=== PATIENT | male | born 1950 | race Caucasian/White ===

== ENCOUNTER 2019-05-16 10:28 | Emergency (ER) | payer MEDICARE, SELFPAY ==
--- NOTE | ~2019-05-16 | XR_ITS ---
EXAMINATION: XR chest 2V EXAM DATE: 05/16/2019 11:50 INDICATION: Dyspnea, pedal edema. TECHNIQUE: Frontal and lateral projections of the chest obtained and reviewed. Comparison is made to prior examination from 05/13/2018. FINDINGS: There is mild cardiomegaly. Pulmonary vascular congestion. Small pleural effusions. There is indistinct reticulation with a bibasal predominance which may indicate pulmonary edema. Findings a re consistent with mild CHF exacerbation, although with improved appearance compared to prior study. No pneumothorax. There is aortic arterial sclerosis. There are mild bony degenerative changes. IMPRESSION: Findings consistent with mild CHF exacerbation. Reviewed, dictated and finalized at location A. ORT DUTY MANAGER
[2019-05-16 10:39] VITALS: BP 127/73; PULSE 105; RESP 22; TEMP 36.6; O2SAT 85
[2019-05-16 10:49] VITALS: PULSE 90
--- NOTE | 2019-05-16 10:53 | ED.SOB ---
HPI - SOB/Dyspnea General Chief Complaint: Shortness of Breath/Dyspnea Stated Complaint: SOB Time Seen by Provider: 05/16/19 10:48 Source: patient and RN notes reviewed Mode of arrival: ambulatory Limitations: no limitations History of Present Illness HPI Narrative: Pt is a 69 y/o male who presents to the ED with c/o SOB which began prior to arrival to the ED. Pt reports he is currently on home oxygen, which alleviates his symptoms. Pt reports he is normally on 2 liters of oxygen, and with exertion, he requires 3-4 liters of oxygen. Pt states his oxygen saturation goes from the 70's to 95, once he is on his home oxygen. Pt also reports bilateral ankle edema. He reports his pattern drum maker, Dr. Sherman, who advised the pt to come to the ED to be evaluated due to possibility of CHF. MD elicited complaint: shortness of breath Onset (ago): hour(s) (prior to arrival) Context: occurred during exertion (and upon rest) Timing: improved Relieving factors: oxygen (home oxygen alleviates or improves his symptoms) Known history of: COPD Associated symptoms: other (bilateral ankle edema) Related Data Home Medications Medication Instructions Recorded Confirmed Novolog Mix 70-30 U-100 Insuln 30 unit SUBCUT BID 02/20/19 04/13/19 aspirin 81 mg PO DAILY 02/20/19 04/13/19 vitamin B complex [B 1,000 tablet PO DAILY 02/20/19 04/13/19 Complex-Vitamin B12] allopurinol 300 mg tablet 300 mg PO DAILY tablet 02/27/19 04/13/19 amlodipine 10 mg tablet 10 mg PO DAILY tablet 02/27/19 04/13/19 atorvastatin 10 mg tablet 10 mg PO DAILY tablet 02/27/19 04/13/19 digoxin 125 mcg (0.125 mg) tablet 125 mcg PO DAILY tablet 02/27/19 04/13/19 metoprolol tartrate 50 mg tablet 75 mg PO BID tablet 02/27/19 04/13/19 venlafaxine 150 mg 150 mg PO DAILY cap 02/27/19 04/13/19 capsule,extended release 24 hr warfarin 1 mg tablet 1 mg PO DAILY tablet 02/27/19 04/13/19 furosemide 40 mg tablet 60 mg PO BID tablet 03/20/19 04/13/19 Allergies Allergy/AdvReac Type Severity Reaction Status Date / Time No Known Allergies Allergy Verified 04/26/19 08:50 Review of Systems Review of Systems: All systems reviewed & are unremarkable except as noted in HPI and below Cardiovascular: Cardiovascular: Reports pedal edema (bilateral ankle edema) Respiratory: Respiratory: Reports dyspnea PMFSH Past Medical History Medical History (Updated 05/16/19 @ 13:00 by Nubia Nguyen MD) Atrial fibrillation Cholelithiasis Chronic atrial fibrillation Three failed cardioversions. He is on long-term anticoagulation. Chronic respiratory failure with hypoxia 2-3 L nasal cannula with rest, 3-4 L with activity. Dependence on nocturnal oxygen therapy Diabetes Diastolic congestive heart failure Echocardiogram 07/31/2018 showed diastolic dysfunction. Left ventricular size was normal with mild concentric left ventricular hypertrophy and increased left heart filling pressures with an estimated ejection fraction of 55%. Right ventricle was moderately enlarged with mild right ventricular hypokinesis. Dyslipidemia Erectile dysfunction Gout History of pancreatitis July 2016, secondary to passed common bile duct stone. Hyperlipidemia Hypertension Insulin dependent diabetes mellitus Hemoglobin A1c was 11.4 in January 2018. Obstructive sleep apnea Osteoarthritis Severe pulmonary arterial systolic hypertension Noted on echocardiogram 07/31/2018 with an estimated peak RVSP of 68 mmHg. Right ventricle was moderately enlarged with mild right ventricular hypokinesis. Sleep apnea Valvular heart disease Echocardiogram 07/31/2018 with [id number] tricuspid regurgitation and possible bicuspid aortic valve. Surgical History Surgical History Status post cataract extraction Social History Social History Social History: The patient lives in [place] with his . He designate
[2019-05-16 10:54] VITALS: BP 158/108; PULSE 89; RESP 20; O2SAT 100
--- NOTE | 2019-05-16 11:02 | ECG_ITS ---
Measurements Intervals [place] Rate: 105 P: [place]: 0 QRS: 184 QRSD: 90 T: 9 QT: 309 QTc: 410 Interpretive Statements ATRIAL FIBRILLATION WITH RAPID VENTRICULAR RESPONSE LIMB LEAD REVERSAL INCOMPLETE RIGHT BUNDLE BRANCH BLOCK ST-T WAVE ABNORMALITY IN ANTEROLATERAL LEADS- CONSIDER ISCHEMIA BASELINE ARTIFACT- I, II, III, AVR, AVL, AVF, V1 ABNORMAL ECG Electronically Signed On 05-16-2019 15:36:36 MOTOR ASSEMBLER by Da Dickey D.O.
[2019-05-16 11:19] LABS: Basophils Absolute Auto 0.1 K/mm3 (0.0-0.1); Basophils Percent Auto 0.6 % (0.2-1.2); Eosinophils Absolute Auto 0.3 K/mm3 (0-0.3); Eosinophils Percent Auto 3.5 % (0-4.4); Hematocrit 40.7 % (42.0-52.0); Hemoglobin 12.9 g/dL (14.0-18.0); Immature Granulocyte Absolute 0.04 K/mm3 (0.00-0.031); Immature Granulocyte Percent A 0.5 % (0-0.5); Lymphocytes Absolute Auto 1.05 K/mm3 (0.9-3.2); Lymphocytes Percent Auto 12.2 % (18.3-44.2); Mean Corpuscular HGB Conc 31.7 g/dl (32-36); Mean Corpuscular Volume 94.7 fl (80-100); Mean Platelet Volume 10.6 fl (7.4-10.4); Monocytes Absolute Auto 0.6 K/mm3 (0.1-0.6); Monocytes Percent Auto 7.3 % (2.6-8.5); Neutrophils Absolute Auto 6.5 K/mm3 (1.3-6.7); Neutrophils Percent Auto 75.9 % (45.5-73.1); Platelet Count Result 246 k/mm3 (150-375); Red Cell Distribution Width 14.5 % (11.5-14.5); White Blood Count 8.6 K/mm3 (4.5-10.0)
[2019-05-16 11:24] LABS: Alveolar/Arterial O2 Gradient 75.2 mmHg; Base Excess ABG 1.7 mEq/l (+/-2.0); Fractional Inspired Oxygen 28 %; HCO3 ABG 27.4 mEq/l (22.0-26.0); Oxygen Content ABG 17.3 %vol (16.0-22.0); Oxygen Saturation ABG 93.3 % (95.0-100.0); Oxyhemoglobin 91.6 % THb (90.0-100.0); PCO2 ABG 47.2 mmHg (35.0-45.0); PO2 ABG 68.7 mmHg (80.0-100.0); PO2 FiO2 Ratio Arterial Blood 2.45 %; Total Hemoglobin 13.4 g/dL (12.0-18.0); pH ABG 7.381 (7.350-7.450)
[2019-05-16 11:25] LABS: Device NASAL CANNULA; Modified Allen's Test Pass; Site Drawn RIGHT RADIAL
[2019-05-16 11:29] VITALS: O2SAT 97
[2019-05-16 11:30] VITALS: BP 122/76; PULSE 88; RESP 16; O2SAT 97
[2019-05-16 11:30] LABS: INR 3.3; Prothrombin Time 33.1 Seconds (11.1-14.7)
[2019-05-16 11:31] LABS: Partial Thromboplastin Time 51.9 SECONDS (22.3-36.8)
[2019-05-16 11:34] LABS: Alanine Aminotransferase 33 U/L (4-50); Alkaline Phosphatase 154 U/L (38-126); Aspartate Amino Transferase 40 U/L (17-59); Bilirubin,Total 0.9 mg/dL (0.2-1.3); Blood Urea Nitrogen 21 mg/dL (9-20); Carbon Dioxide 30 mmol/L (22-30); Chloride 92 mmol/L (98-107); Estimated CRCL calculation 125 ml/min; Estimated Glomerular Filt Rate > 60; Glucose 292 mg/dL (75-110); Sodium 135 mmol/L (137-145)
[2019-05-16 11:46] LABS: NT Pro B Type Natriuretic Pept 1520 PG/ML (5-100); Troponin I < 0.012 ng/mL (0.000-0.034)
[2019-05-16] MEDS: FUROSEMIDE INJ 40 MG/4 ML VIAL IV PUSH (12:23)
[2019-05-16 12:45] LABS: Digoxin < 0.4 ng/mL (0.8-2.0)
--- NOTE | 2019-05-16 13:05 | PC.NURSE ---
pt walked with 3L . sats dropped to 88% with pt compensating quickly to 94% upon resting. edp notified.
[2019-05-16 13:15] VITALS: BP 133/86; PULSE 103; RESP 16; O2SAT 98
== END 2019-05-16 13:15 | disposition home or self-care (01) ==
PROVIDERS: Emergency Provider Emergency Medicine; PCP Family Medicine
DX: I11.0 Hypertensive heart disease with heart failure (principal); I50.9 Heart failure, unspecified; Z87.891 Personal history of nicotine dependence; I48.91 Unspecified atrial fibrillation; Z79.01 Long term (current) use of anticoagulants; E78.5 Hyperlipidemia, unspecified; E11.9 Type 2 diabetes mellitus without complications; Z79.4 Long term (current) use of insulin; G47.33 Obstructive sleep apnea (adult) (pediatric); M19.90 Unspecified osteoarthritis, unspecified site; I45.10 Unspecified right bundle-branch block; R94.31 Abnormal electrocardiogram [ECG] [EKG]
CPT/HCPCS: 36415; 36600; 71046; 80053; 80162; 82805; 83880; 84484; 85025; 85610; 85730; 87804; 93005; 96374; 99284; J1940

== ENCOUNTER 2019-05-17 10:51 | Outpatient (RCR) | payer MEDICARE, SELFPAY ==
[2019-03-22 08:00] VITALS: BMI 37.6
[2019-05-17 10:57] VITALS: BMI 39.6
[2019-05-17 11:02] VITALS: BMI 39.6
== END 2019-06-20 23:59 | disposition home or self-care (01) ==
LOC: ANHDMC 10:51
PROVIDERS: PCP Family Medicine; Visit Provider Family Medicine
DX: E11.65 Type 2 diabetes mellitus with hyperglycemia (principal); Z71.3 Dietary counseling and surveillance
CPT/HCPCS: 97802; 97803

== ENCOUNTER 2019-06-05 13:57 | Outpatient (RCR) | payer MEDICARE, SELFPAY ==
[2019-03-21 12:51] LABS: INR 1.4; Prothrombin Time 16.8 Seconds (11.1-14.7)
[2019-03-21 12:59] LABS: Blood Urea Nitrogen 17 mg/dL (9-20); Calcium 8.8 mg/dL (8.4-10.2); Carbon Dioxide 29 mmol/L (22-30); Chloride 104 mmol/L (98-107); Estimated Glomerular Filt Rate > 60; Glucose 76 mg/dL (75-110); Potassium 4.2 mmol/L (3.4-5.0); Sodium 142 mmol/L (137-145)
[2019-04-02 08:23] LABS: INR 2.1; Prothrombin Time 22.8 Seconds (11.1-14.7)
[2019-05-02 14:14] LABS: INR 2.2; Prothrombin Time 23.6 Seconds (11.1-14.7)
[2019-06-05 15:07] LABS: INR 2.6; Prothrombin Time 27.2 Seconds (11.1-14.7)
== END 2019-06-19 23:59 | disposition home or self-care (01) ==
LOC: ANHLAB 13:57
PROVIDERS: Referring Provider Hospitalist; Visit Provider Specialist
DX: Z51.81 Encounter for therapeutic drug level monitoring (principal); I48.91 Unspecified atrial fibrillation; Z79.01 Long term (current) use of anticoagulants
CPT/HCPCS: 36415; 80048; 85610

== ENCOUNTER 2019-06-11 12:15 | Inpatient (IN) | payer MEDICARE, SELFPAY ==
[2019-06-11] VITALS (12 sets, daily range): BP systolic 110–144; BP diastolic 60–82; PULSE 74–102; RESP 17–23; TEMP 36.4–36.7; O2SAT 77–97; BMI 40.4
--- NOTE | ~2019-06-11 | US_ITS ---
EXAMINATION:US venous doppler LE BI INDICATION:Leg edema TECHNIQUE: Multiple grayscale, color flow and Doppler images of the lower extremity deep venous syste ms were obtained and reviewed. COMPARISON:12/02/2008 FINDINGS: The common femoral, superficial femoral and popliteal veins demonstrate normal respiratory variation, augmentation and compressibility. Color flow is also seen within the posterior tibial, pe roneal, greater saphenous and profunda veins. There are bilateral Farnsworth's cysts. IMPRESSION: 1: No lower extremity deep venous thrombosis. Reviewed, dictated and finalized at location B. SORSHIP COORDINATOR
--- NOTE | ~2019-06-11 | XR_ITS ---
EXAMINATION: XR chest 1V portable DATE: 06/15/2019 14:36 INDICATION: Pleural effusions. TECHNIQUE: A single frontal view of the chest was obtained. COMPARISON: Chest 2 views 06/11/2019, chest CT 06/13/2019 FINDINGS: There is a diffuse interstitial pattern, consistent with mild pulmonary edema. There is a s mall left pleural effusion. There are airspace opacities at the left lung base. No pneumothorax. Card iomegaly is noted. IMPRESSION: 1. Mild pulmonary edema. 2. Stable small left pleural effusion. 3. Worsened airspace opacities at left lung base, consistent with atelectasis or less likely pneumoni a. 4. Cardiomegaly. Reviewed, dictated and finalized at location A. ARCH SUPPORT SPECIALIST IMPRESSION: 1. Mild pulmonary edema. 2. Stable small left pleural effusion. 3. Worsened airspace opacities at left lung base, consistent with atelectasis o r less likely pneumonia. 4. Cardiomegaly.
--- NOTE | ~2019-06-11 | CT_ITS ---
EXAMINATION: CTA chest PE protocol EXAM DATE: 06/13/2019 23:32 INDICATION: Worsening hypoxemia. TECHNIQUE: Spiral CTA of the chest (pulmonary arteries) was performed with 100 cc Omnipaque 350 intr avenous contrast injection. Images were acquired during the pulmonary arterial phase. Coronal maxi mum intensity projection 3D-reconstructions were created by the technologist on dedicated workstation . Axial, coronal and sagittal reformatted images were reviewed. The dose-length product (DLP) for t his examination was 974.17 mGy-cm. The exposure was tailored according to patient size (auto mA exp osure control), and iterative reconstruction (ASIR) was used as additional dose reduction technique. Comparison is made to prior examination from 07/15/2008. FINDINGS: Pulmonary arteries are well opacified and without intraluminal filling defects. No thora cic aortic dissection. There is cardiomegaly and possible mild pulmonary edema. There is mild to mod erate emphysema. Small to moderate bilateral pleural effusions with adjacent atelectasis. Precarinal lymph node or nodes, conglomerate measuring 3.1 x 2.2 cm (measured 2.3 x 1.9 cm in 2009). Smaller but still pathologically enlarged right hilar lymphadenopathy. Most likely sarcoidosis or granulomatous process given chronicity and another peripherally calcified lymph node in subcarinal location. Trac heobronchial tree is patent. There is no pneumothorax. There is mild coronary arterial calcificat ion, arterial sclerosis. Nodular cirrhotic liver. There is mild thoracic spondylosis without osteob lastic or osteolytic lesions identified. IMPRESSION: 1. Findings suspicious for CHF exacerbation. 2. Mild to moderate emphysema. 3. Chronic mediastinal lymphadenopathy, some increase in size compared to 2009. Most likely sarcoido sis or other granulomatous process. 4. Mild to moderate emphysema. 5. Cirrhosis. Reviewed, dictated and finalized at location A. PTIONIST IMPRESSION: 1. Findings suspicious for CHF exacerbation. 2. Mild to moderate emphysema. 3. Chronic mediastinal lymphadenopathy, some increase in size compared to 2009 . Most likely sarcoidosis or other granulomatous process. 4. Mild to moderate emphysema. 5. Cirrhosis.
--- NOTE | ~2019-06-11 | US_ITS ---
EXAMINATION: US right upper quadrant EXAM DATE: 06/14/2019 16:10 INDICATION: New-onset cirrhosis. TECHNIQUE: Multiple grayscale and Doppler images of the abdomen right upper quadrant were obtained (b y a technologist who performed the scan) and subsequently reviewed. Comparison is made to prior exami nation from 07/23/2016. FINDINGS: The pancreatic head and body are normal in appearance. The pancreatic tail is not visualized. The l iver has normal echogenicity and contour. There are no focal liver lesions identified. There is no evidence of intrahepatic biliary duct dilation. Portal venous flow was seen in the hepatopedal, nor mal direction and has normal Doppler waveform. No right-sided hydronephrosis. Common bile duct measures 5 mm, which is normal. The gallbladder wall is normal in thickness, with ex pected amount of distention. No sonographic evidence of pericholecystic fluid. There is cholelithia sis. Technologist performing exam reports patient did not demonstrate sonographic Ramirez's sign. P hi note that this sign is less reliable in patients who have received pain medication. IMPRESSION: 1. Cholelithiasis. Reviewed, dictated and finalized at location A. MIXER IMPRESSION: 1. Cholelithiasis.
--- NOTE | ~2019-06-11 | XR_ITS ---
EXAMINATION: XR chest 2V DATE: 06/11/2019 12:48 INDICATION: Shortness of breath. TECHNIQUE: Frontal and lateral views of the chest were obtained. COMPARISON: Chest 2 views 05/16/2019, CT abdomen and pelvis 07/23/2016 FINDINGS: There are airspace opacities at left lung base. There are small pleural effusions. No pneum othorax. The heart size is normal. IMPRESSION: 1. Airspace opacities at left lung base, consistent with atelectasis versus pneumonia. 2. Small pleural effusions. Reviewed, dictated and finalized at location A. CAL GENETICIST IMPRESSION: 1. Airspace opacities at left lung base, consistent with atelectasis versus pne umonia. 2. Small pleural effusions.
--- NOTE | 2019-06-11 12:21 | ED.SOB ---
HPI - SOB/Dyspnea General Chief Complaint: Shortness of Breath/Dyspnea Stated Complaint: SOB Time Seen by Provider: 06/11/19 12:19 Source: patient and RN notes reviewed Mode of arrival: ambulatory Limitations: no limitations History of Present Illness HPI Narrative: 3A 69 y/o male presents to the ED with worsening SOB for the past 3 weeks. He states that he was admitted to the hospital roughly 4 weeks for similar symptoms but that he has continued to have worsening SOB since he was d/c home that is aggravating with exertion. He reports that he is typically on 3L NC O2 at home but that he has recently bumped up to 4L NC O2 but denies it allevaiting his SOB. He notes that has been having YOBANY pedal edema and that he saw his manager risk management last week who told him that it was pulmonary HTN. He also notes that he called his Senior Statistical Programmer, Dr. Pantoja, today who told him to come to the ED. He denies any weight changes, CP, fevers, chills, N/V/D, or ABD pain. MD elicited complaint: shortness of breath Pertinent past history: COPD, congestive heart failure and diabetes Onset (ago): week(s) (3) Timing: progressively worsening Exacerbating factors: exertion Relieving factors: nothing Known history of: COPD, congestive heart failure and diabetes Associated symptoms: other (YOBANY pedal edema) Treatment prior to arrival: oxygen (4L NC) Related Data Home oxygen amount: 4 liters (normally 3L but bumped himself up to 4L NC) Home Medications Medication Instructions Recorded Confirmed aspirin 81 mg PO DAILY 02/20/19 04/13/19 insulin asp prt-insulin aspart 30 unit SUBCUT BID 02/20/19 04/13/19 [Novolog Mix 70-30 U-100 Insuln] vitamin B complex [B 1,000 tablet PO DAILY 02/20/19 04/13/19 Complex-Vitamin B12] allopurinol 300 mg tablet 300 mg PO DAILY tablet 02/27/19 04/13/19 amlodipine 10 mg tablet 10 mg PO DAILY tablet 02/27/19 04/13/19 digoxin 125 mcg (0.125 mg) tablet 125 mcg PO DAILY tablet 02/27/19 04/13/19 metoprolol tartrate 50 mg tablet 75 mg PO BID tablet 02/27/19 04/13/19 venlafaxine 150 mg 150 mg PO DAILY cap 02/27/19 04/13/19 capsule,extended release 24 hr warfarin 1 mg tablet 1 mg PO DAILY tablet 02/27/19 04/13/19 furosemide 40 mg tablet 60 mg PO BID tablet 03/20/19 04/13/19 Allergies Allergy/AdvReac Type Severity Reaction Status Date / Time No Known Allergies Allergy Verified 06/11/19 12:28 Review of Systems Review of Systems: All systems reviewed & are unremarkable except as noted in HPI and below Constitutional: Constitutional: Denies chills, Denies fever(s), Denies weight gain and Denies weight loss Cardiovascular: Cardiovascular: Denies chest pain and Reports pedal edema (YOBANY) Respiratory: Respiratory: Reports dyspnea Gastrointestinal: Gastrointestinal: Denies abdominal pain, Denies diarrhea, Denies nausea and Denies vomiting PMF Past Medical History Medical History Atrial fibrillation Cholelithiasis Chronic atrial fibrillation Three failed cardioversions. He is on long-term anticoagulation. Chronic respiratory failure with hypoxia 2-3 L nasal cannula with rest, 3-4 L with activity. Dependence on nocturnal oxygen therapy Diabetes Diastolic congestive heart failure Echocardiogram 07/31/2018 showed diastolic dysfunction. Left ventricular size was normal with mild concentric left ventricular hypertrophy and increased left heart filling pressures with an estimated ejection fraction of 55%. Right ventricle was moderately enlarged with mild right ventricular hypokinesis. Dyslipidemia Erectile dysfunction Gout History of pancreatitis July 2016, secondary to passed common bile duct stone. Hyperlipidemia Hypertension Insulin dependent diabetes mellitus Hemoglobin A1c was 11.4 in January 2018. Obstructive sleep apnea Osteoarthritis Severe pulmonary arterial systolic hypertension Noted on echocardiogram 07/31/2018 with an estimated peak RVSP of 68 mmHg. Right ventricle wa
--- NOTE | 2019-06-11 12:28 | ECG_ITS ---
Measurements Intervals [place] Rate: 75 P: [place]: 0 QRS: 30 QRSD: 110 T: 212 QT: 348 QTc: 389 Interpretive Statements ATRIAL FIBRILLATION INCOMPLETE RIGHT BUNDLE BRANCH BLOCK BORDERLINE ST-T WAVE ABNORMALITY- DIFFUSE LEADS BASELINE ARTIFACT- I, II, AVR, AVL, AVF, V1-V6 ABNORMAL ECG Electronically Signed On 06-11-2019 12:59:03 LOIN TRIMMER by Da Dickey D.O.
--- NOTE | 2019-06-11 12:34 | PC.NURSE ---
This RN asked EDP about need for 02 via mask or bipap to improved O2 saturation, EDP stated as long as the patient felt okay on NC, he was okay with current O2 saturation.
[2019-06-11 12:43] LABS: Basophils Absolute Auto 0.1 K/mm3 (0.0-0.1); Basophils Percent Auto 0.8 % (0.2-1.2); Eosinophils Absolute Auto 0.2 K/mm3 (0-0.3); Hematocrit 40.6 % (42.0-52.0); Hemoglobin 12.3 g/dL (14.0-18.0); Immature Granulocyte Absolute 0.05 K/mm3 (0.00-0.031); Immature Granulocyte Percent A 0.7 % (0-0.5); Lymphocytes Absolute Auto 1.17 K/mm3 (0.9-3.2); Lymphocytes Percent Auto 15.9 % (18.3-44.2); Mean Corpuscular HGB Conc 30.3 g/dl (32-36); Mean Corpuscular Hemoglobin 29.1 pg (26-34); Mean Corpuscular Volume 96.2 fl (80-100); Mean Platelet Volume 10.8 fl (7.4-10.4); Monocytes Absolute Auto 0.7 K/mm3 (0.1-0.6); Monocytes Percent Auto 9.2 % (2.6-8.5); Neutrophils Absolute Auto 5.3 K/mm3 (1.3-6.7); Neutrophils Percent Auto 71.4 % (45.5-73.1); Platelet Count Result 328 k/mm3 (150-375); Red Blood Count 4.22 M/mm3 (4.6-6.20); Red Cell Distribution Width 16.5 % (11.5-14.5); White Blood Count 7.4 K/mm3 (4.5-10.0)
[2019-06-11 12:54] LABS: Blood Urea Nitrogen 27 mg/dL (9-20); Calcium 8.8 mg/dL (8.4-10.2); Carbon Dioxide 32 mmol/L (22-30); Chloride 93 mmol/L (98-107); Estimated Glomerular Filt Rate > 60; Glucose 67 mg/dL (75-110); Potassium 4.7 mmol/L (3.4-5.0); Sodium 139 mmol/L (137-145)
[2019-06-11 12:58] LABS: INR 3.2; Prothrombin Time 32.1 Seconds (11.1-14.7)
[2019-06-11] MEDS: NITROGLYCERIN OINTMENT 1 INCH DOSE 0.5 INCH TRANSDERM (13:01)
[2019-06-11] MEDS: FUROSEMIDE INJ 40 MG/4 ML VIAL IV PUSH ×2 (13:01→21:37)
[2019-06-11 13:06] LABS: NT Pro B Type Natriuretic Pept 1890 PG/ML (5-100); Troponin I < 0.012 ng/mL (0.000-0.034)
[2019-06-11 13:09] LABS: Alveolar/Arterial O2 Gradient 192.5 mmHg; Base Excess ABG 2.8 mEq/l (+/-2.0); Fractional Inspired Oxygen 44 %; HCO3 ABG 28.6 mEq/l (22.0-26.0); Oxygen Saturation ABG 92.6 % (95.0-100.0); Oxyhemoglobin 89.6 % THb (90.0-100.0); PCO2 ABG 48.6 mmHg (35.0-45.0); PO2 ABG 65.8 mmHg (80.0-100.0); Total Hemoglobin 12.7 g/dL (12.0-18.0); pH ABG 7.387 (7.350-7.450)
[2019-06-11 13:12] LABS: Device NASAL CANNULA; Modified Allen's Test Pass; Site Drawn LEFT RADIAL
--- NOTE | 2019-06-11 15:35 | ADMGEN ---
This patient, Rivas Hollingsworth, was admitted to Medical Room 340-01. Patient arrived to unit per wheelchair. Patient/family oriented to hospital policies and general routines including ID bracelet, bed and alarms, visiting hours, pain management, procedures, bathroom and other care routines, personal items, smoking policy, room service/diet, and visiting hours. Valuables list has been completed. Information on how to activate the Rapid Response Team has been discussed. Patient/Family are encouraged to report perceived risks to care and to ask questions if they do not understand what they are told or what they should do.
--- NOTE | 2019-06-11 20:38 | PM.CNPUL ---
Assessment and Plan Assessment and plan (1) Acute on chronic respiratory failure with hypoxia and hypercapnia: Code(s): J96.21 - Acute and chronic respiratory failure with hypoxia; J96.22 - Acute and chronic respiratory failure with hypercapnia Status: Acute Assessment and Plan: he has deteriorated over the last several weeks with increased lower extremity edema, shortness of breath, worsening hypoxemia with increased need for oxygen now at 6 L. chest x-ray shows increased pulmonary edema/ atelectasis/ infiltrate in the bases. His history does not suggest pneumonia. His BNP is 1820, not too high, yet higher than it was during his March admission 1540. (2) COPD (chronic obstructive pulmonary disease): Code(s): J44.9 - Chronic obstructive pulmonary disease, unspecified Status: Acute Assessment and Plan: Had PFTs and 6 min walk 04/23/2019; felt great the day of testing. FEV1 73%, decreased FEV1%, extremely low [id number]% with good response to bronchodilator; normal TLC, low RV, DLCO 48% moderately decreased, supplemental oxygen can decreased DLCO. Mild obstructive ventilatory impairment severe in the small airways with good response to bronchodilator. He was on 4 L oxygen at the time of testing. SIX MINUTE WALK showed he needed 2 L at rest 4 L with exertion, he walked 700 ft. Now he can barely walk 30 ft. He has been on Trelegy - 3 controller meds for 2 weeks which was helped however he has been headed downhill with increased leg swelling for 5 weeks. He is using no rescue medication at home, does not have a nebulizer, and this would be beneficial for him at discharge. (3) Severe pulmonary arterial systolic hypertension: Code(s): I27.21 - Secondary pulmonary arterial hypertension Status: Chronic Assessment and Plan: RVSP on Jun 01 echo = 69 mm Hg. (4) Dependence on supplemental oxygen: Code(s): Z99.81 - Dependence on supplemental oxygen Status: Acute Assessment and Plan: He has required increase in his oxygen requirement. He had a home oxygen study April 13 showing 2 L at rest 4 L with exertion, now is requiring 6 L at rest to maintain a saturation of just 90% since admission. His trilogy machine has not been adequate for him over the last 5-6 weeks for unclear reasons. He has had increased leg swelling for several weeks. (5) Obstructive sleep apnea: Code(s): G47.33 - Obstructive sleep apnea (adult) (pediatric) Status: Chronic Assessment and Plan: diagnosed 30 years ago, was using CPAP up until the March admission when we switched him to a trilogy machine which he says worked well for few weeks and then he failed to respond (6) Chronic atrial fibrillation: Code(s): I48.20 - Chronic atrial fibrillation, unspecified Status: Chronic Assessment and Plan: For years, on chronic anticoagulation; warfarin, with elevated protime 32 seconds, PTT 55 seconds, higher than desired (7) Former smoker: Code(s): Z87.891 - Personal history of nicotine dependence Status: Acute Assessment and Plan: 45 pack years, none x 2002 History of Present Illness History of Present Illness Consult date: 06/11/19 Chief complaint: Acute on chronic respiratory failure with hypoxia Narrative: CONSULT: Rivas Hollingsworth is a 69 yo man with COPD, on Home O2 and Trilogy NPPV started at his last admission for hypercapnic hypoxemic respiratory failure due to COPD March 17
[2019-06-11] MEDS: ALBUTEROL SULFATE NEB 2.5 MG/0.5 ML INH 5 MG INHALATION (21:53)
[2019-06-11] MEDS: IPRATROPIUM BR 0.02% INH SOLN 0.5 MG/2.5 ML VIAL INHALATION (21:53)
[2019-06-11 21:57] LABS: Glucose Point of Care 169 (65-105)
[2019-06-12] VITALS (26 sets, daily range): BP systolic 127–138; BP diastolic 65–74; PULSE 72–113; RESP 16–22; TEMP 36.2–36.7; O2SAT 90–94
--- NOTE | 2019-06-12 00:30 | PM.IMHP ---
H&P: HPI History of Present Illness Chief complaint: Acute on chronic respiratory failure with hypoxia Narrative: Rivas Hollingsworth is a 69 year old male with chronic respiratory failure with hypoxia and chronic oxygen dependent. He is followed by Dr. Pantoja. She his here seeing the patient. The patient stated that he was here on his last admission 03/13/2019. The patient stated that he tried Trelegy while in the hospital work very well for him. The patient stated work very well home for couple weeks but then he started to wake up a morning is saturating approximately 70%. He is oxygen dependent had to increase his oxygen up to 6 L during the day. The patient stated he has been using his trilogy faithfully. He sleeps in a separate bed from his and has to have his head propped up is orthopnea. He also has shortness of breath with exertion. Chest x-ray shows increased pulmonary edema/atelectasis/infiltrate in the bases. Nothing to suggest pneumonia. Patient increased swelling to his lower extremities as well. He is on Coumadin is therapeutic. Please see Dr. Pantoja as notes. Patient had multiple medication changes in the office. On May 13 of this year the patient fell on a stove and daughter broke 3 ribs he has been in extreme pain with more shortness of breath. Patient was given IV Lasix and placed on a nitro patch. Patient is known to have severe pulmonary hypertension with right ventricular systolic pressure estimated at 69 mm record. He has diastolic dysfunction. EF of 70 75%. Date of service is 06/11/2019 Review of Systems Review of Systems: Narrative: Patient denies any fever chills. No cough. His orthopnea and shortness of breath with exertion. Increased edema over the last couple weeks. All systems reviewed & are unremarkable except as noted in HPI and below Constitutional: Constitutional: Reports as per HPI and Reports no additional constitutional complaints Eyes: Eyes: Reports as per HPI and Reports no additional eye complaints ENT: Reports system reviewed and no additional complaints, except as documented and Reports Normal hearing present Cardiovascular: Cardiovascular: Reports no additional cardiovascular complaints Respiratory: Respiratory: Reports no additional respiratory complaints and Reports no additional respiratory complaints Gastrointestinal: Gastrointestinal: Reports as per HPI and Reports no additional gastrointestinal complaints Musculoskeletal: Musculoskeletal: Reports no additional musculoskeletal complaints Integumentary/Breasts: Skin/Breast: Reports system reviewed and no additional complaints, except as docu and Reports as per HPI Neurologic: Reports system reviewed and no additional complaints, except as documented, Reports as per HPI and Reports Normal hearing present Psychiatric: Psychiatric: Reports no additional psychiatric complaints and Reports as per HPI Endocrine: Endocrine: Reports no additional endocrine complaints Hematologic/Lymphatic: Hematologic/Lymphatic: Reports no additional hematologic/lymphatic complaints Allergic/Immunologic: Allergic/Immunologic: Reports no additional allergic/immunologic complaints [facility] Past Medical History Medical History (Updated 06/12/19 @ 00:44 by Soha Snyder NP) Atrial fibrillation Cholelithiasis Chronic atrial fibrillation Three failed cardioversions. He is on long-term anticoagulation. Chronic respiratory failure with hypoxia 2-3 L nasal cannula with rest, 3-4 L with activity. Dependence on nocturnal oxygen therapy Diabetes Diastolic congestive heart failure Echocardiogram 07/31/2018 showed diastolic dysfunction. Left ventricular size was normal with mild concentric left ventricular hypertrophy and increased left heart filling pressures with an estimated ejection fraction of 55%. Right ventricle was moderately enlarged with mild right ventricular hypokinesis. See latest echo on 06/01/2019 with an EF of 70-75% and diastolic dy
[2019-06-12 00:49] LABS: INR 3.2; Prothrombin Time 32.5 Seconds (11.1-14.7)
[2019-06-12] MEDS: IPRATROPIUM BR 0.02% INH SOLN 0.5 MG/2.5 ML VIAL INHALATION ×4 (04:22→20:40)
[2019-06-12] MEDS: ALBUTEROL SULFATE NEB 2.5 MG/0.5 ML INH 5 MG INHALATION ×4 (04:23→20:40)
[2019-06-12 07:43] LABS: Glucose Point of Care 162 (65-105)
[2019-06-12] MEDS: DIGOXIN TAB 125 MCG TABLET PO (08:05)
[2019-06-12] MEDS: ASPIRIN 81 MG CHEWABLE TABLET PO (08:05)
[2019-06-12] MEDS: allopurinoL 300 MG TABLET PO (08:05)
[2019-06-12] MEDS: AMLODIPINE BESYLATE 5 MG TABLET PO (08:06)
[2019-06-12] MEDS: VENLAFAXINE HCL XR 75 MG CAP.ER.24H 150 MG PO (08:06)
[2019-06-12] MEDS: METOPROLOL TARTRATE 25 MG TABLET 75 MG PO ×2 (08:07→21:07)
[2019-06-12] MEDS: FUROSEMIDE INJ 40 MG/4 ML VIAL IV PUSH ×2 (08:07→21:07)
[2019-06-12 11:28] LABS: Glucose Point of Care 294 (65-105)
[2019-06-12] MEDS: INSULIN ASPART (*BKC) 100 UNITS/ML SUB-Q ×2 (11:36→17:04)
--- NOTE | 2019-06-12 16:17 | PM.IMPN ---
Progress Note: A&P Assessment and Plan (1) Acute on chronic respiratory failure with hypoxia and hypercapnia: Code(s): J96.21 - Acute and chronic respiratory failure with hypoxia; J96.22 - Acute and chronic respiratory failure with hypercapnia Status: Acute Assessment and Plan: -----Pt appears fluid overloaded and has been placed on IV lasix 40mg BID. Will continue breathing treatements as well. No s/s of Pna at this time. no abx needed. Fluid restriction added. Will wean down to pts own o2 settings. (2) COPD (chronic obstructive pulmonary disease): Code(s): J44.9 - Chronic obstructive pulmonary disease, unspecified Status: Acute Assessment and Plan: -----continue breathing treatments and trilogy. (3) Acute on chronic diastolic CHF (congestive heart failure): Code(s): I50.33 - Acute on chronic diastolic (congestive) heart failure Status: Acute Assessment and Plan: -----Continue with IV Lasix and metoprolol. Will check urine protein to ensure no signs/symptoms of nephrotic symdrome. Albumin normal. Right sided HF likely as well since he has severe lung disease. (4) Insulin dependent diabetes mellitus: Code(s): E11.9 - Type 2 diabetes mellitus without complications; Z79.4 - [facility] (current) use of insulin Status: Chronic Assessment and Plan: Last glucose 243 but low this AM. Continue Accu-Cheks AC and HS. Last A1c 9.7. (5) Obstructive sleep apnea: Code(s): G47.33 - Obstructive sleep apnea (adult) (pediatric) Status: Chronic Assessment and Plan: ------Continue to use Trelegy (6) Chronic respiratory failure with hypoxia: Code(s): J96.11 - Chronic respiratory failure with hypoxia Status: Chronic Assessment and Plan: -------Chronically uses oxygen at home with a trilogy (7) Hypertension: Qualifiers: Hypertension type: essential hypertension Qualified Code(s): I10 - Essential (primary) hypertension Code(s): I10 - Essential (primary) hypertension Status: Chronic Assessment and Plan: 138/69 last BP. Continue with Norvasc and metoprolol. (8) Chronic atrial fibrillation: Code(s): I48.20 - Chronic atrial fibrillation, unspecified Status: Chronic Assessment and Plan: -----Will continue to hold warfarin at this time. May consider adding a small dose tomorrow. Continue to check INR daily. 2/2 to afib. Time Spent With Patient Time with patient: 25 - 35 minutes Subjective Date/time seen: 06/12/19 16:17 Interval history: Pt is a 69 y/o male here for SOB, PERRY and LE edema. Pt was seen today and states he is still having PERRY. He says he was able to walk a decent amount and didn't have much swelling in his LE a few weeks ago but now he has swelling in his legs and at that time he started having SOB. He feels better after the breathing treatments but hasn't seen a lot of change. he denies nausea, CP, vomiting, fevers or chills. Review of Systems Review of Systems: All systems reviewed & are unremarkable except as noted in HPI and below Exam Narrative: Exam Narrative: General: Well developed well nourished patient resting in bed in NAD HEENT: normocephalic Neck: supple Neuro: Alert and oriented x4 CV:irregularly irregular. tele reviewed and had sinus tachycardia up to 120 early 06/11. Afib noted Resp:decreased breath sounds. no crackles Abd: Soft, non distended. No pain to palpation. Positive bowel sounds Extremities:2+ pitting edema up to the knees. no pain to palpation. Objective Data Vital Signs Vital Signs: Vital Signs - 24 hr 06/11/19 16:28 06/11/19 21:55 06/11/19 22:00 Temperature 97.6 F 97.7 F Pulse Rate 74 79 83 Respiratory Rate 18 18 18 Blood Pressure 142/82 H 127/77 Pulse Oximetry 97 90 06/11/19 22:05 06/11/19 23:25 06/12/19 00:00 Temperature Pulse Rate 82 101 H Respiratory Rate 18 Blood Pre
[2019-06-12 16:52] LABS: Glucose Point of Care 243 (65-105)
[2019-06-12] MEDS: VITAMIN B COMPLEX CAPSULE 1 CAP PO (17:03)
[2019-06-13] VITALS (21 sets, daily range): BP systolic 121–157; BP diastolic 65–81; PULSE 73–110; RESP 16–18; TEMP 36.1–36.6; O2SAT 90–93
[2019-06-13] MEDS: IPRATROPIUM BR 0.02% INH SOLN 0.5 MG/2.5 ML VIAL INHALATION ×4 (01:55→21:54)
[2019-06-13] MEDS: ALBUTEROL SULFATE NEB 2.5 MG/0.5 ML INH 5 MG INHALATION ×4 (01:55→21:52)
[2019-06-13 06:12] LABS: Hematocrit 37.3 % (42.0-52.0); Hemoglobin 11.4 g/dL (14.0-18.0); INR 2.1; Mean Corpuscular HGB Conc 30.6 g/dl (32-36); Mean Corpuscular Hemoglobin 29.3 pg (26-34); Mean Corpuscular Volume 95.9 fl (80-100); Mean Platelet Volume 10.8 fl (7.4-10.4); Platelet Count Result 303 k/mm3 (150-375); Prothrombin Time 22.9 Seconds (11.1-14.7); Red Blood Count 3.89 M/mm3 (4.6-6.20); Red Cell Distribution Width 16.4 % (11.5-14.5); White Blood Count 6.6 K/mm3 (4.5-10.0)
[2019-06-13 06:27] LABS: Alanine Aminotransferase 21 U/L (4-50); Albumin Level 4.1 g/dL (3.5-5.1); Alkaline Phosphatase 106 U/L (38-126); Aspartate Amino Transferase 31 U/L (17-59); Bilirubin,Total 1.8 mg/dL (0.2-1.3); Blood Urea Nitrogen 25 mg/dL (9-20); Calcium 8.8 mg/dL (8.4-10.2); Carbon Dioxide 36 mmol/L (22-30); Chloride 94 mmol/L (98-107); Estimated CRCL calculation 99 ml/min; Estimated Glomerular Filt Rate > 60; Glucose 260 mg/dL (75-110); Magnesium 2.1 mg/dL (1.6-2.3); Potassium 4.4 mmol/L (3.4-5.0); Sodium 137 mmol/L (137-145)
[2019-06-13 06:42] LABS: Creatinine Urine 51.7 mg/dL; Total Protein Urine Random 45 mg/dL
[2019-06-13] MEDS: INSULIN ASPART (*BKC) 100 UNITS/ML SUB-Q ×4 (07:28→23:48)
[2019-06-13 08:42] LABS: Glucose Point of Care 237 (65-105)
[2019-06-13] MEDS: allopurinoL 300 MG TABLET PO (08:49)
[2019-06-13] MEDS: ASPIRIN 81 MG CHEWABLE TABLET PO (08:49)
[2019-06-13] MEDS: AMLODIPINE BESYLATE 5 MG TABLET PO (08:49)
[2019-06-13] MEDS: VENLAFAXINE HCL XR 75 MG CAP.ER.24H 150 MG PO (08:49)
[2019-06-13] MEDS: FUROSEMIDE INJ 40 MG/4 ML VIAL IV PUSH ×2 (08:50→21:01)
[2019-06-13] MEDS: DIGOXIN TAB 125 MCG TABLET PO (08:52)
[2019-06-13] MEDS: METOPROLOL TARTRATE 25 MG TABLET 75 MG PO ×2 (08:52→21:00)
[2019-06-13] MEDS: SALINE 0.65% NAS SOLN 44 ML BTL 1 SPRAY NASAL (08:58)
[2019-06-13 11:27] LABS: Glucose Point of Care 318 (65-105)
--- NOTE | 2019-06-13 14:00 | PM.IMPN ---
Progress Note: A&P Assessment and Plan (1) Acute on chronic respiratory failure with hypoxia and hypercapnia: Code(s): J96.21 - Acute and chronic respiratory failure with hypoxia; J96.22 - Acute and chronic respiratory failure with hypercapnia Status: Acute Assessment and Plan: -----Pt appears fluid overloaded and has been placed on IV lasix 40mg BID. Likely d/t severe pulmonary HTN and likely right sided heart failure. Will wean 02 as tolerated for sats >90. Will continue breathing treatements as well. No s/s of Pna at this time. no abx needed. Fluid restriction added yesterday. (2) COPD (chronic obstructive pulmonary disease): Code(s): J44.9 - Chronic obstructive pulmonary disease, unspecified Status: Acute Assessment and Plan: -----continue breathing treatments and trilogy. (3) Acute on chronic diastolic CHF (congestive heart failure): Code(s): I50.33 - Acute on chronic diastolic (congestive) heart failure Status: Acute Assessment and Plan: -----Continue with IV Lasix and metoprolol. Urine protein okay and likely the etiology. Albumin normal. Right sided HF likely as well since he has severe lung disease. (4) Insulin dependent diabetes mellitus: Code(s): E11.9 - Type 2 diabetes mellitus without complications; Z79.4 - [facility] (current) use of insulin Status: Chronic Assessment and Plan: -----Last glucose 318. Will increase SSI and restart home metformin. Continue Accu-Cheks AC and HS. Last A1c 9.7. (5) Obstructive sleep apnea: Code(s): G47.33 - Obstructive sleep apnea (adult) (pediatric) Status: Chronic Assessment and Plan: ------Continue to use Trelegy (6) Chronic respiratory failure with hypoxia: Code(s): J96.11 - Chronic respiratory failure with hypoxia Status: Chronic Assessment and Plan: -------Chronically uses oxygen at home with a trilogy (7) Hypertension: Qualifiers: Hypertension type: essential hypertension Qualified Code(s): I10 - Essential (primary) hypertension Code(s): I10 - Essential (primary) hypertension Status: Chronic Assessment and Plan: -----Last BP 141/80. Continue with Norvasc and metoprolol. (8) Chronic atrial fibrillation: Code(s): I48.20 - Chronic atrial fibrillation, unspecified Status: Chronic Assessment and Plan: -----INR in range today. Will restart warfarin 10mg daily. Recheck INR daily Subjective Date/time seen: 06/13/19 14:00 Interval history: Pt is a 69 y/o male here for SOB, PERRY and LE edema. Patient was seen today and is feeling a little anxious about his progress. He says he has been improving and able to lay more flat lately but is still upset that he is on the oxygen. About 10 weeks ago he was just on oxygen as needed during the day and now he has been noticing he has been requiring 3-5 L. He says about this time 10 weeks ago his legs started swelling as well. He is unsure if he gained weight at this time. He says he usually is able to lay flat. He has been more short of breath with less and less exertion. With that being said, the swelling of his lower extremities have improved today and he is feeling a little better. He had a bowel movement which was normal for him. He has little cough but overall doing well. He usually wears 3 L of oxygen at night with his trilogy and that has not changed. He denies chest pain, nausea or vomiting today. Exam Narrative: Exam Narrative: General: Well developed well nourished patient resting in bed in [facility] HEENT: normocephalic Neck: supple Neuro: Alert and oriented x4 CV:irregularly irregular. tele reviewed and had sinus tachycardia but now regular rate. Afib noted Resp:decreased breath sounds. no crackles or rhonchi. Abd: Soft, non distended. No pain to palpation. Positive bowel sounds Extremities:1+ pitting edema up to the knees
[2019-06-13] MEDS: WARFARIN (*PBKC) 10 MG TABLET PO (16:59)
[2019-06-13] MEDS: VITAMIN B COMPLEX CAPSULE 1 CAP PO (17:00)
[2019-06-13 17:24] LABS: Glucose Point of Care 254 (65-105)
--- NOTE | 2019-06-13 20:53 | PM.PNPUL ---
Progress Note: A&P Assessment and Plan (1) Acute on chronic respiratory failure with hypoxia and hypercapnia: Code(s): J96.21 - Acute and chronic respiratory failure with hypoxia; J96.22 - Acute and chronic respiratory failure with hypercapnia Status: Acute Assessment and Plan: He has deteriorated over the last several weeks with increased lower extremity edema, shortness of breath, worsening hypoxemia with increased need for oxygen now at 8 L. Chest x-ray shows increased pulmonary edema/ atelectasis/ infiltrate in the bases. His history does not suggest pneumonia. His BNP is 1820, not too high, yet higher than it was during his March admission 1540. O2 requirement is higher, will check CTA to exclude PE as a possible issue; even though he is on anticoagulation and was therapeutic on arrival. Some of his presentation is c/w dCHF but it is always difficult to tell how much of his symptoms are coming from heart v lungs. (2) COPD (chronic obstructive pulmonary disease): Code(s): J44.9 - Chronic obstructive pulmonary disease, unspecified Status: Acute Assessment and Plan: Had PFTs and 6 min walk 04/23/2019; felt great the day of testing. FEV1 73%, decreased FEV1%, extremely low PYE72-89% with good response to bronchodilator; normal TLC, low RV, DLCO 48% moderately decreased, supplemental oxygen can decreased DLCO. Mild obstructive ventilatory impairment severe in the small airways with good response to bronchodilator. He was on 4 L oxygen at the time of testing. SIX MINUTE WALK showed he needed 2 L at rest 4 L with exertion, he walked 700 ft. Now he can barely walk 30 ft. He has been on Trelegy - 3 controller meds for 2 weeks which was helped however he has been headed downhill with increased leg swelling for 5 weeks. He is using no rescue medication at home, does not have a nebulizer, and this would be beneficial for him at discharge. (3) Severe pulmonary arterial systolic hypertension: Code(s): I27.21 - Secondary pulmonary arterial hypertension Status: Chronic Assessment and Plan: RVSP on Jun 01 echo = 69 mm Hg. (4) Dependence on supplemental oxygen: Code(s): Z99.81 - Dependence on supplemental oxygen Status: Acute Assessment and Plan: He has required increase in his oxygen requirement. He had a home oxygen study April 13 showing 2 L at rest 4 L with exertion, now is requiring 6 L at rest to maintain a saturation of just 90% since admission. His trilogy machine has not been adequate for him over the last 5-6 weeks for unclear reasons. He has had increased leg swelling for several weeks. (5) Obstructive sleep apnea: Code(s): G47.33 - Obstructive sleep apnea (adult) (pediatric) Status: Chronic Assessment and Plan: diagnosed 30 years ago, was using CPAP up until the March admission when we switched him to a trilogy machine which he says worked well for few weeks and then he failed to respond (6) Chronic atrial fibrillation: Code(s): I48.20 - Chronic atrial fibrillation, unspecified Status: Chronic Assessment and Plan: For years, on chronic anticoagulation; warfarin, with elevated protime 32 seconds, PTT 55 seconds, higher than necessary. (7) Former smoker: Code(s): Z87.891 - Personal history of nicotine dependence Status: Acute Assessment and Plan: 45 pack years, none x 2002 (8) Diastolic congestive heart failure: Qualifiers:
[2019-06-13] MEDS: metFORMIN HCL XR 500 MG TAB.SR.24H 2000 MG PO (21:00)
[2019-06-13 22:52] LABS: Glucose Point of Care 276 (65-105)
[2019-06-14] VITALS (22 sets, daily range): BP systolic 127–139; BP diastolic 75–94; PULSE 68–98; RESP 16–22; TEMP 36.1–36.4; O2SAT 90–94
[2019-06-14] MEDS: IPRATROPIUM BR 0.02% INH SOLN 0.5 MG/2.5 ML VIAL INHALATION ×3 (02:44→22:15)
[2019-06-14] MEDS: ALBUTEROL SULFATE NEB 2.5 MG/0.5 ML INH 5 MG INHALATION (02:44)
[2019-06-14 06:25] LABS: Hematocrit 36.6 % (42.0-52.0); Hemoglobin 11.2 g/dL (14.0-18.0)
[2019-06-14 06:37] LABS: Alanine Aminotransferase 20 U/L (4-50); Albumin Level 3.9 g/dL (3.5-5.1); Alkaline Phosphatase 108 U/L (38-126); Aspartate Amino Transferase 30 U/L (17-59); Bilirubin,Total 1.8 mg/dL (0.2-1.3); Blood Urea Nitrogen 27 mg/dL (9-20); Calcium 8.5 mg/dL (8.4-10.2); Carbon Dioxide 35 mmol/L (22-30); Chloride 93 mmol/L (98-107); Estimated CRCL calculation 99 ml/min; Estimated Glomerular Filt Rate > 60; Glucose 192 mg/dL (75-110); Potassium 4.4 mmol/L (3.4-5.0); Sodium 140 mmol/L (137-145)
[2019-06-14 06:41] LABS: INR 1.5
--- NOTE | 2019-06-14 07:07 | PC.NURSE ---
called and stated patient had called her somewhat confused. He did have to have his oxygen increased and Dr Pantoja was at the bedside. Will let Sherly know what is going on.
[2019-06-14 08:06] LABS: Glucose Point of Care 216 (65-105)
[2019-06-14] MEDS: AMLODIPINE BESYLATE 5 MG TABLET PO (08:11)
[2019-06-14] MEDS: DIGOXIN TAB 125 MCG TABLET PO (08:11)
[2019-06-14] MEDS: allopurinoL 300 MG TABLET PO (08:11)
[2019-06-14] MEDS: METOPROLOL TARTRATE 25 MG TABLET 75 MG PO ×2 (08:12→21:44)
[2019-06-14] MEDS: VENLAFAXINE HCL XR 75 MG CAP.ER.24H 150 MG PO (08:12)
[2019-06-14] MEDS: FUROSEMIDE INJ 40 MG/4 ML VIAL IV PUSH ×4 (08:12→23:46)
[2019-06-14] MEDS: ASPIRIN 81 MG CHEWABLE TABLET PO (08:12)
[2019-06-14] MEDS: INSULIN ASPART (*BKC) 100 UNITS/ML SUB-Q ×2 (08:17→16:52)
--- NOTE | 2019-06-14 09:44 | PM.IMPN ---
Progress Note: A&P Assessment and Plan (1) Acute on chronic respiratory failure with hypoxia and hypercapnia: Code(s): J96.21 - Acute and chronic respiratory failure with hypoxia; J96.22 - Acute and chronic respiratory failure with hypercapnia Status: Acute Assessment and Plan: -----Pt appeared fluid overloaded at the begining of his stay and his LE edema has significantly improved without much benefit with his SOB. Will continue IV lasix since CTA yesterday shows CHF exacerbation. Likely d/t severe pulmonary HTN and likely right sided heart failure. CT worrisome for sarcodosis and may need to be worked up if still present on repeat imaging outside the CHF window but since it was there in 2008, may want to explore further. Unable to wean o2 at this time. Will continue breathing treatments as well and will try and get a sputum. No s/s of Pna at this time. no abx needed. Fluid restriction continued. -Spoke with pulmonology, will talk to them after their assessment. May consider starting steroids? (2) COPD (chronic obstructive pulmonary disease): Code(s): J44.9 - Chronic obstructive pulmonary disease, unspecified Status: Acute Assessment and Plan: -----continue breathing treatments and trilogy. (3) Acute on chronic diastolic CHF (congestive heart failure): Code(s): I50.33 - Acute on chronic diastolic (congestive) heart failure Status: Acute Assessment and Plan: -----Continue with IV Lasix and metoprolol. Urine protein okay and likely the etiology. Albumin normal. Right sided HF likely as well since he has severe lung disease. 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 SSI increased yesterday. Last A1c 9.7. (5) Obstructive sleep apnea: Code(s): G47.33 - Obstructive sleep apnea (adult) (pediatric) Status: Chronic Assessment and Plan: ------Continue to use Trelegy (6) Chronic respiratory failure with hypoxia: Code(s): J96.11 - Chronic respiratory failure with hypoxia Status: Chronic Assessment and Plan: -------Chronically uses oxygen at home with a trilogy (7) Hypertension: Qualifiers: Hypertension type: essential hypertension Qualified Code(s): I10 - Essential (primary) hypertension Code(s): I10 - Essential (primary) hypertension Status: Chronic Assessment and Plan: -----Last BP 133/79 . Continue with Norvasc and metoprolol. (8) Chronic atrial fibrillation: Code(s): I48.20 - Chronic atrial fibrillation, unspecified Status: Chronic Assessment and Plan: -----INR subtheraputic 1.5. Continue warfarin 10mg daily. Recheck INR daily. (9) Cirrhosis: Code(s): K74.60 - Unspecified cirrhosis of liver Status: Acute Assessment and Plan: -----patient states he has never been told he has cirrhosis and does not recall having a lot of problems with abdominal distension or decreased appetite. I will start the workup with tomorrow morning's labs and then he can follow-up with his primary care physician for further evaluation. Subjective Date/time seen: 06/14/19 09:44 Interval history: Pt is a 69 y/o male here for SOB, PERRY and LE edema. Patient was seen today and said he felt SOB last evening but is better today. He says he has no SOB at rest with 6L but when he gets up and moves he feels more SOB. He is able to walk to the bathroom. His LE swelling has improved since admission. He can still not lay flat. His cough is worse after breathing tx and occasionally brings up sputum. He has never been diagnosed with cirrhosis or sarcodosis. He has a hx of socially drinking when he was young but nothing significant. No past IV drug use. He denies CP, diarrhea, const
[2019-06-14] MEDS: BUDESONIDE RESPULE NEB 0.5 MG/2 ML AMP INHALATION ×2 (10:23→22:15)
[2019-06-14 12:18] LABS: Glucose Point of Care 245 (65-105)
[2019-06-14] MEDS: WATER, STERILE FOR INJECTION 10 ML VIAL XX ×2 (13:58→16:50)
--- NOTE | 2019-06-14 15:38 | PM.PNPUL ---
Progress Note: A&P Assessment and Plan (1) COPD (chronic obstructive pulmonary disease): Code(s): J44.9 - Chronic obstructive pulmonary disease, unspecified Status: Acute Assessment and Plan: - agree with albuterol/ipratropium at 2.5/0.5 mg Q6h - will add pulmicort 0.5 mg nebs Q12h (2) Diastolic congestive heart failure: Qualifiers: Heart failure chronicity: unspecified Qualified Code(s): I50.30 - Unspecified diastolic (congestive) heart failure Code(s): I50.30 - Unspecified diastolic (congestive) heart failure Status: Chronic Assessment and Plan: - increase lasix 40 mg IV Q6h - diamox 500 mg IV Q12h - daily weight to make sure diuresis is effective (3) Mediastinal adenopathy: Code(s): R59.0 - Localized enlarged lymph nodes Status: Acute Assessment and Plan: I don't see any lung parenchyma changes to suggest Sarcoid. The adenopathy may be due to acute CHF, recent pneumonia, lymphoma or benign inflammation. He does not fit the typical picture of Sarcoidosis but the precarinal lymph node does warrant a biopsy if it does not decrease in size in 2-3 months and if his respiratory status and oxygenation stabilizes. He would need an EBUS and be off of Warfarin and ASA for 7 days. Plan now is to treat the CHF and repeat CT chest with IV contrast in 2-3 months as an outpatient. Time Spent With Patient Time with patient: 25 - 35 minutes Subjective Date/time seen: 06/14/19 15:38 Interval history: Pt is slowly feeling better but still feels short of breath with minimal exertion. Along with increasing LE edema, he had increasing orthopnea for the last few weeks being able to only sleep in a recliner chair. He also had PND. His CT chest shows an overwhelming picture of pulmonary vascular congestion along with bilateral pleural effusions, cardiomegaly and some atelectasis. He does have a large precarinal lymph node but the other lymph nodes are minimally enlarged which can be seen with CHF. He does admit to non adherence with low salt diet but says he takes his medications as prescribed. He denies symptoms of chest infection but did have pneumonia requiring hospitalization in March 2019. Review of Systems Review of Systems: All systems reviewed & are unremarkable except as noted in HPI and below Exam Const: General: comfortable and no acute distress HENMT: Mouth: Yes moist mucous membranes Neck: Neck: supple and no JVD Resp: Auscultation: crackles (inspiratory crackles up to mid lung bases ) bilateral and diminished lung sounds Cardio: Rate: regular rate Rhythm: regular rhythm Heart sounds: no gallops and no murmurs Skin: General skin exam: normal color and no rashes or lesions noted Neuro: Speech: normal speech Extrem: General: pedal edema (3+) bilaterally Psych: Mental Status: mental status grossly normal Affect: normal affect Objective Data Vital Signs Vital Signs: Vital Signs - 24 hr 06/13/19 16:00 06/13/19 20:00 06/13/19 21:00 Temperature Pulse Rate 110 H 85 90 Respiratory Rate Blood Pressure Pulse Oximetry 06/13/19 21:55 06/13/19 21:57 06/13/19 22:00 Temperature 36.1 C L Pulse Rate 85 93 Respiratory Rate 18 18 Blood Pressure 157/81 H Pulse Oximetry 91 06/13/19 22:02 06/14/19 00:00 06/14/19 02:45 Temperature Pulse Rate 85 84 Respiratory Rate 18 Blood Pressure Pulse Oximetry 93 06/14/19 02:47 06/14/19 02:48 06/14/19 02:55 Temperature Pulse Rate 84 78 Respiratory Rate 18 18 Blood Pressure Pulse Oximetry 93 06/14/19 04:00 06/14/19 05:12 06/14/19 08:00 Temperature 36.1 C L Pulse Rate 84 98 94 Respiratory Rate 19 Blood Pressure 133/79 Pulse Oximetry 92 06/14/19 08:11 06/14/19 08:12 06/14/19 10:25 Temperature Pulse Rate 84 84 80 Respiratory Rate 20 Blood Pressure Pulse Oximetry 06/14/19 10:26 06/14/19 10:34 06/14/19 12:00 Temperatu
--- NOTE | 2019-06-14 16:29 | PCRCNOTE ---
Window of time for administration has passed. See next scheduled administration.
[2019-06-14] MEDS: WARFARIN (*PBKC) 10 MG TABLET PO (16:48)
[2019-06-14 16:56] LABS: Glucose Point of Care 235 (65-105)
[2019-06-14] MEDS: VITAMIN B COMPLEX CAPSULE 1 CAP PO (17:33)
[2019-06-14] MEDS: metFORMIN HCL XR 500 MG TAB.SR.24H 2000 MG PO (21:44)
[2019-06-14] MEDS: ALBUTEROL SULFATE NEB 2.5 MG/0.5 ML INH INHALATION (22:15)
[2019-06-15] VITALS (18 sets, daily range): BP systolic 122–147; BP diastolic 66–72; PULSE 67–93; RESP 16–24; TEMP 36.2–36.6; O2SAT 82–96
[2019-06-15 01:20] LABS: Glucose Point of Care 278 (65-105)
[2019-06-15] MEDS: ALBUTEROL SULFATE NEB 2.5 MG/0.5 ML INH INHALATION ×4 (03:43→20:16)
[2019-06-15] MEDS: IPRATROPIUM BR 0.02% INH SOLN 0.5 MG/2.5 ML VIAL INHALATION ×4 (03:43→20:16)
[2019-06-15 06:04] LABS: Blood Urea Nitrogen 26 mg/dL (9-20); Calcium 8.8 mg/dL (8.4-10.2); Carbon Dioxide 38 mmol/L (22-30); Chloride 97 mmol/L (98-107); Estimated CRCL calculation 80 ml/min; Estimated Glomerular Filt Rate > 60; Glucose 221 mg/dL (75-110); Potassium 3.9 mmol/L (3.4-5.0); Sodium 139 mmol/L (137-145)
[2019-06-15 06:21] LABS: Iron 64 ug/dL (49-181)
[2019-06-15 06:34] LABS: Hepatitis B Surface Antigen Negative (Negative)
[2019-06-15 06:39] LABS: HAV RESULT Negative (Negative); Hepatitis B Core IgM Result Negative (Negative)
[2019-06-15 06:51] LABS: Hepatitis C Virus Antibody Negative (Negative)
[2019-06-15] MEDS: FUROSEMIDE INJ 40 MG/4 ML VIAL IV PUSH ×3 (06:59→21:44)
[2019-06-15 08:00] LABS: Glucose Point of Care 216 (65-105)
[2019-06-15] MEDS: INSULIN ASPART (*BKC) 100 UNITS/ML SUB-Q ×3 (08:15→17:24)
[2019-06-15] MEDS: ASPIRIN 81 MG CHEWABLE TABLET PO (08:18)
[2019-06-15] MEDS: allopurinoL 300 MG TABLET PO (08:18)
[2019-06-15] MEDS: AMLODIPINE BESYLATE 5 MG TABLET PO (08:18)
[2019-06-15] MEDS: METOPROLOL TARTRATE 25 MG TABLET 75 MG PO ×2 (08:19→21:43)
[2019-06-15] MEDS: DIGOXIN TAB 125 MCG TABLET PO (08:19)
[2019-06-15] MEDS: VENLAFAXINE HCL XR 75 MG CAP.ER.24H 150 MG PO (08:21)
[2019-06-15] MEDS: BUDESONIDE RESPULE NEB 0.5 MG/2 ML AMP INHALATION ×2 (09:31→20:16)
[2019-06-15] MEDS: WATER, STERILE FOR INJECTION 10 ML VIAL XX ×2 (11:23→17:10)
[2019-06-15 12:03] LABS: Glucose Point of Care 314 (65-105)
--- NOTE | 2019-06-15 13:13 | PM.IMPN ---
Progress Note: A&P Assessment and Plan (1) Acute on chronic respiratory failure with hypoxia and hypercapnia: Code(s): J96.21 - Acute and chronic respiratory failure with hypoxia; J96.22 - Acute and chronic respiratory failure with hypercapnia Status: Acute Assessment and Plan: -----Pt's hypervolemia is improving with the diuretics and fluid restriction. He has minimal swelling in his lower extremities today and less crackles. I spoke to pulmonology about the plan of care. For I plan to keep it as it is and will adjust accordingly. CTA showed CHF exacerbation. Likely d/t severe pulmonary HTN and likely right sided heart failure. CT worrisome for sarcodosis and may need to be worked up if still present on repeat imaging outside the CHF window but since it was there in 2008, may want to explore further. Unable to wean o2 at this time. Will continue breathing treatments as well and will try and get a sputum. No s/s of Pna at this time. no abx needed. Fluid restriction continued. (2) COPD (chronic obstructive pulmonary disease): Code(s): J44.9 - Chronic obstructive pulmonary disease, unspecified Status: Acute Assessment and Plan: -----continue breathing treatments and BiPAP. Trilogy is being evaluated (3) Acute on chronic diastolic CHF (congestive heart failure): Code(s): I50.33 - Acute on chronic diastolic (congestive) heart failure Status: Acute Assessment and Plan: -----Continue with IV Lasix and metoprolol. Urine protein okay and likely the etiology. Albumin normal. Right sided HF likely as well since he has severe lung disease. 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 SSI increased 3/4. Will start Lantus tonight. last A1c 9.7. (5) Obstructive sleep apnea: Code(s): G47.33 - Obstructive sleep apnea (adult) (pediatric) Status: Chronic Assessment and Plan: ------Continue to use bipap until Trelegy adjusted (6) Chronic respiratory failure with hypoxia: Code(s): J96.11 - Chronic respiratory failure with hypoxia Status: Chronic Assessment and Plan: -------Chronically uses oxygen at home with a trilogy (7) Hypertension: Qualifiers: Hypertension type: essential hypertension Qualified Code(s): I10 - Essential (primary) hypertension Code(s): I10 - Essential (primary) hypertension Status: Chronic Assessment and Plan: -----Last BP 122/69 . Continue with Norvasc and metoprolol. (8) Chronic atrial fibrillation: Code(s): I48.20 - Chronic atrial fibrillation, unspecified Status: Chronic Assessment and Plan: -----INR subtheraputic 1.5 yesterday. Continue warfarin 10mg daily. Recheck INR tomorrow (9) Cirrhosis: Code(s): K74.60 - Unspecified cirrhosis of liver Status: Acute Assessment and Plan: -----patient states he has never been told he has cirrhosis and does not recall having a lot of problems with abdominal distension or decreased appetite. w/u pending. follow-up with his primary care physician for further evaluation. Subjective Date/time seen: 06/15/19 13:13 Interval history: Patient is a 69-year-old male here for respiratory failure and CHF exacerbation. Patient was seen today on the BiPAP and seems little confused today but able to answer all my questions. Patient states he was not feeling short of breath today any more than usual. He has not had any increase in his symptoms. He is still coughing occasionally. He has not got up to walk to the bathroom yet today so he is unable to assess his dyspnea on exertion. His last bowel movement was yesterday. He says he is eating and drinking fine other than
--- NOTE | 2019-06-15 14:39 | PM.PNPUL ---
Progress Note: A&P Assessment and Plan (1) COPD (chronic obstructive pulmonary disease): Code(s): J44.9 - Chronic obstructive pulmonary disease, unspecified Status: Acute Assessment and Plan: - agree with albuterol/ipratropium at 2.5/0.5 mg Q6h - will add pulmicort 0.5 mg nebs Q12h (2) Diastolic congestive heart failure: Qualifiers: Heart failure chronicity: unspecified Qualified Code(s): I50.30 - Unspecified diastolic (congestive) heart failure Code(s): I50.30 - Unspecified diastolic (congestive) heart failure Status: Chronic Assessment and Plan: - increase in serum bicarb noted - decreas lasix 40 mg IV Q8h - spironolactone 25 mg PO OD - continue diamox 500 mg IV Q12h - daily weight to make sure diuresis is effective (3) Mediastinal adenopathy: Code(s): R59.0 - Localized enlarged lymph nodes Status: Acute Assessment and Plan: I don't see any lung parenchyma changes to suggest Sarcoid. The adenopathy may be due to acute CHF, recent pneumonia, lymphoma or benign inflammation. He does not fit the typical picture of Sarcoidosis but the precarinal lymph node does warrant a biopsy if it does not decrease in size in 2-3 months and if his respiratory status and oxygenation stabilizes. He would need an EBUS and be off of Warfarin and ASA for 7 days. Plan now is to treat the CHF and repeat CT chest with IV contrast in 2-3 months as an outpatient. (4) Obstructive sleep apnea: Code(s): G47.33 - Obstructive sleep apnea (adult) (pediatric) Status: Chronic Assessment and Plan: - switch to BIPAP /8, back rate of 14 and titrate FiO2 for 90-93%. It's Ok if O2 sats go above > 93% as it is difficult so sometimes stay in range. - changed to full face mask - hold off on home Trilogy for now. Settings at home will need to be changed to reflect hospital settings eventually. Time Spent With Patient Time with patient: Greater than 35 minutes Subjective Date/time seen: 06/15/19 14:39 Interval history: He had trouble with low O2 sats last night while sleep but he denies increased dyspnea. He's on nasal mask with home trelegy. After trouble shooting this morning in his room with RT I switched him to BIPAP 20/8 backup rate of 14 and titrate FiO2 for O2 sats of 90-93%. He seemed to tolerate those settings and a full face mask. Review of Systems Review of Systems: All systems reviewed & are unremarkable except as noted in HPI and below Exam Narrative: Exam Narrative: sleepy Const: General: comfortable and no acute distress Neck: Neck: supple and no JVD Resp: Auscultation: crackles and diminished lung sounds Cardio: Rate: regular rate Rhythm: regular rhythm GI: Auscultation: normal bowel sounds Neuro: Cognition (Neuro): normal cognition Speech: normal speech Extrem: General: normal to inspection, edema and pedal edema (3+) Psych: Mental Status: mental status grossly normal Affect: normal affect Objective Data Vital Signs Vital Signs: Vital Signs - 24 hr 06/14/19 16:00 06/14/19 20:00 06/14/19 21:33 Temperature 36.4 C Pulse Rate 79 91 71 Respiratory Rate 18 Blood Pressure 127/75 Pulse Oximetry 94 06/14/19 21:44 06/14/19 22:15 06/14/19 22:50 Temperature Pulse Rate 94 68 Respiratory Rate 22 H Blood Pressure Pulse Oximetry 90 06/14/19 23:05 06/15/19 00:00 06/15/19 00:13 Temperature Pulse Rate 85 Respiratory Rate Blood Pressure Pulse Oximetry 92 82 L 06/15/19 03:44 06/15/19 03:56 06/15/19 04:13 Temperature 36.6 C Pulse Rate 74 77 85 Respiratory Rate 23 H 21 H 16 Blood Pressure 122/69 Pulse Oximetry 92 96 06/15/19 08:00 06/15/19 08:19 06/15/19 10:20 Temperature Pulse Rate 90 83 67 Respiratory Rate 21 H Blood Pressure Pulse Oximetry 92 06/15/19 14:00 Temperature 36.2 C L Pulse Rate 85 Respiratory Rate 16 Blood Pressure 147/66 H Pulse Oximetry 93 In
--- NOTE | 2019-06-15 16:03 | PCRCNOTE ---
RESPIRATORY THERAPIST FROM [facility] IS TO COME TO HOSPITAL TODAY PER DR KING REQUEST TO ADJUST PATIENTS HOME TRILOGY SETTINGS AND WILL ALSO BE SENDING A USAGE COMPLIANCE REPORT
[2019-06-15] MEDS: WARFARIN (*PBKC) 10 MG TABLET PO (17:08)
[2019-06-15] MEDS: VITAMIN B COMPLEX CAPSULE 1 CAP PO (17:10)
[2019-06-15 17:23] LABS: Glucose Point of Care 255 (65-105)
[2019-06-15] MEDS: INSULIN GLARGINE (*BKC) 100 UNITS/ML 10 UNITS SUB-Q (21:42)
[2019-06-15] MEDS: metFORMIN HCL XR 500 MG TAB.SR.24H 2000 MG PO (21:44)
[2019-06-15 22:17] LABS: Glucose Point of Care 253 (65-105)
[2019-06-16] VITALS (24 sets, daily range): BP systolic 117–126; BP diastolic 76–86; PULSE 67–90; RESP 18–22; TEMP 36.4–36.8; O2SAT 90–95
[2019-06-16] MEDS: ALBUTEROL SULFATE NEB 2.5 MG/0.5 ML INH INHALATION ×4 (01:07→19:06)
[2019-06-16] MEDS: IPRATROPIUM BR 0.02% INH SOLN 0.5 MG/2.5 ML VIAL INHALATION ×4 (01:07→19:06)
[2019-06-16 05:50] LABS: Hemoglobin 11.1 g/dL (14.0-18.0); Mean Corpuscular Hemoglobin 29.6 pg (26-34); Mean Corpuscular Volume 98.7 fl (80-100); Mean Platelet Volume 10.6 fl (7.4-10.4); Platelet Count Result 262 k/mm3 (150-375); Red Blood Count 3.75 M/mm3 (4.6-6.20); White Blood Count 7.8 K/mm3 (4.5-10.0)
[2019-06-16 06:03] LABS: INR 1.9; Prothrombin Time 21.4 Seconds (11.1-14.7)
[2019-06-16 06:06] LABS: Blood Urea Nitrogen 28 mg/dL (9-20); Calcium 8.7 mg/dL (8.4-10.2); Carbon Dioxide 36 mmol/L (22-30); Chloride 97 mmol/L (98-107); Estimated CRCL calculation 79 ml/min; Estimated Glomerular Filt Rate > 60; Glucose 262 mg/dL (75-110); Potassium 4.2 mmol/L (3.4-5.0); Sodium 137 mmol/L (137-145)
[2019-06-16] MEDS: FUROSEMIDE INJ 40 MG/4 ML VIAL IV PUSH ×3 (06:52→21:47)
[2019-06-16 08:14] LABS: Glucose Point of Care 214 (65-105)
[2019-06-16] MEDS: DIGOXIN TAB 125 MCG TABLET PO (08:46)
[2019-06-16] MEDS: METOPROLOL TARTRATE 25 MG TABLET 75 MG PO ×2 (08:47→21:46)
[2019-06-16] MEDS: ASPIRIN 81 MG CHEWABLE TABLET PO (08:47)
[2019-06-16] MEDS: VENLAFAXINE HCL XR 75 MG CAP.ER.24H 150 MG PO (08:48)
[2019-06-16] MEDS: allopurinoL 300 MG TABLET PO (08:48)
[2019-06-16] MEDS: AMLODIPINE BESYLATE 5 MG TABLET PO (08:48)
[2019-06-16] MEDS: SPIRONOLACTONE 25 MG TABLET PO (08:48)
[2019-06-16] MEDS: INSULIN ASPART (*BKC) 100 UNITS/ML SUB-Q ×3 (08:49→17:03)
[2019-06-16] MEDS: WATER, STERILE FOR INJECTION 10 ML VIAL XX (08:59)
--- NOTE | 2019-06-16 09:03 | PM.PNPUL ---
Progress Note: A&P Assessment and Plan (1) COPD (chronic obstructive pulmonary disease): Code(s): J44.9 - Chronic obstructive pulmonary disease, unspecified Status: Acute Assessment and Plan: - agree with albuterol/ipratropium at 2.5/0.5 mg Q6h - will add pulmicort 0.5 mg nebs Q12h (2) Diastolic congestive heart failure: Qualifiers: Heart failure chronicity: unspecified Qualified Code(s): I50.30 - Unspecified diastolic (congestive) heart failure Code(s): I50.30 - Unspecified diastolic (congestive) heart failure Status: Chronic Assessment and Plan: - increase in serum bicarb noted - decreas lasix 40 mg IV Q8h - spironolactone 25 mg PO OD - continue diamox 500 mg IV Q12h - daily weight to make sure diuresis is effective (3) Mediastinal adenopathy: Code(s): R59.0 - Localized enlarged lymph nodes Status: Acute Assessment and Plan: I don't see any lung parenchyma changes to suggest Sarcoid. The adenopathy may be due to acute CHF, recent pneumonia, lymphoma or benign inflammation. He does not fit the typical picture of Sarcoidosis but the precarinal lymph node does warrant a biopsy if it does not decrease in size in 2-3 months and if his respiratory status and oxygenation stabilizes. He would need an EBUS and be off of Warfarin and ASA for 7 days. Plan now is to treat the CHF and repeat CT chest with IV contrast in 2-3 months as an outpatient. (4) Obstructive sleep apnea: Code(s): G47.33 - Obstructive sleep apnea (adult) (pediatric) Status: Chronic Assessment and Plan: - switch to BIPAP 20/8, back rate of 14 and titrate FiO2 for 90-93%. It's Ok if O2 sats go above > 93% as it is difficult so sometimes stay in range. - changed to full face mask - hold off on home Trilogy for now. Settings at home will need to be changed to reflect hospital settings eventually. Subjective Date/time seen: 06/16/19 09:03 Interval history: Feeling better. There was some confusion about his night time NIV treatment. He was placed on Trilogy last night but I clarified with his nurse this morning that I would like him to be on the BIPAP through our vision machine with 20/8, back rate of 14 using a full face mask. Review of Systems Review of Systems: All systems reviewed & are unremarkable except as noted in HPI and below Exam Narrative: Exam Narrative: sleepy Const: General: comfortable and no acute distress Neck: Neck: supple and no JVD Resp: Auscultation: crackles and diminished lung sounds Cardio: Rate: regular rate Rhythm: regular rhythm GI: Auscultation: normal bowel sounds Neuro: Cognition (Neuro): normal cognition Speech: normal speech Extrem: General: normal to inspection, edema and pedal edema (3+) Psych: Mental Status: mental status grossly normal Affect: normal affect Objective Data Vital Signs Vital Signs: Vital Signs - 24 hr 06/15/19 10:20 06/15/19 12:00 06/15/19 14:00 Temperature 36.2 C L Pulse Rate 67 85 85 Respiratory Rate 24 H 16 Blood Pressure 147/66 H Pulse Oximetry 92 93 06/15/19 15:23 06/15/19 15:30 06/15/19 16:00 Temperature Pulse Rate 79 68 93 Respiratory Rate 20 20 Blood Pressure Pulse Oximetry 06/15/19 20:00 06/15/19 20:16 06/15/19 20:28 Temperature 36.3 C L Pulse Rate 88 82 89 Respiratory Rate 20 22 H Blood Pressure 124/72 Pulse Oximetry 91 90 06/15/19 21:43 06/16/19 00:00 06/16/19 01:10 Temperature Pulse Rate 89 90 68 Respiratory Rate 20 Blood Pressure Pulse Oximetry 06/16/19 01:20 06/16/19 04:08 06/16/19 04:56 Temperature 36.4 C Pulse Rate 67 79 85 Respiratory Rate 20 18 Blood Pressure 117/86 Pulse Oximetry 90 95 06/16/19 08:46 06/16/19 08:47 Temperature Pulse Rate 82 83 Respiratory Rate Blood Pressure Pulse Oximetry Intake/Output Intake/Output: Intake & Output 06/13/19 06/14/19 06/15/19 06/16/19 23:59 23:
[2019-06-16] MEDS: BUDESONIDE RESPULE NEB 0.5 MG/2 ML AMP INHALATION ×2 (09:11→19:06)
--- NOTE | 2019-06-16 12:20 | PM.IMPN ---
Progress Note: A&P Assessment and Plan (1) Acute on chronic respiratory failure with hypoxia and hypercapnia: Code(s): J96.21 - Acute and chronic respiratory failure with hypoxia; J96.22 - Acute and chronic respiratory failure with hypercapnia Status: Acute Assessment and Plan: -----Pt's hypervolemia is improving with the diuretics and fluid restriction. He has minimal swelling in his lower extremities today but still has crackles. Will continue BiPAP at this time. He used trilogy last night and had a lot of hypoxia and noted. CTA showed CHF exacerbation. Likely d/t severe pulmonary HTN and likely right sided heart failure. CT worrisome for sarcodosis and may need to be worked up if still present on repeat imaging outside the CHF window but since it was there in 2008, may want to explore further. Unable to wean o2 at this time. Will continue breathing treatments as well. Sputum noncontributory. no s/s of Pna at this time. no abx needed. Fluid restriction continued. (2) COPD (chronic obstructive pulmonary disease): Code(s): J44.9 - Chronic obstructive pulmonary disease, unspecified Status: Acute Assessment and Plan: -----continue breathing treatments and BiPAP. Nursing staff planned to put him on BiPAP at night. Trilogy is being evaluated (3) Acute on chronic diastolic CHF (congestive heart failure): Code(s): I50.33 - Acute on chronic diastolic (congestive) heart failure Status: Acute Assessment and Plan: -----Continue with IV Lasix, acetazolamide, spironolactone and metoprolol. Urine protein okay and likely the etiology. Albumin normal. Right sided HF likely as well since he has severe lung disease. (4) Insulin dependent diabetes mellitus: Code(s): E11.9 - Type 2 diabetes mellitus without complications; Z79.4 - [facility] (current) use of insulin Status: Chronic Assessment and Plan: -----Last glucose 214. SSI increased 3/. Lantus started 3/. last A1c 9.7. (5) Obstructive sleep apnea: Code(s): G47.33 - Obstructive sleep apnea (adult) (pediatric) Status: Chronic Assessment and Plan: ------Continue to use bipap until Trelegy adjusted (6) Chronic respiratory failure with hypoxia: Code(s): J96.11 - Chronic respiratory failure with hypoxia Status: Chronic Assessment and Plan: -------Chronically uses oxygen at home with a trilogy (7) Hypertension: Qualifiers: Hypertension type: essential hypertension Qualified Code(s): I10 - Essential (primary) hypertension Code(s): I10 - Essential (primary) hypertension Status: Chronic Assessment and Plan: -----Last BP 117/86 . Continue with Norvasc and metoprolol. (8) Chronic atrial fibrillation: Code(s): I48.20 - Chronic atrial fibrillation, unspecified Status: Chronic Assessment and Plan: -----INR subtheraputic 1.9 today. Continue warfarin 10mg daily. Recheck INR tomorrow (9) Cirrhosis: Code(s): K74.60 - Unspecified cirrhosis of liver Status: Acute Assessment and Plan: -----patient states he has never been told he has cirrhosis and does not recall having a lot of problems with abdominal distension or decreased appetite. w/u pending. follow-up with his primary care physician for further evaluation. Subjective Date/time seen: 06/16/19 12:20 Interval history: Patient is a 69-year-old male here for respiratory failure and CHF exacerbation. Patient was seen today and says he thinks his dyspnea on exertion and shortness of breath is a little better when compared to yesterday. He said he used his trilogy overnight because he thought that was the plan. He says the breathing treatments to make him feel better but they make him wheeze and cough a little bit more. He had a bowel movement today with no issue. Pt denies nausea, vomiting, fevers, chills, constipation
[2019-06-16 12:26] LABS: Glucose Point of Care 253 (65-105)
[2019-06-16 16:52] LABS: Glucose Point of Care 247 (65-105)
[2019-06-16] MEDS: WARFARIN (*PBKC) 10 MG TABLET PO (17:00)
[2019-06-16] MEDS: VITAMIN B COMPLEX CAPSULE 1 CAP PO (17:01)
[2019-06-16] MEDS: metFORMIN HCL XR 500 MG TAB.SR.24H 2000 MG PO (21:46)
[2019-06-16 21:50] LABS: Glucose Point of Care 337 (65-105)
[2019-06-16] MEDS: INSULIN GLARGINE (*BKC) 100 UNITS/ML 10 UNITS SUB-Q (21:51)
[2019-06-17] VITALS (23 sets, daily range): BP systolic 129–154; BP diastolic 78–82; PULSE 53–108; RESP 15–20; TEMP 36.3–36.8; O2SAT 91–98
[2019-06-17] MEDS: IPRATROPIUM BR 0.02% INH SOLN 0.5 MG/2.5 ML VIAL INHALATION ×4 (01:15→20:19)
[2019-06-17] MEDS: ALBUTEROL SULFATE NEB 2.5 MG/0.5 ML INH INHALATION ×4 (01:15→20:19)
--- NOTE | 2019-06-17 03:00 | PCRCNOTE ---
Daylight Savings Time For Daylight Savings Time Ending in the Fall - Clocks are moved back. For Daylight Savings Time Beginning in the Spring - Clocks are moved ahead. For [facility], the time of change occurs at 0200 hrs. Time is taken from the field observer. This entry on the patient's chart recognizes the change in time reflected during documentation. Example: 2 entries for vital signs may be charted for 0200 hrs.
--- NOTE | 2019-06-17 03:10 | PC.NURSE ---
Daylight Savings Time For Daylight Savings Time Ending in the Fall - Clocks are moved back. For Daylight Savings Time Beginning in the Spring - Clocks are moved ahead. For [facility], the time of change occurs at 0200 hrs. Time is taken from the sql server developer. This entry on the patient's chart recognizes the change in time reflected during documentation. Example: 2 entries for vital signs may be charted for 0200 hrs.
[2019-06-17] MEDS: FUROSEMIDE INJ 40 MG/4 ML VIAL IV PUSH ×2 (05:41→14:20)
[2019-06-17 06:27] LABS: INR 1.7; Prothrombin Time 19.7 Seconds (11.1-14.7)
[2019-06-17 06:37] LABS: Blood Urea Nitrogen 25 mg/dL (9-20); Calcium 8.5 mg/dL (8.4-10.2); Carbon Dioxide 35 mmol/L (22-30); Chloride 98 mmol/L (98-107); Estimated CRCL calculation 79 ml/min; Estimated Glomerular Filt Rate > 60; Glucose 207 mg/dL (75-110); Potassium 3.5 mmol/L (3.4-5.0); Sodium 137 mmol/L (137-145)
[2019-06-17] MEDS: BUDESONIDE RESPULE NEB 0.5 MG/2 ML AMP INHALATION ×2 (08:12→20:18)
[2019-06-17] MEDS: ASPIRIN 81 MG CHEWABLE TABLET PO (08:54)
[2019-06-17] MEDS: DIGOXIN TAB 125 MCG TABLET PO (08:55)
[2019-06-17] MEDS: METOPROLOL TARTRATE 25 MG TABLET 75 MG PO ×2 (08:55→20:26)
[2019-06-17] MEDS: AMLODIPINE BESYLATE 5 MG TABLET PO (08:56)
[2019-06-17] MEDS: VENLAFAXINE HCL XR 75 MG CAP.ER.24H 150 MG PO (08:56)
[2019-06-17] MEDS: allopurinoL 300 MG TABLET PO (08:56)
[2019-06-17] MEDS: SPIRONOLACTONE 25 MG TABLET PO (08:56)
[2019-06-17] MEDS: WATER, STERILE FOR INJECTION 10 ML VIAL XX (08:57)
[2019-06-17 09:05] LABS: Glucose Point of Care 227 (65-105)
[2019-06-17] MEDS: INSULIN ASPART (*BKC) 100 UNITS/ML SUB-Q ×3 (09:14→17:50)
[2019-06-17 12:29] LABS: Glucose Point of Care 235 (65-105)
--- NOTE | 2019-06-17 13:24 | PM.IMPN ---
Progress Note: A&P Assessment and Plan (1) Acute on chronic respiratory failure with hypoxia and hypercapnia: Code(s): J96.21 - Acute and chronic respiratory failure with hypoxia; J96.22 - Acute and chronic respiratory failure with hypercapnia Status: Acute Assessment and Plan: -----Pt's hypervolemia is improving with the diuretics and fluid restriction. He has minimal swelling in his lower extremities today and his crackles are improved. Will start weaning down his daytime o2 with a goal of o2 sat 89-92. Will continue nocturnal BiPAP at this time. He used trilogy 2 nights ago and this will need to be adjusted at discharge. CTA showed CHF exacerbation. Likely d/t severe pulmonary HTN and likely right sided heart failure. CT worrisome for sarcodosis and may need to be worked up if still present on repeat imaging outside the CHF window but since it was there in 2008, may want to explore further. Will continue breathing treatments as well. Sputum noncontributory. no s/s of Pna at this time. no abx needed. Fluid restriction continued. (2) COPD (chronic obstructive pulmonary disease): Code(s): J44.9 - Chronic obstructive pulmonary disease, unspecified Status: Acute Assessment and Plan: -----continue breathing treatments and BiPAP. Trilogy is being evaluated (3) Acute on chronic diastolic CHF (congestive heart failure): Code(s): I50.33 - Acute on chronic diastolic (congestive) heart failure Status: Acute Assessment and Plan: -----Continue with IV Lasix, acetazolamide, spironolactone and metoprolol. Urine protein okay and likely the etiology. Albumin normal. Right sided HF likely as well since he has severe lung disease. (4) Insulin dependent diabetes mellitus: Code(s): E11.9 - Type 2 diabetes mellitus without complications; Z79.4 - snf (current) use of insulin Status: Chronic Assessment and Plan: -----Last glucose 235. SSI increased 3/4. Lantus started 3/6 and increased 3/8. last A1c 9.7. (5) Obstructive sleep apnea: Code(s): G47.33 - Obstructive sleep apnea (adult) (pediatric) Status: Chronic Assessment and Plan: ------Continue to use bipap until Trelegy adjusted (6) Chronic respiratory failure with hypoxia: Code(s): J96.11 - Chronic respiratory failure with hypoxia Status: Chronic Assessment and Plan: -------Chronically uses oxygen at home with a trilogy (7) Hypertension: Qualifiers: Hypertension type: essential hypertension Qualified Code(s): I10 - Essential (primary) hypertension Code(s): I10 - Essential (primary) hypertension Status: Chronic Assessment and Plan: -----Last BP 129/78 . Continue with Norvasc and metoprolol. (8) Chronic atrial fibrillation: Code(s): I48.20 - Chronic atrial fibrillation, unspecified Status: Chronic Assessment and Plan: -----INR subtheraputic 1.7 today. Continue warfarin 10mg daily. Recheck INR tomorrow (9) Cirrhosis: Code(s): K74.60 - Unspecified cirrhosis of liver Status: Acute Assessment and Plan: -----patient states he has never been told he has cirrhosis and does not recall having a lot of problems with abdominal distension or decreased appetite. w/u pending. follow-up with his primary care physician for further evaluation. Subjective Date/time seen: 06/17/19 13:24 Interval history: Patient is a 69-year-old male here for respiratory failure and CHF exacerbation. Patient was seen today and says he thinks his dyspnea on exertion and shortness of breath is a little better when compared to yesterday again and he finally feels like he is making improvement. he did not sleep overnight due to his bipap beeping. He agrees to start weaning his daytime o2. I spoke with the family extensively about his condition and how to prevent future hospitalizations. The
--- NOTE | 2019-06-17 15:51 | PM.PNPUL ---
Progress Note: A&P Assessment and Plan (1) COPD (chronic obstructive pulmonary disease): Code(s): J44.9 - Chronic obstructive pulmonary disease, unspecified Status: Acute Assessment and Plan: - agree with albuterol/ipratropium at 2.5/0.5 mg Q6h - continue pulmicort 0.5 mg nebs Q12h (2) Diastolic congestive heart failure: Qualifiers: Heart failure chronicity: unspecified Qualified Code(s): I50.30 - Unspecified diastolic (congestive) heart failure Code(s): I50.30 - Unspecified diastolic (congestive) heart failure Status: Chronic Assessment and Plan: Appears to be evolemic today - will decrease lasix to 40 mg IV Qam - d/c diamox today - continue spironolactone 25 mg Qam. - continue daily weight - fluid restriction is not as necessary as low sodium diet (3) Mediastinal adenopathy: Code(s): R59.0 - Localized enlarged lymph nodes Status: Acute Assessment and Plan: I don't see any lung parenchyma changes to suggest Sarcoid. The adenopathy may be due to acute CHF, recent pneumonia, lymphoma or benign inflammation. He does not fit the typical picture of Sarcoidosis but the precarinal lymph node does warrant a biopsy if it does not decrease in size in 2-3 months and if his respiratory status and oxygenation stabilizes. He would need an EBUS and be off of Warfarin and ASA for 7 days. Plan now is to treat the CHF and repeat CT chest with IV contrast in 2-3 months as an outpatient. (4) Obstructive sleep apnea: Code(s): G47.33 - Obstructive sleep apnea (adult) (pediatric) Status: Chronic Assessment and Plan: - switch to BIPAP 28/11, back rate of 14 and titrate FiO2 for 90-93%. It's Ok if O2 sats go above > 93% as it is difficult so sometimes stay in range. - changed to full face mask - hold off on home Trilogy for now. Settings at home will need to be changed to reflect hospital settings eventually. Time Spent With Patient Time with patient: 15 - 25 minutes Subjective Date/time seen: 06/17/19 15:51 Interval history: Alarm on BIPAP went off last night around 2 am according to the patient and it continued until the morning and he could not sleep well. I'm not able to see what caused the BIPAP to alarm in RT notes. This information is vital in helping us trouble shoot the problem and making changes when necessary. Review of Systems Review of Systems: All systems reviewed & are unremarkable except as noted in HPI and below Exam Narrative: Exam Narrative: sleepy Const: General: comfortable and no acute distress Neck: Neck: supple and no JVD Resp: Auscultation: crackles and diminished lung sounds Cardio: Rate: regular rate Rhythm: regular rhythm GI: Auscultation: normal bowel sounds Neuro: Cognition (Neuro): normal cognition Speech: normal speech Extrem: General: normal to inspection, edema and pedal edema (3+) Psych: Mental Status: mental status grossly normal Affect: normal affect Objective Data Vital Signs Vital Signs: Vital Signs - 24 hr 06/16/19 15:02 06/16/19 15:09 06/16/19 16:00 Temperature Pulse Rate 72 70 88 Respiratory Rate 18 18 Blood Pressure Pulse Oximetry 06/16/19 19:07 06/16/19 19:13 06/16/19 19:18 Temperature Pulse Rate 67 67 67 Respiratory Rate 22 H 21 H 22 H Blood Pressure Pulse Oximetry 95 06/16/19 19:47 06/16/19 20:00 06/16/19 21:46 Temperature Pulse Rate 70 88 89 Respiratory Rate Blood Pressure Pulse Oximetry 92 06/16/19 21:57 06/16/19 23:28 06/17/19 00:00 Temperature 36.4 C Pulse Rate 86 74 83 Respiratory Rate 18 22 H Blood Pressure 126/76 Pulse Oximetry 92 95 06/17/19 01:16 06/17/19 01:27 06/17/19 04:12 Temperature Pulse Rate 80 72 77 Respiratory Rate 15 16 Blood Pressure Pulse Oximetry 06/17/19 05:22 06/17/19 05:30 06/17/19 08:00 Temperature 36.3 C L Pulse Rate 69 65 64 Respiratory Rate 16 18 Blood Pressure
[2019-06-17] MEDS: VITAMIN B COMPLEX CAPSULE 1 CAP PO (17:46)
[2019-06-17] MEDS: WARFARIN (*PBKC) 10 MG TABLET PO (17:47)
[2019-06-17 17:49] LABS: Glucose Point of Care 296 (65-105)
[2019-06-17] MEDS: metFORMIN HCL XR 500 MG TAB.SR.24H 2000 MG PO (20:26)
[2019-06-17] MEDS: INSULIN GLARGINE (*BKC) 100 UNITS/ML 14 UNITS SUB-Q (20:27)
[2019-06-17 21:26] LABS: Glucose Point of Care 286 (65-105)
[2019-06-18] VITALS (23 sets, daily range): BP systolic 132–135; BP diastolic 72–80; PULSE 60–90; RESP 16–22; TEMP 36.7–36.8; O2SAT 90–92; BMI 39.2
[2019-06-18] MEDS: ALBUTEROL SULFATE NEB 2.5 MG/0.5 ML INH INHALATION ×4 (02:11→22:01)
[2019-06-18] MEDS: IPRATROPIUM BR 0.02% INH SOLN 0.5 MG/2.5 ML VIAL INHALATION ×4 (02:11→22:02)
[2019-06-18 06:38] LABS: Hemoglobin 10.9 g/dL (14.0-18.0)
[2019-06-18 06:51] LABS: INR 1.7; Prothrombin Time 19.8 Seconds (11.1-14.7)
[2019-06-18 06:54] LABS: Blood Urea Nitrogen 26 mg/dL (9-20); Calcium 8.8 mg/dL (8.4-10.2); Carbon Dioxide 32 mmol/L (22-30); Chloride 96 mmol/L (98-107); Estimated CRCL calculation 87 ml/min; Estimated Glomerular Filt Rate > 60; Glucose 239 mg/dL (75-110); Potassium 3.9 mmol/L (3.4-5.0); Sodium 135 mmol/L (137-145)
[2019-06-18] MEDS: DIGOXIN TAB 125 MCG TABLET PO (08:13)
[2019-06-18] MEDS: METOPROLOL TARTRATE 25 MG TABLET 75 MG PO ×2 (08:13→21:15)
[2019-06-18] MEDS: allopurinoL 300 MG TABLET PO (08:14)
[2019-06-18] MEDS: SPIRONOLACTONE 25 MG TABLET PO (08:14)
[2019-06-18] MEDS: ASPIRIN 81 MG CHEWABLE TABLET PO (08:14)
[2019-06-18] MEDS: FUROSEMIDE INJ 40 MG/4 ML VIAL IV PUSH (08:14)
[2019-06-18] MEDS: AMLODIPINE BESYLATE 5 MG TABLET PO (08:14)
[2019-06-18] MEDS: VENLAFAXINE HCL XR 75 MG CAP.ER.24H 150 MG PO (08:15)
[2019-06-18] MEDS: BUDESONIDE RESPULE NEB 0.5 MG/2 ML AMP INHALATION ×2 (08:20→22:01)
[2019-06-18 09:31] LABS: Glucose Point of Care 193 (65-105)
--- NOTE | 2019-06-18 09:45 | PM.IMPN ---
Progress Note: A&P Assessment and Plan (1) Acute on chronic respiratory failure with hypoxia and hypercapnia: Code(s): J96.21 - Acute and chronic respiratory failure with hypoxia; J96.22 - Acute and chronic respiratory failure with hypercapnia Status: Acute Assessment and Plan: -----Improving with daytime o2 and bipap settings. Plan to try and replicate bipap settings to the trilogy since everytime the pt uses trilogy he desats significantly at night. Plan to wean daytime o2. I changed him from 5L to 4L yesterday during my exam and asked for him to be weaned for a goal of 89-92. for unclear reasons, this was not done. This morning I put him on 3L. he has no reports of daytime hypoxia. We will see how he does weaning off o2. He has used it in the past, PRN but I suspect he will need constant o2. Would recommend a home o2 eval maybe tomorrow after we see how he weans and his triology is fixed. Hopeful discharge in the next few days once he can prove to do better on triology and his o2 requirements are known. He is now euvolemic so he is likely at his baseline now. CTA 06/12 showed CHF exacerbation withnpulmonary HTN and likely right sided heart failure. CT worrisome for sarcodosis and may need to be worked up if still present on repeat imaging outside the CHF window but since it was there in 2008, may want to explore further. Will continue breathing treatments as well. Sputum noncontributory. no s/s of Pna at this time. no abx needed. Fluid restriction continued. (2) COPD (chronic obstructive pulmonary disease): Code(s): J44.9 - Chronic obstructive pulmonary disease, unspecified Status: Acute Assessment and Plan: -----continue breathing treatments and BiPAP. Trilogy is being evaluated (3) Acute on chronic diastolic CHF (congestive heart failure): Code(s): I50.33 - Acute on chronic diastolic (congestive) heart failure Status: Acute Assessment and Plan: -----Continue with IV Lasix, spironolactone and metoprolol. Right sided HF likely as well since he has severe lung disease. (4) Insulin dependent diabetes mellitus: Code(s): E11.9 - Type 2 diabetes mellitus without complications; Z79.4 - [facility] (current) use of insulin Status: Chronic Assessment and Plan: -----Last glucose 193. SSI increased 3/4. Lantus started 06/14 and increased 3/. last A1c 9.7. (5) Obstructive sleep apnea: Code(s): G47.33 - Obstructive sleep apnea (adult) (pediatric) Status: Chronic Assessment and Plan: ------Continue to use bipap until Trelegy adjusted (6) Chronic respiratory failure with hypoxia: Code(s): J96.11 - Chronic respiratory failure with hypoxia Status: Chronic Assessment and Plan: -------Chronically uses oxygen at home with a trilogy (7) Hypertension: Qualifiers: Hypertension type: essential hypertension Qualified Code(s): I10 - Essential (primary) hypertension Code(s): I10 - Essential (primary) hypertension Status: Chronic Assessment and Plan: -----Last BP 132/72 . Continue with Norvasc and metoprolol. (8) Chronic atrial fibrillation: Code(s): I48.20 - Chronic atrial fibrillation, unspecified Status: Chronic Assessment and Plan: -----INR subtheraputic 1.7 again today. Continue warfarin 10mg daily but will give an extra 2mg tonight one time dose. Recheck INR tomorrow (9) Cirrhosis: Code(s): K74.60 - Unspecified cirrhosis of liver Status: Acute Assessment and Plan: -----patient states he has never been told he has cirrhosis and does not recall having a lot of problems with abdominal distension or decreased appetite. w/u pending. follow-up with his primary care physician for further evaluation. Subjective Date/time seen: 06/18/19 09:45 Interval history: Pt is a 69 y/o male here for respiratory failure 2/2 pulmo
--- NOTE | 2019-06-18 11:35 | PM.PNPUL ---
Progress Note: A&P Assessment and Plan (1) COPD (chronic obstructive pulmonary disease): Code(s): J44.9 - Chronic obstructive pulmonary disease, unspecified Status: Acute Assessment and Plan: - continue albuterol/ipratropium at 2.5/0.5 mg Q6h - continue pulmicort 0.5 mg nebs Q12h (2) Diastolic congestive heart failure: Qualifiers: Heart failure chronicity: unspecified Qualified Code(s): I50.30 - Unspecified diastolic (congestive) heart failure Code(s): I50.30 - Unspecified diastolic (congestive) heart failure Status: Chronic Assessment and Plan: Appears to be evolemic today - continue lasix to 40 mg IV Qam - continue spironolactone 25 mg Qam. - continue daily weight - fluid restriction is not as necessary as low sodium diet (3) Mediastinal adenopathy: Code(s): R59.0 - Localized enlarged lymph nodes Status: Acute Assessment and Plan: I don't see any lung parenchyma changes to suggest Sarcoid. The adenopathy may be due to acute CHF, recent pneumonia, lymphoma or benign inflammation. He does not fit the typical picture of Sarcoidosis but the precarinal lymph node does warrant a biopsy if it does not decrease in size in 2-3 months and if his respiratory status and oxygenation stabilizes. He would need an EBUS and be off of Warfarin and ASA for 7 days. Plan now is to treat the CHF and repeat CT chest with IV contrast in 2-3 months as an outpatient. (4) Obstructive sleep apnea: Code(s): G47.33 - Obstructive sleep apnea (adult) (pediatric) Status: Chronic Assessment and Plan: - It's Ok if O2 sats go above > 93% as it is difficult so sometimes stay in range. - changed to full face mask - use his home Trilogy on new settings that are closer to what he has been using in the hospital. He will have an overnight oximetry on 5 L/min to see if this is sufficient. His home concentrator cannot deliver more than 5 L/min. If this is not enough, he will need to change to a concentrator that can deliver 10 L/min. The flow through the mask is 25 L/min of air, so the 4 L/min gets diluted to 28%. On 5 L/min the delivered amount was 30%. Sat is about 89-90% with eyes closed, may drop in REM. Subjective Date/time seen: 06/18/19 11:35 Interval history: He is having his Trilogy adjusted with improved comfort, and fell asleep while Nish [facility] was adjusting this. He was hesitant to use because he deteriorated on this at home. He appears to tolerate the new settings as follows: EPAP increased to 8 from 5; Imin 22 from 18 cm; Imax 27 from 25 cm. TV =500+. Will check Overnight Oximetry here to assure that 5 L/min is enough. The Trilogy has a high flow of room air coming through the tubing, and even entraining the o2 at tyhe end near the mask does not increase the FiO2; 5 L/min becomes 30% when checked with the analyzer. His home concentrator only delivers 5 L/min, so it is important to make sure that this is enough. Review of Systems Review of Systems: All systems reviewed & are unremarkable except as noted in HPI and below Constitutional: Constitutional: Denies chills, Reports fatigue, Reports headache(s) and Reports weakness ENT: Reports headache(s) and Reports nasal congestion Cardiovascular: Cardiovascular: Denies chest pain, Reports pedal edema and Reports dyspnea Respiratory: Respiratory: Reports dyspnea Neurologic: Reports headache(s) and Reports weakness Endocrine: Endocrine: Reports fatigue Exam Narrative: Exam Narrative: sleepy Const: General: comfortable and no acute distress HENMT: Mouth: Yes moist mucous membranes and Yes dry mucous membranes Eyes: General: appearance normal, both
--- NOTE | 2019-06-18 15:37 | PCNSR ---
On 06/18/19, the student, Latisha Raphael, provided care and completed [facility] documentation on this patient. I have reviewed the student's documentation and agree with the findings.
[2019-06-18] MEDS: WARFARIN (*PBKC) 10 MG TABLET PO (17:11)
[2019-06-18] MEDS: VITAMIN B COMPLEX CAPSULE 1 CAP PO (17:11)
[2019-06-18] MEDS: INSULIN ASPART (*BKC) 100 UNITS/ML SUB-Q (17:12)
[2019-06-18 17:18] LABS: Glucose Point of Care 277 (65-105)
[2019-06-18 19:51] LABS: Alpha Fetoprotein Tumor Marker 0.8 ng/mL (<6.1)
[2019-06-18] MEDS: MELATONIN 5 MG TABLET PO (21:16)
[2019-06-18] MEDS: metFORMIN HCL XR 500 MG TAB.SR.24H 2000 MG PO (21:16)
[2019-06-18] MEDS: INSULIN GLARGINE (*BKC) 100 UNITS/ML 14 UNITS SUB-Q (21:18)
[2019-06-18 23:20] LABS: Glucose Point of Care 286 (65-105)
[2019-06-19] VITALS (28 sets, daily range): BP systolic 119–162; BP diastolic 65–74; PULSE 63–91; RESP 16–20; TEMP 36.1–36.6; O2SAT 85–96
--- NOTE | 2019-06-19 02:41 | PCRCNOTE ---
apnea study; neb tx was omitted
[2019-06-19 05:10] LABS: Alveolar/Arterial O2 Gradient 186.6 mmHg; Base Excess ABG 0.7 mEq/l (+/-2.0); Fractional Inspired Oxygen 44 %; HCO3 ABG 27.3 mEq/l (22.0-26.0); Methemoglobin ABG 0.3 %THb (0-1.5); Oxygen Content ABG 16.3 %vol (16.0-22.0); Oxygen Saturation ABG 92.2 % (95.0-100.0); Oxyhemoglobin 90.3 % THb (90.0-100.0); PCO2 ABG 52.1 mmHg (35.0-45.0); PO2 ABG 67.7 mmHg (80.0-100.0); PO2 FiO2 Ratio Arterial Blood 1.54 %; Reduced Hemoglobin 8.4 %THb (0-5.0); Total Hemoglobin 12.8 g/dL (12.0-18.0); pH ABG 7.337 (7.350-7.450)
[2019-06-19 05:11] LABS: Device OTHER DEVICE; Modified Allen's Test Pass; Site Drawn LEFT RADIAL
--- NOTE | 2019-06-19 05:31 | PCRCNOTE ---
during the apnea study,this patient was on the trilogy unit with a 5L O2 bleed-in per order, but due to desaturation <80% the O2 was increased to 6L
[2019-06-19 06:03] LABS: INR 1.7; Prothrombin Time 19.7 Seconds (11.1-14.7)
[2019-06-19 06:12] LABS: Blood Urea Nitrogen 23 mg/dL (9-20); Carbon Dioxide 29 mmol/L (22-30); Chloride 99 mmol/L (98-107); Estimated CRCL calculation 97 ml/min; Estimated Glomerular Filt Rate > 60; Glucose 174 mg/dL (75-110); Potassium 3.8 mmol/L (3.4-5.0); Sodium 136 mmol/L (137-145)
[2019-06-19 08:20] LABS: Glucose Point of Care 215 (65-105)
[2019-06-19] MEDS: ASPIRIN 81 MG CHEWABLE TABLET PO (08:20)
[2019-06-19] MEDS: SPIRONOLACTONE 25 MG TABLET PO (08:20)
[2019-06-19] MEDS: VENLAFAXINE HCL XR 75 MG CAP.ER.24H 150 MG PO (08:20)
[2019-06-19] MEDS: METOPROLOL TARTRATE 25 MG TABLET 75 MG PO ×2 (08:21→20:25)
[2019-06-19] MEDS: DIGOXIN TAB 125 MCG TABLET PO (08:21)
[2019-06-19] MEDS: FUROSEMIDE INJ 40 MG/4 ML VIAL IV PUSH (08:21)
[2019-06-19] MEDS: allopurinoL 300 MG TABLET PO (08:21)
[2019-06-19] MEDS: AMLODIPINE BESYLATE 5 MG TABLET PO (08:21)
[2019-06-19] MEDS: INSULIN ASPART (*BKC) 100 UNITS/ML SUB-Q ×3 (08:26→17:05)
[2019-06-19] MEDS: ALBUTEROL SULFATE NEB 2.5 MG/0.5 ML INH INHALATION ×3 (09:40→21:11)
[2019-06-19] MEDS: BUDESONIDE RESPULE NEB 0.5 MG/2 ML AMP INHALATION ×2 (09:40→21:12)
[2019-06-19] MEDS: IPRATROPIUM BR 0.02% INH SOLN 0.5 MG/2.5 ML VIAL INHALATION ×3 (09:40→21:12)
[2019-06-19 10:42] LABS: Mitochondrial (M2) Ab (IgG) 38.6 U (<=20.0)
--- NOTE | 2019-06-19 11:59 | HOMEO2EVAL ---
Home Oxygen Evaluation RC: Home Oxygen (O2) Evaluation Start: 06/19/19 08:00 Freq: ONCE Status: Active Protocol: RPE Activity Type Activity Date Activity User E-Sign Co-Sign Detail Recorded Client Recorded Date Recorded By Document 06/19/19 11:15 RAHAT [id number] 06/19/19 11:59 RAHAT Document 06/19/19 11:17 RAHAT [email or web address] 06/19/19 11:59 RAHAT Document 06/19/19 11:18 RAHAT [email or web address] 06/19/19 11:59 RAHAT Document 06/19/19 11:19 RAHAT [email or web address] 06/19/19 11:59 RAHAT Document 06/19/19 11:22 RAHAT [email or web address] 06/19/19 11:59 RAHAT Document 06/19/19 11:26 RAHAT [email or web address] 06/19/19 11:59 RAHAT Document 06/19/19 11:28 RAHAT [email or web address] 06/19/19 11:59 RAHAT Document 06/19/19 11:30 RAHAT [id number] 06/19/19 11:59 RAHAT 06/19/19 06/19/19 06/19/19 11:15 11:17 11:18 Home O2 Evaluation Test Phase Resting Resting Resting Oxygen Delivery Room Air Nasal Cannula Nasal Cannula Oxygen Flow Rate (L/min) 1 2 Pulse Oximetry (90-100 %) 87 L 87 L 87 L Ambulation Distance (feet) Home Oxygen Evaluation Comments Treatment Charges O2 Evaluation 06/19/19 06/19/19 06/19/19 11:19 11:22 11:26 Home O2 Evaluation Test Phase Resting Exercise Exercise Oxygen Delivery Nasal Cannula Nasal Cannula Nasal Cannula Oxygen Flow Rate (L/min) 3 3 4 Pulse Oximetry (90-100 %) 92 85 L 86 L Ambulation Distance (feet) Home Oxygen Evaluation Comments Treatment Charges 06/19/19 06/19/19 11:28 11:30 Home O2 Evaluation Test Phase Exercise Exercise Oxygen Delivery Nasal Cannula Nasal Cannula Oxygen Flow Rate (L/min) 5 3 Pulse Oximetry (90-100 %) 90 92 Ambulation Distance (feet) 250 Home Oxygen Evaluation Comments PT REQUIRES 3 AT REST AND 5 WITH ACTIVITY Treatment Charges
[2019-06-19 12:10] LABS: Glucose Point of Care 240 (65-105)
--- NOTE | 2019-06-19 13:40 | PCRCNOTE ---
Order for increased oxygen bleed-in faxed to [facility].
--- NOTE | 2019-06-19 15:53 | PM.IMPN ---
Progress Note: A&P Assessment and Plan (1) Acute on chronic respiratory failure with hypoxia and hypercapnia: Code(s): J96.21 - Acute and chronic respiratory failure with hypoxia; J96.22 - Acute and chronic respiratory failure with hypercapnia Status: Acute Assessment and Plan: Improving. Patient had been desaturating at night and his Trilogy settings were adjusted. His home O2 set up will only deliver up to 5L/min; Dr Pantoja recommends 6L/min at night time so he will need a new concentrator. His home setup is through [employer]. Continue nebulized bronchodilators and pulmicort. Anticipate possible discharge tomorrow. (2) COPD (chronic obstructive pulmonary disease): Code(s): J44.9 - Chronic obstructive pulmonary disease, unspecified Status: Acute Assessment and Plan: Continue respiratory regimen above; Triology at night. (3) Acute on chronic diastolic CHF (congestive heart failure): Code(s): I50.33 - Acute on chronic diastolic (congestive) heart failure Status: Acute Assessment and Plan: Improving. Continue IV Lasix, spironolactone and metoprolol. Right sided HF likely as well since he has severe lung disease. 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 Lantus started 6 and increased /8. last A1c 9.7. (5) Obstructive sleep apnea: Code(s): G47.33 - Obstructive sleep apnea (adult) (pediatric) Status: Chronic Assessment and Plan: Trilogy. (6) Chronic respiratory failure with hypoxia: Code(s): J96.11 - Chronic respiratory failure with hypoxia Status: Chronic Assessment and Plan: Uses oxygen at home with Triology; Home O2 eval suggests 3L/min at rest and 5L with activity. (7) Hypertension: Qualifiers: Hypertension type: essential hypertension Qualified Code(s): I10 - Essential (primary) hypertension Code(s): I10 - Essential (primary) hypertension Status: Chronic Assessment and Plan: Stable. Continue with Norvasc and metoprolol. (8) Chronic atrial fibrillation: Code(s): I48.20 - Chronic atrial fibrillation, unspecified Status: Chronic Assessment and Plan: Rate controlled with metoprolol. Continue home warfarin and monitor INR. INR 1.7 today. (9) Cirrhosis: Code(s): K74.60 - Unspecified cirrhosis of liver Status: Acute Assessment and Plan: Patient states he has never been told he has cirrhosis and does not recall having a lot of problems with abdominal distension or decreased appetite. Follow-up with his primary care physician for further evaluation. Subjective Date/time seen: 06/19/19 15:15 Interval history: Mr. Larkin is a 69yo M here for acute on chronic respiratory failure. Adjustments were made to his trilogy which he wore overnight and he reports he is feeling better today. He denies any chest pain and reports his shortness of breath is improved. He is tolerating oral intake without nausea vomiting. Review of Systems Review of Systems: Narrative: Twelve systems were reviewed with pertinent positives and negatives as per HPI. Exam Narrative: Exam Narrative: General: Male resting sitting on edge of bed in no acute distress. HEENT: Normocephalic, EOMI, oral mucosa moist. Cardiovascular: Rhythm irregular, rate is normal. Respiratory: Decreased breath sounds, faint expiratory wheezing, tolerating 5 L O2 nasal cannula. Abdomen: Soft, non-tender, non-distended, bowel
[2019-06-19] MEDS: VITAMIN B COMPLEX CAPSULE 1 CAP PO (17:02)
[2019-06-19] MEDS: WARFARIN (*PBKC) 10 MG TABLET PO (17:02)
[2019-06-19 17:10] LABS: Glucose Point of Care 227 (65-105)
[2019-06-19] MEDS: metFORMIN HCL XR 500 MG TAB.SR.24H 2000 MG PO (20:25)
[2019-06-19] MEDS: MELATONIN 5 MG TABLET PO (20:25)
[2019-06-19] MEDS: INSULIN GLARGINE (*BKC) 100 UNITS/ML 14 UNITS SUB-Q (20:29)
[2019-06-19 22:39] LABS: Glucose Point of Care 273 (65-105)
[2019-06-20] VITALS (9 sets, daily range): BP systolic 158; BP diastolic 79; PULSE 48–78; RESP 16–20; TEMP 36.1; O2SAT 92–96
[2019-06-20] MEDS: ALBUTEROL SULFATE NEB 2.5 MG/0.5 ML INH INHALATION ×2 (04:00→09:33)
[2019-06-20] MEDS: IPRATROPIUM BR 0.02% INH SOLN 0.5 MG/2.5 ML VIAL INHALATION ×2 (04:00→09:33)
[2019-06-20 05:53] LABS: Hematocrit 36.8 % (42.0-52.0); Hemoglobin 11.3 g/dL (14.0-18.0); Mean Corpuscular HGB Conc 30.7 g/dl (32-36); Mean Corpuscular Hemoglobin 29.1 pg (26-34); Mean Corpuscular Volume 94.8 fl (80-100); Mean Platelet Volume 10.8 fl (7.4-10.4); Platelet Count Result 267 k/mm3 (150-375); Red Blood Count 3.88 M/mm3 (4.6-6.20); Red Cell Distribution Width 15.6 % (11.5-14.5); White Blood Count 6.4 K/mm3 (4.5-10.0)
[2019-06-20 06:24] LABS: Blood Urea Nitrogen 19 mg/dL (9-20); Calcium 8.7 mg/dL (8.4-10.2); Carbon Dioxide 32 mmol/L (22-30); Chloride 99 mmol/L (98-107); Estimated CRCL calculation 97 ml/min; Estimated Glomerular Filt Rate > 60; Glucose 160 mg/dL (75-110); Sodium 137 mmol/L (137-145)
[2019-06-20 08:09] LABS: Glucose Point of Care 171 (65-105)
[2019-06-20] MEDS: allopurinoL 300 MG TABLET PO (08:09)
[2019-06-20] MEDS: VENLAFAXINE HCL XR 75 MG CAP.ER.24H 150 MG PO (08:09)
[2019-06-20] MEDS: SPIRONOLACTONE 25 MG TABLET PO (08:09)
[2019-06-20] MEDS: DIGOXIN TAB 125 MCG TABLET PO (08:10)
[2019-06-20] MEDS: ASPIRIN 81 MG CHEWABLE TABLET PO (08:10)
[2019-06-20] MEDS: AMLODIPINE BESYLATE 5 MG TABLET PO (08:10)
[2019-06-20] MEDS: METOPROLOL TARTRATE 25 MG TABLET 75 MG PO (08:11)
[2019-06-20] MEDS: FUROSEMIDE INJ 40 MG/4 ML VIAL IV PUSH (08:11)
[2019-06-20 08:39] LABS: INR 1.8; Prothrombin Time 20.4 Seconds (11.1-14.7)
[2019-06-20] MEDS: BUDESONIDE RESPULE NEB 0.5 MG/2 ML AMP INHALATION (09:33)
--- NOTE | 2019-06-20 11:46 | PM.DS ---
DS: Diagnosis Admitting Diagnosis Admitting Diagnosis: Acute and chronic respiratory failure with hypoxia Discharge Diagnosis (1) Acute on chronic respiratory failure with hypoxia and hypercapnia: Code(s): J96.21 - Acute and chronic respiratory failure with hypoxia; J96.22 - Acute and chronic respiratory failure with hypercapnia Status: Acute Assessment and Plan: Date of Service 06/20/19: Mr. Hollingsworth is a 69yo M with history of COPD, chronic diastolic CHF, insulin dependent type 2 diabetes, hypertension, and chronic atrial fibrillation who presented to the ER for evaluation of worsening shortness of breath. He is known to have chronic respiratory failure and was using supplemental O2 at home PRN, Trilogy unit at night. It was felt that his acute on chronic respiratory failure was related to acute on chronic CHF superimposed on COPD. He was treated with sprionolactone, metoprolol, and IV lasix. His Trilogy unit was brought in from home. His oxygen saturations were dropping below 80s at night time and Dr Pantoja adjusted his Trilogy settings here in the hospital. He was treated with nebulized bronchodilators and pulmicort. Cirrhosis was noted on CT, patient denied previous history of this - follow up with PCP. His symptoms improved with the therapy outlined above and he was hemodynamically stable for discharge 06/20/19 with instructions to follow up with Dr Pantoja's office in 1 to 2 weeks. Home oxygen evaluation prior to discharge found him to require 3L O2 with rest, 5L with activity, and Dr Pantoja recommended 6L at night with his Trilogy. Consultations: Dr Pantoja - Pulmonology (2) COPD (chronic obstructive pulmonary disease): Code(s): J44.9 - Chronic obstructive pulmonary disease, unspecified Status: Acute Assessment and Plan: Respiratory regimen as above; Triology at night. (3) Acute on chronic diastolic CHF (congestive heart failure): Code(s): I50.33 - Acute on chronic diastolic (congestive) heart failure Status: Acute Assessment and Plan: Improved with IV Lasix, spironolactone and metoprolol. Spironolactone was added during this admission and transitioned back to his oral lasix. (4) Insulin dependent diabetes mellitus: Code(s): E11.9 - Type 2 diabetes mellitus without complications; Z79.4 - long term (current) use of insulin Status: Chronic Assessment and Plan: Last A1c 9.7. Continue home insulin regimen and follow up with PCP. (5) Obstructive sleep apnea: Code(s): G47.33 - Obstructive sleep apnea (adult) (pediatric) Status: Chronic Assessment and Plan: Trilogy. (6) Chronic respiratory failure with hypoxia: Code(s): J96.11 - Chronic respiratory failure with hypoxia Status: Chronic Assessment and Plan: Uses oxygen at home with Triology; Home O2 eval suggests 3L/min at rest and 5L with activity. (7) Hypertension: Qualifiers: Hypertension type: essential hypertension Qualified Code(s): I10 - Essential (primary) hypertension Code(s): I10 - Essential (primary) hypertension Status: Chronic Assessment and Plan: Stable. Continue with Norvasc and metoprolol. (8) Chronic atrial fibrillation: Code(s): I48.20 - Chronic atrial fibrillation, unspecified Status: Chronic Assessment and Plan: Rate controlled with metoprolol. Continue home warfarin and monitor INR. INR 1.8 today. (9) Cirrhosis: Code(s): K74.60 - Unspecified cirrhosis of liver Status: Acute Assessment and Plan: Patient states he has never been told he has cirrhosis and does not recall having a lot of problems with abdominal distension o
--- NOTE | 2019-06-20 11:52 | PM.PNPUL ---
Progress Note: A&P Assessment and Plan (1) COPD (chronic obstructive pulmonary disease): Code(s): J44.9 - Chronic obstructive pulmonary disease, unspecified Status: Acute Assessment and Plan: - Stop nebulized meds; this is causing him to cough. He was using Trelegy at home, and continue this. -Use albuterol inhaler prn shortness of breath (2) Diastolic congestive heart failure: Qualifiers: Heart failure chronicity: unspecified Qualified Code(s): I50.30 - Unspecified diastolic (congestive) heart failure Code(s): I50.30 - Unspecified diastolic (congestive) heart failure Status: Chronic Assessment and Plan: Appears to be evolemic today - oral diuretics, spironolactone 25 mg Qam. - continue daily weight -line dancer out patinet visit to assist with diet, increase taste without too much salt (3) Mediastinal adenopathy: Code(s): R59.0 - Localized enlarged lymph nodes Status: Acute Assessment and Plan: The adenopathy may be due to acute CHF, recent pneumonia, lymphoma or benign inflammation. Does not appear to have sarcoid. The precarinal lymph node does warrant a biopsy if it does not decrease in size in 2-3 months and if his respiratory status and oxygenation stabilizes. He would need an EBUS and be off of Warfarin and ASA for 7 days. Plan now is to treat the CHF and repeat CT chest with IV contrast in 2-3 months as an outpatient. (4) Obstructive sleep apnea: Code(s): G47.33 - Obstructive sleep apnea (adult) (pediatric) Status: Chronic Assessment and Plan: - O2 needs: 3 L/min at rest, 5 L with exertion, 6 L with sleep - It's Ok if O2 sats go above > 93% as it is difficult so sometimes stay in range. - doing better on a full face mask - use his home Trilogy on new settings that are closer to what he has been using in the hospital with 6 L/min at night. - Needs new home concentrator to deliver more O2 6 L/min with sleep. Subjective Date/time seen: 06/20/19 11:52 Interval history: This 69 yo man is seen for acute on chronic respiratory failure, COPD; improved after using Trilogy on new settings with the need for O2 at 6 L/min with sleep. [facility] has been contacted to provide a new concentrator that can provide higher O2 as his current one provides 5 L/min at max. EPAP increased to 8 cm (5); Imin 22 (18); Imax 27 (25). TV =500+. Overnight Oximetry was reviewed yesterday, and he needs 6 L/min at night. He feels much better, has diuresed, will see line dancer out patient. He is vegan, and while in the hospital had had no added salt. At home, was salting food more heavily which might have caused his exacerbation. Review of Systems Review of Systems: All systems reviewed & are unremarkable except as noted in HPI and below Constitutional: Constitutional: Denies chills ENT: Comments: has a cough after using nebulizer Cardiovascular: Cardiovascular: Denies chest pain, Reports pedal edema and Reports dyspnea Respiratory: Comments: much less dyspnea. Neurologic: Reports headache(s) and Reports weakness Endocrine: Endocrine: Reports fatigue Exam Const: General: comfortable and no acute distress Eyes: General: appearance normal, both eyes and all related structures Neck: Neck: supple and no JVD Resp: Auscultation: crackles bilateral and diminished lung sounds Cardio: Rate: regular rate Rhythm: regular rhythm and abnormal rhythm irregularly irregular Heart sounds: no gallops and no murmurs GI: Auscultation: normal bowel sounds Skin: General skin exam: normal color and no rashes or lesions noted Neuro: Cognition (Neuro): normal cognition Speech: normal speech Extrem: Gener
[2019-06-20 12:15] LABS: Glucose Point of Care 220 (65-105)
[2019-06-20] MEDS: INSULIN ASPART (*BKC) 100 UNITS/ML SUB-Q (12:18)
[2019-06-20 13:42] LABS: Alpha-1-Antitrypsin, QN 190 mg/dL (83-199); Ceruloplasmin 43 mg/dL (18-36)
== END 2019-06-20 14:30 | disposition home or self-care (01) | DRG 291 ==
LOC: ANHED 14:55 → ANH3MED 16:00
PROVIDERS: Internal Medicine Critical Care Medicine; Nurse Practitioner; Physician Assistant; Admitting Provider Family Medicine; Emergency Provider Emergency Medicine; PCP Family Medicine; Visit Provider Physician Assistant
DX: I11.0 Hypertensive heart disease with heart failure (principal); J96.21 Acute and chronic respiratory failure with hypoxia; J96.22 Acute and chronic respiratory failure with hypercapnia; I48.20 Chronic atrial fibrillation, unspecified; I50.33 Acute on chronic diastolic (congestive) heart failure; E11.9 Type 2 diabetes mellitus without complications; G47.33 Obstructive sleep apnea (adult) (pediatric); J44.9 Chronic obstructive pulmonary disease, unspecified; K74.60 Unspecified cirrhosis of liver; E78.5 Hyperlipidemia, unspecified; M10.9 Gout, unspecified; I27.21 Secondary pulmonary arterial hypertension; M19.90 Unspecified osteoarthritis, unspecified site; Z79.4 Long term (current) use of insulin; Z99.81 Dependence on supplemental oxygen; Z87.891 Personal history of nicotine dependence; Z79.82 Long term (current) use of aspirin; Z98.42 Cataract extraction status, left eye; Z98.41 Cataract extraction status, right eye; R59.0 Localized enlarged lymph nodes
CPT/HCPCS: 36415; 36600; 71045; 71046; 71275; 76705; 80048; 80053; 80074; 80076; 82103; 82105; 82248; 82375; 82390; 82570; 82805; 83050; 83520; 83540; 83735; 83880; 84156; 84443; 84484; 85014; 85018; 85025; 85027; 85610; 85730; 87070; 87205; 93005; 93970; 94002; 94618; 94640; 96374; 99291; A9270; J1120; J1815; J1940; Q9967

== ENCOUNTER 2019-08-09 09:00 | Outpatient (RCR) | payer MEDICARE, SELFPAY ==
[2019-08-09 09:26] VITALS: BMI 36.1
[2019-08-09 09:45] VITALS: BMI 36.1
== END 2019-11-07 23:59 | disposition home or self-care (01) ==
LOC: ANHDMC 09:00
PROVIDERS: PCP Family Medicine; Visit Provider Family Medicine
DX: E11.65 Type 2 diabetes mellitus with hyperglycemia (principal); Z71.3 Dietary counseling and surveillance; Z79.4 Long term (current) use of insulin
CPT/HCPCS: 97803

== ENCOUNTER 2019-08-25 08:47 | Outpatient (RCR) | payer MEDICARE, SELFPAY ==
[2019-07-12 15:09] LABS: INR 1.8
[2019-08-25 09:34] LABS: INR 2.3; Prothrombin Time 24.6 Seconds (11.1-14.7)
== END 2019-10-10 23:59 | disposition home or self-care (01) ==
LOC: ANHLAB 08:47
PROVIDERS: PCP Family Medicine; Visit Provider Specialist
DX: I48.91 Unspecified atrial fibrillation (principal); Z79.01 Long term (current) use of anticoagulants; E11.9 Type 2 diabetes mellitus without complications; Z79.4 Long term (current) use of insulin
CPT/HCPCS: 36415; 85610

== ENCOUNTER 2019-09-05 12:49 | Outpatient (CLI) | payer MEDICARE, SELFPAY ==
[2019-09-05 13:41] LABS: Blood Urea Nitrogen 25 mg/dL (9-20); Calcium 9.3 mg/dL (8.4-10.2); Carbon Dioxide 36 mmol/L (22-30); Chloride 94 mmol/L (98-107); Estimated Glomerular Filt Rate > 60; Glucose 279 mg/dL (75-110); Potassium 4.5 mmol/L (3.4-5.0); Sodium 134 mmol/L (137-145)
== END 2019-09-05 12:50 | disposition home or self-care (01) ==
PROVIDERS: PCP Family Medicine; Visit Provider Internal Medicine Critical Care Medicine
DX: I50.30 Unspecified diastolic (congestive) heart failure (principal); R59.0 Localized enlarged lymph nodes
CPT/HCPCS: 36415; 80048

== ENCOUNTER 2019-09-10 10:35 | Outpatient (CLI) | payer MEDICARE, SELFPAY ==
--- NOTE | ~2019-09-10 | CT_ITS ---
EXAMINATION: CT chest w con EXAM DATE: 09/10/2019 11:29 INDICATION: Localized enlarged lymph nodes. TECHNIQUE: Spiral CT of the chest following intravenous injection of 75 mL Omnipaque 350. Axial, cor onal and sagittal images were reviewed. Coronal maximum intensity pixel images of chest reviewed. T he dose-length product (DLP) for this examination was 657.76 mGy-cm. The exposure was tailored accor ding to patient size (auto mA exposure control), and iterative reconstruction (ASIR) was used as lokesh tional dose reduction technique. Comparison is made to prior examination from 06/13/2019. FINDINGS: There is mild to moderate emphysema. Mild basilar intralobular septal thickening, honeycom jose antonio, mild pulmonary fibrosis. There are no pleural or pericardial effusions. Tracheobronchial mike e is patent. There is been some interval decrease in size of the right lower paratracheal lymph nod e or conglomerate of nodes, today measures 2.5 x 1.7 cm (previously 3.1 x 2.2 cm). Several smaller bu t also enlarged precarinal, right hilar lymph nodes. Peripherally calcified subcarinal lymph nodes. N o central pulmonary emboli. There is no pneumothorax. Heart normal in size. There is mild gonzalez ry arterial calcification, arterial sclerosis. There is a nodular liver contour consistent with cirr hosis. There is mild thoracic spondylosis without osteoblastic or osteolytic lesions identified. C ompared to previous examination, lymphadenopathy has improved, and findings consistent with CHF exace rbation resolved. IMPRESSION: 1. Decrease in size of lymphadenopathy, probably from chronic granulomatous process. 2. Mild to moderate emphysema. 3. Mild pulmonary fibrosis. 4. Cirrhosis. Reviewed, dictated and finalized at location A. IMPRESSION: 1. Decrease in size of lymphadenopathy, probably from chronic granulomatous pr ocess. 2. Mild to moderate emphysema. 3. Mild pulmonary fibrosis. 4. Cirrhosis.
== END 2019-09-10 10:36 | disposition home or self-care (01) ==
LOC: ANHIMG 10:41
PROVIDERS: PCP Family Medicine; Visit Provider Internal Medicine Critical Care Medicine
DX: R59.0 Localized enlarged lymph nodes (principal); J43.9 Emphysema, unspecified; R91.8 Other nonspecific abnormal finding of lung field; K74.60 Unspecified cirrhosis of liver
CPT/HCPCS: 71260; Q9967

== ENCOUNTER 2019-12-14 07:59 | Outpatient (RCR) | payer MEDICARE, SELFPAY ==
[2019-10-11 10:52] LABS: INR 2.6
[2019-11-14 11:12] LABS: INR 2.5; Prothrombin Time 26.6 Seconds (11.1-14.7)
[2019-12-14 09:11] LABS: INR 2.8; Prothrombin Time 28.8 Seconds (11.1-14.7)
== END 2020-01-09 23:59 | disposition home or self-care (01) ==
LOC: ANHLAB 07:59
PROVIDERS: PCP Family Medicine; Visit Provider Specialist
DX: I48.91 Unspecified atrial fibrillation (principal); Z79.01 Long term (current) use of anticoagulants
CPT/HCPCS: 36415; 85610

== ENCOUNTER 2019-12-19 08:18 | Outpatient (CLI) | payer MEDICARE, SELFPAY ==
--- NOTE | ~2019-12-19 | CT_ITS ---
EXAMINATION: CT chest w con DATE: 12/19/2019 09:07 INDICATION: Localized lymphadenopathy TECHNIQUE: Transaxial computed tomographic images of the chest were obtained after the administration of 75 cc of Omnipaque 350 intravenous contrast. The dose-length product (DLP) was 686.25 mGy-cm. Ite rative reconstruction was used. COMPARISON: 09/10/2019 FINDINGS: There is mild emphysema. Calcified pulmonary nodules and calcified subcarinal lymph nodes a re consistent with old granulomatous disease. There are subpleural reticular and groundglass opacitie s with a mid and lower lung zone predominance. Early honeycombing is present in the lower lobes. The lungs are free of acute opacities. There is no pleural effusion or pneumothorax. There is persistent, but decreased, right lower paratracheal lymphadenopathy. Right hilar lymphadenopathy is stable. Ther e are prominent, but nonenlarged, aorticopulmonary window lymph nodes. The heart size is normal. Calc ified coronary artery atherosclerosis is noted. There is nodularity of the liver surface. Punctate ca lcifications in an otherwise normal spleen likely represent healed granulomatous disease. IMPRESSION: 1. Decreasing right lower paratracheal and stable right hilar lymphadenopathy, likely reactive versus chronic granulomatous disease. 2. Mild emphysema. 3. Cirrhosis. 4. Stable chronic interstitial lung disease. Reviewed, dictated and finalized at location B.
[2019-12-19 09:05] LABS: Estimated Glomerular Filt Rate > 60
== END 2019-12-19 08:19 | disposition home or self-care (01) ==
PROVIDERS: PCP Family Medicine; Visit Provider Internal Medicine Critical Care Medicine
DX: R59.0 Localized enlarged lymph nodes (principal); J43.9 Emphysema, unspecified; K76.0 Fatty (change of) liver, not elsewhere classified; J84.9 Interstitial pulmonary disease, unspecified
CPT/HCPCS: 71260; Q9967

== ENCOUNTER 2020-03-26 08:19 | Outpatient (CLI) | payer MEDICARE, SELFPAY ==
[2020-03-26 09:58] LABS: Creatinine Urine 53.2 mg/dL
[2020-03-26 10:19] LABS: MALB Creatinine Ratio 543.8 mg/g (0-30); Microalbumin Urine Random 289.3 mg/L (0-16.7)
== END 2020-03-26 08:20 | disposition home or self-care (01) ==
PROVIDERS: PCP Family Medicine; Visit Provider Physician Assistant
DX: E11.65 Type 2 diabetes mellitus with hyperglycemia (principal)
CPT/HCPCS: 82043

== ENCOUNTER 2020-04-14 10:11 | Outpatient (RCR) | payer MEDICARE, SELFPAY ==
[2020-01-17 08:53] LABS: INR 2.8; Prothrombin Time 28.7 Seconds (11.1-14.7)
[2020-02-21 08:06] LABS: INR 1.7; Prothrombin Time 20.8 Seconds (11.1-14.7)
[2020-02-29 15:05] LABS: INR 1.3
[2020-03-05 08:30] LABS: INR 2.2; Prothrombin Time 24.7 Seconds (11.1-14.7)
[2020-03-12 08:49] LABS: INR 3.2; Prothrombin Time 32.9 Seconds (11.1-14.7)
[2020-03-26 09:15] LABS: INR 3.5; Prothrombin Time 35.6 Seconds (11.1-14.7)
[2020-04-01 12:54] LABS: INR 3.4; Prothrombin Time 34.9 Seconds (11.1-14.7)
[2020-04-14 10:33] LABS: INR 1.8; Prothrombin Time 21.7 Seconds (11.1-14.7)
== END 2020-04-16 23:59 | disposition home or self-care (01) ==
LOC: ANHLAB 10:11
PROVIDERS: PCP Family Medicine; Visit Provider Specialist
DX: Z51.81 Encounter for therapeutic drug level monitoring (principal); I48.91 Unspecified atrial fibrillation; Z79.01 Long term (current) use of anticoagulants
CPT/HCPCS: 36415; 82043; 85610

== ENCOUNTER 2020-04-29 07:17 | Outpatient (CLI) | payer MEDICARE, SELFPAY ==
[2020-04-29 08:41] LABS: Creatinine Urine 33.3 mg/dL
[2020-04-29 08:46] LABS: MALB Creatinine Ratio 465.2 mg/g (0-30); Microalbumin Urine Random 154.9 mg/L (0-16.7)
== END 2020-04-29 07:18 | disposition home or self-care (01) ==
PROVIDERS: PCP Family Medicine; Visit Provider Physician Assistant
DX: E11.65 Type 2 diabetes mellitus with hyperglycemia (principal)
CPT/HCPCS: 82043

== ENCOUNTER 2020-07-07 12:24 | Outpatient (RCR) | payer MEDICARE, SELFPAY ==
[2020-04-29 08:12] LABS: INR 3.1; Prothrombin Time 32.4 Seconds (11.1-14.7)
[2020-06-02 08:47] LABS: INR 3.2
[2020-06-17 12:36] LABS: INR 3.6; Prothrombin Time 36.7 Seconds (11.1-14.7)
[2020-06-27 12:49] LABS: INR 3.8; Prothrombin Time 37.6 Seconds (11.1-14.7)
[2020-07-07 13:12] LABS: INR 2.2; Prothrombin Time 25.1 Seconds (11.1-14.7)
== END 2020-07-28 23:59 | disposition home or self-care (01) ==
LOC: ANHLAB 12:24
PROVIDERS: PCP Family Medicine; Visit Provider Specialist
DX: Z51.81 Encounter for therapeutic drug level monitoring (principal); I48.91 Unspecified atrial fibrillation; Z79.01 Long term (current) use of anticoagulants
CPT/HCPCS: 36415; 82043; 85610

== ENCOUNTER 2020-11-04 10:25 | Outpatient (RCR) | payer MEDICARE, SELFPAY ==
[2020-08-07 14:08] LABS: INR 3.1; Prothrombin Time 32.2 Seconds (11.1-14.7)
[2020-09-02 10:26] LABS: INR 2.2; Prothrombin Time 24.7 Seconds (11.1-14.7)
[2020-10-03 14:18] LABS: INR 2.2; Prothrombin Time 24.8 Seconds (11.1-14.7)
[2020-11-04 10:52] LABS: INR 1.9; Prothrombin Time 21.3 Seconds (11.1-14.7)
== END 2020-11-05 23:59 | disposition home or self-care (01) ==
LOC: ANHLAB 10:25
PROVIDERS: PCP Physician Assistant; Visit Provider Specialist
DX: Z51.81 Encounter for therapeutic drug level monitoring (principal); I48.91 Unspecified atrial fibrillation; Z79.01 Long term (current) use of anticoagulants
CPT/HCPCS: 36415; 85610

== ENCOUNTER 2020-12-16 12:52 | Outpatient (CLI) | payer MEDICARE, SELFPAY ==
--- NOTE | ~2020-12-16 | XR_ITS ---
EXAMINATION: XR chest 2V DATE: 12/16/2020 13:21 INDICATION: Atrial fibrillation, shortness of breath TECHNIQUE: AP and lateral views of the chest are obtained. COMPARISON: 06/15/2019 FINDINGS: Cardiomegaly is noted. There is a mild diffuse interstitial pattern. Small pleural effusion s are present. There are airspace opacities of the lung bases. No pneumothorax is identified. There i s moderate thoracic and severe cervical spondylosis. IMPRESSION: 1. Cardiomegaly with mild pulmonary edema. 2. Small pleural effusions. 3. Bibasilar airspace opacities, likely atelectasis. Reviewed, dictated and finalized at location B.
== END 2020-12-16 12:53 | disposition home or self-care (01) ==
LOC: ANHIMG 12:59
PROVIDERS: PCP Physician Assistant; Visit Provider Specialist
DX: I48.91 Unspecified atrial fibrillation (principal); J90 Pleural effusion, not elsewhere classified; J81.1 Chronic pulmonary edema; I51.7 Cardiomegaly
CPT/HCPCS: 71046

== ENCOUNTER 2021-01-01 12:20 | Outpatient (RCR) | payer MEDICARE, SELFPAY ==
[2020-12-16 14:38] LABS: INR 1.4; Prothrombin Time 17.1 Seconds (11.1-14.7)
[2021-01-01 12:52] LABS: INR 2.8
== END 2021-03-16 23:59 | disposition home or self-care (01) ==
LOC: ANHLAB 12:20
PROVIDERS: PCP Physician Assistant; Visit Provider Specialist
DX: Z51.81 Encounter for therapeutic drug level monitoring (principal); I48.91 Unspecified atrial fibrillation; Z79.01 Long term (current) use of anticoagulants
CPT/HCPCS: 36415; 71046; 85610

== ENCOUNTER 2021-01-26 02:18 | Day surgery (SDC) | payer MEDICARE, SELFPAY ==
[2021-01-26] VITALS (8 sets, daily range): BP systolic 112–139; BP diastolic 69–95; PULSE 65–87; RESP 15–21; TEMP 36.1; O2SAT 92–100; BMI 37.3
--- NOTE | 2021-01-26 | ECHO_ITS ---
Patient Info Name: Rivas Hollingsworth Age: 70 years : 1950 Gender: Male Ht: 70 in Wt: 260 lbs BSA: 2.46 m2 HR: 78 bpm BP: 129 / 74 mmHg Heart Rhythm: Atrial Fibrillation Exam Date: 01/26/2021 1:37 PM Exam Location: [facility] Patient Status: Outpatient Admit Date: 01/26/2021 Staff Ordering Physician: David Sherman MD [place] Agent: Fede Ramirez RDCS, RT Attending Provider: David Sherman MD Referring Physician: Whit MORALES; Exam Type: CA echo transesophageal Study Info Indications I35.0 - Nonrheumatic aortic (valve) stenosis Complete two-dimensional, color flow and Doppler transesophageal study is performed. Summary 1. Left ventricular chamber dimension is normal. 2. Ejection fraction is visually estimated at 60-65%. 3. Marked biatrial dilation with atrial smoke due to atrial fib. 4. Mild aortic valve stenosis with direct planimetry of the valve area measuring 1.7 cm2. 5. Trivial amount of mitral and tricuspid regurgitation. Left Ventricle Left ventricular chamber dimension is normal. Ejection fraction is visually estimated at 60-65%. Right Ventricle Right ventricular chamber dimension is normal. Left Atria Left atrial chamber dimension is severely enlarged. Right Atria Right atrial chamber dimension is severely enlarged. Aortic Valve The aortic valve is trileaflet. There is mild aortic valve sclerosis. There is mild aortic valve stenosis. Pulmonic Valve The pulmonic valve is normal. Mitral Valve The mitral valve has normal leaflets. There is trace mitral valve regurgitation. Tricuspid Valve The tricuspid valve leaflets are normal. There is trace tricuspid valve regurgitation. Pericardium/Pleural The pericardium appears normal. Inferior Vena Cava Not well visualized inferior vena cava with Empty collapse upon inspiration consistent with Empty right atrial pressure, Empty. Aorta The aortic root size at the sinus of Valsalva is normal. Report Signatures
--- NOTE | 2021-01-26 13:41 | WPDANESEPPF ---
Anes - Initial Pre Proc Eval Procedure: Operation Date: 01/26/21 13:00 Proposed Procedures p Trans Esophageal Echo - David Sherman MD Date/Time: 01/26/21 13:41 Surgeon: David Sherman MD Pre Op Diagnosis: aortic stenosis Patient Data Age: 70 Gender: M Height: 1.78 m Weight: 118.1 kg Last Vital Signs Temp 97.0 F L 01/26/21 12:25 Pulse 87 01/26/21 12:25 Resp 15 01/26/21 12:25 BP 139/95 H 01/26/21 12:25 Pulse Ox 100 01/26/21 12:25 Allergies Allergy/AdvReac Type Severity Reaction Status Date / Time No Known Allergies Allergy Verified 12/09/20 13:14 Home Medications Medication Instructions Recorded Confirmed Type aspirin 81 mg PO DAILY 02/20/19 12/09/20 History vitamin B complex [B 1,000 tablet PO QPM 02/20/19 12/09/20 History Complex-Vitamin B12] digoxin 125 mcg (0.125 mg) tablet 125 mcg PO DAILY tablet 02/27/19 12/09/20 History metoprolol tartrate 50 mg tablet 75 mg PO BID tablet 02/27/19 12/09/20 History warfarin 1 mg tablet 10 mg PO QPM tablet 02/27/19 12/09/20 History blood-glucose meter #1 each 08/23/19 12/09/20 Rx warfarin 6 mg tablet See Rx Instructions PO .COMPLEX 11/02/19 12/09/20 Rx #142 tablet BD Insulin Syringe Ultra-Fine 0.5 #200 ea NS 03/19/20 12/09/20 Rx mL 31 gauge x 08/24 blood sugar diagnostic #200 each 03/19/20 12/09/20 Rx amlodipine 10 mg tablet 10 mg PO DAILY #90 tablet 06/02/20 12/09/20 Rx nitroglycerin 0.4 mg sublingual 0.4 mg SUBLINGUAL Q5M PRN 07/10/20 12/09/20 History tablet warfarin 5 mg tablet 5 mg PO QMWF 07/10/20 12/09/20 History lancets 30 gauge #200 each 08/11/20 12/09/20 Rx fluticasone fur. 100 mcg-umeclid See Rx Instructions .ROUTE 10/23/20 12/09/20 Rx 62.5 mcg-vilant 25 mcg .COMPLEX #60 ea inhalat.powder metformin 1,000 mg tablet 1,000 mg PO BID 90 Days #180 tablet 10/28/20 12/09/20 Rx insulin human U-100 NPH-regulr 40 unit SUBCUT BID 90 Days #72 ml 12/02/20 12/09/20 Rx 70-30 mix 100 unit/mL subcutaneous susp furosemide 20 mg tablet 40 mg PO BID #120 tablet 12/09/20 12/09/20 Rx atorvastatin 10 mg tablet See Rx Instructions .ROUTE 12/16/20 Rx .COMPLEX #90 tablet allopurinol 300 mg tablet 300 mg PO DAILY #90 tablet 01/09/21 Rx venlafaxine 150 mg 150 mg PO DAILY #90 cap 01/26/21 Rx capsule,extended release 24 hr Patient hx anesthesia problems: none Family hx anesthesia problems: none Results Review: All pre-operative results and documents have been reviewed as part of the pre-operative evaluation. [facility] Past Medical History Medical History Atrial fibrillation Cholelithiasis Chronic atrial fibrillation Three failed cardioversions. He is on long-term anticoagulation. Chronic respiratory failure with hypoxia 2-3 L nasal cannula with rest, 3-4 L with activity. Dependence on nocturnal oxygen therapy Diabetes Diastolic congestive heart failure Echocardiogram 07/31/2018 showed diastolic dysfunction. Left ventricular size was normal with mild concentric left ventricular hypertrophy and increased left heart filling pressures with an estimated ejection fraction of 55%. Right ventricle was moderately enlarged with mild right ventricular hypokinesis. See latest echo on 06/01/2019 with an EF of 70-75% and diastolic dysfunction Dyslipidemia Erectile dysfunction Gout History of pancreatitis July 2016, secondary to passed common bile duct stone. Hyperlipidemia Hypertension Insulin dependent diabetes mellitus Hemoglobin A1c was 11.4 in January 2018. Obstructive sleep apnea Osteoarthritis Severe pulmonary arterial systolic hypertension Noted on echocardiogram 07/31/2018 with an estimated peak RVSP of 68 mmHg. Right ventricle was moderately enlarged with mild right ventricular hypokinesis. Sleep apnea Type 2 diabetes mellitus with hyperglycemia Valvular heart disease Echocardiogram 07/31/2018 with [id number] tricuspid regurgitation and possible
--- NOTE | 2021-01-26 13:59 | P.PCNCC_ITS ---
Cardiac Cath Procedure Note Date of procedure:: 01/26/21 Performing physician:: David Sherman MD Indication:: Aortic valve stenosis of uncertain severity Brief clinical history:: This is a 70-year-old man with chronic atrial fibrillation experiencing worsening exertional dyspnea. He has been referred back for further cardiovascular evaluation and has an echocardiogram which has some conflicting information regarding the severity of his aortic stenosis. For further evaluation of this OLIVE with direct planimetry examination of the valve was recommended. Procedure Procedure performed:: Transesophageal echocardiogram Sedation/Medication given:: Sedation per the Anesthesia Service please see their separately dictated no Estimated blood loss:: No blood loss Procedure note:: Patient was brought to the GI lab in the postabsorptive state in the supine position his dentures were removed and he was then sedated by the anesthesia service. Again please see their note for separately dictated sedation. When the patient was adequately sedated the OLIVE probe was placed in the oropharynx the tongue was retracted forward and the device was advanced easily into the esophagus. The OLIVE exam was carried out easily and without complication. The cardiac chambers, valves were examined and direct planimetry was performed of the aortic valve. Following this the descending aortic and aortic arch were examined. The probe was then removed. Findings:: The left atrium is markedly dilated. The mitral valve leaflets are anatomically unremarkable there is a very small amount of mitral regurgitation identified. The left ventricle is of normal dimension and contracts normally in all segments the global ejection fraction is visually estimated to be 65%. The aortic valve is a trileaflet structure which is sclerotic at with mild leaflet restriction. On direct 2D examination in the long axis and short axis views the valve does not appear to be significantly stenotic. On direct planimetry a exam of valve the valve area appears to be measuring at 1.7 cm2. Several different positions were taken for a planimetry exam with result between 1.2 and 2.5 cm2. The most direct and in [place] yield a result of 1.7. The aortic root aortic arch and descending thoracic aorta are normal in appearance the right ventricle looks unremarkable the right atrium is markedly dilated. There is a normal appearing tricuspid valve with a very small amount of TR. The interatrial septum is intact. There is no pericardial fluid. Conclusion:: 1. Normal left ventricular systolic function and size 2. Marked biatrial dilatation in this patient with chronic AFib 3. Sclerotic aortic valve which is not significantly stenotic at this time valve area is 1.7 cm2 4. Trivial amounts of mitral and tricuspid valve insufficiency David Sherman MD FACC
--- NOTE | 2021-01-26 15:24 | SUR.PHASEII ---
Iv removed from right hand - catheter intact. no redness or swelling at the site. Dr Sherman spoke with pt regarding results from the procedure. Discharge instructions reviewed with pt w stated understanding.
--- NOTE | 2021-01-26 16:07 | SUR.PHASEII ---
Pt discharged to home via wheelchair to personal vehicle with driving. Pt is discharged on oxygen 3L/NC the same as when he arrived to the hospital.
== END 2021-01-26 15:45 | disposition home or self-care (01) ==
PROVIDERS: PCP Physician Assistant; Visit Provider Specialist
PROC: (CPT 93312; principal; 2021-01-26 13:00)
DX: I48.20 Chronic atrial fibrillation, unspecified (principal); I35.0 Nonrheumatic aortic (valve) stenosis; Z79.01 Long term (current) use of anticoagulants; Z79.82 Long term (current) use of aspirin; Z79.4 Long term (current) use of insulin; I11.0 Hypertensive heart disease with heart failure; I50.30 Unspecified diastolic (congestive) heart failure; E78.5 Hyperlipidemia, unspecified; G47.33 Obstructive sleep apnea (adult) (pediatric); M19.90 Unspecified osteoarthritis, unspecified site; I27.21 Secondary pulmonary arterial hypertension; Z87.891 Personal history of nicotine dependence; E66.9 Obesity, unspecified; Z68.37 Body mass index [BMI] 37.0-37.9, adult; Z79.84 Long term (current) use of oral hypoglycemic drugs; E11.9 Type 2 diabetes mellitus without complications; J96.11 Chronic respiratory failure with hypoxia; Z99.81 Dependence on supplemental oxygen
CPT/HCPCS: 93312; 93320; 93325; J2704; J7040

== ENCOUNTER 2021-07-21 11:04 | Outpatient (CLI) | payer MEDICARE, SELFPAY ==
[2021-07-21 12:30] LABS: Anion Gap 5 mmol/L (8-16); Blood Urea Nitrogen 33 mg/dL (9-20); Carbon Dioxide 34 mmol/L (22-30); Chloride 102 mmol/L (98-107); Estimated Glomerular Filt Rate > 60; Glucose 162 mg/dL (65-110); Sodium 141 mmol/L (137-145)
== END 2021-07-21 11:05 | disposition home or self-care (01) ==
LOC: ANHLAB 11:07
PROVIDERS: PCP Family Medicine; Visit Provider Family Medicine
DX: E11.65 Type 2 diabetes mellitus with hyperglycemia (principal)
CPT/HCPCS: 36415; 80048

== ENCOUNTER 2021-09-24 21:51 | Inpatient (IN) | payer MEDICARE, SELFPAY ==
--- NOTE | ~2021-09-24 | XR_ITS ---
XR chest 2V 09/25/2021 11:21 Indication: Atrial fibrillation. CHF. Procedure: AP and lateral views of the chest Comparison: Comparison to multiple prior studies sequentially, with oldest reviewed study dated 05/16/2019. Findings: Cardiomegaly with pulmonary edema. Small pleural effusions. No pneumothorax. There is ather osclerosis. Impression: 1: Cardiomegaly with pulmonary edema. Reviewed, dictated and finalized at location A. Impression: 1: Cardiomegaly with pulmonary edema.
--- NOTE | ~2021-09-24 | XR_ITS ---
EXAMINATION: XR elbow LT min 3V DATE: 09/28/2021 13:59 INDICATION: Left elbow swelling and bruising. TECHNIQUE: Anteroposterior, two oblique and lateral views of the left elbow were obtained. COMPARISON: None. FINDINGS: Alignment is normal. No fracture or joint effusion. Joint spaces are normal. No cortical erosions. Pr ominent focal soft tissue swelling posterior to the olecranon IMPRESSION: 1. No left elbow joint effusion or osseous abnormality. 2. Focal soft tissue swelling overlying the olecranon which could represent olecranon bursitis or hem atoma the setting of prior trauma. Reviewed, dictated and finalized at location B. IMPRESSION: 1. No left elbow joint effusion or osseous abnormality. 2. Focal soft tissue swelling overlying the olecranon which could represent ole cranon bursitis or hematoma the setting of prior trauma.
[2021-09-24 22:00] VITALS: PULSE 93; O2SAT 91
--- NOTE | 2021-09-24 22:00 | PC.NURSE ---
This patient, Rivas Hollingsworth, was admitted to IMU Room 202-01 as a direct admit. Report received from Daily REID at [facility]. Patient/family oriented to hospital policies and general routines including ID bracelet, bed and alarms, visiting hours, pain management, procedures, bathroom and other care routines, personal items, smoking policy, room service/diet, and visiting hours. Information on how to activate the Rapid Response Team has been discussed. Patient/Family are encouraged to report perceived risks to care and to ask questions if they do not understand what they are told or what they should do.
[2021-09-24 22:05] VITALS: BP 130/69; PULSE 87; RESP 18; TEMP 36.4; O2SAT 91
[2021-09-24 22:06] VITALS: BMI 37.1
[2021-09-25] VITALS (15 sets, daily range): BP systolic 118–149; BP diastolic 60–104; PULSE 74–112; RESP 18–92; TEMP 36–36.4; O2SAT 90–99
--- NOTE | 2021-09-25 | ECHO_ITS ---
Patient Info Name: Rivas Hollingsworth Age: 71 years : 1950 Gender: Male Ht: 70 in Wt: 259 lbs BSA: 2.46 m2 HR: 91 bpm BP: 145 / 88 mmHg Heart Rhythm: Atrial Fibrillation Technical Quality: Fair Exam Date: 09/25/2021 9:50 AM Exam Location: [facility] Card Pulmonary Patient Status: Outpatient Admit Date: 09/24/2021 Staff Ordering Physician: Annemarie Byrne MD Sales Advisory Manager: Nissa Mullins RDCS Attending Provider: Annemarie Byrne MD Referring Physician: Caty ALICIA; Exam Type: CA echo dop color flow w con Study Info Indications - CHF Complete two-dimensional, color flow and Doppler transthoracic echocardiogram is performed with contrast to opacify the left ventricle and to improve the deliniation of the left ventricle endocardial borders. Contrast/Agitated Saline Contrast/Ag. Saline: Definity Amount: 3.00 ml Administered By: Nissa Mullins RDCS Existing IV Access: Yes IV Access Condition: patent with no signs of infiltration Summary 1. Definity contrast injected to improve visualization. 2. Left ventricular systolic function is normal, estimated at 60-65%. 3. Right ventricular chamber dimension is mildly enlarged. 4. Significant biatrial dilation. 5. Mild aortic valve stenosis valve area 1.7 consistent with OLIVE 6 months ago. 6. Moderate pulmonary hypertension. 7. Chronic atrial fibrillation. Left Ventricle Left ventricular chamber dimension is normal. Left ventricular systolic function is normal, estimated at 60-65%. There is mild concentric increased left ventricular wall thickness. The left ventricular diastolic function is indeterminate. Definity contrast injected to improve visualization. Right Ventricle Right ventricular chamber dimension is mildly enlarged. Left Atria Left atrial chamber dimension is severely enlarged. Right Atria Right atrial chamber dimension is moderately enlarged. Aortic Valve The aortic valve is trileaflet. There is moderate aortic valve sclerosis. There is mild aortic valve stenosis with a peak velocity of 223.46 cm/s, mean gradient of 7 mmHg, and aortic valve area of 1.70 cm2. Pulmonic Valve The pulmonic valve is not well visualized. Mitral Valve The mitral valve has normal leaflets. The mitral valve annulus is mildly calcified. Tricuspid Valve The tricuspid valve leaflets are normal. There is trace tricuspid valve regurgitation. Moderate pulmonary hypertension, estimated pulmonary arterial systolic pressure is 51 mmHg. Pericardium/Pleural The pericardium appears normal. Aorta The aortic root size at the sinus of Valsalva is normal. Left Ventricular Outflow Tract Name Value Normal LVOT 2D LVOT Diameter 2.10 cm LVOT Doppler LVOT Peak Gradient 4 mmHg LVOT Mean Gradient 2 mmHg LVOT VTI 19.96 cm LVOT VTI/AV VTI Ratio 0.49 LVOT Stroke Volume 69.05 ml LVOT CO 7.60 l/min LVOT CI
--- NOTE | 2021-09-25 04:59 | PM.IMHP ---
H&P: HPI History of Present Illness Date/Time: 09/25/21 04:59 Chief Complaint: Shortness of breath Narrative: This is a 71-year-old male with past medical history significant for congestive heart failure, type diabetes mellitus, obstructive sleep apnea on AVAP at home, hypertension, atrial fibrillation, chronic anticoagulation. Patient comes as a transfer from outside hospital due to acute on chronic congestive heart failure exacerbation with bilateral lower extremity swelling worsening shortness of breath, PND, orthopnea, however no chest pain, no dizziness, no near syncope, no lightheadedness, has cough which is dry. Patient had episode of dyspnea where he thought that he was not able to breathe with and was taken by EMS to outside facility. Review of Systems Review of Systems: Shortness of breath, PND, orthopnea, increased abdominal girth, bilateral lower extremity swelling. Constitutional: Constitutional: Denies chills, Denies fever(s) and Denies night sweats Eyes: Eyes: Denies change in vision ENT: Denies dysphagia, Denies vertigo, Denies dizziness, Denies odynophagia and Denies disequilibrium Cardiovascular: Cardiovascular: Reports pedal edema, Reports edema, Denies irregular heart rhythm, Reports leg edema, Denies lightheadedness, Denies radiating jaw, neck or arm pain, Denies palpitations, Reports dyspnea, Reports dyspnea on exertion, Reports orthopnea and Reports paroxysmal nocturnal dyspnea Respiratory: Respiratory: Denies change in phlegm color, Reports cough and Denies excessive phlegm production Gastrointestinal: Gastrointestinal: Denies abdominal pain, Denies dyspepsia, Denies heartburn, Denies diarrhea, Denies nausea and Denies vomiting Genitourinary: Genitourinary: Denies dysuria Musculoskeletal: Musculoskeletal: Reports back pain Integumentary/Breasts: Skin/Breast: Denies rash Neurologic: Denies focal weakness and Denies Sensory deficit (Neuro) Psychiatric: Psychiatric: Reports no additional psychiatric complaints and Reports as per HPI Endocrine: Endocrine: Denies cold intolerance, Denies fatigue, Denies flushing, Denies heat intolerance, Denies polyphagia, Denies polydipsia and Denies palpitations Hematologic/Lymphatic: Hematologic/Lymphatic: Reports no additional hematologic/lymphatic complaints and Reports as per HPI Allergic/Immunologic: Allergic/Immunologic: Reports no additional allergic/immunologic complaints and Reports as per HPI [facility] Past Medical History Medical History Atrial fibrillation Cholelithiasis Chronic atrial fibrillation Three failed cardioversions. He is on long-term anticoagulation. Chronic respiratory failure with hypoxia 2-3 L nasal cannula with rest, 3-4 L with activity. Dependence on nocturnal oxygen therapy Depression Diabetes Diastolic congestive heart failure Echocardiogram 07/31/2018 showed diastolic dysfunction. Left ventricular size was normal with mild concentric left ventricular hypertrophy and increased left heart filling pressures with an estimated ejection fraction of 55%. Right ventricle was moderately enlarged with mild right ventricular hypokinesis. See latest echo on 06/01/2019 with an EF of 70-75% and diastolic dysfunction Dyslipidemia Erectile dysfunction Erectile dysfunction Gout History of pancreatitis July 2016, secondary to passed common bile duct stone. Hyperlipidemia Hypertension Insulin dependent diabetes mellitus Hemoglobin A1c was 11.4 in January 2018. Obstructive sleep apnea Osteoarthritis Severe pulmonary arterial systolic hypertension Noted on echocardiogram 07/31/2018 with an estimated peak RVSP of 68 mmHg. Right ventricle was moderately enlarged with mild right ventricular hypokinesis. Sleep apnea Type 2 diabetes mellitus with hyperglycemia Valvular heart disease Echocardiogram 07/31/2018 with [id number] tricuspid regurgitation and possible bicuspid aortic valve.
[2021-09-25 07:50] LABS: INR 2.8; Prothrombin Time 28.2 Seconds (11.1-14.7)
[2021-09-25] MEDS: FLUTICASONE/UMECLIDIN/VILANTER 100-62.5-25 MCG ELLIPTA 1 PUFF INHALATION (09:20)
--- NOTE | 2021-09-25 09:22 | PM.CNCAR ---
Assessment and Plan Assessment and plan (1) Chronic atrial fibrillation: Code(s): I48.20 - Chronic atrial fibrillation, unspecified Status: Chronic (2) Acute on chronic diastolic CHF (congestive heart failure): Code(s): I50.33 - Acute on chronic diastolic (congestive) heart failure Status: Acute (3) Diastolic congestive heart failure: Qualifiers: Heart failure chronicity: unspecified Qualified Code(s): I50.30 - Unspecified diastolic (congestive) heart failure Code(s): I50.30 - Unspecified diastolic (congestive) heart failure Status: Chronic Plan 71-year-old man with a history of chronic atrial fibrillation, mild aortic valve sclerosis and pulmonary hypertension felt to be due to significant sleep apnea which for many years was untreated. He presents with increasing shortness of breath and edema. He does have evidence of some biventricular failure on exam. This is presumably diastolic failure given his previous workup as I mentioned in my note. I am going to keep him on his usual medical regimen and transition his Bumex to intravenous twice daily at this time and hopefully that will prompt a diuresis. Other than this I do not think any new cardiac workup is necessary as he has been well evaluated as detailed above. David Sherman MD [facility] History of Present Illness History of Present Illness Consult date/time: 09/25/21 09:22 Reason For Visit: CHF, Dyspnea Narrative: This is a 71-year-old man who I know very well for on quite a few years with a history of chronic atrial fibrillation. I am seeing him at the request of the hospitalist because of shortness of breath and volume overload. According to the chart he [facility] and was hospitalized for a couple of days with the symptoms like this. He was not noticing improvement and requested transfer to [facility] he came here yesterday in transfer. The patient states that he was in his usual state of health when recently for the last couple of weeks or so he has noticed some increasing lower extremity edema and increasing shortness of breath with modest activity. He has not been having any orthopnea or PND. He has a history of chronic atrial fibrillation for about 12 years. He 1st presented to see me with atrial fibrillation in 2009. An attempt at cardioverting him electrically failed and so he has been in atrial fib since then. It has been my clinical impression that his AFib is on the basis of sleep apnea. For a long time he had relatively severe untreated sleep apnea as he was not interested in effective treatment of his apnea and had significant pulmonary hypertension secondary to this as well. For a couple of years or so he has now been compliant with sleep apnea he has a trilogy machine at home and has a sleep medicine physician somewhere who is managing his case and he has been reported to do much better. When he did receive his trilogy machine his tremendous peripheral edema resolved quite rapidly and he was very pleased with these findings. The patient has never had a history of left ventricular systolic dysfunction. He does have a as mentioned above in history of secondary pulmonary hypertension he also has mild aortic valve stenosis. Last year in 2020 there was some concern about significant aortic valve stenosis based on a transthoracic echocardiogram reading. I had him come into the hospital as an outpatient in January of last year for a transesophageal echo to perform direct planimetry imaging of his aortic valve and he has some mild sclerosis but a good valve area at 1.7 cm2. Last time I saw him in the office was in July of this year at which time he had no significant complaints. Review of Systems Constitutional: Constitutional: Reports no additional constitutional complaints Eyes: Eyes: Reports no additional eye complaints ENT: Reports system reviewed and no additional complaints, except
[2021-09-25 10:16] LABS: Glucose Point of Care 261 mg/dl (65-105)
[2021-09-25] MEDS: PERFLUTREN LIPID MICROSPHERES 1.5 ML VIAL DILUTED TO 10 ML TOTAL VOLUME IV PUSH (10:36)
--- NOTE | 2021-09-25 10:37 | IVDEFINITY ---
Prior to administration of IV Definity the patient was educated on the risks and benefits of the imaging enhancing agent including potential adverse side effects. The patient verbalized understanding. Allergies were verified. No exclusion criteria were identified and at least one of the following inclusion criteria were met: 1) physician request, 2) patient technically difficult to image (per the [place] [employer] guidelines of two or more segments not discernable within the apical view), or 3) questionable left ventricular function. ?
[2021-09-25] MEDS: DIGOXIN TAB 125 MCG TABLET PO (11:03)
[2021-09-25] MEDS: amLODIPine BESYLATE 5 MG TABLET 10 MG PO (11:03)
[2021-09-25] MEDS: ASPIRIN 81 MG CHEWABLE TABLET PO (11:03)
[2021-09-25] MEDS: METOPROLOL TARTRATE 25 MG TABLET 75 MG PO ×2 (11:04→20:45)
[2021-09-25] MEDS: ATORVASTATIN 10 MG TABLET PO (11:04)
[2021-09-25] MEDS: VENLAFAXINE HCL XR 75 MG CAP.ER.24H 150 MG PO (11:04)
[2021-09-25] MEDS: BUMETANIDE INJ 1 MG/4 ML VIAL IV PUSH ×2 (11:05→17:13)
[2021-09-25] MEDS: allopurinoL 300 MG TABLET PO (11:05)
[2021-09-25] MEDS: INSULIN HUMAN ISOPHAN/REGULAR 70/30 (*BKC) 100 UNITS/ML 40 UNITS SUB-Q ×2 (11:10→17:13)
--- NOTE | 2021-09-25 11:12 | PM.IMPN ---
Progress Note: A&P Assessment and Plan (1) Acute on chronic diastolic CHF (congestive heart failure): Code(s): I50.33 - Acute on chronic diastolic (congestive) heart failure Status: Acute Assessment and Plan: Continue IV diuretic therapy. Cardiology has been consulted. No further cardiac workup indicated at this time. No chest pain. (2) COPD (chronic obstructive pulmonary disease): Qualifiers: COPD type: emphysema Emphysema type: panlobular Qualified Code(s): J43.1 - Panlobular emphysema Code(s): J44.9 - Chronic obstructive pulmonary disease, unspecified Status: Acute Assessment and Plan: Not Likely the causeof the shortness of breath. Continue home medications. (3) Severe pulmonary arterial systolic hypertension: Code(s): I27.21 - Secondary pulmonary arterial hypertension Status: Chronic Assessment and Plan: Monitor (4) Chronic respiratory failure with hypoxia: Code(s): J96.11 - Chronic respiratory failure with hypoxia Status: Chronic Assessment and Plan: Monitor (5) Obstructive sleep apnea: Code(s): G47.33 - Obstructive sleep apnea (adult) (pediatric) Status: Chronic (6) Insulin dependent diabetes mellitus: Code(s): E11.9 - Type 2 diabetes mellitus without complications; Z79.4 - long term care phlebotomist (current) use of insulin Status: Chronic Assessment and Plan: Monitor blood sugar and give insulin as needed. (7) Hypertension: Qualifiers: Hypertension type: essential hypertension Qualified Code(s): I10 - Essential (primary) hypertension Code(s): I10 - Essential (primary) hypertension Status: Chronic Assessment and Plan: Monitor blood pressure (8) Chronic atrial fibrillation: Code(s): I48.20 - Chronic atrial fibrillation, unspecified Status: Chronic Assessment and Plan: Monitor Subjective Date/time seen: 09/25/21 11:12 Shortness of breath improved, still has significant lower extremity edema Exam Narrative: General: alert and oriented Psych: appropriate mood nad affect Eyes: PERRLA Neck: Trachea midline, no new lesions Skin: no changes Lungs: CTA Cardiac: Normal S1,S2, no MGR ABD: soft, nd, nt, nbs Ext: +2 edema lower extremities. Stasis dermatitis noted Vasc: Pulses intact Objective Data Vital Signs Vital Signs: Vital Signs - 24 hr 09/24/21 22:05 09/24/21 22:00 09/24/21 22:00 Temperature 97.5 F L Pulse Rate 87 93 Respiratory Rate 18 Blood Pressure 130/69 Pulse Oximetry 91 91 Oxygen Delivery Nasal Cannula Oxygen Flow Rate 5 Fraction of Inspired Oxygen 09/25/21 00:00 09/25/21 00:00 09/25/21 02:45 Temperature 96.9 F L Pulse Rate 112 H 87 Respiratory Rate 20 29 H Blood Pressure 118/83 Pulse Oximetry 90 90 96 Oxygen Delivery Nasal Cannula BiPAP Oxygen Flow Rate 5 Fraction of Inspired Oxygen 09/25/21 00:00 09/25/21 02:00 09/25/21 04:00 Temperature 96.8 F L Pulse Rate 106 H 82 91 Respiratory Rate 22 H Blood Pressure 145/88 H Pulse Oximetry 93 Oxygen Delivery Oxygen Flow Rate Fraction of Inspired Oxygen 09/25/21 04:00 09/25/21 04:00 09/25/21 06:00 Temperature Pulse Rate 92 93 Respiratory Rate Blood Pressure Pulse Oximetry 93 Oxygen Delivery BiPAP Oxygen Flow Rate Fraction of Inspired Oxygen 35 09/25/21 09:24 09/25/21 09:26 Temperature Pulse Rate 94 93 Respiratory Rate 20 92 H Blood Pressure Pulse Oximetry 95 Oxygen Delivery Nasal Cannula Oxygen Flow Rate 5 Fraction of Inspired Oxygen Intake/Output Intake/Output: Intake & Output 09/22/21 09/23/21 09/24/21 09/25/21 23:59 23:59 23:59 23:59 Intake Total 300 Output Total 275 Balance 25 Meds/Results Medications: Active Medications Generic Name Dose Route Start Last Admin Trade Name Freq PRN Reason Stop Dose Admin Allopurinol 300 mg 09/25/21 09:
[2021-09-25 16:35] LABS: Glucose Point of Care 219 mg/dl (65-105)
[2021-09-25] MEDS: WARFARIN (*PBKC) 10 MG TABLET PO (17:13)
[2021-09-25] MEDS: VITAMIN B COMPLEX CAPSULE 1 CAP PO (17:14)
--- NOTE | 2021-09-25 18:02 | PC.NURSE ---
This patient, Rivas Hollingsworth, was received from IMU on 09/25/21 at 1802. Patient/family oriented to unit policies and routines. Report received from FRANKLIN Braga.
[2021-09-26] VITALS (13 sets, daily range): BP systolic 121–136; BP diastolic 71–88; PULSE 78–97; RESP 16–20; TEMP 36.2–36.6; O2SAT 91–98
[2021-09-26 04:47] LABS: Hematocrit 34.2 % (42.0-52.0); Hemoglobin 11.2 g/dL (14.0-18.0); Mean Corpuscular HGB Conc 32.7 g/dl (32-36); Mean Corpuscular Hemoglobin 30.5 pg (26-34); Mean Corpuscular Volume 93.2 fl (80-100); Mean Platelet Volume 10.1 fl (7.4-10.4); Platelet Count Result 274 k/mm3 (150-375); Red Blood Count 3.67 M/mm3 (4.6-6.20); Red Cell Distribution Width 14.8 % (11.5-14.5)
[2021-09-26 04:57] LABS: INR 2.5; Prothrombin Time 26.4 Seconds (11.1-14.7)
[2021-09-26 05:07] LABS: Anion Gap 4 mmol/L (8-16); Blood Urea Nitrogen 32 mg/dL (9-20); Calcium 8.8 mg/dL (8.4-10.2); Carbon Dioxide 36 mmol/L (22-30); Chloride 97 mmol/L (98-107); Estimated CRCL calculation 75 ml/min; Estimated Glomerular Filt Rate > 60; Glucose 103 mg/dL (65-110); Potassium 4.1 mmol/L (3.4-5.0); Sodium 137 mmol/L (137-145)
[2021-09-26 07:55] LABS: NT Pro B Type Natriuretic Pept 2220 pg/mL (5-100)
[2021-09-26 08:14] LABS: Glucose Point of Care 219 mg/dl (65-105)
[2021-09-26] MEDS: INSULIN ASPART (*BKC) 100 UNITS/ML SUB-Q (08:17)
[2021-09-26] MEDS: INSULIN HUMAN ISOPHAN/REGULAR 70/30 (*BKC) 100 UNITS/ML 40 UNITS SUB-Q ×2 (08:18→16:46)
[2021-09-26] MEDS: amLODIPine BESYLATE 5 MG TABLET 10 MG PO (08:22)
[2021-09-26] MEDS: allopurinoL 300 MG TABLET PO (08:22)
[2021-09-26] MEDS: ATORVASTATIN 10 MG TABLET PO (08:22)
[2021-09-26] MEDS: ASPIRIN 81 MG CHEWABLE TABLET PO (08:22)
[2021-09-26] MEDS: VENLAFAXINE HCL XR 75 MG CAP.ER.24H 150 MG PO (08:22)
[2021-09-26] MEDS: METOPROLOL TARTRATE 25 MG TABLET 75 MG PO ×2 (08:23→20:15)
[2021-09-26] MEDS: DIGOXIN TAB 125 MCG TABLET PO (08:23)
[2021-09-26] MEDS: BUMETANIDE INJ 1 MG/4 ML VIAL IV PUSH ×2 (08:24→16:48)
[2021-09-26] MEDS: FLUTICASONE/UMECLIDIN/VILANTER 100-62.5-25 MCG ELLIPTA 1 PUFF INHALATION (08:35)
--- NOTE | 2021-09-26 10:00 | PM.IMPN ---
Progress Note: A&P Assessment and Plan (1) Acute on chronic diastolic CHF (congestive heart failure): Code(s): I50.33 - Acute on chronic diastolic (congestive) heart failure Status: Acute Assessment and Plan: Chest xray shows cardiomegaly with pulmonary edema. Echo 60-65% with indeterminate diastolic dysfunction Acute diastolic exacerbation heart failure BNP 2220 Fluid restriction 1500ml per day Bumex 1mg IV BID Continue bumetanide 2mg PO Daily Continue metoprolol 75mg PO Q12H Strict I&Os Daily weights Trend urine output Trend labs (2) COPD (chronic obstructive pulmonary disease): Qualifiers: COPD type: emphysema Emphysema type: panlobular Qualified Code(s): J43.1 - Panlobular emphysema Code(s): J44.9 - Chronic obstructive pulmonary disease, unspecified Status: Acute Assessment and Plan: Continue home Breztri aerosphere Neb treatments Not in acute exacerbation Chronic home O2 use Trend respiratory status (3) Insulin dependent diabetes mellitus: Code(s): E11.9 - Type 2 diabetes mellitus without complications; 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 Status: Chronic Assessment and Plan: Current glucose 103 Random glucose is well into the 200s Carb consistent diet Accu-Cheks AC and HS Continue home 70/30 40 units BID Trend glucose Add insulin sliding scale Adjust therapy as indicated Add glimepiride 1mg Daily and see if this will help (4) Severe pulmonary arterial systolic hypertension: Code(s): I27.21 - Secondary pulmonary arterial hypertension Status: Chronic Assessment and Plan: Patient is on trilogy at nighttime Continue with home settings (5) Chronic respiratory failure with hypoxia: Code(s): J96.11 - Chronic respiratory failure with hypoxia Status: Chronic Assessment and Plan: Currently on supplemental oxygen by nasal cannula (6) Obstructive sleep apnea: Code(s): G47.33 - Obstructive sleep apnea (adult) (pediatric) Status: Chronic Assessment and Plan: On trilogy (7) Hypertension: Qualifiers: Hypertension type: essential hypertension Qualified Code(s): I10 - Essential (primary) hypertension Code(s): I10 - Essential (primary) hypertension Status: Chronic Assessment and Plan: Current BP is 136/83 Continue home meds Trend blood pressure Adjust therapy as indicated (8) Chronic atrial fibrillation: Code(s): I48.20 - Chronic atrial fibrillation, unspecified Status: Chronic Assessment and Plan: Rate controlled and anticoagulated Continue Digoxin and warfain Aspirin on board Time Spent With Patient Time with patient: Greater than 35 minutes Subjective Date/time seen: 09/26/21 10:00 Interval history: 09/26/21 1000 Patient had a significant nose bleed today. He seemed to be doing ok. His complaint was that his legs are still pretty swollen. He denies any chest pain, shortness of breath, nausea, vomiting, diarrhea, or constipation. Will obtain repeat lab work since he did have the significant bleed. 09/25/21? 11:12. Shortness of breath improved, still has significant lower extremity edema 09/25/21? 04:59 This is a 71-year-old male with past medical history significant for congestive heart failure, type diabetes mellitus, obstructive sleep apnea on AVAP at home, hypertension, atrial fibrillation, chronic anticoagulation.? Patient comes as a transfer from outside hospital due to acute on chronic congestive heart failure exacerbation with bilateral lower extremity swelling worsening shortness of breath, PND, orthopnea, however no chest pain, no dizziness, no near syncope, no lightheadedness, has cough which is dry.? Patient had episode of dyspnea where he thought that he was not able to breathe with and was taken by EM
--- NOTE | 2021-09-26 10:00 | P.PNIM_ITS ---
Progress Note: A&P Assessment and Plan (1) Acute on chronic diastolic CHF (congestive heart failure): Code(s): I50.33 - Acute on chronic diastolic (congestive) heart failure Status: Acute Assessment and Plan: * Chest xray shows cardiomegaly with pulmonary edema. * Echo 60-65% with indeterminate diastolic dysfunction * Acute diastolic exacerbation heart failure * BNP 2220 * Fluid restriction 1500ml per day * Bumex 1mg IV BID * Continue bumetanide 2mg PO Daily * Continue metoprolol 75mg PO Q12H * Strict I&Os * Daily weights * Trend urine output * Trend labs (2) COPD (chronic obstructive pulmonary disease): Qualifiers: COPD type: emphysema Emphysema type: panlobular Qualified Code(s): J43.1 - Panlobular emphysema Code(s): J44.9 - Chronic obstructive pulmonary disease, unspecified Status: Acute Assessment and Plan: * Continue home Breztri aerosphere * Neb treatments * Not in acute exacerbation * Chronic home O2 use * Trend respiratory status (3) Insulin dependent diabetes mellitus: Code(s): E11.9 - Type 2 diabetes mellitus without complications; 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 Status: Chronic Assessment and Plan: * Current glucose 103 * Random glucose is well into the 200s * Carb consistent diet * Accu-Cheks AC and HS * Continue home 70/30 40 units BID * Trend glucose * Add insulin sliding scale * Adjust therapy as indicated * Add glimepiride 1mg Daily and see if this will help (4) Severe pulmonary arterial systolic hypertension: Code(s): I27.21 - Secondary pulmonary arterial hypertension Status: Chronic Assessment and Plan: * Patient is on trilogy at nighttime * Continue with home settings (5) Chronic respiratory failure with hypoxia: Code(s): J96.11 - Chronic respiratory failure with hypoxia Status: Chronic Assessment and Plan: * Currently on supplemental oxygen by nasal cannula (6) Obstructive sleep apnea: Code(s): G47.33 - Obstructive sleep apnea (adult) (pediatric) Status: Chronic Assessment and Plan: On trilogy (7) Hypertension: Qualifiers: Hypertension type: essential hypertension Qualified Code(s): I10 - Essential (primary) hypertension Code(s): I10 - Essential (primary) hypertension Status: Chronic Assessment and Plan: * Current BP is 136/83 * Continue home meds * Trend blood pressure * Adjust therapy as indicated (8) Chronic atrial fibrillation: Code(s): I48.20 - Chronic atrial fibrillation, unspecified Status: Chronic Assessment and Plan: * Rate controlled and anticoagulated * Continue Digoxin and warfain * Aspirin on board Time Spent With Patient Time with patient: Greater than 35 minutes Subjective Date/time seen: 09/26/21 10:00 Interval history: 09/26/21 1000 Patient had a significant nose bleed today. He seemed to be doing ok. His complaint was that his legs are still pretty swollen. He denies any chest pain, shortness of breath, nausea, vomiting, diarrhea, or constipation. Will obtain repeat lab work since he did have the significant bleed. 09/25/21? 11:12. Shortness of breath improved, still has significant lower extremity edema 09/25/21? 04:59 This is a 71-year-old male with pa
--- NOTE | 2021-09-26 10:38 | PHAR ---
HOME MED VERIFIED = [facility] [id number] BREZTRI INHALE 2 PUFFS TWICE A DAY. THIS MED IS VERIFIED , HOWEVER, WE HAVE A THERAPEUTIC SUB ON HIS PROFILE OF TRELEGY. IF THIS IS TO BE USED TRELEGY WILL NEED TO BE DISCONTINURD FIRST.
--- NOTE | 2021-09-26 10:47 | PM.PNCARD ---
Progress Note: A&P Assessment and Plan (1) Acute on chronic diastolic CHF (congestive heart failure): Code(s): I50.33 - Acute on chronic diastolic (congestive) heart failure Status: Acute Assessment and Plan: Acute on chronic heart failure with preserved ejection fraction EF 60 65%, mild RV enlargement, biatrial enlargement, mild aortic stenosis moderate pulmonary hypertension PA systolic pressure 51 mm Hg. Transition back to p.o. Bumex 2 mg daily. Lung status improving although not quite at baseline euvolemia. Monitor renal function electrolytes closely. We will see patient as needed. Please do not hesitate to contact us with any additional questions or concerns. Discussed with the patient and his who verbalized understanding and agreed with plan of care. All questions answered to their satisfaction. Follow-up with Dr. Sherman as an outpatient. (2) Chronic atrial fibrillation: Code(s): I48.20 - Chronic atrial fibrillation, unspecified Status: Chronic Assessment and Plan: Heart rate reasonably controlled on metoprolol tartrate 75 mg twice daily and digoxin 0.125 mg daily. If renal insufficiency check digoxin level. (3) Chronic respiratory failure with hypoxia: Code(s): J96.11 - Chronic respiratory failure with hypoxia Status: Chronic Assessment and Plan: Per primary service. Chronic O2, trilogy unit. (4) Aortic stenosis: Code(s): I35.0 - Nonrheumatic aortic (valve) stenosis Status: Acute Assessment and Plan: Mild, asymptomatic. Not clinically relevant at present. Aortic valve area 1.7 centimeters squared largely unchanged compared to prior evaluation 2019. (5) Obstructive sleep apnea: Code(s): G47.33 - Obstructive sleep apnea (adult) (pediatric) Status: Chronic Assessment and Plan: As above, Trilogy (6) Epistaxis not due to trauma: Code(s): R04.0 - Epistaxis Status: Acute Assessment and Plan: Acute onset, patient reports a history of recurrent epistaxis on a nearly monthly basis. Manual pressure. Recheck INR. INR 2.5 today therapeutic. Continue current regimen unless INR increases further or epistaxis severe and poorly controlled. ENT consult is unable to control bleeding or respiratory compromise. 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 Goal INR 2-3. Warfarin at present dose. Subjective Date/time seen: Date of service: 09/26/21 10:47 Follow-up for diastolic heart failure, atrial fibrillation, GILES on trilogy, mild aortic stenosis Patient feeling better overall. Somewhat less short of breath. Making good urine. Developed epistaxis this morning currently patient holding manual pressure when I entered his room with hospitalist at bedside. Denies chest pain, palpitations, dizziness. No new issues overnight. Edema improving. Patient's at bedside. Review of Systems Review of Systems: No fevers, chills. Patient reports having epistaxis usually monthly. Constitutional: Constitutional: Reports no additional constitutional complaints Eyes: Eyes: Reports no additional eye complaints ENT: Reports system reviewed and no additional complaints, except as documented Cardiovascular: Cardiovascular: Reports as per HPI and Reports dyspnea on exertion Respiratory: Respiratory: Reports dyspnea on exertion Gastrointestinal: Gastrointestinal: Reports no additional gastrointestinal complaints Musculoskeletal: Musculoskeletal: Reports no additional musculoskeletal complaints Integumentary/Breasts: Skin/Breast: Reports system reviewed and no additional complaints, except as docu Neurologic: Reports system reviewed and no additional complaints, except as documented Endocrine: Endocrine: Reports no additional endocrine complaints Hematologic/Lymphatic: Hem
[2021-09-26 12:05] LABS: Glucose Point of Care 137 mg/dl (65-105)
[2021-09-26 12:56] LABS: Basophils Percent Auto 0.3 % (0.2-1.2); Eosinophils Absolute Auto 0.2 K/mm3 (0-0.3); Eosinophils Percent Auto 2.3 % (0-4.4); Immature Granulocyte Absolute 0.06 K/mm3 (0.00-0.031); Immature Granulocyte Percent A 0.6 % (0-0.5); Lymphocytes Absolute Auto 0.88 K/mm3 (0.9-3.2); Lymphocytes Percent Auto 9.2 % (18.3-44.2); Mean Corpuscular HGB Conc 31.4 g/dl (32-36); Mean Corpuscular Volume 95.4 fl (80-100); Mean Platelet Volume 10.4 fl (7.4-10.4); Monocytes Percent Auto 10.9 % (2.6-8.5); Neutrophils Absolute Auto 7.3 K/mm3 (1.3-6.7); Neutrophils Percent Auto 76.7 % (45.5-73.1); Platelet Count Result 280 k/mm3 (150-375); Red Blood Count 3.67 M/mm3 (4.6-6.20); Red Cell Distribution Width 15.2 % (11.5-14.5); White Blood Count 9.5 K/mm3 (4.5-10.0)
[2021-09-26 16:47] LABS: Glucose Point of Care 199 mg/dl (65-105)
[2021-09-26] MEDS: WARFARIN (*PBKC) 10 MG TABLET PO (16:48)
[2021-09-26] MEDS: VITAMIN B COMPLEX CAPSULE 1 CAP PO (16:48)
[2021-09-26] MEDS: WATER FOR IRRIGATION, STERILE 1,000 ML BOTTLE 1000 ML (19:16)
[2021-09-26 20:31] LABS: Glucose Point of Care 236 mg/dl (65-105)
[2021-09-27] VITALS (14 sets, daily range): BP systolic 124–139; BP diastolic 78–80; PULSE 67–111; RESP 16–20; TEMP 36–36.2; O2SAT 93–96
[2021-09-27 05:11] LABS: Basophils Absolute Auto 0.1 K/mm3 (0.0-0.1); Basophils Percent Auto 0.7 % (0.2-1.2); Eosinophils Absolute Auto 0.3 K/mm3 (0-0.3); Eosinophils Percent Auto 3.1 % (0-4.4); Hematocrit 34.1 % (42.0-52.0); Immature Granulocyte Absolute 0.07 K/mm3 (0.00-0.031); Immature Granulocyte Percent A 0.8 % (0-0.5); Lymphocytes Absolute Auto 1.22 K/mm3 (0.9-3.2); Lymphocytes Percent Auto 14.7 % (18.3-44.2); Mean Corpuscular HGB Conc 32.3 g/dl (32-36); Mean Corpuscular Hemoglobin 30.1 pg (26-34); Mean Corpuscular Volume 93.4 fl (80-100); Mean Platelet Volume 10.1 fl (7.4-10.4); Monocytes Absolute Auto 1.1 K/mm3 (0.1-0.6); Monocytes Percent Auto 12.7 % (2.6-8.5); Neutrophils Absolute Auto 5.6 K/mm3 (1.3-6.7); Platelet Count Result 286 k/mm3 (150-375); Red Blood Count 3.65 M/mm3 (4.6-6.20); Red Cell Distribution Width 14.9 % (11.5-14.5); White Blood Count 8.3 K/mm3 (4.5-10.0)
[2021-09-27 05:21] LABS: INR 2.2
[2021-09-27 05:27] LABS: Alanine Aminotransferase 26 U/L (6-50); Alkaline Phosphatase 132 U/L (38-126); Anion Gap 5 mmol/L (8-16); Aspartate Amino Transferase 44 U/L (17-59); Bilirubin,Total 1.2 mg/dL (0.2-1.3); Blood Urea Nitrogen 41 mg/dL (9-20); Calcium 8.5 mg/dL (8.4-10.2); Carbon Dioxide 34 mmol/L (22-30); Chloride 98 mmol/L (98-107); Estimated CRCL calculation 75 ml/min; Estimated Glomerular Filt Rate > 60; Glucose 136 mg/dL (65-110); Magnesium 2.2 mg/dL (1.6-2.3); Potassium 4.3 mmol/L (3.4-5.0); Sodium 137 mmol/L (137-145)
[2021-09-27] MEDS: FLUTICASONE/UMECLIDIN/VILANTER 100-62.5-25 MCG ELLIPTA 1 PUFF INHALATION (07:23)
[2021-09-27 07:43] LABS: Glucose Point of Care 148 mg/dl (65-105)
[2021-09-27] MEDS: amLODIPine BESYLATE 5 MG TABLET 10 MG PO (08:07)
[2021-09-27] MEDS: VENLAFAXINE HCL XR 75 MG CAP.ER.24H 150 MG PO (08:07)
[2021-09-27] MEDS: BUMETANIDE INJ 1 MG/4 ML VIAL IV PUSH ×3 (08:07→16:57)
[2021-09-27] MEDS: GLIMEPIRIDE 1 MG TABLET PO (08:08)
[2021-09-27] MEDS: METOPROLOL TARTRATE 25 MG TABLET 75 MG PO ×2 (08:08→20:37)
[2021-09-27] MEDS: ATORVASTATIN 10 MG TABLET PO (08:08)
[2021-09-27] MEDS: DIGOXIN TAB 125 MCG TABLET PO (08:08)
[2021-09-27] MEDS: allopurinoL 300 MG TABLET PO (08:08)
[2021-09-27] MEDS: ASPIRIN 81 MG CHEWABLE TABLET PO (08:08)
[2021-09-27] MEDS: INSULIN HUMAN ISOPHAN/REGULAR 70/30 (*BKC) 100 UNITS/ML 40 UNITS SUB-Q (08:14)
--- NOTE | 2021-09-27 08:15 | PM.IMPN ---
Progress Note: A&P Assessment and Plan (1) Acute on chronic diastolic CHF (congestive heart failure): Code(s): I50.33 - Acute on chronic diastolic (congestive) heart failure Status: Acute Assessment and Plan: Chest xray shows cardiomegaly with pulmonary edema. Echo 60-65% with indeterminate diastolic dysfunction Acute diastolic exacerbation heart failure BNP 2220 Fluid restriction 1500ml per day Bumex 1mg IV BID, transition to PO when appropriate Give one dose of 2mg Bumex this am Continue metoprolol 75mg PO Q12H Strict I&Os Daily weights Trend urine output Trend labs (2) COPD (chronic obstructive pulmonary disease): Qualifiers: COPD type: emphysema Emphysema type: panlobular Qualified Code(s): J43.1 - Panlobular emphysema Code(s): J44.9 - Chronic obstructive pulmonary disease, unspecified Status: Acute Assessment and Plan: Continue home Breztri aerosphere Neb treatments Not in acute exacerbation Chronic home O2 use Trend respiratory status (3) Insulin dependent diabetes mellitus: Code(s): E11.9 - Type 2 diabetes mellitus without complications; 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 Status: Chronic Assessment and Plan: Current glucose 136 Random glucose is well into the 200s Carb consistent diet Accu-Cheks AC and HS Continue home 70/30 40 units BID Trend glucose Add insulin sliding scale Adjust therapy as indicated Add glimepiride 1mg Daily and see if this will help (4) Severe pulmonary arterial systolic hypertension: Code(s): I27.21 - Secondary pulmonary arterial hypertension Status: Chronic Assessment and Plan: Patient is on trilogy at nighttime Continue with home settings (5) Chronic respiratory failure with hypoxia: Code(s): J96.11 - Chronic respiratory failure with hypoxia Status: Chronic Assessment and Plan: Currently on supplemental oxygen by nasal cannula (6) Obstructive sleep apnea: Code(s): G47.33 - Obstructive sleep apnea (adult) (pediatric) Status: Chronic Assessment and Plan: On trilogy (7) Hypertension: Qualifiers: Hypertension type: essential hypertension Qualified Code(s): I10 - Essential (primary) hypertension Code(s): I10 - Essential (primary) hypertension Status: Chronic Assessment and Plan: Current BP is 124/79 Continue home meds, amlodipine, metoprolol Trend blood pressure Adjust therapy as indicated (8) Chronic atrial fibrillation: Code(s): I48.20 - Chronic atrial fibrillation, unspecified Status: Chronic Assessment and Plan: Rate controlled and anticoagulated Continue Digoxin and warfain Aspirin on board INR 2.2 today Time Spent With Patient Time with patient: Greater than 35 minutes Subjective Date/time seen: 09/27/21 08:15 Interval history: 09/27/21 0815 Patient is doing okay today. Patient legs are still swollen do not think they really went down much more. He did state that his blood sugars at home run about 250s to 300s. Did increase his Bumex to 2 mg x 1 this morning. Patient states that he feels a little bit better with breathing however he still feels very swollen. He denies any chest pain, shortness of breath, nausea, vomiting, diarrhea, constipation, weakness or fatigue. He did state that it has been hard because the water for his trilogy does have a right stand so he may did with when he had however it spilled all over the place last night. Will talked to respiratory for possible solution. 09/26/21 1000 Patient had a significant nose bleed today. He seemed to be doing ok. His complaint was that his legs are still pretty swollen. He denies any chest pain, shortness of breath, nausea, vomiting, diarrhea, or constipation. Will obtain repeat lab work since he did have the
--- NOTE | 2021-09-27 08:15 | P.PNIM_ITS ---
Progress Note: A&P Assessment and Plan (1) Acute on chronic diastolic CHF (congestive heart failure): Code(s): I50.33 - Acute on chronic diastolic (congestive) heart failure Status: Acute Assessment and Plan: * Chest xray shows cardiomegaly with pulmonary edema. * Echo 60-65% with indeterminate diastolic dysfunction * Acute diastolic exacerbation heart failure * BNP 2220 * Fluid restriction 1500ml per day * Bumex 1mg IV BID, transition to PO when appropriate * Give one dose of 2mg Bumex this am * Continue metoprolol 75mg PO Q12H * Strict I&Os * Daily weights * Trend urine output * Trend labs (2) COPD (chronic obstructive pulmonary disease): Qualifiers: COPD type: emphysema Emphysema type: panlobular Qualified Code(s): J43.1 - Panlobular emphysema Code(s): J44.9 - Chronic obstructive pulmonary disease, unspecified Status: Acute Assessment and Plan: * Continue home Breztri aerosphere * Neb treatments * Not in acute exacerbation * Chronic home O2 use * Trend respiratory status (3) Insulin dependent diabetes mellitus: Code(s): E11.9 - Type 2 diabetes mellitus without complications; 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 Status: Chronic Assessment and Plan: * Current glucose 136 * Random glucose is well into the 200s * Carb consistent diet * Accu-Cheks AC and HS * Continue home 70/30 40 units BID * Trend glucose * Add insulin sliding scale * Adjust therapy as indicated * Add glimepiride 1mg Daily and see if this will help (4) Severe pulmonary arterial systolic hypertension: Code(s): I27.21 - Secondary pulmonary arterial hypertension Status: Chronic Assessment and Plan: * Patient is on trilogy at nighttime * Continue with home settings (5) Chronic respiratory failure with hypoxia: Code(s): J96.11 - Chronic respiratory failure with hypoxia Status: Chronic Assessment and Plan: * Currently on supplemental oxygen by nasal cannula (6) Obstructive sleep apnea: Code(s): G47.33 - Obstructive sleep apnea (adult) (pediatric) Status: Chronic Assessment and Plan: On trilogy (7) Hypertension: Qualifiers: Hypertension type: essential hypertension Qualified Code(s): I10 - Essential (primary) hypertension Code(s): I10 - Essential (primary) hypertension Status: Chronic Assessment and Plan: * Current BP is 124/79 * Continue home meds, amlodipine, metoprolol * Trend blood pressure * Adjust therapy as indicated (8) Chronic atrial fibrillation: Code(s): I48.20 - Chronic atrial fibrillation, unspecified Status: Chronic Assessment and Plan: * Rate controlled and anticoagulated * Continue Digoxin and warfain * Aspirin on board * INR 2.2 today Time Spent With Patient Time with patient: Greater than 35 minutes Subjective Date/time seen: 09/27/21 08:15 Interval history: 09/27/21 0815 Patient is doing okay today. Patient legs are still swollen do not think they really went down much more. He did state that his blood sugars at home run about 250s to 300s. Did increase his Bumex to 2 mg x 1 this morning. Patient states that he feels a little bit better with breathing however he still feels very swollen. He denies any chest pain, shortness of breath, nausea, vomiting
[2021-09-27 11:18] LABS: Glucose Point of Care 257 mg/dl (65-105)
[2021-09-27] MEDS: WATER FOR IRRIGATION, STERILE 1,000 ML BOTTLE 1000 ML (11:27)
[2021-09-27] MEDS: INSULIN ASPART (*BKC) 100 UNITS/ML SUB-Q (11:32)
--- NOTE | 2021-09-27 11:50 | PM.PNCARD ---
Progress Note: A&P Assessment and Plan (1) Acute on chronic diastolic CHF (congestive heart failure): Code(s): I50.33 - Acute on chronic diastolic (congestive) heart failure Status: Acute Assessment and Plan: Acute on chronic heart failure with preserved ejection fraction EF 60 65%, mild RV enlargement, biatrial enlargement, mild aortic stenosis moderate pulmonary hypertension PA systolic pressure 51 mm Hg. Transition back to p.o. Bumex 2 mg daily. Lung status improving although not quite at baseline euvolemia. Monitor renal function electrolytes closely. Agree with additional Bumex this a.m.. Depending upon response and renal function may give another additional dose tomorrow morning. Accurate input and output, daily weights. BUN has increased continue to monitor closely in this regard. (2) Chronic atrial fibrillation: Code(s): I48.20 - Chronic atrial fibrillation, unspecified Status: Chronic Assessment and Plan: Heart rate reasonably controlled on metoprolol tartrate 75 mg twice daily and digoxin 0.125 mg daily. If renal insufficiency check digoxin level. (3) Chronic respiratory failure with hypoxia: Code(s): J96.11 - Chronic respiratory failure with hypoxia Status: Chronic Assessment and Plan: Per primary service. Chronic O2, trilogy unit. (4) Aortic stenosis: Code(s): I35.0 - Nonrheumatic aortic (valve) stenosis Status: Acute Assessment and Plan: Mild, asymptomatic. Not clinically relevant at present. Aortic valve area 1.7 centimeters squared largely unchanged compared to prior evaluation 2019. (5) Obstructive sleep apnea: Code(s): G47.33 - Obstructive sleep apnea (adult) (pediatric) Status: Chronic Assessment and Plan: As above, Trilogy (6) Epistaxis not due to trauma: Code(s): R04.0 - Epistaxis Status: Acute Assessment and Plan: Acute onset, patient reports a history of recurrent epistaxis on a nearly monthly basis. Manual pressure. Recheck INR. INR 2.5 today therapeutic. Continue current regimen unless INR increases further or epistaxis severe and poorly controlled. ENT consult is unable to control bleeding or respiratory compromise. 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 Goal INR 2-3. Warfarin at present dose, adjustment as appropriate. Subjective Date/time seen: Date of service: 09/27/21 11:50 Follow-up for CHF, AFib Patient states overall his breathing is notably improved. Edema persists compression stockings placed earlier today. No new issues overnight. No chest pain or palpitations. He states he is making good urine. Admits some of his urine was lost with bowel movements but otherwise he is trying to save it as instructed. Received an additional Bumex 1 mg IV x1 this a.m.. No further bleeding or epistaxis. Review of Systems Review of Systems: No fevers, chills. Breathing improved edema present. No dizziness. No chest pain or palpitations. Tolerating medications. Constitutional: Constitutional: Reports no additional constitutional complaints Eyes: Eyes: Reports no additional eye complaints ENT: Reports system reviewed and no additional complaints, except as documented Cardiovascular: Cardiovascular: Reports as per HPI and Reports dyspnea on exertion Respiratory: Respiratory: Reports dyspnea on exertion Gastrointestinal: Gastrointestinal: Reports no additional gastrointestinal complaints Musculoskeletal: Musculoskeletal: Reports no additional musculoskeletal complaints Integumentary/Breasts: Skin/Breast: Reports system reviewed and no additional complaints, except as docu Neurologic: Reports system reviewed and no additional complaints, except as documented Endocrine: Endocrine: Reports no additional endocrine complaints Hematol
[2021-09-27 16:31] LABS: Glucose Point of Care 122 mg/dl (65-105)
[2021-09-27] MEDS: WARFARIN (*PBKC) 10 MG TABLET PO (16:57)
[2021-09-27] MEDS: VITAMIN B COMPLEX CAPSULE 1 CAP PO (16:57)
[2021-09-27 20:42] LABS: Glucose Point of Care 257 mg/dl (65-105)
[2021-09-28] VITALS (17 sets, daily range): BP systolic 119–138; BP diastolic 75–87; PULSE 64–88; RESP 16–20; TEMP 35.8–36.4; O2SAT 91–96; BMI 36.4
[2021-09-28 05:13] LABS: Basophils Percent Auto 0.6 % (0.2-1.2); Eosinophils Absolute Auto 0.3 K/mm3 (0-0.3); Eosinophils Percent Auto 3.9 % (0-4.4); Hematocrit 33.6 % (42.0-52.0); Hemoglobin 10.5 g/dL (14.0-18.0); Immature Granulocyte Absolute 0.05 K/mm3 (0.00-0.031); Immature Granulocyte Percent A 0.7 % (0-0.5); Lymphocytes Absolute Auto 1.03 K/mm3 (0.9-3.2); Lymphocytes Percent Auto 14.3 % (18.3-44.2); Mean Corpuscular HGB Conc 31.3 g/dl (32-36); Mean Corpuscular Hemoglobin 29.7 pg (26-34); Mean Corpuscular Volume 94.9 fl (80-100); Mean Platelet Volume 10.3 fl (7.4-10.4); Monocytes Absolute Auto 0.9 K/mm3 (0.1-0.6); Monocytes Percent Auto 12.4 % (2.6-8.5); Neutrophils Absolute Auto 4.9 K/mm3 (1.3-6.7); Neutrophils Percent Auto 68.1 % (45.5-73.1); Platelet Count Result 279 k/mm3 (150-375); Red Blood Count 3.54 M/mm3 (4.6-6.20); Red Cell Distribution Width 15.1 % (11.5-14.5); White Blood Count 7.2 K/mm3 (4.5-10.0)
[2021-09-28 05:24] LABS: INR 2.4; Prothrombin Time 24.9 Seconds (11.1-14.7)
[2021-09-28 05:30] LABS: Alanine Aminotransferase 25 U/L (6-50); Albumin Level 3.8 g/dL (3.5-5.1); Alkaline Phosphatase 153 U/L (38-126); Anion Gap 0 mmol/L (8-16); Aspartate Amino Transferase 36 U/L (17-59); Bilirubin,Total 0.9 mg/dL (0.2-1.3); Blood Urea Nitrogen 37 mg/dL (9-20); Calcium 8.3 mg/dL (8.4-10.2); Carbon Dioxide 37 mmol/L (22-30); Chloride 98 mmol/L (98-107); Estimated CRCL calculation 82 ml/min; Estimated Glomerular Filt Rate > 60; Glucose 262 mg/dL (65-110); Magnesium 2.3 mg/dL (1.6-2.3); Potassium 4.3 mmol/L (3.4-5.0); Sodium 135 mmol/L (137-145)
[2021-09-28 07:43] LABS: Glucose Point of Care 240 mg/dl (65-105)
[2021-09-28] MEDS: FLUTICASONE/UMECLIDIN/VILANTER 100-62.5-25 MCG ELLIPTA 1 PUFF INHALATION (07:59)
--- NOTE | 2021-09-28 08:31 | PM.PNCARD ---
Progress Note: A&P Assessment and Plan (1) Acute on chronic diastolic CHF (congestive heart failure): Code(s): I50.33 - Acute on chronic diastolic (congestive) heart failure <FROYLAN Mackay - Last Filed: 09/28/21 12:15> Status: Acute <FROYLAN Mackay - Last Filed: 09/28/21 12:15> Assessment and Plan: Acute on chronic heart failure with preserved ejection fraction EF 60 65%, mild RV enlargement, biatrial enlargement, mild aortic stenosis moderate pulmonary hypertension PA systolic pressure 51 mm Hg. Continue Bumex 2mg p.o. daily Continue to monitor renal function and electrolytes, BUN remains elevated today yet stable Accurate I&O daily weights Compression stockings <FROYLAN Mackay - Last Filed: 09/28/21 12:15> (2) Chronic atrial fibrillation: Code(s): I48.20 - Chronic atrial fibrillation, unspecified <FROYLAN Mackay - Last Filed: 09/28/21 12:15> Status: Chronic <FROYLAN Mackay - Last Filed: 09/28/21 12:15> Assessment and Plan: Heart rate reasonably controlled on metoprolol tartrate 75 mg twice daily and digoxin 0.125 mg daily. If renal insufficiency check digoxin level. <FROYLAN Mackay - Last Filed: 09/28/21 12:15> (3) Chronic respiratory failure with hypoxia: Code(s): J96.11 - Chronic respiratory failure with hypoxia <FROYLAN Mackay - Last Filed: 09/28/21 12:15> Status: Chronic <FROYLAN Mackay - Last Filed: 09/28/21 12:15> Assessment and Plan: Per primary service. Chronic O2, trilogy unit. <FROYLAN Mackay - Last Filed: 09/28/21 12:15> (4) Aortic stenosis: Code(s): I35.0 - Nonrheumatic aortic (valve) stenosis <FROYLAN Mackay - Last Filed: 09/28/21 12:15> Status: Acute <HUMAIRA MackayC - Last Filed: 09/28/21 12:15> Assessment and Plan: Mild, asymptomatic. Not clinically relevant at present. Aortic valve area 1.7 centimeters squared largely unchanged compared to prior evaluation 2019. <FROYLAN Mackay - Last Filed: 09/28/21 12:15> (5) Obstructive sleep apnea: Code(s): G47.33 - Obstructive sleep apnea (adult) (pediatric) <HUMAIRA MackayC - Last Filed: 09/28/21 12:15> Status: Chronic <HUMAIRA MackyaC - Last Filed: 09/28/21 12:15> Assessment and Plan: As above, Trilogy <HUMAIRA MackayC - Last Filed: 09/28/21 12:15> (6) Epistaxis not due to trauma: Code(s): R04.0 - Epistaxis <FROYLAN Mackay - Last Filed: 09/28/21 12:15> Status: Acute <Hilaria Yanez APN-C - Last Filed: 09/28/21 12:15> Assessment and Plan: Acute onset, patient reports a history of recurrent epistaxis on a nearly monthly basis. Manual pressure. Recheck INR. INR 2.5 today therapeutic. Continue current regimen unless INR increases further or epistaxis severe and poorly controlled. ENT consult is unable to control bleeding or respiratory compromise. 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 Goal INR 2-3. Warfarin at present dose, adjustment as appropriate. <FROYLAN Mackay - Last Filed: 09/28/21 12:15> Additional Plan Attending Addendum: I have personally seen and examined this patient at bedside. I agree with the above documentation and plan of care as outlined. -patient states breathing is improving, edema only today appears notably improved. States he has family making a bit more urine this morning. Denies dizziness or lightheadedness. Able to participate in physical therapy without a lot of shortness of breath. Noted bruising on his left elbow and ecchymosis
[2021-09-28] MEDS: ASPIRIN 81 MG CHEWABLE TABLET PO (08:45)
[2021-09-28] MEDS: allopurinoL 300 MG TABLET PO (08:45)
[2021-09-28] MEDS: amLODIPine BESYLATE 5 MG TABLET 10 MG PO (08:45)
[2021-09-28] MEDS: ATORVASTATIN 10 MG TABLET PO (08:45)
[2021-09-28] MEDS: GLIMEPIRIDE 2 MG TABLET PO (08:45)
[2021-09-28] MEDS: VENLAFAXINE HCL XR 75 MG CAP.ER.24H 150 MG PO (08:46)
[2021-09-28] MEDS: METOPROLOL TARTRATE 25 MG TABLET 75 MG PO ×2 (08:46→20:02)
[2021-09-28] MEDS: DIGOXIN TAB 125 MCG TABLET PO (08:46)
[2021-09-28] MEDS: BUMETANIDE INJ 1 MG/4 ML VIAL IV PUSH ×2 (08:46→11:41)
[2021-09-28] MEDS: INSULIN HUMAN ISOPHAN/REGULAR 70/30 (*BKC) 100 UNITS/ML 40 UNITS SUB-Q ×2 (08:47→16:25)
[2021-09-28] MEDS: INSULIN ASPART (*BKC) 100 UNITS/ML SUB-Q ×2 (08:47→11:44)
--- NOTE | 2021-09-28 09:22 | PCOTNOTE ---
Attempted to see patient this AM, patient declined at this time. Patient reported not sleeping well last night, but agreeable to performing ADLs later when can be present. Will attempt to see patient this PM to follow up and continue plan of care.
--- NOTE | 2021-09-28 09:45 | P.PNIM_ITS ---
Progress Note: A&P Assessment and Plan (1) Acute on chronic diastolic CHF (congestive heart failure): Code(s): I50.33 - Acute on chronic diastolic (congestive) heart failure Status: Acute Assessment and Plan: * Chest xray shows cardiomegaly with pulmonary edema. * Echo 60-65% with indeterminate diastolic dysfunction * Acute diastolic exacerbation heart failure * BNP 2220 * Fluid restriction 1500ml per day * Bumex 1mg IV BID, transition to PO when appropriate * IV Bumex 1mg x one * Follow labs * Continue metoprolol 75mg PO Q12H * Strict I&Os * Daily weights * Trend urine output * Trend labs (2) COPD (chronic obstructive pulmonary disease): Qualifiers: COPD type: emphysema Emphysema type: panlobular Qualified Code(s): J43.1 - Panlobular emphysema Code(s): J44.9 - Chronic obstructive pulmonary disease, unspecified Status: Acute Assessment and Plan: * Continue home Breztri aerosphere * Neb treatments * Not in acute exacerbation * Chronic home O2 use * Trend respiratory status (3) Insulin dependent diabetes mellitus: Code(s): E11.9 - Type 2 diabetes mellitus without complications; Z79.4 - long term care administrator (current) use of insulin Status: Chronic Assessment and Plan: * Current glucose 262 * Random glucose is well into the 200s * Carb consistent diet * Accu-Cheks AC and HS * Continue home 70/30 40 units BID * Trend glucose * Add insulin sliding scale * Adjust therapy as indicated * Glimepiride 1mg Daily, adjusted to 2mg Daily * Restarted Metformin 2000mg PO daily * para educator consulted (4) Severe pulmonary arterial systolic hypertension: Code(s): I27.21 - Secondary pulmonary arterial hypertension Status: Chronic Assessment and Plan: * Patient is on trilogy at nighttime * Continue with home settings (5) Chronic respiratory failure with hypoxia: Code(s): J96.11 - Chronic respiratory failure with hypoxia Status: Chronic Assessment and Plan: * Currently on supplemental oxygen by nasal cannula (6) Obstructive sleep apnea: Code(s): G47.33 - Obstructive sleep apnea (adult) (pediatric) Status: Chronic Assessment and Plan: On trilogy (7) Hypertension: Qualifiers: Hypertension type: essential hypertension Qualified Code(s): I10 - Essential (primary) hypertension Code(s): I10 - Essential (primary) hypertension Status: Chronic Assessment and Plan: * Current BP is 119/84 * Continue home meds, amlodipine, metoprolol * Trend blood pressure * Adjust therapy as indicated (8) Chronic atrial fibrillation: Code(s): I48.20 - Chronic atrial fibrillation, unspecified Status: Chronic Assessment and Plan: * Rate controlled and anticoagulated * Continue Digoxin and warfain * Aspirin on board * INR 2.4 today Time Spent With Patient Time with patient: Greater than 35 minutes Subjective Date/time seen: 09/28/21 09:45 Interval history: 09/28/21 09:45 Patient seems to be a bit frustrated today. He stated that he is tired and feels that some of the services are kind of pushy. Will adjust some of the schedules, however, he is doing ok. He did feel that his legs are getting better. He also denies any chest pain, shortness of breath, nausea, vomiting, diarrhe
--- NOTE | 2021-09-28 09:45 | PM.IMPN ---
Progress Note: A&P Assessment and Plan (1) Acute on chronic diastolic CHF (congestive heart failure): Code(s): I50.33 - Acute on chronic diastolic (congestive) heart failure Status: Acute Assessment and Plan: Chest xray shows cardiomegaly with pulmonary edema. Echo 60-65% with indeterminate diastolic dysfunction Acute diastolic exacerbation heart failure BNP 2220 Fluid restriction 1500ml per day Bumex 1mg IV BID, transition to PO when appropriate IV Bumex 1mg x one Follow labs Continue metoprolol 75mg PO Q12H Strict I&Os Daily weights Trend urine output Trend labs (2) COPD (chronic obstructive pulmonary disease): Qualifiers: COPD type: emphysema Emphysema type: panlobular Qualified Code(s): J43.1 - Panlobular emphysema Code(s): J44.9 - Chronic obstructive pulmonary disease, unspecified Status: Acute Assessment and Plan: Continue home Breztri aerosphere Neb treatments Not in acute exacerbation Chronic home O2 use Trend respiratory status (3) Insulin dependent diabetes mellitus: Code(s): E11.9 - Type 2 diabetes mellitus without complications; Z79.4 - supervisor 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 (current) use of insulin Status: Chronic Assessment and Plan: Current glucose 262 Random glucose is well into the 200s Carb consistent diet Accu-Cheks AC and HS Continue home 70/30 40 units BID Trend glucose Add insulin sliding scale Adjust therapy as indicated Glimepiride 1mg Daily, adjusted to 2mg Daily Restarted Metformin 2000mg PO daily religious educator consulted (4) Severe pulmonary arterial systolic hypertension: Code(s): I27.21 - Secondary pulmonary arterial hypertension Status: Chronic Assessment and Plan: Patient is on trilogy at nighttime Continue with home settings (5) Chronic respiratory failure with hypoxia: Code(s): J96.11 - Chronic respiratory failure with hypoxia Status: Chronic Assessment and Plan: Currently on supplemental oxygen by nasal cannula (6) Obstructive sleep apnea: Code(s): G47.33 - Obstructive sleep apnea (adult) (pediatric) Status: Chronic Assessment and Plan: On trilogy (7) Hypertension: Qualifiers: Hypertension type: essential hypertension Qualified Code(s): I10 - Essential (primary) hypertension Code(s): I10 - Essential (primary) hypertension Status: Chronic Assessment and Plan: Current BP is 119/84 Continue home meds, amlodipine, metoprolol Trend blood pressure Adjust therapy as indicated (8) Chronic atrial fibrillation: Code(s): I48.20 - Chronic atrial fibrillation, unspecified Status: Chronic Assessment and Plan: Rate controlled and anticoagulated Continue Digoxin and warfain Aspirin on board INR 2.4 today Time Spent With Patient Time with patient: Greater than 35 minutes Subjective Date/time seen: 09/28/21 09:45 Interval history: 09/28/21 09:45 Patient seems to be a bit frustrated today. He stated that he is tired and feels that some of the services are kind of pushy. Will adjust some of the schedules, however, he is doing ok. He did feel that his legs are getting better. He also denies any chest pain, shortness of breath, nausea, vomiting, diarrhea, and constipation. His left elbow seems to be getting worse. Xray has been ordered. Will give one additional dose of Bumex, BUN is going down. INR is 2.5 today. 09/27/21 0815 Patient is doing okay today. Patient legs are still swollen do not think they really went down much more. He did state that his blood sugars at home run about 250s to 300s. Did increase his Bumex to 2 mg x 1 this morning. Patient states that he feels a little bit better with breathing however he still feels very swollen. He denies any chest pain, shortness of breath, nausea, vomiting, gibson
[2021-09-28 11:42] LABS: Glucose Point of Care 211 mg/dl (65-105)
--- NOTE | 2021-09-28 14:12 | PCOTNOTE ---
Attempted to see patient this PM for 2nd attempt, patient with MD. Will continue OT per plan of care tomorrow.
[2021-09-28 16:21] LABS: Glucose Point of Care 176 mg/dl (65-105)
[2021-09-28] MEDS: BUMETANIDE INJ 2.5 MG/10 ML VIAL 2 MG IV PUSH (16:23)
[2021-09-28] MEDS: metFORMIN HCL XR 500 MG TAB.SR.24H 2000 MG PO (16:24)
[2021-09-28] MEDS: WARFARIN (*PBKC) 10 MG TABLET PO (16:24)
[2021-09-28] MEDS: VITAMIN B COMPLEX CAPSULE 1 CAP PO (17:02)
[2021-09-28] MEDS: SODIUM CHLORIDE NASAL GEL 14.1 GM 1 APPLIC NASAL (17:03)
[2021-09-28 20:15] LABS: Glucose Point of Care 211 mg/dl (65-105)
[2021-09-29] VITALS (14 sets, daily range): BP systolic 130–151; BP diastolic 68–79; PULSE 66–101; RESP 16; TEMP 36–36.4; O2SAT 91–100
[2021-09-29 05:09] LABS: Basophils Absolute Auto 0.1 K/mm3 (0.0-0.1); Basophils Percent Auto 0.7 % (0.2-1.2); Eosinophils Absolute Auto 0.3 K/mm3 (0-0.3); Eosinophils Percent Auto 4.2 % (0-4.4); Hematocrit 32.7 % (42.0-52.0); Hemoglobin 10.3 g/dL (14.0-18.0); Immature Granulocyte Absolute 0.08 K/mm3 (0.00-0.031); Lymphocytes Absolute Auto 1.16 K/mm3 (0.9-3.2); Lymphocytes Percent Auto 14.4 % (18.3-44.2); Mean Corpuscular HGB Conc 31.5 g/dl (32-36); Mean Corpuscular Hemoglobin 29.4 pg (26-34); Mean Corpuscular Volume 93.4 fl (80-100); Mean Platelet Volume 9.6 fl (7.4-10.4); Monocytes Absolute Auto 0.9 K/mm3 (0.1-0.6); Monocytes Percent Auto 10.8 % (2.6-8.5); Neutrophils Absolute Auto 5.5 K/mm3 (1.3-6.7); Neutrophils Percent Auto 68.9 % (45.5-73.1); Platelet Count Result 253 k/mm3 (150-375); Red Cell Distribution Width 15.1 % (11.5-14.5); White Blood Count 8.1 K/mm3 (4.5-10.0)
[2021-09-29 05:21] LABS: Alanine Aminotransferase 21 U/L (6-50); Albumin Level 3.4 g/dL (3.5-5.1); Alkaline Phosphatase 128 U/L (38-126); Anion Gap 1 mmol/L (8-16); Aspartate Amino Transferase 36 U/L (17-59); Bilirubin,Total 0.9 mg/dL (0.2-1.3); Blood Urea Nitrogen 34 mg/dL (9-20); Calcium 8.1 mg/dL (8.4-10.2); Carbon Dioxide 35 mmol/L (22-30); Chloride 100 mmol/L (98-107); Estimated CRCL calculation 81 ml/min; Estimated Glomerular Filt Rate > 60; Glucose 100 mg/dL (65-110); INR 2.6; Magnesium 2.1 mg/dL (1.6-2.3); Potassium 3.9 mmol/L (3.4-5.0); Prothrombin Time 26.9 Seconds (11.1-14.7); Sodium 136 mmol/L (137-145)
[2021-09-29 07:48] LABS: Glucose Point of Care 141 mg/dl (65-105)
[2021-09-29] MEDS: INSULIN HUMAN ISOPHAN/REGULAR 70/30 (*BKC) 100 UNITS/ML 40 UNITS SUB-Q ×2 (08:31→17:01)
[2021-09-29] MEDS: DIGOXIN TAB 125 MCG TABLET PO (08:39)
[2021-09-29] MEDS: ASPIRIN 81 MG CHEWABLE TABLET PO (08:39)
[2021-09-29] MEDS: VENLAFAXINE HCL XR 75 MG CAP.ER.24H 150 MG PO (08:40)
[2021-09-29] MEDS: allopurinoL 300 MG TABLET PO (08:40)
[2021-09-29] MEDS: ATORVASTATIN 10 MG TABLET PO (08:42)
[2021-09-29] MEDS: METOPROLOL TARTRATE 25 MG TABLET 75 MG PO ×2 (08:42→20:33)
[2021-09-29] MEDS: amLODIPine BESYLATE 5 MG TABLET 10 MG PO (08:42)
[2021-09-29] MEDS: BUMETANIDE INJ 2.5 MG/10 ML VIAL 2 MG IV PUSH (08:43)
--- NOTE | 2021-09-29 09:15 | PM.IMPN ---
Progress Note: A&P Assessment and Plan (1) Acute on chronic diastolic CHF (congestive heart failure): Code(s): I50.33 - Acute on chronic diastolic (congestive) heart failure Status: Acute Assessment and Plan: Chest xray shows cardiomegaly with pulmonary edema. Echo 60-65% with indeterminate diastolic dysfunction Acute diastolic exacerbation heart failure BNP 2220 Fluid restriction 1500ml per day Transition Bumex to PO at this time Follow labs Continue metoprolol 75mg PO Q12H Strict I&Os Daily weights Trend urine output Trend labs (2) COPD (chronic obstructive pulmonary disease): Qualifiers: COPD type: emphysema Emphysema type: panlobular Qualified Code(s): J43.1 - Panlobular emphysema Code(s): J44.9 - Chronic obstructive pulmonary disease, unspecified Status: Acute Assessment and Plan: Continue home Breztri aerosphere Neb treatments Not in acute exacerbation Chronic home O2 use Trend respiratory status (3) Insulin dependent diabetes mellitus: Code(s): E11.9 - Type 2 diabetes mellitus without complications; Z79.4 - salvage determiner (current) use of insulin Status: Chronic Assessment and Plan: Current glucose 100 Random glucose is well into the 200s Carb consistent diet Accu-Cheks AC and HS Continue home 70/30 40 units BID Trend glucose Add insulin sliding scale Adjust therapy as indicated Glimepiride 1mg Daily, adjusted to 2mg Daily Restarted Metformin 2000mg PO daily nutrition educator consulted (4) Severe pulmonary arterial systolic hypertension: Code(s): I27.21 - Secondary pulmonary arterial hypertension Status: Chronic Assessment and Plan: Patient is on trilogy at nighttime Continue with home settings (5) Chronic respiratory failure with hypoxia: Code(s): J96.11 - Chronic respiratory failure with hypoxia Status: Chronic Assessment and Plan: Currently on supplemental oxygen by nasal cannula (6) Obstructive sleep apnea: Code(s): G47.33 - Obstructive sleep apnea (adult) (pediatric) Status: Chronic Assessment and Plan: On trilogy (7) Hypertension: Qualifiers: Hypertension type: essential hypertension Qualified Code(s): I10 - Essential (primary) hypertension Code(s): I10 - Essential (primary) hypertension Status: Chronic Assessment and Plan: Current BP is 130/69 Continue home meds, amlodipine, metoprolol Trend blood pressure Adjust therapy as indicated (8) Chronic atrial fibrillation: Code(s): I48.20 - Chronic atrial fibrillation, unspecified Status: Chronic Assessment and Plan: Rate controlled and anticoagulated Continue Digoxin and warfain Aspirin on board INR 2.6 today Time Spent With Patient Time with patient: Greater than 35 minutes Subjective Date/time seen: 09/29/21914 Interval history: 09/29/21914 Patient is sitting in a chair. Patient states that his legs and he is feeling better. Patient stated that he is just not sleeping very well due to the fact that there was just a lot of in a traffic. He did state that he feels his legs feel and look good. He also stated that he is feeling better he is able to breathe. He would like to go back to his p.o. Bumex. will continue on b.i.d. Bumex this could be potentially beneficial as well. Patient denies any chest pain, shortness of breath, nausea, vomiting, diarrhea, constipation, weakness or fatigue 09/28/21 09:45 Patient seems to be a bit frustrated today. He stated that he is tired and feels that some of the services are kind of pushy. Will adjust some of the schedules, however, he is doing ok. He did feel that his legs are getting better. He also denies any chest pain, shortness of breath, nausea, vomiting, diarrhea, and constipation. His left elbow se
--- NOTE | 2021-09-29 09:15 | P.PNIM_ITS ---
Progress Note: A&P Assessment and Plan (1) Acute on chronic diastolic CHF (congestive heart failure): Code(s): I50.33 - Acute on chronic diastolic (congestive) heart failure Status: Acute Assessment and Plan: * Chest xray shows cardiomegaly with pulmonary edema. * Echo 60-65% with indeterminate diastolic dysfunction * Acute diastolic exacerbation heart failure * BNP 2220 * Fluid restriction 1500ml per day * Transition Bumex to PO at this time * Follow labs * Continue metoprolol 75mg PO Q12H * Strict I&Os * Daily weights * Trend urine output * Trend labs (2) COPD (chronic obstructive pulmonary disease): Qualifiers: COPD type: emphysema Emphysema type: panlobular Qualified Code(s): J43.1 - Panlobular emphysema Code(s): J44.9 - Chronic obstructive pulmonary disease, unspecified Status: Acute Assessment and Plan: * Continue home Breztri aerosphere * Neb treatments * Not in acute exacerbation * Chronic home O2 use * Trend respiratory status (3) Insulin dependent diabetes mellitus: Code(s): E11.9 - Type 2 diabetes mellitus without complications; 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 Status: Chronic Assessment and Plan: * Current glucose 100 * Random glucose is well into the 200s * Carb consistent diet * Accu-Cheks AC and HS * Continue home 70/30 40 units BID * Trend glucose * Add insulin sliding scale * Adjust therapy as indicated * Glimepiride 1mg Daily, adjusted to 2mg Daily * Restarted Metformin 2000mg PO daily * life educator consulted (4) Severe pulmonary arterial systolic hypertension: Code(s): I27.21 - Secondary pulmonary arterial hypertension Status: Chronic Assessment and Plan: * Patient is on trilogy at nighttime * Continue with home settings (5) Chronic respiratory failure with hypoxia: Code(s): J96.11 - Chronic respiratory failure with hypoxia Status: Chronic Assessment and Plan: * Currently on supplemental oxygen by nasal cannula (6) Obstructive sleep apnea: Code(s): G47.33 - Obstructive sleep apnea (adult) (pediatric) Status: Chronic Assessment and Plan: On trilogy (7) Hypertension: Qualifiers: Hypertension type: essential hypertension Qualified Code(s): I10 - Essential (primary) hypertension Code(s): I10 - Essential (primary) hypertension Status: Chronic Assessment and Plan: * Current BP is 130/69 * Continue home meds, amlodipine, metoprolol * Trend blood pressure * Adjust therapy as indicated (8) Chronic atrial fibrillation: Code(s): I48.20 - Chronic atrial fibrillation, unspecified Status: Chronic Assessment and Plan: * Rate controlled and anticoagulated * Continue Digoxin and warfain * Aspirin on board * INR 2.6 today Time Spent With Patient Time with patient: Greater than 35 minutes Subjective Date/time seen: 09/29/21914 Interval history: 09/29/21914 Patient is sitting in a chair. Patient states that his legs and he is feeling better. Patient stated that he is just not sleeping very well due to the fact that there was just a lot of in a traffic. He did state that he feels his legs feel and look good. He also stated that he is feeling better he is able to breathe. He would like to go back to his p
--- NOTE | 2021-09-29 11:24 | PCPTNOTE ---
Attempted to see patient for PT at this time, however patient declined due to just working with OT and would like to rest.
[2021-09-29 11:32] LABS: Glucose Point of Care 184 mg/dl (65-105)
[2021-09-29] MEDS: FLUTICASONE/UMECLIDIN/VILANTER 100-62.5-25 MCG ELLIPTA 1 PUFF INHALATION (13:25)
--- NOTE | 2021-09-29 14:48 | PCPTNOTE ---
Attempted to see patient for PT at this time, however patient declined.
[2021-09-29 16:32] LABS: Glucose Point of Care 132 mg/dl (65-105)
[2021-09-29] MEDS: metFORMIN HCL XR 500 MG TAB.SR.24H 2000 MG PO (16:58)
[2021-09-29] MEDS: BUMETANIDE 1 MG TABLET PO (16:59)
[2021-09-29] MEDS: WARFARIN (*PBKC) 2 MG TABLET PO (17:00)
[2021-09-29] MEDS: WARFARIN (*PBKC) 10 MG TABLET PO (17:00)
[2021-09-29] MEDS: VITAMIN B COMPLEX CAPSULE 1 CAP PO (17:01)
[2021-09-29 20:40] LABS: Glucose Point of Care 154 mg/dl (65-105)
[2021-09-30] VITALS (10 sets, daily range): BP systolic 120–126; BP diastolic 68–70; PULSE 71–85; RESP 16–18; TEMP 36.6; O2SAT 94–100
[2021-09-30 05:23] LABS: INR 2.8; Prothrombin Time 28.5 Seconds (11.1-14.7)
[2021-09-30 07:42] LABS: Glucose Point of Care 114 mg/dl (65-105)
[2021-09-30 07:42] LABS: Basophils Absolute Auto 0.1 K/mm3 (0.0-0.1); Eosinophils Absolute Auto 0.2 K/mm3 (0-0.3); Eosinophils Percent Auto 3.4 % (0-4.4); Hematocrit 32.2 % (42.0-52.0); Hemoglobin 10.1 g/dL (14.0-18.0); Immature Granulocyte Absolute 0.08 K/mm3 (0.00-0.031); Immature Granulocyte Percent A 1.2 % (0-0.5); Lymphocytes Absolute Auto 0.93 K/mm3 (0.9-3.2); Lymphocytes Percent Auto 13.6 % (18.3-44.2); Mean Corpuscular HGB Conc 31.4 g/dl (32-36); Mean Corpuscular Hemoglobin 29.9 pg (26-34); Mean Corpuscular Volume 95.3 fl (80-100); Mean Platelet Volume 10.5 fl (7.4-10.4); Monocytes Absolute Auto 0.8 K/mm3 (0.1-0.6); Neutrophils Absolute Auto 4.8 K/mm3 (1.3-6.7); Neutrophils Percent Auto 69.8 % (45.5-73.1); Platelet Count Result 280 k/mm3 (150-375); Red Blood Count 3.38 M/mm3 (4.6-6.20); Red Cell Distribution Width 15.4 % (11.5-14.5); White Blood Count 6.8 K/mm3 (4.5-10.0)
[2021-09-30 07:49] LABS: Alanine Aminotransferase 22 U/L (6-50); Albumin Level 3.4 g/dL (3.5-5.1); Alkaline Phosphatase 125 U/L (38-126); Anion Gap -1 mmol/L (8-16); Aspartate Amino Transferase 36 U/L (17-59); Bilirubin,Total 0.6 mg/dL (0.2-1.3); Blood Urea Nitrogen 29 mg/dL (9-20); Carbon Dioxide 38 mmol/L (22-30); Chloride 100 mmol/L (98-107); Estimated CRCL calculation 82 ml/min; Estimated Glomerular Filt Rate > 60; Glucose 96 mg/dL (65-110); Potassium 3.8 mmol/L (3.4-5.0); Sodium 137 mmol/L (137-145)
--- NOTE | 2021-09-30 07:49 | PC.NURSE ---
Started initial DSMT and MNT referral for outpatient. [facility]
[2021-09-30] MEDS: FLUTICASONE/UMECLIDIN/VILANTER 100-62.5-25 MCG ELLIPTA 1 PUFF INHALATION (07:56)
[2021-09-30] MEDS: ATORVASTATIN 10 MG TABLET PO (08:48)
[2021-09-30] MEDS: VENLAFAXINE HCL XR 75 MG CAP.ER.24H 150 MG PO (08:48)
[2021-09-30] MEDS: allopurinoL 300 MG TABLET PO (08:48)
[2021-09-30] MEDS: ASPIRIN 81 MG CHEWABLE TABLET PO (08:48)
[2021-09-30] MEDS: BUMETANIDE 1 MG TABLET PO (08:48)
[2021-09-30] MEDS: DIGOXIN TAB 125 MCG TABLET PO (08:48)
[2021-09-30] MEDS: amLODIPine BESYLATE 5 MG TABLET 10 MG PO (08:48)
[2021-09-30] MEDS: METOPROLOL TARTRATE 25 MG TABLET 75 MG PO (08:49)
[2021-09-30] MEDS: INSULIN HUMAN ISOPHAN/REGULAR 70/30 (*BKC) 100 UNITS/ML 40 UNITS SUB-Q (08:49)
--- NOTE | 2021-09-30 10:30 | P.DS_ITS ---
DS: Admitting Diagnosis Discharge Date 09/30/21 1030 Admitting Diagnosis CHF Exacerbation DS: Discharge Diagnosis Discharge Diagnosis (1) Acute on chronic diastolic CHF (congestive heart failure): Code(s): I50.33 - Acute on chronic diastolic (congestive) heart failure Status: Acute Assessment and Plan: * Chest xray shows cardiomegaly with pulmonary edema. * Echo 60-65% with indeterminate diastolic dysfunction * Acute diastolic exacerbation heart failure * BNP 2220 * Fluid restriction 1500ml per day * Transition Bumex to PO at this time * Follow labs * Continue metoprolol 75mg PO Q12H * Strict I&Os * Daily weights * Trend urine output * Trend labs (2) COPD (chronic obstructive pulmonary disease): Qualifiers: COPD type: emphysema Emphysema type: panlobular Qualified Code(s): J43.1 - Panlobular emphysema Code(s): J44.9 - Chronic obstructive pulmonary disease, unspecified Status: Acute Assessment and Plan: * Continue home Breztri aerosphere * Neb treatments * Not in acute exacerbation * Chronic home O2 use * Trend respiratory status (3) Insulin dependent diabetes mellitus: Code(s): E11.9 - Type 2 diabetes mellitus without complications; 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 of insulin Status: Chronic Assessment and Plan: * Current glucose 100 * Random glucose is well into the 200s * Carb consistent diet * Accu-Cheks AC and HS * Continue home 70/30 40 units BID * Trend glucose * Add insulin sliding scale * Adjust therapy as indicated * Restarted Metformin 2000mg PO daily * A1c is 7 * Patient also has an appointment with endocrine coming up * special education paraeducator consulted (4) Severe pulmonary arterial systolic hypertension: Code(s): I27.21 - Secondary pulmonary arterial hypertension Status: Chronic Assessment and Plan: * Patient is on trilogy at nighttime * Continue with home settings (5) Chronic respiratory failure with hypoxia: Code(s): J96.11 - Chronic respiratory failure with hypoxia Status: Chronic Assessment and Plan: * Currently on supplemental oxygen by nasal cannula (6) Obstructive sleep apnea: Code(s): G47.33 - Obstructive sleep apnea (adult) (pediatric) Status: Chronic Assessment and Plan: On trilogy (7) Hypertension: Qualifiers: Hypertension type: essential hypertension Qualified Code(s): I10 - Essential (primary) hypertension Code(s): I10 - Essential (primary) hypertension Status: Chronic Assessment and Plan: * Current BP is 120/70 * Continue home meds, amlodipine, metoprolol * Trend blood pressure * Adjust therapy as indicated (8) Chronic atrial fibrillation: Code(s): I48.20 - Chronic atrial fibrillation, unspecified Status: Chronic Assessment and Plan: * Rate controlled and anticoagulated * Continue Digoxin and warfain * Aspirin on board * INR 2.8 today DS: Summary Hospital Course Hospital Course: Patient is a 71-year-old male with a past medical history of hypertension, hyperlipidemia, diabetes, CHF who presented to the ED with complaints of shortness of breath and bilateral lower extremity swelling. CT did show cardiomegaly with pulmonary edema. Echo done showed have of 60-65% with indeterminate diastolic dysfunction. T-
--- NOTE | 2021-09-30 10:30 | PM.DS ---
DS: Admitting Diagnosis Discharge Date 09/30/21 1030 Admitting Diagnosis CHF Exacerbation DS: Discharge Diagnosis Discharge Diagnosis (1) Acute on chronic diastolic CHF (congestive heart failure): Code(s): I50.33 - Acute on chronic diastolic (congestive) heart failure Status: Acute Assessment and Plan: Chest xray shows cardiomegaly with pulmonary edema. Echo 60-65% with indeterminate diastolic dysfunction Acute diastolic exacerbation heart failure BNP 2220 Fluid restriction 1500ml per day Transition Bumex to PO at this time Follow labs Continue metoprolol 75mg PO Q12H Strict I&Os Daily weights Trend urine output Trend labs (2) COPD (chronic obstructive pulmonary disease): Qualifiers: COPD type: emphysema Emphysema type: panlobular Qualified Code(s): J43.1 - Panlobular emphysema Code(s): J44.9 - Chronic obstructive pulmonary disease, unspecified Status: Acute Assessment and Plan: Continue home Breztri aerosphere Neb treatments Not in acute exacerbation Chronic home O2 use Trend respiratory status (3) Insulin dependent diabetes mellitus: Code(s): E11.9 - Type 2 diabetes mellitus without complications; Z79.4 - long term care phlebotomist (current) use of insulin Status: Chronic Assessment and Plan: Current glucose 100 Random glucose is well into the 200s Carb consistent diet Accu-Cheks AC and HS Continue home 70/30 40 units BID Trend glucose Add insulin sliding scale Adjust therapy as indicated Restarted Metformin 2000mg PO daily A1c is 7 Patient also has an appointment with endocrine coming up agricultural extension educator consulted (4) Severe pulmonary arterial systolic hypertension: Code(s): I27.21 - Secondary pulmonary arterial hypertension Status: Chronic Assessment and Plan: Patient is on trilogy at nighttime Continue with home settings (5) Chronic respiratory failure with hypoxia: Code(s): J96.11 - Chronic respiratory failure with hypoxia Status: Chronic Assessment and Plan: Currently on supplemental oxygen by nasal cannula (6) Obstructive sleep apnea: Code(s): G47.33 - Obstructive sleep apnea (adult) (pediatric) Status: Chronic Assessment and Plan: On trilogy (7) Hypertension: Qualifiers: Hypertension type: essential hypertension Qualified Code(s): I10 - Essential (primary) hypertension Code(s): I10 - Essential (primary) hypertension Status: Chronic Assessment and Plan: Current BP is 120/70 Continue home meds, amlodipine, metoprolol Trend blood pressure Adjust therapy as indicated (8) Chronic atrial fibrillation: Code(s): I48.20 - Chronic atrial fibrillation, unspecified Status: Chronic Assessment and Plan: Rate controlled and anticoagulated Continue Digoxin and warfain Aspirin on board INR 2.8 today DS: Summary Hospital Course Hospital Course: Patient is a 71-year-old male with a past medical history of hypertension, hyperlipidemia, diabetes, CHF who presented to the ED with complaints of shortness of breath and bilateral lower extremity swelling. CT did show cardiomegaly with pulmonary edema. Echo done showed have of 60-65% with indeterminate diastolic dysfunction. T-max was converted to p.o. to IV twice a day. Bumex was increased for further improvement. Patient has been transitioned back to his home dose p.o. at this time. Did state that his p.o. does to q.12 incentive once daily. BNP was noted to be 2220. Patient was also placed and toes which did help support the bilateral lower extremity edema. Patient was continued his home trilogy with his home inhalers and has done with breathing. Glucose has been moderately controlled. agricultural extension educator was consulted along with dietitian. Patient worked with PT and OT was able to perform
--- NOTE | 2021-09-30 11:30 | PCOTNOTE ---
Attempted to see patient, patient declined secondary to d/c today. Patient's present and both patient and her instructed verbally over energy conservation technique for showering including maintaining water temperature not too hot to diminish O2 levels, getting TTB as patient has tub/shower combination for optimal safety, and technique for donning kumar hose. Patient and receptive to education, but declined to participate in physical activity for OT.
[2021-09-30 11:34] LABS: Glucose Point of Care 176 mg/dl (65-105)
--- NOTE | 2021-09-30 15:16 | PCNSR ---
On 09/30/21, the student, Clay Aguila, provided care and completed [facility] documentation on this patient. I have reviewed the student's documentation and agree with the findings.
== END 2021-09-30 15:10 | disposition home health service (06) | DRG 291 ==
LOC: ANHIMU 09-25 14:27 → ANH2MED 09-25 17:40
PROVIDERS: Chiropractor; Admitting Provider Internal Medicine; PCP Family Medicine; Visit Provider Nurse Practitioner
DX: I11.0 Hypertensive heart disease with heart failure (principal); I50.33 Acute on chronic diastolic (congestive) heart failure; J96.11 Chronic respiratory failure with hypoxia; I48.20 Chronic atrial fibrillation, unspecified; J44.9 Chronic obstructive pulmonary disease, unspecified; G47.33 Obstructive sleep apnea (adult) (pediatric); E78.5 Hyperlipidemia, unspecified; N52.9 Male erectile dysfunction, unspecified; M19.90 Unspecified osteoarthritis, unspecified site; E11.65 Type 2 diabetes mellitus with hyperglycemia; I35.0 Nonrheumatic aortic (valve) stenosis; R04.0 Epistaxis; Z99.81 Dependence on supplemental oxygen; Z79.01 Long term (current) use of anticoagulants; Z79.4 Long term (current) use of insulin; Z98.49 Cataract extraction status, unspecified eye; Z87.891 Personal history of nicotine dependence; Z79.82 Long term (current) use of aspirin; E66.9 Obesity, unspecified; Z68.37 Body mass index [BMI] 37.0-37.9, adult
CPT/HCPCS: 36415; 71046; 73080; 80048; 80053; 82948; 83735; 83880; 85025; 85027; 85610; 94002; 94640; 97110; 97162; 97165; 97530; 97535; A9270; C8929; G0378; G0379; J1815; Q9957

== ENCOUNTER 2021-10-05 12:04 | Inpatient (IN) | payer MEDICARE, SELFPAY ==
[2021-10-05] VITALS (16 sets, daily range): BP systolic 108–140; BP diastolic 53–88; PULSE 71–108; RESP 18–25; TEMP 36.4–36.6; O2SAT 92–100
--- NOTE | ~2021-10-05 | CT_ITS ---
EXAMINATION: CT brain wo con DATE: 10/06/2021 18:54 INDICATION: Altered mental status TECHNIQUE: Computed tomography (CT) of the head was performed without intravenous contrast. The mA wa s adjusted according to patient size. Iterative reconstruction technique was employed. Exam dose: 60 5.33 mGy-cm total exam DLP. COMPARISON: None FINDINGS: No intracranial mass lesion or hemorrhage or cerebrovascular accident. No midline shift or mass effect. There is cerebral and cerebellar volume loss. No subdural or epidural hematoma. There is moderate cerebral and cerebellar volume loss. No fracture or bone destruction of the cranial vault. The mastoid air cells and included paranasal si nuses are unremarkable. IMPRESSION: Cerebral atherosclerosis and chronic small vessel ischemic changes of the cerebral white matter Cerebral and cerebellar volume loss No acute intracranial finding Reviewed, dictated and finalized at [facility]. Reviewed, dictated and finalized at location [facility].
--- NOTE | ~2021-10-05 | XR_ITS ---
XR chest 1V portable DATE: 10/10/2021 06:43 INDICATION: Congestive heart failure TECHNIQUE: Portable upright AP chest on 10/10/2021 at 0619 hours COMPARISON: 10/08/2021 portable AP chest at 0959 hours 10/05/2021 portable AP chest at 1258 hours FINDINGS: Persistent pulmonary vascular congestion and redistribution and small pleural effusions. Bi lateral primarily central and lower lung zone infiltrates, moderately improved since 10/05/2021 and . Aortic arch calcification. IMPRESSION: Persistent congestive changes and bilateral pulmonary infiltrates suggesting pulmonary ed will, small pleural effusions; the infiltrates are moderately improved since 10/05/2021 Reviewed, dictated and finalized at location [facility]. IMPRESSION: Persistent congestive changes and bilateral pulmonary infiltrates s uggesting pulmonary edema, small pleural effusions; the infiltrates are moderat miguel improved since 10/05/2021
--- NOTE | ~2021-10-05 | XR_ITS ---
EXAMINATION: XR chest 1V portable INDICATION: Cough and shortness of breath TECHNIQUE: Portable AP chest at 1258 hours COMPARISON: 09/25/2021 FINDINGS: Cardiomegaly is noted. Diffuse interstitial and airspace opacities persist without signific ant change. Small pleural effusions are suggested. There is no pneumothorax. IMPRESSION: 1. Cardiomegaly with mild pulmonary edema, unchanged. Reviewed, dictated and finalized at location [facility].
--- NOTE | ~2021-10-05 | XR_ITS ---
XR chest 1V portable 10/08/2021 10:08 Indication: Follow-up CHF Procedure: AP portable chest Comparison: Comparison to multiple prior studies sequentially, with oldest reviewed study dated 09/2019. Findings: Cardiomegaly. There is pulmonary edema. Small pleural effusions. No pneumothorax. No acute osseous abnormality Impression: 1: Cardiomegaly with pulmonary edema. Reviewed, dictated and finalized at location [facility]. Impression: 1: Cardiomegaly with pulmonary edema.
--- NOTE | 2021-10-05 12:08 | ECG_ITS ---
Measurements Intervals [place] Rate: 81 P: MD: 0 QRS: 17 QRSD: 100 T: 163 QT: 348 QTc: 405 Interpretive Statements ATRIAL FIBRILLATION ST DEVIATION AND MODERATE T-WAVE ABNORMALITY, CONSIDER LATERAL ISCHEMIA [-0.1+ mV T WAVE IN I/aVL/V5/V6] COMPARED TO ECG 06/11/2019 12:27:41 NO SIGNIFICANT CHANGES Electronically Signed On 10-05-2021 15:53:31 CDT by David Sherman M.D.
--- NOTE | 2021-10-05 12:30 | ED.ARRPALP ---
HPI - Arrhythmia/Palpitations General Chief Complaint: Arrhythmia/Palpitations Stated Complaint: low heart rate of 28 Time Seen by Provider: 10/05/21 12:06 Source: RN notes reviewed History of Present Illness HPI narrative: Patient presents emerged department from home for shortness of breath. Patient states he has a history of COPD and CHF. States he is chronically on 4 to 6 L nasal cannula at all times. Patient arrived today with increased shortness of breath for the past 3 days states he has had a cough this been nonproductive also notes increased swelling in his legs. Patient had increased his oxygen was on 6 L nasal cannula when he arrived satting in the 60s and was placed on a nonrebreather. Patient denies any fevers or chills, chest pain abdominal pain nausea vomiting or any other symptoms states he has been taking his medications as prescribed Related Data Home Medications Medication Instructions Recorded Confirmed aspirin 81 mg chewable tablet 81 mg PO DAILY 02/20/19 09/24/21 vitamin B complex (B 1,000 tablet PO QPM 02/20/19 09/24/21 Complex-Vitamin B12 tablet) digoxin 125 mcg (0.125 mg) tablet 125 mcg PO DAILY 02/27/19 09/24/21 metoprolol tartrate 50 mg tablet 75 mg PO Q12H 02/27/19 09/24/21 warfarin 1 mg tablet 2 mg PO QTUTH 02/27/19 09/24/21 budesonide 160 mcg-glycopyr 9 2 inh inhalation BID 09/24/21 09/24/21 mcg-formot 4.8 mcg/actuation HFA inhaler (Breztri Aerosphere) metformin 1,000 mg tablet 2,000 mg PO QPM 09/24/21 09/24/21 warfarin 10 mg tablet 1 tablet PO QPM 09/24/21 09/24/21 Allergies Allergy/AdvReac Type Severity Reaction Status Date / Time No Known Allergies Allergy Verified 10/05/21 12:11 Review of Systems Review of Systems: Gen.: Denies fevers or chills ENT: Denies congestion Respiratory: See HPI CV: Denies chest pain or palpitations GI: Denies abdominal pain nausea, emesis or diarrhea Musculoskeletal: Denies back pain or muscle pain reports lower extremity edema Neuro: Denies numbness, tingling, weakness or focal weakness Skin: Denies rash Except as documented, all other systems reviewed and negative PMFSH Past Medical History Medical History Atrial fibrillation Cholelithiasis Chronic atrial fibrillation Three failed cardioversions. He is on long-term anticoagulation. Chronic respiratory failure with hypoxia 2-3 L nasal cannula with rest, 3-4 L with activity. Dependence on nocturnal oxygen therapy Depression Diabetes Diastolic congestive heart failure Echocardiogram 07/31/2018 showed diastolic dysfunction. Left ventricular size was normal with mild concentric left ventricular hypertrophy and increased left heart filling pressures with an estimated ejection fraction of 55%. Right ventricle was moderately enlarged with mild right ventricular hypokinesis. See latest echo on 06/01/2019 with an EF of 70-75% and diastolic dysfunction Dyslipidemia Erectile dysfunction Erectile dysfunction Gout History of pancreatitis July 2016, secondary to passed common bile duct stone. Hyperlipidemia Hypertension Insulin dependent diabetes mellitus Hemoglobin A1c was 11.4 in January 2018. Obstructive sleep apnea Osteoarthritis Severe pulmonary arterial systolic hypertension Noted on echocardiogram 07/31/2018 with an estimated peak RVSP of 68 mmHg. Right ventricle was moderately enlarged with mild right ventricular hypokinesis. Sleep apnea Type 2 diabetes mellitus with hyperglycemia Valvular heart disease Echocardiogram 07/31/2018 with [id number] tricuspid regurgitation and possible bicuspid aortic valve. Surgical History Surgical History Status post cataract extraction Family History Family History Grandparent Family history of cardiovascular disease Mother High cholesterol Other Diabetes mellitus
[2021-10-05] MEDS: IPRATROPIUM BR 0.02% INH SOLN 0.5 MG/2.5 ML VIAL INHALATION ×2 (12:40→21:06)
[2021-10-05] MEDS: ALBUTEROL SULFATE NEB 2.5 MG/3 ML INH 5 MG INHALATION (12:40)
[2021-10-05] MEDS: methylPREDNISolone SOD SUCC 125 MG VIAL IV PUSH (12:40)
[2021-10-05 12:46] LABS: Alveolar/Arterial O2 Gradient 564.8 mmHg; Base Excess ABG 5.5 mEq/l (+/-2.0); Carboxyhemoglobin 1.3 % THb (0-2.0); Fractional Inspired Oxygen 100 %; HCO3 ABG 32.2 mEq/l (22.0-26.0); Methemoglobin ABG 0.2 %THb (0-1.5); Oxygen Saturation ABG 96.5 % (95.0-100.0); Oxyhemoglobin 93.9 % THb (90.0-100.0); PCO2 ABG 57.7 mmHg (35.0-45.0); PO2 ABG 90.5 mmHg (80.0-100.0); Reduced Hemoglobin 4.6 %THb (0-5.0); Total Hemoglobin 11.3 g/dL (12.0-18.0); pH ABG 7.364 (7.350-7.450)
[2021-10-05 12:46] LABS: Basophils Absolute Auto 0.1 K/mm3 (0.0-0.1); Basophils Percent Auto 0.8 % (0.2-1.2); Eosinophils Absolute Auto 0.2 K/mm3 (0-0.3); Eosinophils Percent Auto 2.3 % (0-4.4); Hematocrit 34.7 % (42.0-52.0); Hemoglobin 10.5 g/dL (14.0-18.0); Immature Granulocyte Absolute 0.06 K/mm3 (0.00-0.031); Immature Granulocyte Percent A 0.8 % (0-0.5); Lymphocytes Absolute Auto 0.95 K/mm3 (0.9-3.2); Lymphocytes Percent Auto 11.9 % (18.3-44.2); Mean Corpuscular HGB Conc 30.3 g/dl (32-36); Mean Corpuscular Hemoglobin 28.9 pg (26-34); Mean Corpuscular Volume 95.6 fl (80-100); Monocytes Absolute Auto 0.8 K/mm3 (0.1-0.6); Monocytes Percent Auto 10.2 % (2.6-8.5); Neutrophils Absolute Auto 5.9 K/mm3 (1.3-6.7); Platelet Count Result 341 k/mm3 (150-375); Red Blood Count 3.63 M/mm3 (4.6-6.20); Red Cell Distribution Width 16.1 % (11.5-14.5)
[2021-10-05 12:48] LABS: Device NON-REBREATHER MASK; Modified Allen's Test Pass; Site Drawn RIGHT RADIAL
[2021-10-05 12:58] LABS: Prothrombin Time 46.5 Seconds (11.1-14.7)
[2021-10-05 12:59] LABS: Partial Thromboplastin Time 61.6 SECONDS (22.3-36.8)
[2021-10-05 13:08] LABS: Glucose 57 mg/dL (65-110)
[2021-10-05 13:09] LABS: Alanine Aminotransferase 21 U/L (6-50); Albumin Level 3.9 g/dL (3.5-5.1); Alkaline Phosphatase 124 U/L (38-126); Aspartate Amino Transferase 36 U/L (17-59); Bilirubin,Total 0.8 mg/dL (0.2-1.3); Blood Urea Nitrogen 33 mg/dL (9-20); Calcium 8.6 mg/dL (8.4-10.2); Carbon Dioxide > 40 mmol/L (22-30); Chloride 96 mmol/L (98-107); Estimated CRCL calculation 75 ml/min; Estimated Glomerular Filt Rate > 60; Potassium 4.4 mmol/L (3.4-5.0); Sodium 139 mmol/L (137-145)
[2021-10-05 13:12] LABS: INR 5.2
[2021-10-05 13:14] LABS: NT Pro B Type Natriuretic Pept 2410 pg/mL (5-100)
[2021-10-05] MEDS: DEXTROSE 50% 25 GM/50 ML SYRINGE IV PUSH (13:15)
[2021-10-05 13:16] LABS: Troponin I < 0.012 ng/mL (0.000-0.034)
[2021-10-05] MEDS: FUROSEMIDE INJ 40 MG/4 ML VIAL IV PUSH (13:16)
[2021-10-05 13:17] LABS: Lactic Acid Reflex 1.8 mmol/L (0.7-2.0)
[2021-10-05 13:21] LABS: SARS-CoV-2 RNA PCR Negative
[2021-10-05 13:23] LABS: Digoxin 0.7 ng/mL (0.8-2.0)
[2021-10-05 14:12] LABS: Glucose Point of Care 98 mg/dl (65-105)
--- NOTE | 2021-10-05 15:46 | ADMGEN ---
This patient, Rivas Hollingsworth, was admitted to IMU Room 204-01 at 1527. Patient/family oriented to hospital policies and general routines including ID bracelet, bed and alarms, visiting hours, pain management, procedures, bathroom and other care routines, personal items, smoking policy, room service/diet, and visiting hours. Information on how to activate the Rapid Response Team has been discussed. Patient/Family are encouraged to report perceived risks to care and to ask questions if they do not understand what they are told or what they should do.
[2021-10-05 18:00] LABS: Troponin I < 0.012 ng/mL (0.000-0.034)
--- NOTE | 2021-10-05 19:09 | PM.IMHP ---
H&P: HPI History of Present Illness Date/Time: Patient was placed observation status for expected length of stay less than 23 hours for management, will plan to re-evaluate tomorrow for improvement. 10/05/21 19:09 Chief Complaint: Shortness of breath Narrative: Mr. Hollingsworth is a 71-year-old gentleman who presented emergency room with complaints of increasing shortness of breath and edema. Patient is on BiPAP at this time and states he is feeling improved, but it is difficult to get a full history from him at this time. Patient's spouse is at bedside and is helping to give recent events. Per patient he was discharged from the hospital last Tuesday and was still having some shortness of breath. Patient's spouse states that he was discharged on 6 L oxygen per nasal cannula and he typically wears 4 L of oxygen per nasal cannula at home. Patient states that on Tuesday he noticed that his shortness of breath was increasing and he had a rare cough with clear sputum. Patient states that on Tuesday he also noted he was having increasing edema. Patient denies any chest discomfort, lightheadedness, dizziness, syncopal, or near syncopal episodes. Patient states he has been wearing his trilogy at night without any difficulty. Patient was brought to the emergency room via EMS and it was noted that his heart rate did go down while EN route to the emergency room. While in the emergency room there was no episodes of atrial fibrillation with a slow ventricular response. Patient was also noted to have a blood glucose level of 57 his chemistry panel. Patient states that he typically does not have hypoglycemic episodes, but he did take all of his medications last night without having a snack and he usually does have a snack. Patient states he has been taking all medications without any difficulty. Patient also has a known history of COPD. Patient states that he does wear continuous oxygen at home. One emergency room patient was placed on BiPAP and did receive a DuoNeb, Solu-Medrol, and IV Lasix. Patient has a known history of congestive heart failure diastolic in type, chronic atrial fibrillation, COPD with chronic hypoxic and hypercapnic respiratory failure, hypertension, dyslipidemia, diabetes mellitus, and severe pulmonary hypertension. Review of Systems Review of Systems: A 12 point review of systems was completed patient all pertinent positive and negative per HPI the remainder are unremarkable. [facility] Past Medical History Medical History Atrial fibrillation Cholelithiasis Chronic atrial fibrillation Three failed cardioversions. He is on long-term anticoagulation. Chronic respiratory failure with hypoxia 2-3 L nasal cannula with rest, 3-4 L with activity. Dependence on nocturnal oxygen therapy Depression Diabetes Diastolic congestive heart failure Echocardiogram 07/31/2018 showed diastolic dysfunction. Left ventricular size was normal with mild concentric left ventricular hypertrophy and increased left heart filling pressures with an estimated ejection fraction of 55%. Right ventricle was moderately enlarged with mild right ventricular hypokinesis. See latest echo on 06/01/2019 with an EF of 70-75% and diastolic dysfunction Dyslipidemia Erectile dysfunction Erectile dysfunction Gout History of pancreatitis July 2016, secondary to passed common bile duct stone. Hyperlipidemia Hypertension Insulin dependent diabetes mellitus Hemoglobin A1c was 11.4 in January 2018. Obstructive sleep apnea Osteoarthritis Severe pulmonary arterial systolic hypertension Noted on echocardiogram 07/31/2018 with an estimated peak RVSP of 68 mmHg. Right ventricle was moderately enlarged with mild right ventricular hypokinesis. Sleep apnea Type 2 diabetes mellitus with hyperglycemia Valvular heart disease Echocardiogram 07/31/2018 with [id number] tricuspid regurgitation and possible bicuspid aortic valve.
[2021-10-05 19:45] LABS: Glucose Point of Care 217 mg/dl (65-105)
[2021-10-05] MEDS: FUROSEMIDE INJ 100 MG/10 ML VIAL 60 MG IV PUSH (20:17)
[2021-10-05 20:38] LABS: Troponin I < 0.012 ng/mL (0.000-0.034)
[2021-10-05] MEDS: ALBUTEROL SULFATE NEB 2.5 MG/3 ML INH INHALATION (21:05)
[2021-10-05] MEDS: METOPROLOL TARTRATE 25 MG TABLET 75 MG PO (21:06)
[2021-10-05] MEDS: VITAMIN B COMPLEX CAPSULE 1 CAP PO (21:06)
[2021-10-05] MEDS: WATER FOR IRRIGATION, STERILE 1,000 ML BOTTLE 1000 ML (21:20)
[2021-10-06] VITALS (25 sets, daily range): BP systolic 122–159; BP diastolic 63–85; PULSE 60–127; RESP 12–22; TEMP 35.8–36.6; O2SAT 90–100
--- NOTE | 2021-10-06 03:19 | PC.NURSE ---
This RN called to bedside by RT. Patient agitated, yelling, and kicking at staff. Patient not alert & oriented at this time and has pulled out IV access. Asking who put these Bhavesh lights on me? and Show me the consent for this. Placed on home trilogy mask as oxygen requirements have decreased and can now be bled into home trilogy machine per RT.
--- NOTE | 2021-10-06 04:02 | PCRCNOTE ---
Patient's 0200 breathing treatment was not given due to major agitation. Patient woke up and ripped off bipap mask screaming at RT and trying to kick.
[2021-10-06] MEDS: OLANZapine 10 MG INJ VIAL 5 MG IM (04:34)
--- NOTE | 2021-10-06 04:50 | PC.NURSE ---
Patient refusing all lab draws, telemetry monitoring, vital signs, continuous pulse ox, and is highly agitated at this time. Call placed to [facility] who states patient is a DNR and has paperwork stating such. Code status has been updated to reflect this. Dr. Gonzalez called with all updates on this patient and order for zyprexa was given and has been administered at this time.
[2021-10-06] MEDS: WATER, STERILE FOR INJECTION 10 ML VIAL XX (04:56)
--- NOTE | 2021-10-06 05:40 | PCDIET ---
Updated Prerna on patient condition--still refusing all care and all monitoring at this time. Attempted to have her speak to patient via speaker phone. Patient shook his head and refused to speak to his . Explained to that MD has ordered haldol at this time to calm patient and allow us to care for him. states do what you have to do.
[2021-10-06] MEDS: HALOPERIDOL LACTATE 5 MG/ML VIAL 10 MG IM (05:55)
[2021-10-06 07:57] LABS: Glucose Point of Care 348 mg/dl (65-105)
[2021-10-06 08:05] LABS: Basophils Percent Auto 0.1 % (0.2-1.2); Hematocrit 30.7 % (42.0-52.0); Hemoglobin 9.6 g/dL (14.0-18.0); Immature Granulocyte Absolute 0.04 K/mm3 (0.00-0.031); Immature Granulocyte Percent A 0.6 % (0-0.5); Lymphocytes Absolute Auto 0.55 K/mm3 (0.9-3.2); Lymphocytes Percent Auto 8.1 % (18.3-44.2); Mean Corpuscular HGB Conc 31.3 g/dl (32-36); Mean Corpuscular Hemoglobin 29.6 pg (26-34); Mean Corpuscular Volume 94.8 fl (80-100); Mean Platelet Volume 10.2 fl (7.4-10.4); Monocytes Absolute Auto 0.5 K/mm3 (0.1-0.6); Monocytes Percent Auto 7.2 % (2.6-8.5); Neutrophils Absolute Auto 5.7 K/mm3 (1.3-6.7); Platelet Count Result 305 k/mm3 (150-375); Red Blood Count 3.24 M/mm3 (4.6-6.20); White Blood Count 6.8 K/mm3 (4.5-10.0)
[2021-10-06] MEDS: ALBUTEROL SULFATE NEB 2.5 MG/3 ML INH INHALATION ×2 (08:07→19:49)
[2021-10-06] MEDS: IPRATROPIUM BR 0.02% INH SOLN 0.5 MG/2.5 ML VIAL INHALATION ×2 (08:09→19:49)
[2021-10-06 08:18] LABS: Alanine Aminotransferase 22 U/L (6-50); Albumin Level 3.8 g/dL (3.5-5.1); Alkaline Phosphatase 131 U/L (38-126); Anion Gap 5 mmol/L (8-16); Aspartate Amino Transferase 36 U/L (17-59); Bilirubin,Total 0.7 mg/dL (0.2-1.3); Blood Urea Nitrogen 49 mg/dL (9-20); Calcium 8.3 mg/dL (8.4-10.2); Carbon Dioxide 34 mmol/L (22-30); Chloride 95 mmol/L (98-107); Estimated CRCL calculation 63 ml/min; Estimated Glomerular Filt Rate 59; Glucose 348 mg/dL (65-110); Potassium 4.8 mmol/L (3.4-5.0); Sodium 134 mmol/L (137-145)
[2021-10-06 08:20] LABS: Prothrombin Time 48.8 Seconds (11.1-14.7)
[2021-10-06 08:36] LABS: INR 5.6
[2021-10-06 10:00] LABS: Alveolar/Arterial O2 Gradient 255.3 mmHg; Base Excess ABG 5.1 mEq/l (+/-2.0); Carboxyhemoglobin 0.3 % THb (0-2.0); Fractional Inspired Oxygen 52 %; HCO3 ABG 31.6 mEq/l (22.0-26.0); Methemoglobin ABG 0.3 %THb (0-1.5); Oxygen Content ABG 11.9 %vol (16.0-22.0); PCO2 ABG 56.8 mmHg (35.0-45.0); PO2 ABG 51.8 mmHg (80.0-100.0); Reduced Hemoglobin 18.1 %THb (0-5.0); Total Hemoglobin 10.4 g/dL (12.0-18.0); pH ABG 7.363 (7.350-7.450)
[2021-10-06 10:06] LABS: Modified Allen's Test Pass; Oxygen Saturation ABG 84.7 % (95.0-100.0); Oxyhemoglobin 81.3 % THb (90.0-100.0); Site Drawn LEFT RADIAL
[2021-10-06 10:07] LABS: Device HIGH FLOW NASAL CANN
--- NOTE | 2021-10-06 10:10 | PM.CNCAR ---
Assessment and Plan Assessment and plan (1) Acute on chronic diastolic CHF (congestive heart failure): Code(s): I50.33 - Acute on chronic diastolic (congestive) heart failure Status: Acute Assessment and Plan: History of diastolic heart failure, with an of readmission for acute exacerbation. Continue furosemide 60 mg IV push b.i.d.. Add Jardiance 10 mg daily. Daily BMP (2) Acute respiratory failure with hypoxia: Code(s): J96.01 - Acute respiratory failure with hypoxia Status: Acute Assessment and Plan: Acute on chronic respiratory failure with hypoxia On home O2 and BiPAP, BiPAP adjusted here Continue nebulizers etc. Pulmonary consult? (3) COPD (chronic obstructive pulmonary disease): Code(s): J44.9 - Chronic obstructive pulmonary disease, unspecified Status: Acute Assessment and Plan: On home O2 (4) Chronic atrial fibrillation: Code(s): I48.20 - Chronic atrial fibrillation, unspecified Status: Chronic Assessment and Plan: Permanent atrial fibrillation with a controlled heart rate. INR 5.2 on admission, 5.6 today, perhaps due to hepatic congestion. There is also question as to whether the patient may have inadvertently taken extra medications with his confusion. Warfarin on hold. will give patient is meds on discharge. Daily INR. Consider changing to a DOAC (5) Hypertension: Qualifiers: Hypertension type: essential hypertension Qualified Code(s): I10 - Essential (primary) hypertension Code(s): I10 - Essential (primary) hypertension Status: Chronic Assessment and Plan: Follow-up blood pressure, generally reasonably controlled. (6) CKD (chronic kidney disease), stage II: Code(s): N18.2 - Chronic kidney disease, stage 2 (mild) Status: Acute Assessment and Plan: Mild kidney disease, with an elevated BUN due to steroids and diuretics. Daily BMP (7) Confusion: Code(s): R41.0 - Disorientation, unspecified Status: Acute Assessment and Plan: Presumably due to hypercarbia, white cell count normal. (8) Obstructive sleep apnea: Code(s): G47.33 - Obstructive sleep apnea (adult) (pediatric) Status: Chronic Assessment and Plan: On BiPAP. History of Present Illness History of Present Illness Consult date/time: 10/06/21 10:10 Reason For Visit: Acute respiratory failure with hypoxia/CHF/COPD/hy Narrative: Rivas Hollingsworth is a 71-year-old male whom we were asked to see at the request of Dr. Ng for advice and opinion regarding the patient's congestive heart failure in consultation. He is followed by Dr. Sherman for his chronic diastolic heart failure, atrial fibrillation and moderate aortic stenosis. Has a history of hypertension, obesity and sleep apnea on CPAP as well as intermittent lower extremity edema. He is on home O2 for is COPD. The patient was hospitalized at [facility] from 09/15/2019 to until discharge on 09/30/2021 for acute on chronic diastolic heart failure, confusion, hypercarbic respiratory failure and COPD exacerbation. He was diuresed and discharged on his usual medications except his Bumex had been reduced from 2 mg b.i.d. back to 1 mg b.i.d.. Ms. Hollingsworth states the patient was not in good shape when he went home and things got a lot worse since Tuesday. They tried to Bumex 1 mg b.i.d. for 1 day but because of worsening edema she increased him to his usual dose, 2 mg b.i.d.. He became not just confused but combative. He may have taken too many medications on his own, perhaps accounting for his high INR on admission. He was more swollen and was so weak he could hardly stand stand up. With any activity his O2 sat would drop into the 60-70% range. Mild chronic cough, no chest pain. He presented to the [facility] – [place], [place]
[2021-10-06] MEDS: FUROSEMIDE INJ 100 MG/10 ML VIAL 60 MG IV PUSH ×2 (10:24→17:50)
[2021-10-06] MEDS: INSULIN HUMAN ISOPHAN/REGULAR 70/30 (*BKC) 100 UNITS/ML 40 UNITS SUB-Q ×2 (10:24→17:48)
--- NOTE | 2021-10-06 11:46 | PM.IMPN ---
Progress Note: A&P Assessment and Plan (1) Acute respiratory failure with hypoxia: Code(s): J96.01 - Acute respiratory failure with hypoxia Status: Acute Assessment and Plan: Patient was noted to have acute respiratory failure with hypoxia and hypercarbia. Patient was placed on BiPAP with settings of 14/8 and 100%. Continue BiPAP as ordered. Keep saturation more than 90%. Continue DuoNeb and Lasix. Received Solu Medrol in the ER Cardiology consult Will also call consult Pulmonary. Sees Dr. Pantoja as an outpatient basis. (2) COPD (chronic obstructive pulmonary disease): Code(s): J44.9 - Chronic obstructive pulmonary disease, unspecified Status: Acute Assessment and Plan: Does not seem to be in exacerbation at this time. Continue BiPAP support for acute on chronic respiratory failure He does have home trilogy unit (3) CHF (congestive heart failure): Code(s): I50.9 - Heart failure, unspecified Status: Acute Assessment and Plan: Patient has a known history of diastolic dysfunction. Diuresis as ordered Recent echo with EF 60-65% with indeterminate diastolic dysfunction BNP elevated (4) Chronic anticoagulation: Code(s): Z79.01 - penitentiary (current) use of anticoagulants Status: Acute Assessment and Plan: Patient's INR in the emergency room was 5.2. Patient's spouse states the cardiology nurse did call with an elevated INR in the threes and patient was told to change his Coumadin dose to 10 mg daily instead of 12 mg twice a week with 10 mg remaining days. At this point time did discuss with him that Coumadin will be placed on hold until INR is well below 3. Goal INR to be 2-3. Additional Plan Insulin-dependent diabetes mellitus Hypoglycemia Acute encephalopathy Severe pulmonary arterial systolic hypertension Obstructive sleep apnea Hypertension Chronic atrial fibrillation Chronic anticoagulation DVT prophylaxis on warfarin with supratherapeutic INR Code status do not resuscitate Subjective Date/time seen: 10/06/21 11:46 Interval history: HPI: Mr. Hollingsworth is a 71-year-old gentleman who presented emergency room with complaints of increasing shortness of breath and edema.? Patient is on BiPAP at this time and states he is feeling improved, but it is difficult to get a full history from him at this time.? Patient's spouse is at bedside and is helping to give recent events.? Per patient he was discharged from the hospital last Tuesday and was still having some shortness of breath.? Patient's spouse states that he was discharged on 6 L oxygen per nasal cannula and he typically wears 4 L of oxygen per nasal cannula at home.? Patient states that on Tuesday he noticed that his shortness of breath was increasing and he had a rare cough with clear sputum.? Patient states that on Tuesday he also noted he was having increasing edema.? Patient denies any chest discomfort, lightheadedness, dizziness, syncopal, or near syncopal episodes.? Patient states he has been wearing his trilogy at night without any difficulty.? Patient was brought to the emergency room via EMS and it was noted that his heart rate did go down while EN route to the emergency room.? While in the emergency room there was no episodes of atrial fibrillation with a slow ventricular response.? Patient was also noted to have a blood glucose level of 57 his chemistry panel.? Patient states that he typically does not have hypoglycemic episodes, but he did take all of his medications last night without having a snack and he usually does have a snack.? Patient states he has been taking all medications without any difficulty.? Patient also has a known history of COPD.? Patient states that he does wear continuous oxygen at home.? One emergency room patient was placed on BiPAP and did receive a DuoNeb, Solu-Medrol, and IV Lasix. Patient has a known history of congestive heart failure diastolic in type, chronic atri
[2021-10-06 12:06] LABS: Glucose Point of Care 293 mg/dl (65-105)
--- NOTE | 2021-10-06 13:07 | PM.CNPUL ---
Assessment and Plan Assessment and plan (1) COPD (chronic obstructive pulmonary disease): Qualifiers: COPD type: emphysema Emphysema type: panlobular Qualified Code(s): J43.1 - Panlobular emphysema Code(s): J44.9 - Chronic obstructive pulmonary disease, unspecified Status: Acute Assessment and Plan: Patient has Gold grade 2 group B COPD: He quit smoking 15 years ago so does not qualify for low-dose CT screening and his last CT scan on 09/10/2019 showed mild to moderate emphysema,? very minimal basilar septal thickening with dependent area of honeycombing consistent with mild pulmonary fibrosis. ? PFT's on 04/23/19 show mild obstruction with a normal total lung capacity at 83%. he has chronic hypoxemic and hypercarbic respiratory failure and is on a noninvasive ventilator with the AVAPS-AE mode. He also has obstructive sleep apnea. on 05/19/2021 the patient has a CAT score of 16, M MRC grade 4, good saturations on rest 3.5 L, ambulation 4 L, trilogy at night with 6 L bleed in.? Patient is on breztri inhaler 160/9/4.8 at 2 puffs b.i.d. and he has had no exacerbations in the last year. ? He does not use rescue albuterol.? He is not smoking and not exposed to any secondhand smoke. Currently the patient has shortness of breath, altered mental status and worsening hypoxemic respiratory failure with no evidence of COPD exacerbation or pneumonia. He had 2 blood gases 7.36/58/90 and 7.36/57/52 on oxygen. This represents a chronic respiratory acidosis with hypoxemia. There is no evidence of acute hypercarbic respiratory failure. He was treated with BiPAP and his mental status is now better. He had no evidence of acute hypercarbic respiratory failure on his presentation blood gas. I do not believe appear respiratory problem was causing his altered mental status. His chest x-ray showed congestion and his BNP is elevated. The patient is being diuresed and I anticipate his oxygen requirements will improve with diuresis. I switched him to a noninvasive ventilation with an AVAPS mode to match his most recent download with a rate of 12, tidal volume 500, EPAP 10, minimal inspiratory pressure 11, maximal inspiratory pressure 25, inspiratory time 1.2 rise of 5 which is are slow stent 40% FiO2. He should wear hospital machine with the settings tonight. The patient had previously been on home noninvasive ventilator with the AVAPS mode using a nasal mask and that machine is in the room but I would not use that machine tonight as he is acutely ill and being diuresed for fluid overload. Continue albuterol 2.5 mg nebulized q.6 hours, ipratropium 0.5 mg nebulized q.6 hours and I will add inhaled steroids which he is on at home at budesonide 0.5 mg Q a 12 hours. the patient was given Solu-Medrol 125 in the emergency room but I do not feel he needs systemic steroids at this time. I do not feel the patient needs antibiotics at this time. Will follow with you. (2) Obstructive sleep apnea: Code(s): G47.33 - Obstructive sleep apnea (adult) (pediatric) Status: Chronic Assessment and Plan: I switched him to a noninvasive ventilation with an AVAPS mode to match his most recent download with a rate of 12, tidal volume 500, EPAP 10, minimal inspiratory pressure 11, maximal inspiratory pressure 25, inspiratory time 1.2 rise of 5 which is are slow stent 40% FiO2. He should wear hospital machine with the settings tonight. History of Present Illness History of Present Illness Consult date: 10/06/21 Chief complaint: Acute respiratory failure with hypoxia/CHF/COPD/hy Narrative: 10/06/2021: This is a new pulmonary consult for chronic hypercarbic and hypoxemic respiratory failure. Patient is followed in the Pulmonary Clinic and has COPD and obstructive sleep apnea. He was last seen in the clinic on 05/19/2021. Patient has Gold grade 2 group B COPD: He quit smoking 15 years ago so does not qualify for low-dose CT s
[2021-10-06] MEDS: VENLAFAXINE HCL XR 75 MG CAP.ER.24H 150 MG PO (13:43)
[2021-10-06] MEDS: allopurinoL 300 MG TABLET PO (13:44)
[2021-10-06] MEDS: amLODIPine BESYLATE 5 MG TABLET 10 MG PO (13:44)
[2021-10-06] MEDS: ATORVASTATIN 10 MG TABLET PO (13:44)
[2021-10-06] MEDS: METOPROLOL TARTRATE 25 MG TABLET 75 MG PO ×2 (13:44→20:29)
[2021-10-06] MEDS: DIGOXIN TAB 125 MCG TABLET PO (13:45)
[2021-10-06] MEDS: EMPAGLIFLOZIN 10 MG TABLET PO (13:46)
[2021-10-06] MEDS: ASPIRIN 81 MG CHEWABLE TABLET PO (13:46)
[2021-10-06] MEDS: ALBUTEROL SULFATE NEB 2.5 MG/0.5 ML INH (14:14)
[2021-10-06] MEDS: IPRATROPIUM BR 0.02% INH SOLN 0.5 MG/2.5 ML VIAL (14:15)
[2021-10-06 14:20] LABS: Ammonia < 9 umol/L (9-30)
[2021-10-06 16:22] LABS: Glucose Point of Care 295 mg/dl (65-105)
[2021-10-06 16:29] LABS: Appearance Urine Clear (Clear); Bilirubin Urine Negative (Negative); Blood Urine Trace-lysed (Negative); Color Urine Yellow (Yellow); Glucose Urine UA Negative (Negative); Ketones Urine Negative (Negative); Leukocyte Esterase Ur Trace LEU/UL (NEGATIVE); Nitrate Urine Negative (Negative); Protein Urine 2+ mg/dL (Negative); Urobilinogen Urine 0.2 mg/dL (<2.0); pH Urine 5.5 (5.0-9.0)
[2021-10-06 16:34] LABS: Hyaline Casts Urine 30-49 /lpf; Mucus Urine Rare /lpf; Squamous Epithelial Cell Urine Rare /hpf (Few); WBC Urine 0-3 /hpf (0-3)
[2021-10-06 16:35] LABS: Add Urine Microscopic? YES
[2021-10-06] MEDS: INSULIN ASPART (*BKC) 100 UNITS/ML SUB-Q (17:48)
[2021-10-06] MEDS: VITAMIN B COMPLEX CAPSULE 1 CAP PO (18:00)
[2021-10-06] MEDS: BUDESONIDE RESPULE NEB 0.5 MG/2 ML AMP INHALATION (19:50)
[2021-10-06 20:18] LABS: Glucose Point of Care 206 mg/dl (65-105)
[2021-10-07] VITALS (26 sets, daily range): BP systolic 109–137; BP diastolic 67–94; PULSE 61–104; RESP 18–22; TEMP 36.6–37.2; O2SAT 92–98
[2021-10-07] MEDS: ALBUTEROL SULFATE NEB 2.5 MG/3 ML INH INHALATION ×2 (01:06→07:32)
[2021-10-07] MEDS: IPRATROPIUM BR 0.02% INH SOLN 0.5 MG/2.5 ML VIAL INHALATION ×2 (01:06→07:32)
[2021-10-07 05:14] LABS: Basophils Percent Auto 0.2 % (0.2-1.2); Eosinophils Absolute Auto 0.1 K/mm3 (0-0.3); Eosinophils Percent Auto 1.5 % (0-4.4); Hematocrit 29.6 % (42.0-52.0); Immature Granulocyte Absolute 0.05 K/mm3 (0.00-0.031); Immature Granulocyte Percent A 0.6 % (0-0.5); Lymphocytes Absolute Auto 1.03 K/mm3 (0.9-3.2); Lymphocytes Percent Auto 12.5 % (18.3-44.2); Mean Corpuscular HGB Conc 30.4 g/dl (32-36); Mean Corpuscular Hemoglobin 29.3 pg (26-34); Mean Corpuscular Volume 96.4 fl (80-100); Mean Platelet Volume 10.2 fl (7.4-10.4); Monocytes Percent Auto 11.6 % (2.6-8.5); Neutrophils Absolute Auto 6.1 K/mm3 (1.3-6.7); Neutrophils Percent Auto 73.6 % (45.5-73.1); Platelet Count Result 286 k/mm3 (150-375); Red Blood Count 3.07 M/mm3 (4.6-6.20); White Blood Count 8.3 K/mm3 (4.5-10.0)
[2021-10-07 05:24] LABS: Alanine Aminotransferase 19 U/L (6-50); Albumin Level 3.6 g/dL (3.5-5.1); Alkaline Phosphatase 110 U/L (38-126); Anion Gap 3 mmol/L (8-16); Aspartate Amino Transferase 31 U/L (17-59); Bilirubin,Total 0.5 mg/dL (0.2-1.3); Blood Urea Nitrogen 48 mg/dL (9-20); Calcium 8.4 mg/dL (8.4-10.2); Carbon Dioxide 39 mmol/L (22-30); Chloride 99 mmol/L (98-107); Estimated CRCL calculation 63 ml/min; Estimated Glomerular Filt Rate 59; Glucose 147 mg/dL (65-110); Potassium 3.8 mmol/L (3.4-5.0); Sodium 141 mmol/L (137-145)
[2021-10-07 05:43] LABS: INR 5.9
[2021-10-07] MEDS: BUDESONIDE RESPULE NEB 0.5 MG/2 ML AMP INHALATION (07:32)
[2021-10-07 07:47] LABS: Glucose Point of Care 147 mg/dl (65-105)
--- NOTE | 2021-10-07 08:31 | PM.IMPN ---
Progress Note: A&P Assessment and Plan (1) Acute respiratory failure with hypoxia: Code(s): J96.01 - Acute respiratory failure with hypoxia Status: Acute Assessment and Plan: Patient was noted to have acute respiratory failure with hypoxia and hypercarbia. Patient was placed on BiPAP with settings of 14/8 and 100%. Continue BiPAP as ordered. Keep saturation more than 90%. Continue DuoNeb and Lasix. Received Solu Medrol in the ER Cardiology consult Consulted Pulmonary. (2) COPD (chronic obstructive pulmonary disease): Code(s): J44.9 - Chronic obstructive pulmonary disease, unspecified Status: Acute Assessment and Plan: Does not seem to be in exacerbation at this time. Continue BiPAP support for acute on chronic respiratory failure He does have home trilogy unit Ventilatory support management per Pulmonary (3) CHF (congestive heart failure): Code(s): I50.9 - Heart failure, unspecified Status: Acute Assessment and Plan: Patient has a known history of diastolic dysfunction. Diuresis as ordered Recent echo with EF 60-65% with indeterminate diastolic dysfunction BNP elevated Labs reviewed renal function stable continue diuresis as ordered Change to oral okay with Cardiology (4) Chronic anticoagulation: Code(s): Z79.01 - intermediate accountant (current) use of anticoagulants Status: Acute Assessment and Plan: Patient's INR in the emergency room was 5.2. Patient's spouse states the cardiology nurse did call with an elevated INR in the threes and patient was told to change his Coumadin dose to 10 mg daily instead of 12 mg twice a week with 10 mg remaining days. At this point time did discuss with him that Coumadin will be placed on hold until INR is well below 3. Goal INR to be 2-3. INR still elevated 5.[address] is negative No signs of bleeding Will continue to let Coumadin drift off May switch to NOAC if appropriate from cardiac standpoint. Coumadin was managed by gallery intern Additional Plan Insulin-dependent diabetes mellitus Hypoglycemia this is resolved. Running hyperglycemic which is much better today Acute encephalopathy Severe pulmonary arterial systolic hypertension Obstructive sleep apnea Hypertension Chronic atrial fibrillation Chronic anticoagulation DVT prophylaxis on warfarin with supratherapeutic INR Code status do not resuscitate Subjective Date/time seen: 10/07/21 08:31 Interval history: HPI: Mr. Hollingsworth is a 71-year-old gentleman who presented emergency room with complaints of increasing shortness of breath and edema.? Patient is on BiPAP at this time and states he is feeling improved, but it is difficult to get a full history from him at this time.? Patient's spouse is at bedside and is helping to give recent events.? Per patient he was discharged from the hospital last Tuesday and was still having some shortness of breath.? Patient's spouse states that he was discharged on 6 L oxygen per nasal cannula and he typically wears 4 L of oxygen per nasal cannula at home.? Patient states that on Tuesday he noticed that his shortness of breath was increasing and he had a rare cough with clear sputum.? Patient states that on Tuesday he also noted he was having increasing edema.? Patient denies any chest discomfort, lightheadedness, dizziness, syncopal, or near syncopal episodes.? Patient states he has been wearing his trilogy at night without any difficulty.? Patient was brought to the emergency room via EMS and it was noted that his heart rate did go down while EN route to the emergency room.? While in the emergency room there was no episodes of atrial fibrillation with a slow ventricular response.? Patient was also noted to have a blood glucose level of 57 his chemistry panel.? Patient states that he typically does not have hypoglycemic episodes, but he did take all of his medications last night without having a snack and he usually does have a snack.
[2021-10-07] MEDS: amLODIPine BESYLATE 5 MG TABLET 10 MG PO (08:35)
[2021-10-07] MEDS: ATORVASTATIN 10 MG TABLET PO (08:35)
[2021-10-07] MEDS: DIGOXIN TAB 125 MCG TABLET PO (08:35)
[2021-10-07] MEDS: METOPROLOL TARTRATE 25 MG TABLET 75 MG PO ×2 (08:35→20:59)
[2021-10-07] MEDS: EMPAGLIFLOZIN 10 MG TABLET PO (08:35)
[2021-10-07] MEDS: FUROSEMIDE INJ 100 MG/10 ML VIAL 60 MG IV PUSH ×2 (08:36→17:34)
[2021-10-07] MEDS: VENLAFAXINE HCL XR 75 MG CAP.ER.24H 150 MG PO (08:36)
[2021-10-07] MEDS: allopurinoL 300 MG TABLET PO (08:36)
--- NOTE | 2021-10-07 08:36 | P.PNPL_ITS ---
Progress Note: A&P Assessment and Plan (1) COPD (chronic obstructive pulmonary disease): Qualifiers: COPD type: emphysema Emphysema type: panlobular Qualified Code(s): J43.1 - Panlobular emphysema Code(s): J44.9 - Chronic obstructive pulmonary disease, unspecified Status: Acute Assessment and Plan: Patient has Gold grade 2 group B COPD: He quit smoking 15 years ago so does not qualify for low-dose CT screening and his last CT scan on 09/10/2019 showed mild to moderate emphysema,? very minimal basilar septal thickening with dependent area of honeycombing consistent with mild pulmonary fibrosis. ? PFT's on 04/23/19 show mild obstruction with a normal total lung capacity at 83%. he has chronic hypoxemic and hypercarbic respiratory failure and is on a noninvasive ventilator with the AVAPS-AE mode. He also has obstructive sleep apnea. on 05/19/2021 the patient has a CAT score of 16, M MRC grade 4, good saturations on rest 3.5 L, ambulation 4 L, trilogy at night with 6 L bleed in.? Patient is on breztri inhaler 160/9/4.8 at 2 puffs b.i.d. and he has had no exacerbations in the last year. ? He does not use rescue albuterol.? He is not smoking and not exposed to any secondhand smoke. 10/06 Currently the patient has shortness of breath, altered mental status and worsening hypoxemic respiratory failure with no evidence of COPD exacerbation or pneumonia. He had 2 blood gases 7.36/58/90 and 7.36/57/52 on oxygen. This represents a chronic respiratory acidosis with hypoxemia. There is no evidence of acute hypercarbic respiratory failure. He was treated with BiPAP and his mental status is now better. He had no evidence of acute hypercarbic respir atory failure on his presentation blood gas. I do not believe appear respiratory problem was causing his altered mental status. His chest x-ray showed congestion and his BNP is elevated. The patient is being diuresed and I anticipate his oxygen requirements will improve with diuresis. I switched him to a noninvasive ventilation with an AVAPS mode to match his most recent download with a rate of 12, tidal volume 500, EPAP 10, minimal inspiratory pressure 11, maximal inspiratory pressure 25, inspiratory time 1.2 rise of 5 which is are slow stent 40% FiO2. He should wear hospital machine w ith the settings tonight. The patient had previously been on home noninvasive ventilator with the AVAPS mode using a nasal mask and that machine is in the room but I would not use that machine tonight as he is acutely ill and being diuresed for fluid overload. Continue albuterol 2.5 mg nebulized q.6 hours, ipratropium 0.5 mg nebulized q.6 hours and I will add inhaled steroids which he is on at home at budesonide 0.5 mg Q a 12 hours. the patient was given Solu-Medrol 125 in the emergency room but I do not feel he needs systemic steroids at this time. I do not feel the patient needs antibiotics at this time. obtain most recent download from [employer]: Download from 01/20/2021 to 05/20/2021atient is on a noninvasive ventilator on AVAPS-AE? mode.? Breath rate is auto,? tidal volume is 500, minimal EPAP pressure is 8, maximal EPAP pressure 15, minimal pressure support is 12, maximal pressure support is 22 ramp is off, rise time is 3. ? % of days with usage greater than or equal to 4 hours was 96.7 %.? Average usage on days used was 8 hours and 50 minutes.? Average EPAP ranges from 11-12.? Average IPAP ranges from 26-29.? average tidal volume ranges 400- 465 ml. Minute ventilation ranges from 8-9.3. ? Leak ranges from 53-64.? Apnea count is 0. 6/ Patient wore hospital noninvasive ventilation with an AVAPS mode to match his most recent download with a rate of 12, tidal volume 500, EPAP 10, minimal i
[2021-10-07] MEDS: ASPIRIN 81 MG CHEWABLE TABLET PO (08:37)
--- NOTE | 2021-10-07 08:38 | PHAR ---
HOME MED VERIFIED = [facility] [phone] BREZTRI INHALER 2 PUFFS TWICE A DAY
[2021-10-07] MEDS: INSULIN HUMAN ISOPHAN/REGULAR 70/30 (*BKC) 100 UNITS/ML 40 UNITS SUB-Q ×2 (08:44→17:42)
[2021-10-07 12:22] LABS: Glucose Point of Care 181 mg/dl (65-105)
[2021-10-07] MEDS: VITAMIN B COMPLEX CAPSULE 1 CAP PO (17:34)
[2021-10-07 17:36] LABS: Glucose Point of Care 114 mg/dl (65-105)
[2021-10-07 20:11] LABS: Glucose Point of Care 87 mg/dl (65-105)
[2021-10-08] VITALS (17 sets, daily range): BP systolic 113–144; BP diastolic 58–83; PULSE 70–98; RESP 20–22; TEMP 35.8–36.7; O2SAT 88–99
[2021-10-08 05:44] LABS: Alveolar/Arterial O2 Gradient 186.5 mmHg; Base Excess ABG 7.2 mEq/l (+/-2.0); Fractional Inspired Oxygen 44 %; HCO3 ABG 33.8 mEq/l (22.0-26.0); Oxygen Content ABG 15.6 %vol (16.0-22.0); Oxygen Saturation ABG 91.1 % (95.0-100.0); Oxyhemoglobin 88.8 % THb (90.0-100.0); PCO2 ABG 57.1 mmHg (35.0-45.0); PO2 ABG 62.1 mmHg (80.0-100.0); PO2 FiO2 Ratio Arterial Blood 1.41 %; Total Hemoglobin 12.5 g/dL (12.0-18.0)
[2021-10-08 05:47] LABS: Device NASAL CANNULA; Modified Allen's Test Pass; Site Drawn RIGHT RADIAL
[2021-10-08 06:31] LABS: Basophils Percent Auto 0.5 % (0.2-1.2); Eosinophils Absolute Auto 0.1 K/mm3 (0-0.3); Eosinophils Percent Auto 1.7 % (0-4.4); Hematocrit 32.5 % (42.0-52.0); Hemoglobin 9.8 g/dL (14.0-18.0); Immature Granulocyte Absolute 0.05 K/mm3 (0.00-0.031); Immature Granulocyte Percent A 0.6 % (0-0.5); Lymphocytes Absolute Auto 1.09 K/mm3 (0.9-3.2); Mean Corpuscular HGB Conc 30.2 g/dl (32-36); Mean Corpuscular Hemoglobin 29.2 pg (26-34); Mean Corpuscular Volume 96.7 fl (80-100); Mean Platelet Volume 10.3 fl (7.4-10.4); Monocytes Absolute Auto 0.9 K/mm3 (0.1-0.6); Monocytes Percent Auto 10.5 % (2.6-8.5); Neutrophils Absolute Auto 6.2 K/mm3 (1.3-6.7); Neutrophils Percent Auto 73.7 % (45.5-73.1); Platelet Count Result 333 k/mm3 (150-375); Red Blood Count 3.36 M/mm3 (4.6-6.20); Red Cell Distribution Width 15.9 % (11.5-14.5); White Blood Count 8.4 K/mm3 (4.5-10.0)
[2021-10-08 06:38] LABS: Alanine Aminotransferase 22 U/L (6-50); Albumin Level 3.8 g/dL (3.5-5.1); Alkaline Phosphatase 124 U/L (38-126); Anion Gap 4 mmol/L (8-16); Aspartate Amino Transferase 40 U/L (17-59); Bilirubin,Total 0.7 mg/dL (0.2-1.3); Blood Urea Nitrogen 46 mg/dL (9-20); Calcium 8.5 mg/dL (8.4-10.2); Carbon Dioxide 39 mmol/L (22-30); Chloride 99 mmol/L (98-107); Estimated CRCL calculation 63 ml/min; Estimated Glomerular Filt Rate 59; Glucose 149 mg/dL (65-110); Magnesium 2.5 mg/dL (1.6-2.3); Potassium 4.6 mmol/L (3.4-5.0); Sodium 142 mmol/L (137-145)
[2021-10-08 06:43] LABS: INR 2.6; Prothrombin Time 26.8 Seconds (11.1-14.7)
[2021-10-08 07:52] LABS: Glucose Point of Care 162 mg/dl (65-105)
[2021-10-08] MEDS: allopurinoL 300 MG TABLET PO (08:44)
[2021-10-08] MEDS: ATORVASTATIN 10 MG TABLET PO (08:44)
[2021-10-08] MEDS: amLODIPine BESYLATE 5 MG TABLET 10 MG PO (08:44)
[2021-10-08] MEDS: VENLAFAXINE HCL XR 75 MG CAP.ER.24H 150 MG PO (08:44)
[2021-10-08] MEDS: DIGOXIN TAB 125 MCG TABLET PO (08:44)
[2021-10-08] MEDS: METOPROLOL TARTRATE 25 MG TABLET 75 MG PO ×2 (08:44→21:03)
[2021-10-08] MEDS: EMPAGLIFLOZIN 10 MG TABLET PO (08:44)
[2021-10-08] MEDS: ASPIRIN 81 MG CHEWABLE TABLET PO (08:48)
[2021-10-08] MEDS: FUROSEMIDE INJ 100 MG/10 ML VIAL 60 MG IV PUSH (08:50)
[2021-10-08] MEDS: INSULIN HUMAN ISOPHAN/REGULAR 70/30 (*BKC) 100 UNITS/ML 40 UNITS SUB-Q ×2 (08:51→17:40)
--- NOTE | 2021-10-08 09:50 | PM.IMPN ---
Progress Note: A&P Assessment and Plan (1) Acute respiratory failure with hypoxia: Code(s): J96.01 - Acute respiratory failure with hypoxia Status: Acute Assessment and Plan: Patient was noted to have acute respiratory failure with hypoxia and hypercarbia. Patient was placed on BiPAP with settings of 14/8 and 100%. Continue BiPAP as ordered. Keep saturation more than 90%. Continue DuoNeb and Lasix. Received Solu Medrol in the ER Cardiology consult Consulted Pulmonary. (2) COPD (chronic obstructive pulmonary disease): Code(s): J44.9 - Chronic obstructive pulmonary disease, unspecified Status: Acute Assessment and Plan: Does not seem to be in exacerbation at this time. Continue BiPAP support for acute on chronic respiratory failure He does have home trilogy unit Ventilatory support management per Pulmonary (3) CHF (congestive heart failure): Code(s): I50.9 - Heart failure, unspecified Status: Acute Assessment and Plan: Patient has a known history of diastolic dysfunction. Diuresis as ordered Recent echo with EF 60-65% with indeterminate diastolic dysfunction BNP elevated Labs reviewed renal function stable continue diuresis as ordered Change to oral okay with Cardiology Check chest x-ray today if improved congestion will change to his home dose of Bumex (4) Chronic anticoagulation: Code(s): Z79.01 - prison (current) use of anticoagulants Status: Acute Assessment and Plan: Patient's INR in the emergency room was 5.2. Patient's spouse states the cardiology nurse did call with an elevated INR in the threes and patient was told to change his Coumadin dose to 10 mg daily instead of 12 mg twice a week with 10 mg remaining days. At this point time did discuss with him that Coumadin will be placed on hold until INR is well below 3. Goal INR to be 2-3. INR still elevated 5.[address] is negative No signs of bleeding Will continue to let Coumadin drift off May switch to NOAC if appropriate from cardiac standpoint. Coumadin was managed by gauger chief delivery Discussed with the patient agreeable for NOAC if cost is not an issue Will have care coordination check cost Additional Plan Insulin-dependent diabetes mellitus Hypoglycemia this is resolved. Running hyperglycemic which is much better today Acute encephalopathy Severe pulmonary arterial systolic hypertension Obstructive sleep apnea Hypertension Chronic atrial fibrillation Chronic anticoagulation with warfarin DVT prophylaxis on warfarin with supratherapeutic INR, INR down to 2.6 today Code status do not resuscitate Subjective Date/time seen: 10/08/21 09:50 Interval history: HPI: Mr. Hollingsworth is a 71-year-old gentleman who presented emergency room with complaints of increasing shortness of breath and edema.? Patient is on BiPAP at this time and states he is feeling improved, but it is difficult to get a full history from him at this time.? Patient's spouse is at bedside and is helping to give recent events.? Per patient he was discharged from the hospital last Tuesday and was still having some shortness of breath.? Patient's spouse states that he was discharged on 6 L oxygen per nasal cannula and he typically wears 4 L of oxygen per nasal cannula at home.? Patient states that on Tuesday he noticed that his shortness of breath was increasing and he had a rare cough with clear sputum.? Patient states that on Tuesday he also noted he was having increasing edema.? Patient denies any chest discomfort, lightheadedness, dizziness, syncopal, or near syncopal episodes.? Patient states he has been wearing his trilogy at night without any difficulty.? Patient was brought to the emergency room via EMS and it was noted that his heart rate did go down while EN route to the emergency room.? While in the emergency room there was no episodes of atrial fibrillation with a slow ventricular response.? Patient was also noted to
[2021-10-08 12:01] LABS: Glucose Point of Care 249 mg/dl (65-105)
[2021-10-08] MEDS: INSULIN ASPART (*BKC) 100 UNITS/ML SUB-Q (12:51)
--- NOTE | 2021-10-08 13:24 | PM.PNCARD ---
Progress Note: A&P Assessment and Plan (1) CHF (congestive heart failure): Code(s): I50.9 - Heart failure, unspecified Status: Acute Plan 71-year-old man with problematic diastolic dysfunction. I am happy that he is feeling better today but I am not pleased with the appearance of his chest x-ray. To me his chest x-ray looks like worsening CHF. I am going to add metolazone to his IV furosemide and observe the response to this. I would not entertain discharged home until his chest x-ray is clearly improved to avoid frequent readmission like this David Sherman MD [facility] Subjective Date/time seen: Date of service: 10/08/21 13:24 Interval history: Follow-up visit in this 71-year-old man with: Acute on chronic diastolic heart failure also with significant COPD with need for noninvasive ventilator support with sleep and mapping. Patient today says he is feeling noticeably better in terms of his breathing appears to be comfortable this afternoon is visiting with his family in the room. Exam Const: General: comfortable and no acute distress HENMT: Mouth: Yes moist mucous membranes Eyes: Sclera: sclerae normal Neck: Neck: supple Other: Difficult to assess venous distention Resp: Effort & Inspection: normal respiratory effort Other: Bibasilar pulmonary rales are still evident Cardio: Rhythm: abnormal rhythm irregularly irregular GI: GI Palp: Yes Soft to palpation Auscultation: normal bowel sounds Skin: General skin exam: normal color Neuro: Other: Normal cognition Extrem: Other: Patient still has a small amount of edema Objective Data Vital Signs Vital Signs: Vital Signs - 24 hr 10/07/21 16:09 10/07/21 14:00 10/07/21 18:00 Temperature 37.2 C Pulse Rate 81 82 93 Respiratory Rate 20 Blood Pressure 120/76 Pulse Oximetry 95 Oxygen Delivery Oxygen Flow Rate 10/07/21 16:00 10/07/21 19:52 10/07/21 21:50 Temperature 36.6 C Pulse Rate 94 98 Respiratory Rate 20 Blood Pressure 137/74 Pulse Oximetry 92 94 Oxygen Delivery BiPAP Oxygen Flow Rate 10/07/21 20:06 10/07/21 20:59 10/07/21 20:00 Temperature Pulse Rate 104 H 91 Respiratory Rate Blood Pressure Pulse Oximetry 92 Oxygen Delivery High Flow Nasal Cannula Oxygen Flow Rate 6 10/07/21 22:00 10/07/21 23:13 10/08/21 00:00 Temperature 36.6 C Pulse Rate 89 89 87 Respiratory Rate 20 Blood Pressure 132/73 Pulse Oximetry 98 Oxygen Delivery Oxygen Flow Rate 10/08/21 02:10 10/08/21 02:00 10/08/21 04:00 Temperature Pulse Rate 84 71 Respiratory Rate Blood Pressure Pulse Oximetry 92 Oxygen Delivery BiPAP Oxygen Flow Rate 10/08/21 07:53 10/08/21 07:58 10/08/21 08:44 Temperature 36.7 C Pulse Rate 94 86 Respiratory Rate 20 Blood Pressure 134/68 Pulse Oximetry 90 88 L Oxygen Delivery High Flow Nasal Cannula Oxygen Flow Rate 5 10/08/21 08:44 10/08/21 08:00 10/08/21 08:00 Temperature Pulse Rate 96 95 Respiratory Rate Blood Pressure Pulse Oximetry 96 Oxygen Delivery High Flow Nasal Cannula Oxygen Flow Rate 6 10/08/21 12:00 Temperature Pulse Rate 70 Respiratory Rate Blood Pressure Pulse Oximetry Oxygen Delivery Oxygen Flow Rate Intake/Output Intake/Output: Intake & Output 10/05/21 10/06/21 10/07/21 10/08/21 23:59 23:59 23:59 23:59 Intake Total 240 1100 1620 540 Output Total 8776 090 8293 1 Balance -1035 550 -30 539 Meds/Results Medications: Active Medications Generic Name Dose Route Start Last Admin Trade Name Freq PRN Reason Stop Dose Admin Albuterol 2.5 mg 10/07/21 08:48 Albuterol Sulfate Neb 2.5 Mg/3 Ml Inh INHALATION Q4HRT PRN Shortness Of Breath Allopurinol 300 mg 10/06/21 08:00 10/08/21 08:44 Allopurinol 300 Mg Tablet PO 300 mg DAILY@0800 JULIA Administration Amlodipine Besylate 10 mg 10/06/21 09:00 10/08/21 08:44 Amlod
[2021-10-08 16:32] LABS: Glucose Point of Care 157 mg/dl (65-105)
[2021-10-08] MEDS: metOLazone 2.5 MG TABLET PO (16:58)
[2021-10-08] MEDS: FUROSEMIDE INJ 100 MG/10 ML VIAL 80 MG IV PUSH (17:39)
[2021-10-08] MEDS: VITAMIN B COMPLEX CAPSULE 1 CAP PO (17:41)
--- NOTE | 2021-10-08 17:55 | PC.NURSE ---
This patient, Rivas Hollingsworth, was transferred to [ ] on 10/08/21 at 1812. Personal belongings sent with patient. Report given to [ ]. Appropriate documentation sent with patient.
--- NOTE | 2021-10-08 18:12 | PC.NURSE ---
This patient, Rivas Hollingsworth, was transferred to [[facility] ] on 10/08/21 at 1812. Personal belongings sent with patient. Report given to [Carissa]. Appropriate documentation sent with patient.
--- NOTE | 2021-10-08 18:16 | PC.NURSE ---
This patient, Rivas Fernández Delfinanaty, was received from [facility] on 10/08/21 at 1800. Patient/family oriented to unit policies and routines
[2021-10-09] VITALS (16 sets, daily range): BP systolic 106–152; BP diastolic 76–86; PULSE 70–90; RESP 16–20; TEMP 36.1–36.7; O2SAT 90–96
[2021-10-09 06:20] LABS: Basophils Absolute Auto 0.1 K/mm3 (0.0-0.1); Basophils Percent Auto 0.6 % (0.2-1.2); Eosinophils Absolute Auto 0.2 K/mm3 (0-0.3); Eosinophils Percent Auto 1.7 % (0-4.4); Hematocrit 33.2 % (42.0-52.0); Hemoglobin 10.3 g/dL (14.0-18.0); Immature Granulocyte Absolute 0.07 K/mm3 (0.00-0.031); Immature Granulocyte Percent A 0.8 % (0-0.5); Lymphocytes Absolute Auto 0.99 K/mm3 (0.9-3.2); Lymphocytes Percent Auto 11.1 % (18.3-44.2); Mean Corpuscular Hemoglobin 29.5 pg (26-34); Mean Corpuscular Volume 95.1 fl (80-100); Monocytes Absolute Auto 0.9 K/mm3 (0.1-0.6); Monocytes Percent Auto 10.4 % (2.6-8.5); Neutrophils Absolute Auto 6.7 K/mm3 (1.3-6.7); Neutrophils Percent Auto 75.4 % (45.5-73.1); Platelet Count Result 334 k/mm3 (150-375); Red Blood Count 3.49 M/mm3 (4.6-6.20); Red Cell Distribution Width 15.9 % (11.5-14.5); White Blood Count 8.9 K/mm3 (4.5-10.0)
[2021-10-09 07:39] LABS: Glucose Point of Care 107 mg/dl (65-105)
[2021-10-09 07:59] LABS: Alanine Aminotransferase 22 U/L (6-50); Albumin Level 3.8 g/dL (3.5-5.1); Alkaline Phosphatase 125 U/L (38-126); Anion Gap 2 mmol/L (8-16); Aspartate Amino Transferase 39 U/L (17-59); Bilirubin,Total 0.9 mg/dL (0.2-1.3); Blood Urea Nitrogen 39 mg/dL (9-20); Calcium 8.4 mg/dL (8.4-10.2); Carbon Dioxide 39 mmol/L (22-30); Chloride 98 mmol/L (98-107); Estimated CRCL calculation 74 ml/min; Estimated Glomerular Filt Rate > 60; Glucose 98 mg/dL (65-110); Magnesium 2.4 mg/dL (1.6-2.3); Potassium 3.8 mmol/L (3.4-5.0); Sodium 139 mmol/L (137-145)
[2021-10-09] MEDS: VENLAFAXINE HCL XR 75 MG CAP.ER.24H 150 MG PO (08:42)
[2021-10-09] MEDS: EMPAGLIFLOZIN 10 MG TABLET PO (08:42)
[2021-10-09] MEDS: METOPROLOL TARTRATE 25 MG TABLET 75 MG PO ×2 (08:42→20:12)
[2021-10-09] MEDS: allopurinoL 300 MG TABLET PO (08:42)
[2021-10-09] MEDS: metOLazone 2.5 MG TABLET PO ×2 (08:43→16:33)
[2021-10-09] MEDS: ATORVASTATIN 10 MG TABLET PO (08:43)
[2021-10-09] MEDS: DIGOXIN TAB 125 MCG TABLET PO (08:43)
[2021-10-09] MEDS: amLODIPine BESYLATE 5 MG TABLET 10 MG PO (08:43)
[2021-10-09] MEDS: INSULIN HUMAN ISOPHAN/REGULAR 70/30 (*BKC) 100 UNITS/ML 40 UNITS SUB-Q ×2 (08:45→17:09)
[2021-10-09] MEDS: ASPIRIN 81 MG CHEWABLE TABLET PO (08:45)
[2021-10-09] MEDS: FUROSEMIDE INJ 100 MG/10 ML VIAL 80 MG IV PUSH ×2 (09:24→17:11)
--- NOTE | 2021-10-09 09:53 | PM.PNCARD ---
Progress Note: A&P Assessment and Plan (1) CHF (congestive heart failure): Code(s): I50.9 - Heart failure, unspecified Status: Acute Assessment and Plan: Acute on chronic diastolic heart failure. Presents with worsening shortness of breath, some edema. His edema has resolved and respiratory status improving. Diuresis has improved with addition of metolazone. Renal function stable, continue diuresis with metolazone and IV furosemide today. Repeat chest xray in a.m. and probably shift back to oral furosemide tomorrow. Subjective Date/time seen: 10/09/21 09:53 Interval history: Follow-up visit in this 71-year-old man with: Acute on chronic diastolic heart failure also with significant COPD with need for noninvasive ventilator support with sleep and mapping. Patient today says he is feeling noticeably better in terms of his breathing appears to be comfortable this afternoon is visiting with his family in the room. Date of service 10/09/2021: Feeling better today. Shortness of breath improved, urine output has increased. Review of Systems Constitutional: Constitutional: Reports fatigue (Weakness, can not stand or walk.) Eyes: Eyes: Denies blurry vision ENT: Denies epistaxis Cardiovascular: Cardiovascular: Denies chest pain, Reports pedal edema, Reports leg edema, Denies palpitations, Reports dyspnea and Reports dyspnea on exertion Respiratory: Respiratory: Reports chest congestion (No change), Reports cough (No change in chronic cough), Reports dyspnea and Reports dyspnea on exertion Gastrointestinal: Gastrointestinal: Denies abdominal pain and Denies hematochezia Musculoskeletal: Musculoskeletal: Reports no additional musculoskeletal complaints and Reports abnormal gait Integumentary/Breasts: Skin/Breast: Reports unusual bruising (Often bruises due to his warfarin) Neurologic: Reports abnormal gait, Reports behavioral changes and Reports confusion Psychiatric: Psychiatric: Reports behavioral changes and Reports confusion Endocrine: Endocrine: Reports fatigue (Weakness, can not stand or walk.) and Denies palpitations Exam Narrative: Pleasant older gentleman sitting up in the chair with nasal cannula oxygen in place. Const: General: comfortable, no acute distress and confusion Orientation/consciousness: confusion HENMT: General nose exam: Normal nares present Mouth: Yes moist mucous membranes Eyes: General: appearance normal, both eyes and all related structures Sclera: sclerae normal Neck: Neck: supple Thyroid: thyroid normal Other: Difficult to assess venous distention Resp: Effort & Inspection: normal respiratory effort Auscultation: clear to auscultation bilaterally, rales and diminished lung sounds (Throughout all lung [place]) Cardio: Rate: regular rate Rhythm: abnormal rhythm irregularly irregular Heart sounds: Murmur heart sound present (1-2/6 ANNMARIE upper sternal borders) GI: Auscultation: normal bowel sounds Other: Obese abdomen Skin: General skin exam: normal color Other: Some ecchymoses and excoriations Neuro: General: No confusion Other: Normal cognition Extrem: General: no edema and no pedal edema Psych: Mental Status: mental status grossly abnormal Objective Data Vital Signs Vital Signs: Vital Signs - 24 hr 10/08/21 12:00 10/08/21 16:44 10/08/21 16:00 Temperature 35.8 C L Pulse Rate 70 81 78 Respiratory Rate 22 H Blood Pressure 113/58 L Pulse Oximetry 93 Oxygen Delivery Oxygen Flow Rate 10/08/21 18:00 10/08/21 21:03 10/08/21 21:26 Temperature 36.3 C L Pulse Rate 79 98 89 Respiratory Rate 20 Blood Pressure 144/83 H Pulse Oximetry 99 94 Oxygen Delivery Nasal Cannula Oxygen Flow Rate 4 10/08/21 21:52 10/08/21 23:24 10/08/21 20:00 Temperature 36.3 C L Pulse Rate 88 86 Respiratory Rate 20 Blood Pressure 128/81 Pulse Oximetry 93 93 Oxygen Delivery BiPAP Oxygen Flow Rate 10/09/21 00:
[2021-10-09 11:27] LABS: Glucose Point of Care 191 mg/dl (65-105)
--- NOTE | 2021-10-09 12:32 | PM.IMPN ---
Progress Note: A&P Assessment and Plan (1) Acute respiratory failure with hypoxia: Code(s): J96.01 - Acute respiratory failure with hypoxia Status: Acute Assessment and Plan: Patient was noted to have acute respiratory failure with hypoxia and hypercarbia. Patient was placed on BiPAP with settings of 14/8 and 100%. Continue BiPAP as ordered. Keep saturation more than 90%. Continue DuoNeb and Lasix. Received Solu Medrol in the ER Cardiology consult Consulted Pulmonary. On oxygen during the daytime and home trilogy at night (2) COPD (chronic obstructive pulmonary disease): Code(s): J44.9 - Chronic obstructive pulmonary disease, unspecified Status: Acute Assessment and Plan: Does not seem to be in exacerbation at this time. Continue BiPAP support for acute on chronic respiratory failure He does have home trilogy unit Ventilatory support management per Pulmonary Discussed With pulmonary (3) CHF (congestive heart failure): Code(s): I50.9 - Heart failure, unspecified Status: Acute Assessment and Plan: Patient has a known history of diastolic dysfunction. Diuresis as ordered Recent echo with EF 60-65% with indeterminate diastolic dysfunction BNP elevated Labs reviewed renal function stable continue diuresis as ordered Change to oral okay with Cardiology Check chest x-ray 10/08/2021 with worsening pulmonary edema Lasix increased received a dose of metolazone. With improved urine output Recheck chest x-ray in the morning (4) Chronic anticoagulation: Code(s): Z79.01 - oil heaterman (current) use of anticoagulants Status: Acute Assessment and Plan: Patient's INR in the emergency room was 5.2. Patient's spouse states the cardiology nurse did call with an elevated INR in the threes and patient was told to change his Coumadin dose to 10 mg daily instead of 12 mg twice a week with 10 mg remaining days. At this point time did discuss with him that Coumadin will be placed on hold until INR is well below 3. Goal INR to be 2-3. INR still elevated 5.[address] is negative No signs of bleeding Will continue to let Coumadin drift off May switch to NOAC if appropriate from cardiac standpoint. Coumadin was managed by senior asic design engineer Discussed with the patient agreeable for NOAC if cost is not an issue Cost reviewed with care coordination will switch to Eliquis. Patient okay with the cost If INR low will start Eliquis Additional Plan Insulin-dependent diabetes mellitus Hypoglycemia this is resolved. Running hyperglycemic which is much better today Acute encephalopathy Severe pulmonary arterial systolic hypertension Obstructive sleep apnea Hypertension Chronic atrial fibrillation Chronic anticoagulation with warfarin DVT prophylaxis on warfarin with supratherapeutic INR, INR down to 2.6 today if INR lobe will start Eliquis Code status do not resuscitate Subjective Date/time seen: 10/09/21 12:32 Interval history: HPI: Mr. Hollingsworth is a 71-year-old gentleman who presented emergency room with complaints of increasing shortness of breath and edema.? Patient is on BiPAP at this time and states he is feeling improved, but it is difficult to get a full history from him at this time.? Patient's spouse is at bedside and is helping to give recent events.? Per patient he was discharged from the hospital last Tuesday and was still having some shortness of breath.? Patient's spouse states that he was discharged on 6 L oxygen per nasal cannula and he typically wears 4 L of oxygen per nasal cannula at home.? Patient states that on Tuesday he noticed that his shortness of breath was increasing and he had a rare cough with clear sputum.? Patient states that on Tuesday he also noted he was having increasing edema.? Patient denies any chest discomfort, lightheadedness, dizziness, syncopal, or near syncopal episodes.? Patient states he has been wearing his trilogy at night without any d
--- NOTE | 2021-10-09 13:12 | PM.PNPUL ---
Progress Note: A&P Assessment and Plan (1) COPD (chronic obstructive pulmonary disease): Qualifiers: COPD type: emphysema Emphysema type: panlobular Qualified Code(s): J43.1 - Panlobular emphysema Code(s): J44.9 - Chronic obstructive pulmonary disease, unspecified Status: Acute Assessment and Plan: Patient has Gold grade 2 group B COPD: He quit smoking 15 years ago so does not qualify for low-dose CT screening and his last CT scan on 09/10/2019 showed mild to moderate emphysema,? very minimal basilar septal thickening with dependent area of honeycombing consistent with mild pulmonary fibrosis. ? PFT's on 04/23/19 show mild obstruction with a normal total lung capacity at 83%. he has chronic hypoxemic and hypercarbic respiratory failure and is on a noninvasive ventilator with the AVAPS-AE mode. He also has obstructive sleep apnea. on 05/19/2021 the patient has a CAT score of 16, M MRC grade 4, good saturations on rest 3.5 L, ambulation 4 L, trilogy at night with 6 L bleed in.? Patient is on breztri inhaler 160/9/4.8 at 2 puffs b.i.d. and he has had no exacerbations in the last year. ? He does not use rescue albuterol.? He is not smoking and not exposed to any secondhand smoke. 10/06 Currently the patient has shortness of breath, altered mental status and worsening hypoxemic respiratory failure with no evidence of COPD exacerbation or pneumonia. He had 2 blood gases 7.36/58/90 and 7.36/57/52 on oxygen. This represents a chronic respiratory acidosis with hypoxemia. There is no evidence of acute hypercarbic respiratory failure. He was treated with BiPAP and his mental status is now better. He had no evidence of acute hypercarbic respiratory failure on his presentation blood gas. I do not believe appear respiratory problem was causing his altered mental status. His chest x-ray showed congestion and his BNP is elevated. The patient is being diuresed and I anticipate his oxygen requirements will improve with diuresis. I switched him to a noninvasive ventilation with an AVAPS mode to match his most recent download with a rate of 12, tidal volume 500, EPAP 10, minimal inspiratory pressure 11, maximal inspiratory pressure 25, inspiratory time 1.2 rise of 5 which is are slow stent 40% FiO2. He should wear hospital machine with the settings tonight. The patient had previously been on home noninvasive ventilator with the AVAPS mode using a nasal mask and that machine is in the room but I would not use that machine tonight as he is acutely ill and being diuresed for fluid overload. Continue albuterol 2.5 mg nebulized q.6 hours, ipratropium 0.5 mg nebulized q.6 hours and I will add inhaled steroids which he is on at home at budesonide 0.5 mg Q a 12 hours. the patient was given Solu-Medrol 125 in the emergency room but I do not feel he needs systemic steroids at this time. I do not feel the patient needs antibiotics at this time. obtain most recent download from [email or web address]: Download from 01/20/2021 to 05/20/2021atient is on a noninvasive ventilator on AVAPS-AE? mode.? Breath rate is auto,? tidal volume is 500, minimal EPAP pressure is 8, maximal EPAP pressure 15, minimal pressure support is 12, maximal pressure support is 22 ramp is off, rise time is 3. ? % of days with usage greater than or equal to 4 hours was 96.7 %.? Average usage on days used was 8 hours and 50 minutes.? Average EPAP ranges from 11-12.? Average IPAP ranges from 26-29.? average tidal volume ranges 400-465 ml. Minute ventilation ranges from 8-9.3. ? Leak ranges from 53-64.? Apnea count is 0. 10/07 Patient wore hospital noninvasive ventilation with an AVAPS mode to match his most recent download with a rate of 12, tidal volume 500, EPAP 10, minimal inspiratory pressure 11, maximal inspiratory pressure 25, inspiratory time 1.2 rise of 5 which is are slowest, 40% FiO2. he said he did okay with that and got some sleep but this was not as comfortable as
[2021-10-09 13:27] LABS: INR 1.7; Prothrombin Time 19.2 Seconds (11.1-14.7)
[2021-10-09] MEDS: NEOMYCIN/POLYMYXIN/BACITRACIN OINTMENT PACKET 1 PACKET TOPICAL (14:23)
[2021-10-09 16:11] LABS: Glucose Point of Care 171 mg/dl (65-105)
[2021-10-09] MEDS: VITAMIN B COMPLEX CAPSULE 1 CAP PO (17:11)
[2021-10-09] MEDS: APIXABAN 5 MG TABLET PO (20:13)
--- NOTE | 2021-10-09 22:44 | PCRCNOTE ---
Apnea link started with 8 liters bleed in via nasal cannula with home trilogy home unit and full face mask. Sp02 93%, RR-20.
[2021-10-10] VITALS (14 sets, daily range): BP systolic 118–127; BP diastolic 62–74; PULSE 55–90; RESP 14–22; TEMP 36.3–36.6; O2SAT 92–98
[2021-10-10 06:03] LABS: Basophils Absolute Auto 0.1 K/mm3 (0.0-0.1); Basophils Percent Auto 0.6 % (0.2-1.2); Eosinophils Absolute Auto 0.3 K/mm3 (0-0.3); Eosinophils Percent Auto 2.7 % (0-4.4); Hematocrit 33.5 % (42.0-52.0); Hemoglobin 10.4 g/dL (14.0-18.0); Immature Granulocyte Absolute 0.08 K/mm3 (0.00-0.031); Immature Granulocyte Percent A 0.9 % (0-0.5); Lymphocytes Absolute Auto 1.37 K/mm3 (0.9-3.2); Lymphocytes Percent Auto 14.7 % (18.3-44.2); Mean Corpuscular Hemoglobin 29.5 pg (26-34); Mean Corpuscular Volume 94.9 fl (80-100); Mean Platelet Volume 9.8 fl (7.4-10.4); Monocytes Absolute Auto 1.3 K/mm3 (0.1-0.6); Monocytes Percent Auto 13.5 % (2.6-8.5); Neutrophils Absolute Auto 6.3 K/mm3 (1.3-6.7); Neutrophils Percent Auto 67.6 % (45.5-73.1); Platelet Count Result 376 k/mm3 (150-375); Red Blood Count 3.53 M/mm3 (4.6-6.20); Red Cell Distribution Width 15.9 % (11.5-14.5); White Blood Count 9.4 K/mm3 (4.5-10.0)
[2021-10-10 06:16] LABS: Alanine Aminotransferase 21 U/L (6-50); Albumin Level 3.9 g/dL (3.5-5.1); Alkaline Phosphatase 130 U/L (38-126); Anion Gap 7 mmol/L (8-16); Aspartate Amino Transferase 36 U/L (17-59); Bilirubin,Total 1.6 mg/dL (0.2-1.3); Blood Urea Nitrogen 43 mg/dL (9-20); Calcium 8.3 mg/dL (8.4-10.2); Carbon Dioxide 38 mmol/L (22-30); Chloride 91 mmol/L (98-107); Estimated CRCL calculation 57 ml/min; Estimated Glomerular Filt Rate 54; Glucose 128 mg/dL (65-110); Magnesium 2.3 mg/dL (1.6-2.3); Potassium 3.4 mmol/L (3.4-5.0); Sodium 136 mmol/L (137-145)
[2021-10-10 07:56] LABS: Glucose Point of Care 150 mg/dl (65-105)
[2021-10-10] MEDS: DIGOXIN TAB 125 MCG TABLET PO (08:32)
[2021-10-10] MEDS: metOLazone 2.5 MG TABLET PO ×2 (08:32→16:59)
[2021-10-10] MEDS: ATORVASTATIN 10 MG TABLET PO (08:32)
[2021-10-10] MEDS: ASPIRIN 81 MG CHEWABLE TABLET PO (08:32)
[2021-10-10] MEDS: allopurinoL 300 MG TABLET PO (08:32)
[2021-10-10] MEDS: amLODIPine BESYLATE 5 MG TABLET 10 MG PO (08:32)
[2021-10-10] MEDS: VENLAFAXINE HCL XR 75 MG CAP.ER.24H 150 MG PO (08:33)
[2021-10-10] MEDS: EMPAGLIFLOZIN 10 MG TABLET PO (08:33)
[2021-10-10] MEDS: APIXABAN 5 MG TABLET PO ×2 (08:33→21:29)
[2021-10-10] MEDS: METOPROLOL TARTRATE 25 MG TABLET 75 MG PO ×2 (08:33→21:30)
[2021-10-10] MEDS: FUROSEMIDE INJ 100 MG/10 ML VIAL 80 MG IV PUSH ×2 (08:33→16:58)
--- NOTE | 2021-10-10 11:00 | PM.IMPN ---
Progress Note: A&P Assessment and Plan (1) Acute respiratory failure with hypoxia: Code(s): J96.01 - Acute respiratory failure with hypoxia Status: Acute Assessment and Plan: Patient was noted to have acute respiratory failure with hypoxia and hypercarbia. Patient was placed on BiPAP with settings of 14/8 and 100%. Continue BiPAP as ordered. Keep saturation more than 90%. Continue DuoNeb and Lasix. Received Solu Medrol in the ER Cardiology consult Consulted Pulmonary. On oxygen during the daytime and home trilogy at night (2) COPD (chronic obstructive pulmonary disease): Code(s): J44.9 - Chronic obstructive pulmonary disease, unspecified Status: Acute Assessment and Plan: Does not seem to be in exacerbation at this time. Continue BiPAP support for acute on chronic respiratory failure He does have home trilogy unit Ventilatory support management per Pulmonary Apnea link overnight on 8 L on home trilogy with desaturation less than 88% for 91 minute. With repeat ApneaLink tonight on 10 L home trilogy (3) CHF (congestive heart failure): Code(s): I50.9 - Heart failure, unspecified Status: Acute Assessment and Plan: Patient has a known history of diastolic dysfunction. Diuresis as ordered Recent echo with EF 60-65% with indeterminate diastolic dysfunction BNP elevated Labs reviewed renal function stable continue diuresis as ordered Change to oral okay with Cardiology Check chest x-ray 10/08/2021 with worsening pulmonary edema Lasix increased received a dose of metolazone. With improved urine output Recheck chest x-ray with improved congestive changes Urine output 10/09/2021 3450 mL Diuresing well with increased Lasix and metolazone Weight is coming down from 118 kilos to 114 kilos today Will give a dose of potassium supplement for his potassium of 3.4 today Continue IV diuresis and reassess switching to oral tomorrow. (4) Chronic anticoagulation: Code(s): Z79.01 - joint terminal attack controller (current) use of anticoagulants Status: Acute Assessment and Plan: Patient's INR in the emergency room was 5.2. Patient's spouse states the cardiology nurse did call with an elevated INR in the threes and patient was told to change his Coumadin dose to 10 mg daily instead of 12 mg twice a week with 10 mg remaining days. At this point time did discuss with him that Coumadin will be placed on hold until INR is well below 3. Goal INR to be 2-3. INR still elevated 5.[address] is negative No signs of bleeding Will continue to let Coumadin drift off May switch to NOAC if appropriate from cardiac standpoint. Coumadin was managed by channel opener Discussed with the patient agreeable for NOAC if cost is not an issue Cost reviewed with care coordination will switch to Eliquis. Patient okay with the cost Started on Eliquis twice daily Additional Plan Insulin-dependent diabetes mellitus Hypoglycemia this is resolved. Running hyperglycemic which is much better today Acute encephalopathy Severe pulmonary arterial systolic hypertension Obstructive sleep apnea Hypertension Chronic atrial fibrillation Chronic anticoagulation with warfarin DVT prophylaxis on warfarin with supratherapeutic INR, INR lowered switched to Eliquis Code status do not resuscitate Subjective Date/time seen: 10/10/21 11:00 Interval history: HPI: Mr. Hollingsworth is a 71-year-old gentleman who presented emergency room with complaints of increasing shortness of breath and edema.? Patient is on BiPAP at this time and states he is feeling improved, but it is difficult to get a full history from him at this time.? Patient's spouse is at bedside and is helping to give recent events.? Per patient he was discharged from the hospital last Tuesday and was still having some shortness of breath.? Patient's spouse states that he was discharged on 6 L oxygen per nasal cannula and he typically wears 4 L of oxygen per nasal rema
[2021-10-10 11:50] LABS: Glucose Point of Care 290 mg/dl (65-105)
[2021-10-10] MEDS: INSULIN ASPART (*BKC) 100 UNITS/ML SUB-Q ×2 (11:51→16:55)
[2021-10-10] MEDS: POTASSIUM CHLORIDE 20 MEQ TABLET 40 MEQ PO (11:56)
--- NOTE | 2021-10-10 15:10 | PM.PNCARD ---
Progress Note: A&P Assessment and Plan (1) CHF (congestive heart failure): Code(s): I50.9 - Heart failure, unspecified Status: Acute Plan Assessment acute on chronic diastolic heart failure currently compensated slight rise in creatinine since yesterday chronic AFib on oral anticoagulation hypertension controlled Plan DC IV diuretics Start oral diuretics bumetanide 1 mg b.i.d. Continue oral anticoagulation with target INR 2-3 Continue amlodipine 10 mg daily Continue metoprolol 75 mg b.i.d. Continue digoxin 0.125 mg daily Continue metolazone 2.5 mg daily Cardiology will sign off please call us if needed Subjective Date/time seen: 10/10/21 15:10 no acute events overnight shortness of breath is improving Review of Systems Review of Systems: review of system is negative except for stated above Exam Narrative: Constitutional: Patient is well-nourished awake alert oriented x3 sitting up in chair HEENT: Normocephalic atraumatic Neck: No carotid bruits noted no JVD noted Lungs: Lung sounds are diminished bilaterally. No accessory muscle use. No rhonchi, rales, or wheezes noted. Cardiovascular: Apical pulse is irregularly irregular, S1 variable S2, no S3 or S4. . Abdomen: Soft, round, and nontender. No palpable masses. Extremities: No edema cyanosis or clubbing Skin: No rashes or lesions. Warm and dry. Skin is intact. Neurological: No facial drooping alert and oriented x3 no focal neurological deficit Psychiatric: Normal mood Objective Data Vital Signs Vital Signs: Vital Signs - 24 hr 10/09/21 15:55 10/09/21 16:00 10/09/21 21:01 Temperature 36.5 C Pulse Rate 80 90 Respiratory Rate 17 Blood Pressure 115/78 Pulse Oximetry 94 96 Oxygen Delivery Nasal Cannula Oxygen Flow Rate 4 10/09/21 22:04 10/09/21 20:00 10/10/21 00:00 Temperature 36.7 C Pulse Rate 70 85 80 Respiratory Rate 20 Blood Pressure 152/86 H Pulse Oximetry 93 Oxygen Delivery Oxygen Flow Rate 10/09/21 22:50 10/10/21 02:27 10/10/21 04:00 Temperature Pulse Rate 82 79 89 Respiratory Rate Blood Pressure Pulse Oximetry 92 93 Oxygen Delivery BiPAP BiPAP Oxygen Flow Rate 10/10/21 05:09 10/10/21 09:06 10/10/21 08:00 Temperature 36.4 C Pulse Rate 89 Respiratory Rate 22 H Blood Pressure 127/62 Pulse Oximetry 97 93 96 Oxygen Delivery Nasal Cannula Nasal Cannula Oxygen Flow Rate 4 4 10/10/21 08:00 10/10/21 12:00 10/10/21 14:00 Temperature 36.6 C Pulse Rate 89 84 85 Respiratory Rate 18 Blood Pressure 123/72 Pulse Oximetry 96 Oxygen Delivery Oxygen Flow Rate Intake/Output Intake/Output: Intake & Output 10/07/21 10/08/21 10/09/21 10/10/21 23:59 23:59 23:59 23:59 Intake Total 1620 1720 1400 680 Output Total 1716 060 8591 1600 Balance -30 677 -8463 -556 Meds/Results Medications: Active Medications Generic Name Dose Route Start Last Admin Trade Name Freq PRN Reason Stop Dose Admin Albuterol 2.5 mg 10/07/21 08:48 Albuterol Sulfate Neb 2.5 Mg/3 Ml Inh INHALATION Q4HRT PRN Shortness Of Breath Allopurinol 300 mg 10/06/21 08:00 10/10/21 08:32 Allopurinol 300 Mg Tablet PO 300 mg DAILY@0800 JULIA Administration Amlodipine Besylate 10 mg 10/06/21 09:00 10/10/21 08:32 Amlodipine Besylate 5 Mg Tablet PO 10 mg DAILY JULIA Administration Apixaban 5 mg 10/09/21 21:00 10/10/21 08:33 Apixaban 5 Mg Tablet PO 5 mg Q12HR JULIA Administration Aspirin 81 mg 10/06/21 09:00 10/10/21 08:32 Aspirin 81 Mg Chewable Tablet PO 81 mg DAILY JULIA Administration Atorvastatin Calcium 10 mg 10/06/21 09:00 10/10/21 08:32 Atorvastatin 10 Mg Tablet PO 10 mg DAILY JULIA Administration Dextrose 12.5 gm 10/05/21 16:14 Dextrose 50% 25 Gm/50 Ml Syringe IV PUSH PRN PRN Hypoglycemia Protocol Digoxin 125 mcg 10/06/21 09:00 10/10/21 08:32 Digoxin Ta
[2021-10-10 16:38] LABS: Glucose Point of Care 284 mg/dl (65-105)
[2021-10-10] MEDS: INSULIN HUMAN ISOPHAN/REGULAR 70/30 (*BKC) 100 UNITS/ML 40 UNITS SUB-Q (16:55)
[2021-10-10] MEDS: VITAMIN B COMPLEX CAPSULE 1 CAP PO (16:59)
[2021-10-10 21:42] LABS: Glucose Point of Care 163 mg/dl (65-105)
--- NOTE | 2021-10-10 22:14 | PCRCNOTE ---
Overnight nocturnal oxygen assessment started, FRANKLIN Garcia present. Pt on home trilogy with 10 liters bleed-in as ordered. Sp02 95%, RR-18, HR-88. No SOB or Increased WOB present.
[2021-10-11] VITALS (8 sets, daily range): BP systolic 118; BP diastolic 71; PULSE 74–92; RESP 16–18; TEMP 35.6; O2SAT 92–98
[2021-10-11 06:57] LABS: Alanine Aminotransferase 20 U/L (6-50); Albumin Level 3.8 g/dL (3.5-5.1); Alkaline Phosphatase 124 U/L (38-126); Anion Gap 7 mmol/L (8-16); Aspartate Amino Transferase 34 U/L (17-59); Bilirubin,Total 1.5 mg/dL (0.2-1.3); Blood Urea Nitrogen 50 mg/dL (9-20); Calcium 8.3 mg/dL (8.4-10.2); Carbon Dioxide 39 mmol/L (22-30); Chloride 88 mmol/L (98-107); Estimated CRCL calculation 62 ml/min; Estimated Glomerular Filt Rate 59; Glucose 184 mg/dL (65-110); Magnesium 2.5 mg/dL (1.6-2.3); Potassium 3.3 mmol/L (3.4-5.0); Sodium 134 mmol/L (137-145)
[2021-10-11 07:31] LABS: Glucose Point of Care 204 mg/dl (65-105)
[2021-10-11 07:52] LABS: Basophils Absolute Auto 0.1 K/mm3 (0.0-0.1); Basophils Percent Auto 0.9 % (0.2-1.2); Eosinophils Absolute Auto 0.3 K/mm3 (0-0.3); Eosinophils Percent Auto 3.8 % (0-4.4); Hematocrit 33.1 % (42.0-52.0); Hemoglobin 10.5 g/dL (14.0-18.0); Immature Granulocyte Absolute 0.07 K/mm3 (0.00-0.031); Immature Granulocyte Percent A 0.8 % (0-0.5); Lymphocytes Absolute Auto 1.37 K/mm3 (0.9-3.2); Lymphocytes Percent Auto 15.1 % (18.3-44.2); Mean Corpuscular HGB Conc 31.7 g/dl (32-36); Mean Corpuscular Hemoglobin 29.5 pg (26-34); Mean Platelet Volume 10.4 fl (7.4-10.4); Monocytes Absolute Auto 1.3 K/mm3 (0.1-0.6); Monocytes Percent Auto 14.5 % (2.6-8.5); Neutrophils Absolute Auto 5.9 K/mm3 (1.3-6.7); Neutrophils Percent Auto 64.9 % (45.5-73.1); Platelet Count Result 399 k/mm3 (150-375); Red Blood Count 3.56 M/mm3 (4.6-6.20); Red Cell Distribution Width 15.6 % (11.5-14.5); White Blood Count 9.1 K/mm3 (4.5-10.0)
[2021-10-11] MEDS: amLODIPine BESYLATE 5 MG TABLET 10 MG PO (08:21)
[2021-10-11] MEDS: metOLazone 2.5 MG TABLET PO (08:21)
[2021-10-11] MEDS: allopurinoL 300 MG TABLET PO (08:21)
[2021-10-11] MEDS: APIXABAN 5 MG TABLET PO (08:21)
[2021-10-11] MEDS: ASPIRIN 81 MG CHEWABLE TABLET PO (08:22)
[2021-10-11] MEDS: METOPROLOL TARTRATE 25 MG TABLET 75 MG PO (08:22)
[2021-10-11] MEDS: DIGOXIN TAB 125 MCG TABLET PO (08:22)
[2021-10-11] MEDS: ATORVASTATIN 10 MG TABLET PO (08:22)
[2021-10-11] MEDS: EMPAGLIFLOZIN 10 MG TABLET PO (08:22)
[2021-10-11] MEDS: FUROSEMIDE INJ 100 MG/10 ML VIAL 80 MG IV PUSH (08:22)
[2021-10-11] MEDS: VENLAFAXINE HCL XR 75 MG CAP.ER.24H 150 MG PO (08:22)
[2021-10-11] MEDS: INSULIN HUMAN ISOPHAN/REGULAR 70/30 (*BKC) 100 UNITS/ML 40 UNITS SUB-Q (08:27)
[2021-10-11] MEDS: INSULIN ASPART (*BKC) 100 UNITS/ML SUB-Q ×2 (08:28→11:53)
[2021-10-11 11:19] LABS: Glucose Point of Care 263 mg/dl (65-105)
--- NOTE | 2021-10-11 13:19 | PM.DS ---
DS: Admitting Diagnosis Discharge Date 10/11/2021 Admitting Diagnosis Shortness of breath DS: Discharge Diagnosis Discharge Diagnosis (1) Acute respiratory failure with hypoxia: Code(s): J96.01 - Acute respiratory failure with hypoxia Status: Acute Assessment and Plan: Patient was noted to have acute respiratory failure with hypoxia and hypercarbia. Patient was placed on BiPAP with settings of 14/8 and 100%. Continue BiPAP as ordered. Keep saturation more than 90%. Continue DuoNeb and Lasix. Received Solu Medrol in the ER Cardiology consulted as primary reason for his hypoxic respiratory failure is suspected to be CHF related. He is on home trilogy vent and was continued and managed during the hospital stay. Pulmonary was also consulted during the hospital stay. His vent settings were adjusted during the hospital course and monitor through apnea monitor at nighttime. With 10 L oxygen bled in through her his home trilogy his desaturation less than 88 was only 2 minutes. He was back to his normal oxygen requirement during the daytime which is 4 L via nasal cannula. He will be continued on home trilogy at night with 10 L bleed in He will continue to follow-up with pulmonary as outpatient basis He was also aggressively diuresed during the hospital stay. His initial weight on admission was 118 K low was down to 114 K with discharged. This likely is is dry weight and advised to monitor his weight daily at home. Along with his fluid restriction and sodium restriction for his congestive heart failure. Dietary advice was provided during the hospital stay with regard to his sodium restriction He is advised to keep a log of his weight and to inform his PCP/stock lifter if his weight goes more than 5 lb. He will follow-up with his stock lifter in 1 week. He was diuresed with IV Lasix during the hospital stay which was switched to bumetanide 1 mg p.o. b.i.d. at discharge. He was also added on metolazone for adequate diuresis and will be continued at discharge. (2) COPD (chronic obstructive pulmonary disease): Code(s): J44.9 - Chronic obstructive pulmonary disease, unspecified Status: Acute Assessment and Plan: Does not seem to be in exacerbation at this time. Continue BiPAP support for acute on chronic respiratory failure He does have home trilogy unit Ventilatory support management per Pulmonary Apnea link overnight on 8 L on home trilogy with desaturation less than 88% for 91 minute. Repeated apnea link on 10/10/2021 with 10 L bled in, desaturation less than 88% was only 2 minute on this setting. Will discharge home on home trilogy setting with 10 L oxygen bled in (3) CHF (congestive heart failure): Code(s): I50.9 - Heart failure, unspecified Status: Acute Assessment and Plan: Patient has a known history of diastolic dysfunction. Diuresis as ordered Recent echo with EF 60-65% with indeterminate diastolic dysfunction BNP elevated Labs reviewed renal function stable continue diuresis as ordered Change to oral okay with Cardiology Check chest x-ray 10/08/2021 with worsening pulmonary edema Lasix increased received a dose of metolazone. With improved urine output Recheck chest x-ray with improved congestive changes Urine output 10/09/2021 3450 mL Diuresing well with increased Lasix and metolazone Weight is coming down from 118 kilos to 114 kilos today Will give a dose of potassium supplement for his potassium of 3.4 today Switched to oral Bumex along with metolazone at discharge See above (4) Chronic anticoagulation: Code(s): Z79.01 - assisted (current) use of anticoagulants Status: Acute Assessment and Plan: Patient's INR in the emergency room was 5.2. Patient's spouse states the cardiology nurse did call with an elevated INR in the threes and patient was told to change his Coumadin dose to 10 mg daily instead of 12 mg twice a week with 10 mg remaining days. At t
[2021-10-11] MEDS: POTASSIUM CHLORIDE 20 MEQ TABLET 40 MEQ PO (14:28)
--- NOTE | 2021-10-11 14:57 | PCRCNOTE ---
Window of time for administration has passed. See next scheduled administration.
== END 2021-10-11 15:18 | disposition home health service (06) | DRG 291 ==
LOC: ANHED 13:18 → ANHIMU 14:23 → ANH3MEDSUR 10-08 18:22
PROVIDERS: Internal Medicine; Internal Medicine Cardiovascular Disease; Internal Medicine Pulmonary Disease; Nurse Practitioner Adult Health; Admitting Provider Student in an Organized Health Care Education/Training Program; Emergency Provider Emergency Medicine; PCP Family Medicine; Visit Provider Internal Medicine
DX: I13.0 Hypertensive heart and chronic kidney disease with heart failure and stage 1 through stage 4 chronic kidney disease, or unspecified chronic kidney disease (principal); I50.33 Acute on chronic diastolic (congestive) heart failure; J96.21 Acute and chronic respiratory failure with hypoxia; G93.40 Encephalopathy, unspecified; J96.12 Chronic respiratory failure with hypercapnia; E11.22 Type 2 diabetes mellitus with diabetic chronic kidney disease; I48.20 Chronic atrial fibrillation, unspecified; N18.2 Chronic kidney disease, stage 2 (mild); J43.1 Panlobular emphysema; I27.20 Pulmonary hypertension, unspecified; G47.33 Obstructive sleep apnea (adult) (pediatric); E11.65 Type 2 diabetes mellitus with hyperglycemia; E78.5 Hyperlipidemia, unspecified; Z66 Do not resuscitate; Z20.822 Contact with and (suspected) exposure to COVID-19; Z79.01 Long term (current) use of anticoagulants; Z79.4 Long term (current) use of insulin; Z79.82 Long term (current) use of aspirin; Z79.84 Long term (current) use of oral hypoglycemic drugs; Z87.891 Personal history of nicotine dependence; Z98.49 Cataract extraction status, unspecified eye; Z99.81 Dependence on supplemental oxygen
CPT/HCPCS: 36415; 36600; 70450; 71045; 80053; 80162; 81001; 82140; 82375; 82805; 82948; 83050; 83605; 83735; 83880; 84484; 85025; 85610; 85730; 87040; 93005; 94002; 94003; 94640; 94762; 96372; 96374; 96375; 96376; 97110; 97116; 97161; 97165; 97530; 99291; A9270; C9803; G0378; J1630; J1815; J1940; J2930; U0003; U0005

== ENCOUNTER 2021-10-20 17:55 | Inpatient (IN) | payer MEDICARE, SELFPAY ==
--- NOTE | ~2021-10-20 | XR_ITS ---
[[id number] ] INDICATION: Right rib pain TECHNIQUE: Frontal projection of the upper right ribs, frontal projection of the lower right ribs, ob lique projection of all the right ribs, frontal inspiratory chest x-ray for interpretation. FINDINGS: There are no displaced rib fractures identified. There are no soft tissue abnormality see n. The lungs are clear. There are gallstones. There are calcified mediastinal lymph nodes, consiste nt with chronic granulomatous infection. IMPRESSION: 1:No acute displaced rib fractures. Reviewed, dictated and finalized at location A.
--- NOTE | ~2021-10-20 | CT_ITS ---
EXAMINATION: CT brain wo con DATE: 10/20/2021 19:18 INDICATION: Head injury. TECHNIQUE: Computed tomography (CT) of the head was performed without intravenous contrast. The dose- length product was 605.33 mGy-cm. Automated exposure control and iterative reconstruction technique w ere employed. COMPARISON: CT dated 10/06/2021 FINDINGS: Generalized brain parenchymal volume loss. There are scattered moderate periventricular an d subcortical white matter changes, most likely related to small vessel ischemic disease (microangiop athy). No acute intracranial hemorrhage, infarction, mass or mass effect. No ventriculomegaly or midl ine shift. There is intracranial atherosclerosis. No depressed skull fractures. Paranasal sinuses and mastoids are pneumatized. No depressed skull fractures. IMPRESSION: 1. No acute intracranial abnormality. 2: Chronic age-related findings. Reviewed, dictated and finalized at location A.
[2021-10-20 17:58] VITALS: BP 109/73; PULSE 96; RESP 14; TEMP 36.4; O2SAT 97
--- NOTE | 2021-10-20 18:07 | ECG_ITS ---
Measurements Intervals [place] Rate: 92 P: MT: 0 QRS: -2 QRSD: 102 T: 156 QT: 342 QTc: 425 Interpretive Statements ATRIAL FIBRILLATION EARLY PRECORDIAL R/S TRANSITION LEFT VENTRICULAR HYPERTROPHY WITH ST-T CHANGE ST-T WAVE ABNORMALITY IN ANTEROLAT/HIGH LAT LEADS- CONSIDER ISCHEMIA BASELINE ARTIFACT- V1 ABNORMAL ECG Electronically Signed On 10-20-2021 21:27:23 CDT by Da Dickey D.O.
[2021-10-20 18:21] LABS: Basophils Absolute Auto 0.1 K/mm3 (0.0-0.1); Basophils Percent Auto 0.5 % (0.2-1.2); Eosinophils Absolute Auto 0.2 K/mm3 (0-0.3); Eosinophils Percent Auto 2.1 % (0-4.4); Hematocrit 40.4 % (42.0-52.0); Hemoglobin 12.8 g/dL (14.0-18.0); Immature Granulocyte Absolute 0.09 K/mm3 (0.00-0.031); Immature Granulocyte Percent A 0.8 % (0-0.5); Lymphocytes Absolute Auto 1.29 K/mm3 (0.9-3.2); Lymphocytes Percent Auto 11.4 % (18.3-44.2); Mean Corpuscular HGB Conc 31.7 g/dl (32-36); Mean Corpuscular Hemoglobin 28.6 pg (26-34); Mean Corpuscular Volume 90.4 fl (80-100); Monocytes Absolute Auto 1.1 K/mm3 (0.1-0.6); Monocytes Percent Auto 9.6 % (2.6-8.5); Neutrophils Absolute Auto 8.6 K/mm3 (1.3-6.7); Neutrophils Percent Auto 75.6 % (45.5-73.1); Platelet Count Result 454 k/mm3 (150-375); Red Blood Count 4.47 M/mm3 (4.6-6.20); Red Cell Distribution Width 14.6 % (11.5-14.5); White Blood Count 11.3 K/mm3 (4.5-10.0)
--- NOTE | 2021-10-20 18:22 | ED.GENADULT ---
HPI - General Adult General Chief complaint: Syncope Stated complaint: Unspecified Time Seen by Provider: 10/20/21 18:00 Source: patient, family, RN notes reviewed and old records reviewed Mode of arrival: EMS Limitations: clinical condition History of Present Illness HPI narrative: This is a 71 year old male with history of chronic kidney failure, DM, hypertension, chronic anticoagulation who presents for evaluation of multiple falls vs syncopal episodes. Patient was discharged from [facility] 10/11/21 after treatment of acute on chronic respiratory failure due to CHF. PAtient was diuresed with lasix and discharged on Bumex. His family at bedside states patient has fall 3 times since discharge. She states patient has been having orthostatic hypotension since discharge. She states patient stands up and he will get dizzy and he passes out. Patient last fell on 10/16/21 and he hit his head. He states he had to go to the restroom and he remembers getting dizzy with standing. He states next thing he knows is that he was on the ground. His family states patient's BP has been running 100/60 and they were unable to measure it at rehab yesterday when he was standing. Patient denies headache, nausea, vomiting chest pain or worsening sob. His family reports he was complaining of right rib pain. Patient was changed from warfarin to Eliquis on his last hospitalization. He denies any abnormal bleeding. Related Data Home Medications Medication Instructions Recorded Confirmed aspirin 81 mg chewable tablet 81 mg PO DAILY 02/20/19 10/05/21 vitamin B complex (B 1,000 tablet PO QPM 02/20/19 10/05/21 Complex-Vitamin B12 tablet) digoxin 125 mcg (0.125 mg) tablet 125 mcg PO DAILY 02/27/19 10/05/21 metoprolol tartrate 50 mg tablet 75 mg PO Q12H 02/27/19 10/05/21 budesonide 160 mcg-glycopyr 9 2 inh inhalation BID 09/24/21 10/05/21 mcg-formot 4.8 mcg/actuation HFA inhaler (Breztri Aerosphere) Allergies Allergy/AdvReac Type Severity Reaction Status Date / Time No Known Allergies Allergy Verified 10/20/21 18:06 Review of Systems Review of Systems: All systems reviewed & are unremarkable except as noted in HPI and below Constitutional: Constitutional: Denies chills, Reports fatigue and Denies fever(s) ENT: Denies nasal congestion Cardiovascular: Cardiovascular: Denies chest pain and Denies rapid heart rate Respiratory: Respiratory: Denies chest congestion and Denies cough Gastrointestinal: Gastrointestinal: Denies abdominal pain, Denies nausea and Denies vomiting Genitourinary: Genitourinary: Denies hematuria Musculoskeletal: Musculoskeletal: Denies back pain Neurologic: Reports syncope and Denies headache(s) [facility] Past Medical History Medical History Atrial fibrillation Cholelithiasis Chronic atrial fibrillation Three failed cardioversions. He is on long-term anticoagulation. Chronic respiratory failure with hypoxia 2-3 L nasal cannula with rest, 3-4 L with activity. Dependence on nocturnal oxygen therapy Depression Diabetes Diastolic congestive heart failure Echocardiogram 07/31/2018 showed diastolic dysfunction. Left ventricular size was normal with mild concentric left ventricular hypertrophy and increased left heart filling pressures with an estimated ejection fraction of 55%. Right ventricle was moderately enlarged with mild right ventricular hypokinesis. See latest echo on 06/01/2019 with an EF of 70-75% and diastolic dysfunction Dyslipidemia Erectile dysfunction Erectile dysfunction Gout History of pancreatitis July 2016, secondary to passed common bile duct stone. Hyperlipidemia Hypertension Insulin dependent diabetes mellitus Hemoglobin A1c was 11.4 in January 2018. Obstructive sleep apnea Osteoarthritis Severe pulmonary arterial systolic hypertension Noted on echocardiogram 07/31/2018 with an estimated peak RVSP of 68 mmHg. Right vent
[2021-10-20 18:34] LABS: Alanine Aminotransferase 28 U/L (6-50); Albumin Level 4.5 g/dL (3.5-5.1); Alkaline Phosphatase 127 U/L (38-126); Aspartate Amino Transferase 38 U/L (17-59); Bilirubin,Total 0.4 mg/dL (0.2-1.3); Blood Urea Nitrogen 74 mg/dL (9-20); Calcium 9.5 mg/dL (8.4-10.2); Carbon Dioxide > 40 mmol/L (22-30); Chloride 86 mmol/L (98-107); Estimated CRCL calculation 51 ml/min; Estimated Glomerular Filt Rate 50; Glucose 273 mg/dL (65-110); Magnesium 2.6 mg/dL (1.6-2.3); Potassium 3.8 mmol/L (3.4-5.0); Sodium 135 mmol/L (137-145)
[2021-10-20 18:43] LABS: INR 1.4; Prothrombin Time 16.5 Seconds (11.1-14.7)
[2021-10-20 18:44] LABS: NT Pro B Type Natriuretic Pept 1400 pg/mL (5-100); Partial Thromboplastin Time 38.6 SECONDS (22.3-36.8); Troponin I 0.031 ng/mL (0.000-0.034)
[2021-10-20 18:54] LABS: Digoxin 0.9 ng/mL (0.8-2.0)
[2021-10-20 19:06] LABS: Alveolar/Arterial O2 Gradient 38.3 mmHg; Base Excess ABG 11.6 mEq/l (+/-2.0); Carboxyhemoglobin 0.7 % THb (0-2.0); Fractional Inspired Oxygen 36 %; HCO3 ABG 37.7 mEq/l (22.0-26.0); Methemoglobin ABG 0.2 %THb (0-1.5); Oxyhemoglobin 97.7 % THb (90.0-100.0); PCO2 ABG 55.3 mmHg (35.0-45.0); PO2 ABG 154.2 mmHg (80.0-100.0); PO2 FiO2 Ratio Arterial Blood 4.28 %; Reduced Hemoglobin 1.4 %THb (0-5.0); Total Hemoglobin 12.9 g/dL (12.0-18.0); pH ABG 7.451 (7.350-7.450)
[2021-10-20 19:07] LABS: Device NASAL CANNULA; Modified Allen's Test Pass; Site Drawn RIGHT RADIAL
[2021-10-20] MEDS: SODIUM CHLORIDE 0.9% IV 500 ML 999 ML IV CONT (19:21)
[2021-10-20 19:32] LABS: Appearance Urine Cloudy (Clear); Bilirubin Urine Negative (Negative); Blood Urine 2+ (Negative); Color Urine Yellow (Yellow); Glucose Urine UA 2+ mg/dL (Negative); Ketones Urine Negative (Negative); Leukocyte Esterase Ur 2+ LEU/UL (Negative); Nitrate Urine Negative (Negative); Protein Urine 2+ mg/dL (Negative); Urobilinogen Urine 0.2 mg/dL (<2.0); pH Urine 5.5 (5.0-9.0)
[2021-10-20 19:37] LABS: Add Urine Microscopic? YES; Bacteria Urine Trace /hpf; Mucus Urine Rare /lpf; Squamous Epithelial Cell Urine Occasional /hpf (Few); WBC Clumps Urine Present /HPF; WBC Urine >75 /hpf
[2021-10-20 20:10] VITALS: BP 126/88; PULSE 96; RESP 20; O2SAT 100
[2021-10-20 20:19] VITALS: BP 93/59; BP 99/62; PULSE 79; PULSE 81
[2021-10-20 20:25] VITALS: BP 64/40; PULSE 102
[2021-10-20 20:55] LABS: SARS-CoV-2 RNA PCR Negative
[2021-10-20] MEDS: SODIUM CHLORIDE 0.9% IV 1,000 ML 75 ML IV CONT (21:06)
[2021-10-20 22:36] VITALS: BP 121/68; PULSE 93; RESP 12; TEMP 36.5; O2SAT 100
--- NOTE | 2021-10-20 22:37 | ADMGEN ---
This patient, Rivas Hollingsworth, was admitted to IMU Room 211-01. Patient/family oriented to hospital policies and general routines including ID bracelet, bed and alarms, visiting hours, pain management, procedures, bathroom and other care routines, personal items, smoking policy, room service/diet, and visiting hours. Information on how to activate the Rapid Response Team has been discussed. Patient/Family are encouraged to report perceived risks to care and to ask questions if they do not understand what they are told or what they should do.
[2021-10-20 22:39] VITALS: BMI 32.9
--- NOTE | 2021-10-20 23:01 | PM.IMHP ---
H&P: HPI History of Present Illness Date/Time: 10/20/21 23:01 Chief Complaint: syncope Narrative: This is a 71-year-old male with past medical history significant for congestive heart failure, morbid obesity, atrial fibrillation rate controlled anticoagulated, hypertension, type 2 diabetes mellitus, dyslipidemia, coronary artery disease, recently treated for congestive heart failure exacerbation and discharged home however patient comes back today after he had a syncopal episode and prior to these had a fall patient denies feeling dizzy or lightheaded or chest pain or palpitations or vision changes or headaches or nausea, vomiting, diarrhea, abdominal pain, no fevers, no rigors, no chills. In emergency room patient had a blood pressure of while supine of 99 for SBP over DBP 58 and while standing SBP of 60 for with DVP of 40 patient received a bolus which improved his blood pressure. Preliminary workup was significant for urinalysis with numerous WBCs present. Patient is been admitted for further evaluation management and treatment. Review of Systems Review of Systems: Syncope. Constitutional: Constitutional: Denies chills, Denies fatigue, Denies fever(s), Denies headache(s), Denies malaise, Denies night sweats, Denies poor appetite and Denies weakness Eyes: Eyes: Denies change in vision ENT: Denies dysphagia, Denies vertigo, Denies dizziness, Denies nasal congestion, Denies nasal discharge, Denies nasal obstruction, Denies neck pain and Denies odynophagia Cardiovascular: Cardiovascular: Denies chest pain, Reports syncope, Denies pedal edema, Denies irregular heart rhythm, Denies claudication, Denies leg edema, Denies lightheadedness, Denies radiating jaw, neck or arm pain, Denies palpitations and Denies dyspnea on exertion Respiratory: Respiratory: Denies cough, Denies excessive phlegm production and Denies dyspnea Gastrointestinal: Gastrointestinal: Denies abdominal pain, Denies dyspepsia, Denies heartburn and Denies diarrhea Genitourinary: Genitourinary: Denies dysuria Musculoskeletal: Musculoskeletal: Denies back pain, Denies myalgias, Denies joint swelling and Denies muscle weakness Integumentary/Breasts: Skin/Breast: Denies rash Neurologic: Denies vertigo, Denies dizziness, Reports syncope, Denies focal weakness and Denies Sensory deficit (Neuro) Psychiatric: Psychiatric: Reports no additional psychiatric complaints and Reports as per HPI Endocrine: Endocrine: Denies cold intolerance, Denies fatigue, Denies flushing, Denies heat intolerance, Denies polyphagia, Denies polydipsia and Denies palpitations Hematologic/Lymphatic: Hematologic/Lymphatic: Reports no additional hematologic/lymphatic complaints and Reports as per HPI Allergic/Immunologic: Allergic/Immunologic: Reports no additional allergic/immunologic complaints and Reports as per HPI PMFSH Past Medical History Medical History Atrial fibrillation Cholelithiasis Chronic atrial fibrillation Three failed cardioversions. He is on long-term anticoagulation. Chronic respiratory failure with hypoxia 2-3 L nasal cannula with rest, 3-4 L with activity. Dependence on nocturnal oxygen therapy Depression Diabetes Diastolic congestive heart failure Echocardiogram 07/31/2018 showed diastolic dysfunction. Left ventricular size was normal with mild concentric left ventricular hypertrophy and increased left heart filling pressures with an estimated ejection fraction of 55%. Right ventricle was moderately enlarged with mild right ventricular hypokinesis. See latest echo on 06/01/2019 with an EF of 70-75% and diastolic dysfunction Dyslipidemia Erectile dysfunction Erectile dysfunction Gout History of pancreatitis July 2016, secondary to passed common bile duct stone. Hyperlipidemia Hypertension Insulin dependent diabetes mellitus Hemoglobin A1c was 11.4 in January 2018. Obstructive sleep apnea Osteoarthritis Myriam
[2021-10-21] VITALS (19 sets, daily range): BP systolic 69–145; BP diastolic 24–85; PULSE 86–115; RESP 18–22; TEMP 36.2–36.7; O2SAT 96–100
[2021-10-21 05:00] LABS: Basophils Absolute Auto 0.1 K/mm3 (0.0-0.1); Basophils Percent Auto 0.6 % (0.2-1.2); Eosinophils Absolute Auto 0.3 K/mm3 (0-0.3); Eosinophils Percent Auto 2.3 % (0-4.4); Hematocrit 37.6 % (42.0-52.0); Hemoglobin 12.3 g/dL (14.0-18.0); Immature Granulocyte Absolute 0.07 K/mm3 (0.00-0.031); Immature Granulocyte Percent A 0.6 % (0-0.5); Lymphocytes Absolute Auto 1.42 K/mm3 (0.9-3.2); Lymphocytes Percent Auto 12.4 % (18.3-44.2); Mean Corpuscular HGB Conc 32.7 g/dl (32-36); Mean Corpuscular Volume 88.7 fl (80-100); Mean Platelet Volume 10.7 fl (7.4-10.4); Monocytes Absolute Auto 1.2 K/mm3 (0.1-0.6); Monocytes Percent Auto 10.3 % (2.6-8.5); Neutrophils Absolute Auto 8.4 K/mm3 (1.3-6.7); Neutrophils Percent Auto 73.8 % (45.5-73.1); Platelet Count Result 400 k/mm3 (150-375); Red Blood Count 4.24 M/mm3 (4.6-6.20); Red Cell Distribution Width 14.5 % (11.5-14.5); White Blood Count 11.4 K/mm3 (4.5-10.0)
[2021-10-21 05:15] LABS: Alanine Aminotransferase 22 U/L (6-50); Albumin Level 4.1 g/dL (3.5-5.1); Alkaline Phosphatase 111 U/L (38-126); Anion Gap 6 mmol/L (8-16); Aspartate Amino Transferase 36 U/L (17-59); Bilirubin,Total 0.6 mg/dL (0.2-1.3); Blood Urea Nitrogen 70 mg/dL (9-20); Calcium 8.9 mg/dL (8.4-10.2); Carbon Dioxide 38 mmol/L (22-30); Chloride 90 mmol/L (98-107); Estimated CRCL calculation 59 ml/min; Estimated Glomerular Filt Rate 59; Glucose 227 mg/dL (65-110); Potassium 3.4 mmol/L (3.4-5.0); Sodium 134 mmol/L (137-145)
[2021-10-21 08:20] LABS: Glucose Point of Care 234 mg/dl (65-105)
--- NOTE | 2021-10-21 09:48 | PM.CNCAR ---
Assessment and Plan Assessment and plan (1) Near syncope: Code(s): R55 - Syncope and collapse Status: Acute (2) Chronic atrial fibrillation: Code(s): I48.20 - Chronic atrial fibrillation, unspecified Status: Chronic Plan 71-year-old man with chronic atrial fibrillation some right ventricular dysfunction and frequent admissions with edema and volume overload. He currently is now admitted because of problematic says ortho orthostasis and hypotension he has been given some IV fluid and his diuretics have now been placed on hold. It is obvious to all of us we will not be able to hold this patient's diuretic treatment for a long time because he has frequent admissions prior to this with edema and dyspnea. At this point I would like to try stopping his amlodipine as it is the least important of all of his medications regarding his cardiovascular management. His apixaban and metoprolol should be continued. I would anticipate probably tomorrow resuming his diuretics. Hopefully without the amlodipine he will not be problematically hypotensive. Thank you for consulting us to see him again in participate in this challenging management situation David Sherman MD [facility] History of Present Illness History of Present Illness Consult date/time: 10/21/21 09:48 Reason For Visit: orthostatic hypotension, frequent falls, syncope Narrative: This is a 71-year-old man I am seeing at the request of the hospitalist after he was admitted yesterday to the hospital because of episodes of symptomatic/problematic hypotension. The patient is frequently admitted here at [facility] and there are multiple previous consult notes for the reader to review a for further details. In summary this is a patient I see in the office for a long time with chronic persistent permanent atrial fibrillation. He also has a history of obesity and COPD with a history of right ventricular dysfunction. He is being managed with rate control and anticoagulation. He has been admitted here frequently with episodes of volume overload and shortness of breath. He was just discharged 9 days prior to this admission and was in a state of relatively good euvolemia. This time he is readmitted not because of that because of probable problematic hypotension for couple of days prior to coming in he has been having difficulty with falling because when he stands up he gets lightheaded and has been anti taken several falls. It was noted when he was evaluated at his home when he would stand up a systolic blood pressure was down in the 60s. He was it seen in the emergency room given some IV fluid and admitted to the hospital for further evaluation and management. He does not report any edema or shortness of breath since his last discharge and from that respect seems to be doing well. His home regimen at this time included apixaban 5 mg twice daily, amlodipine 10 mg daily, Bumex 1 mg b.i.d., digoxin 0.125 mg daily and metolazone 2.5 mg daily as well as metoprolol 75 mg q.12 hours. He is supine in bed is no longer hypotensive and feels relatively well at this time. Review of Systems Constitutional: Constitutional: Reports no additional constitutional complaints and Reports lethargy Eyes: Eyes: Reports no additional eye complaints ENT: Reports system reviewed and no additional complaints, except as documented Cardiovascular: Cardiovascular: Reports lightheadedness Respiratory: Respiratory: Reports no additional respiratory complaints Gastrointestinal: Gastrointestinal: Reports no additional gastrointestinal complaints Musculoskeletal: Musculoskeletal: Reports back pain Integumentary/Breasts: Skin/Breast: Reports system reviewed and no additional complaints, except as docu Neurologic: Reports system reviewed and no additional complaints, except as documented Endocrine: Endocrine: Reports no additional endocrine complaints Hematologic/Lymphatic: Hematologic/Lymphat
--- NOTE | 2021-10-21 10:28 | PM.IMPN ---
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 anticoagulants Status: Acute Assessment and Plan: (6) Type 2 diabetes mellitus with hyperglycemia: Code(s): E11.65 - Type 2 diabetes mellitus with hyperglycemia Status: Acute Assessment and Plan: (7) Former smoker: Code(s): Z87.891 - Personal history of nicotine dependence Status: Acute Assessment and Plan: (8) Dependence on nocturnal oxygen therapy: Code(s): Z99.81 - Dependence on supplemental oxygen Status: Acute Assessment and Plan: (9) Chronic respiratory failure with hypoxia: Code(s): J96.11 - Chronic respiratory failure with hypoxia Status: Chronic Assessment and Plan: (10) UTI (urinary tract infection): Code(s): N39.0 - Urinary tract infection, site not specified Status: Acute Assessment and Plan: Plan Presyncope recently presented with recurrent congestive heart failure. Discharge weight was 114 kilos. Admission weight is 104 kilos. Orthostatic positive in the ER. Mild leukocytosis on admission. H&H is stable with no concern for underlying GI bleed. BNP is improved down to 1400. CT head is negative with no acute intracranial abnormality. Chest x-ray with no congestive findings. Cardiology consulted. CC some IV fluid in the ER. Hold diuretics. Will stop fluids today. As Cardiology as noted need to resume diuretics. Backing off on metolazone or using it p.r.n. with regular weight. Orthostatic hypotension Chronic respiratory failure on trilogy at home and oxygen supplementation COPD iron exacerbation Congestive heart failure diastolic chronic on metolazone and Bumex at home Chronic anticoagulation with Eliquis CKD stage 2 Type 2 diabetes with hyperglycemia Former smoker UTI on Rocephin DVT prophylaxis on Eliquis Code status do not resuscitate Subjective Date/time seen: 10/21/21 10:28 Interval history: HPI:This is a 71-year-old male? with past medical history significant for congestive heart failure, morbid obesity, atrial fibrillation rate controlled anticoagulated, hypertension, type 2 diabetes mellitus, dyslipidemia, coronary artery disease, recently treated for congestive heart failure exacerbation and discharged home however patient comes back today after he had a syncopal episode and prior to these had a fall patient denies feeling dizzy or lightheaded or chest pain or palpitations or vision changes or headaches or nausea, vomiting, diarrhea, abdominal pain, no fevers, no rigors, no chills.? In emergency room patient had? a blood pressure of while supine of 99 for SBP over DBP? 58 and while standing SBP of 60 for with DVP of 40 patient received a bolus? which improved his blood pressure. Preliminary workup was significant for urinalysis with numerous WBCs present. Patient is been admitted for further evaluation management and treatment. 10/21/2021 no overnight events. Feels better denies any dizziness. Bumped his head with the fall. at bedside and discussed with her was strictly maintaining sodium and fluid intake at home after discharge. Review of Systems Review of Systems: All systems reviewed & are unremarkable except as noted in HPI and below Exam Narrative: Constitutional:
--- NOTE | 2021-10-21 11:18 | PCNSR ---
On 10/21/21, the student, Clay Aguila, provided care and completed [facility] documentation on this patient. I have reviewed the student's documentation and agree with the findings.
[2021-10-21 12:25] LABS: Glucose Point of Care 390 mg/dl (65-105)
[2021-10-21] MEDS: INSULIN ASPART (*BKC) 100 UNITS/ML 15 UNITS SUB-Q (12:51)
[2021-10-21 16:34] LABS: Glucose Point of Care 247 mg/dl (65-105)
[2021-10-21] MEDS: metFORMIN HCL 500 MG TABLET 2000 MG PO (16:44)
[2021-10-21] MEDS: POTASSIUM CHLORIDE 10 MEQ TABLET.ER PO (16:45)
[2021-10-21] MEDS: INSULIN HUMAN ISOPHAN/REGULAR 70/30 (*BKC) 100 UNITS/ML 40 UNITS SUB-Q (16:45)
[2021-10-21] MEDS: VITAMIN B COMPLEX CAPSULE 1 CAP PO (16:45)
[2021-10-21 20:31] LABS: Glucose Point of Care 219 mg/dl (65-105)
[2021-10-21] MEDS: APIXABAN 5 MG TABLET PO (20:55)
[2021-10-21] MEDS: METOPROLOL TARTRATE 25 MG TABLET 75 MG PO (20:55)
[2021-10-22] VITALS (18 sets, daily range): BP systolic 79–140; BP diastolic 38–113; PULSE 74–109; RESP 12–100; TEMP 35.8–36.7; O2SAT 96–100
[2021-10-22 05:36] LABS: Basophils Absolute Auto 0.1 K/mm3 (0.0-0.1); Eosinophils Absolute Auto 0.3 K/mm3 (0-0.3); Eosinophils Percent Auto 3.2 % (0-4.4); Hemoglobin 11.5 g/dL (14.0-18.0); Immature Granulocyte Absolute 0.08 K/mm3 (0.00-0.031); Immature Granulocyte Percent A 0.8 % (0-0.5); Lymphocytes Absolute Auto 1.37 K/mm3 (0.9-3.2); Lymphocytes Percent Auto 12.9 % (18.3-44.2); Mean Corpuscular HGB Conc 31.9 g/dl (32-36); Mean Corpuscular Hemoglobin 28.7 pg (26-34); Mean Corpuscular Volume 89.8 fl (80-100); Mean Platelet Volume 11.2 fl (7.4-10.4); Monocytes Absolute Auto 1.2 K/mm3 (0.1-0.6); Monocytes Percent Auto 11.2 % (2.6-8.5); Neutrophils Absolute Auto 7.5 K/mm3 (1.3-6.7); Neutrophils Percent Auto 70.9 % (45.5-73.1); Platelet Count Result 382 k/mm3 (150-375); Red Blood Count 4.01 M/mm3 (4.6-6.20); Red Cell Distribution Width 14.4 % (11.5-14.5); White Blood Count 10.6 K/mm3 (4.5-10.0)
[2021-10-22 05:48] LABS: Alanine Aminotransferase 21 U/L (6-50); Albumin Level 3.9 g/dL (3.5-5.1); Alkaline Phosphatase 111 U/L (38-126); Anion Gap 4 mmol/L (8-16); Aspartate Amino Transferase 36 U/L (17-59); Bilirubin,Total 0.5 mg/dL (0.2-1.3); Blood Urea Nitrogen 59 mg/dL (9-20); Calcium 8.8 mg/dL (8.4-10.2); Carbon Dioxide 39 mmol/L (22-30); Chloride 87 mmol/L (98-107); Estimated CRCL calculation 55 ml/min; Estimated Glomerular Filt Rate 54; Glucose 232 mg/dL (65-110); Magnesium 2.5 mg/dL (1.6-2.3); Potassium 3.8 mmol/L (3.4-5.0); Sodium 130 mmol/L (137-145)
[2021-10-22] MEDS: ASPIRIN 81 MG CHEWABLE TABLET PO (08:43)
[2021-10-22] MEDS: VENLAFAXINE HCL XR 75 MG CAP.ER.24H 150 MG PO (08:43)
[2021-10-22] MEDS: DIGOXIN TAB 125 MCG TABLET PO (08:43)
[2021-10-22] MEDS: METOPROLOL TARTRATE 25 MG TABLET 75 MG PO ×2 (08:43→21:22)
[2021-10-22] MEDS: POTASSIUM CHLORIDE 10 MEQ TABLET.ER PO ×2 (08:43→18:12)
[2021-10-22] MEDS: APIXABAN 5 MG TABLET PO ×2 (08:43→22:15)
[2021-10-22] MEDS: allopurinoL 300 MG TABLET PO (08:43)
[2021-10-22] MEDS: EMPAGLIFLOZIN 10 MG TABLET PO (08:43)
[2021-10-22] MEDS: ATORVASTATIN 10 MG TABLET PO (08:43)
[2021-10-22] MEDS: INSULIN HUMAN ISOPHAN/REGULAR 70/30 (*BKC) 100 UNITS/ML 40 UNITS SUB-Q ×2 (08:44→18:05)
[2021-10-22 08:53] LABS: Glucose Point of Care 255 mg/dl (65-105)
--- NOTE | 2021-10-22 09:23 | PM.IMPN ---
Progress Note: A&P Assessment and Plan (1) Near syncope: Code(s): R55 - Syncope and collapse Status: Acute Assessment and Plan: (2) Orthostatic hypotension: Code(s): I95.1 - Orthostatic hypotension Status: Acute Assessment and Plan: (3) CKD (chronic kidney disease), stage II: Code(s): N18.2 - Chronic kidney disease, stage 2 (mild) Status: Acute Assessment and Plan: (4) COPD (chronic obstructive pulmonary disease): Code(s): J44.9 - Chronic obstructive pulmonary disease, unspecified Status: Acute Assessment and Plan: (5) Chronic anticoagulation: Code(s): Z79.01 - long term care pharmacist (current) use of anticoagulants Status: Acute Assessment and Plan: (6) Type 2 diabetes mellitus with hyperglycemia: Code(s): E11.65 - Type 2 diabetes mellitus with hyperglycemia Status: Acute Assessment and Plan: (7) Former smoker: Code(s): Z87.891 - Personal history of nicotine dependence Status: Acute Assessment and Plan: (8) Dependence on nocturnal oxygen therapy: Code(s): Z99.81 - Dependence on supplemental oxygen Status: Acute Assessment and Plan: (9) Chronic respiratory failure with hypoxia: Code(s): J96.11 - Chronic respiratory failure with hypoxia Status: Chronic Assessment and Plan: (10) UTI (urinary tract infection): Code(s): N39.0 - Urinary tract infection, site not specified Status: Acute Assessment and Plan: Plan # Presyncope recently presented with recurrent congestive heart failure. Discharge weight was 114 kilos. Admission weight is 104 kilos. Orthostatic positive in the ER. Mild leukocytosis on admission. H&H is stable with no concern for underlying GI bleed. BNP is improved down to 1400. CT head is negative with no acute intracranial abnormality. Chest x-ray with no congestive findings. Cardiology consulted. Received some IV fluid in the ER. Hold diuretics. Stopped IV fluid 10/21/2021. As Cardiology as noted need to resume diuretics. Backing off on metolazone or using it p.r.n. with regular weight. Will hold off on diuretic today and may be resumed tomorrow # Orthostatic hypotension # # Chronic respiratory failure on trilogy at home and oxygen supplementation # COPD not in exacerbation # Congestive heart failure diastolic chronic on metolazone and Bumex at home # Chronic anticoagulation with Eliquis # CKD stage 2 # Type 2 diabetes with hyperglycemia add SSI on 70 30 # Former smoker # UTI on Rocephin urine culture with E coli # DVT prophylaxis on Eliquis # Code status do not resuscitate Subjective Date/time seen: 10/22/21 09:23 Interval history: HPI:This is a 71-year-old male? with past medical history significant for congestive heart failure, morbid obesity, atrial fibrillation rate controlled anticoagulated, hypertension, type 2 diabetes mellitus, dyslipidemia, coronary artery disease, recently treated for congestive heart failure exacerbation and discharged home however patient comes back today after he had a syncopal episode and prior to these had a fall patient denies feeling dizzy or lightheaded or chest pain or palpitations or vision changes or headaches or nausea, vomiting, diarrhea, abdominal pain, no fevers, no rigors, no chills.? In emergency room patient had? a blood pressure of while supine of 99 for SBP over DBP? 58 and while standing SBP of 60 for with DVP of 40 patient received a bolus? which improved his blood pressure. Preliminary workup was significant for urinalysis with numerous WBCs present. Patient is been admitted for further evaluation management and treatment. 10/21/2021 no overnight events. Feels better denies any dizziness. Bumped his head with the fall. at bedside and discussed with her was strictly maintaining sodium and fluid intake at home after discharge. 10/23/19
--- NOTE | 2021-10-22 11:04 | PM.PNCARD ---
Progress Note: A&P Assessment and Plan (1) Near syncope: Code(s): R55 - Syncope and collapse <FROYLAN Mackay - Last Filed: 10/22/21 15:00> Status: Acute <FROYLAN Mackay - Last Filed: 10/22/21 15:00> Assessment and Plan: Secondary to orthostatic hypotension. Amlodipine has been discontinued. Still had significant orthostasis this morning. Bumex has been placed on hold as well. Will restart this today as we wish to avoid volume overload. Caution with transfers and ambulation. <FROYLAN Mackay - Last Filed: 10/22/21 15:00> (2) Chronic atrial fibrillation: Code(s): I48.20 - Chronic atrial fibrillation, unspecified <FROYLAN Mackay - Last Filed: 10/22/21 15:00> Status: Chronic <FROYLAN Mackay - Last Filed: 10/22/21 15:00> Assessment and Plan: Rate controlled. Continue metoprolol and apixaban. <FROYLAN Mackay - Last Filed: 10/22/21 15:00> (3) CHF (congestive heart failure): Code(s): I50.9 - Heart failure, unspecified <FROYLAN Mackay - Last Filed: 10/22/21 15:00> Status: Acute <FROYLAN Mackay - Last Filed: 10/22/21 15:00> Assessment and Plan: Several recent admissions with edema and dyspnea. Does not look volume overloaded on exam now, but will restart his diuretics as above. <FROYLAN Mackay - Last Filed: 10/22/21 15:00> Additional Plan Attending Addendum: I agree with the above documentation and plan of care as outlined. <Cristino Mallory MD - Last Filed: 10/22/21 15:14> Subjective Date/time seen: 10/22/21 11:04 cardiology follow up for syncope, orthostasis Feeling fatigued today but no other complaints. <FROYLAN Mackay - Last Filed: 10/22/21 15:00> Review of Systems Constitutional: Constitutional: Reports no additional constitutional complaints and Reports lethargy <FROYLAN Mackay - Last Filed: 10/22/21 15:00> Eyes: Eyes: Reports no additional eye complaints <FROYLAN Mackay - Last Filed: 10/22/21 15:00> ENT: Reports system reviewed and no additional complaints, except as documented <FROYLAN Mackay - Last Filed: 10/22/21 15:00> Cardiovascular: Cardiovascular: Reports lightheadedness <FROYLAN Mackay - Last Filed: 10/22/21 15:00> Respiratory: Respiratory: Reports no additional respiratory complaints <FROYLAN Mackay - Last Filed: 10/22/21 15:00> Gastrointestinal: Gastrointestinal: Reports no additional gastrointestinal complaints <FROYLAN Mackay - Last Filed: 10/22/21 15:00> Musculoskeletal: Musculoskeletal: Reports back pain <FROYLAN Mackay - Last Filed: 10/22/21 15:00> Integumentary/Breasts: Skin/Breast: Reports system reviewed and no additional complaints, except as docu <FROYLAN Mackay Last Filed: 10/22/21 15:00> Neurologic: Reports system reviewed and no additional complaints, except as documented <FROYLAN Mackay - Last Filed: 10/22/21 15:00> Endocrine: Endocrine: Reports no additional endocrine complaints <FROYLAN Mackay - Last Filed: 10/22/21 15:00> Hematologic/Lymphatic: Hematologic/Lymphatic: Reports no additional hematologic/lymphatic complaints <FROYLAN Mackay - Last Filed: 10/22/21 15:00> Allergic/Immunologic: Allergic/Immunologic: Reports no additional allergic/immunologic complaints <FROYLAN Mackay - Last Filed: 10/22/21 15:00> Exam Const: General: comfortable and no acute distress <FROYLAN Mackay - Last Filed: 10/22/21 15:00> Other: Obese white male supine in bed asleep but awakens to my voice. <FROYLAN Mackay - Last Filed: 10/22/21 15:00> HENMT: Mouth: Yes moist mucous membranes <FROYLAN Mackay - Last Filed: 10/22/21 15:00> Other: R periorbital abrasion and ecchymosis <FROYLAN Mackay - Last Filed: 10/22/21 15:00> Eyes: Sclera: sclerae normal <FROYLAN Mackay - Last Filed: 10/09
[2021-10-22 12:22] LABS: Glucose Point of Care 383 mg/dl (65-105)
[2021-10-22] MEDS: INSULIN ASPART (*BKC) 100 UNITS/ML SUB-Q ×2 (13:28→18:05)
[2021-10-22 17:00] LABS: Glucose Point of Care 257 mg/dl (65-105)
--- NOTE | 2021-10-22 17:14 | PC.NURSE ---
This patient, Rivas Hollingsworth, was transferred to [facility] on 10/22/21 at 1714. Personal belongings sent with patient. Report given to Natalia REID. Appropriate documentation sent with patient.
[2021-10-22] MEDS: metFORMIN HCL 500 MG TABLET 2000 MG PO (18:07)
[2021-10-22] MEDS: VITAMIN B COMPLEX CAPSULE 1 CAP PO (18:08)
[2021-10-22] MEDS: BUMETANIDE 1 MG TABLET PO (18:08)
[2021-10-22] MEDS: WATER FOR IRRIGATION, STERILE 1,000 ML BOTTLE 1000 ML (21:30)
[2021-10-22 21:47] LABS: Glucose Point of Care 131 mg/dl (65-105)
[2021-10-23] VITALS (17 sets, daily range): BP systolic 60–132; BP diastolic 33–89; PULSE 70–92; RESP 14–20; TEMP 35.7–36.4; O2SAT 91–100
[2021-10-23 06:37] LABS: Basophils Absolute Auto 0.1 K/mm3 (0.0-0.1); Eosinophils Absolute Auto 0.4 K/mm3 (0-0.3); Eosinophils Percent Auto 4.4 % (0-4.4); Hematocrit 38.8 % (42.0-52.0); Immature Granulocyte Absolute 0.07 K/mm3 (0.00-0.031); Immature Granulocyte Percent A 0.8 % (0-0.5); Lymphocytes Absolute Auto 1.37 K/mm3 (0.9-3.2); Lymphocytes Percent Auto 15.6 % (18.3-44.2); Mean Corpuscular HGB Conc 30.9 g/dl (32-36); Mean Corpuscular Hemoglobin 28.4 pg (26-34); Mean Corpuscular Volume 91.7 fl (80-100); Mean Platelet Volume 11.1 fl (7.4-10.4); Monocytes Percent Auto 11.1 % (2.6-8.5); Neutrophils Absolute Auto 5.9 K/mm3 (1.3-6.7); Neutrophils Percent Auto 67.1 % (45.5-73.1); Platelet Count Result 356 k/mm3 (150-375); Red Blood Count 4.23 M/mm3 (4.6-6.20); Red Cell Distribution Width 14.7 % (11.5-14.5); White Blood Count 8.8 K/mm3 (4.5-10.0)
[2021-10-23 06:53] LABS: Alanine Aminotransferase 21 U/L (6-50); Albumin Level 3.8 g/dL (3.5-5.1); Alkaline Phosphatase 106 U/L (38-126); Anion Gap 4 mmol/L (8-16); Aspartate Amino Transferase 33 U/L (17-59); Bilirubin,Total 0.4 mg/dL (0.2-1.3); Blood Urea Nitrogen 51 mg/dL (9-20); Calcium 8.6 mg/dL (8.4-10.2); Carbon Dioxide 39 mmol/L (22-30); Chloride 90 mmol/L (98-107); Estimated CRCL calculation 66 ml/min; Estimated Glomerular Filt Rate > 60; Glucose 209 mg/dL (65-110); Magnesium 2.2 mg/dL (1.6-2.3); Potassium 3.8 mmol/L (3.4-5.0); Sodium 133 mmol/L (137-145)
[2021-10-23 08:17] LABS: Glucose Point of Care 220 mg/dl (65-105)
[2021-10-23] MEDS: METOPROLOL TARTRATE 25 MG TABLET 75 MG PO ×2 (08:57→21:18)
[2021-10-23] MEDS: APIXABAN 5 MG TABLET PO ×2 (08:57→21:18)
[2021-10-23] MEDS: allopurinoL 300 MG TABLET PO (08:58)
[2021-10-23] MEDS: ATORVASTATIN 10 MG TABLET PO (08:58)
[2021-10-23] MEDS: BUMETANIDE 1 MG TABLET PO (08:58)
[2021-10-23] MEDS: DIGOXIN TAB 125 MCG TABLET PO (08:58)
[2021-10-23] MEDS: EMPAGLIFLOZIN 10 MG TABLET PO (08:58)
[2021-10-23] MEDS: ASPIRIN 81 MG CHEWABLE TABLET PO (08:58)
[2021-10-23] MEDS: POTASSIUM CHLORIDE 10 MEQ TABLET.ER PO ×2 (08:58→17:20)
[2021-10-23] MEDS: VENLAFAXINE HCL XR 75 MG CAP.ER.24H 150 MG PO (08:59)
[2021-10-23] MEDS: INSULIN ASPART (*BKC) 100 UNITS/ML SUB-Q ×3 (09:03→17:21)
[2021-10-23] MEDS: INSULIN HUMAN ISOPHAN/REGULAR 70/30 (*BKC) 100 UNITS/ML 40 UNITS SUB-Q ×2 (09:06→17:23)
[2021-10-23] MEDS: FLUTICASONE/UMECLIDIN/VILANTER 100-62.5-25 MCG ELLIPTA 1 PUFF INHALATION (10:00)
[2021-10-23 11:56] LABS: Glucose Point of Care 219 mg/dl (65-105)
--- NOTE | 2021-10-23 13:38 | PM.IMPN ---
Progress Note: A&P Assessment and Plan (1) Near syncope: Code(s): R55 - Syncope and collapse Status: Acute Assessment and Plan: (2) Orthostatic hypotension: Code(s): I95.1 - Orthostatic hypotension Status: Acute Assessment and Plan: (3) CKD (chronic kidney disease), stage II: Code(s): N18.2 - Chronic kidney disease, stage 2 (mild) Status: Acute Assessment and Plan: (4) COPD (chronic obstructive pulmonary disease): Code(s): J44.9 - Chronic obstructive pulmonary disease, unspecified Status: Acute Assessment and Plan: (5) Chronic anticoagulation: Code(s): Z79.01 - intermediate manager (current) use of anticoagulants Status: Acute Assessment and Plan: (6) Type 2 diabetes mellitus with hyperglycemia: Code(s): E11.65 - Type 2 diabetes mellitus with hyperglycemia Status: Acute Assessment and Plan: (7) Former smoker: Code(s): Z87.891 - Personal history of nicotine dependence Status: Acute Assessment and Plan: (8) Dependence on nocturnal oxygen therapy: Code(s): Z99.81 - Dependence on supplemental oxygen Status: Acute Assessment and Plan: (9) Chronic respiratory failure with hypoxia: Code(s): J96.11 - Chronic respiratory failure with hypoxia Status: Chronic Assessment and Plan: (10) UTI (urinary tract infection): Code(s): N39.0 - Urinary tract infection, site not specified Status: Acute Assessment and Plan: Plan # Presyncope recently presented with recurrent congestive heart failure. Discharge weight was 114 kilos. Admission weight is 104 kilos. Orthostatic positive in the ER. Mild leukocytosis on admission. H&H is stable with no concern for underlying GI bleed. BNP is improved down to 1400. CT head is negative with no acute intracranial abnormality. Chest x-ray with no congestive findings. Cardiology consulted. Received some IV fluid in the ER. Hold diuretics. Stopped IV fluid 10/21/2021. As Cardiology as noted need to resume diuretics. Backing off on metolazone or using it p.r.n. with regular weight. Bumex was restarted 10/22/2021 still orthostatic gone his vitals. Part of it could be volume depletion he might also have a possibility of autonomic neuropathy leading to his orthostasis however was not evident in the past. We will back off on Bumex today and Debra 2.5 mg b.i.d. for today and continue to monitor his orthostatic vitals. Have also advised to use Saúl hose/compression stockings to help with this orthostasis # Orthostatic hypotension # Chronic respiratory failure on trilogy at home and oxygen supplementation # COPD not in exacerbation # Congestive heart failure diastolic chronic on metolazone and Bumex at home # Chronic anticoagulation with Eliquis # CKD stage 2 # Type 2 diabetes with hyperglycemia add SSI on 70 30 # Former smoker # UTI on Rocephin urine culture with E coli # DVT prophylaxis on Eliquis # Code status do not resuscitate Subjective Date/time seen: 10/23/21 13:38 Interval history: HPI:This is a 71-year-old male? with past medical history significant for congestive heart failure, morbid obesity, atrial fibrillation rate controlled anticoagulated, hypertension, type 2 diabetes mellitus, dyslipidemia, coronary artery disease, recently treated for congestive heart failure exacerbation and discharged home however patient comes back today after he had a syncopal episode and prior to these had a fall patient denies feeling dizzy or lightheaded or chest pain or palpitations or vision changes or headaches or nausea, vomiting, diarrhea, abdominal pain, no fevers, no rigors, no chills.? In emergency room patient had? a blood pressure of while supine of 99 for SBP over DBP? 58 and while standing SBP of 60 for with DVP of 40 patient received a bolus? which improved his blood pressure. Preliminary
[2021-10-23 17:07] LABS: Glucose Point of Care 261 mg/dl (65-105)
[2021-10-23] MEDS: metFORMIN HCL 500 MG TABLET 2000 MG PO (17:19)
[2021-10-23] MEDS: CEPHALEXIN 500 MG CAPSULE PO (17:20)
[2021-10-23] MEDS: BUMETANIDE 0.5 MG TABLET PO (17:20)
[2021-10-23] MEDS: VITAMIN B COMPLEX CAPSULE 1 CAP PO (17:20)
[2021-10-23 21:51] LABS: Glucose Point of Care 80 mg/dl (65-105)
[2021-10-23 21:51] LABS: Glucose Point of Care 68 mg/dl (65-105)
[2021-10-24] VITALS (12 sets, daily range): BP systolic 60–122; BP diastolic 44–81; PULSE 78–115; RESP 16–24; TEMP 35.8–36.1; O2SAT 90–100
[2021-10-24] MEDS: CEPHALEXIN 500 MG CAPSULE PO ×5 (00:28→23:44)
[2021-10-24 07:28] LABS: Basophils Absolute Auto 0.1 K/mm3 (0.0-0.1); Basophils Percent Auto 0.6 % (0.2-1.2); Eosinophils Absolute Auto 0.3 K/mm3 (0-0.3); Eosinophils Percent Auto 3.9 % (0-4.4); Hematocrit 38.3 % (42.0-52.0); Hemoglobin 12.1 g/dL (14.0-18.0); Immature Granulocyte Absolute 0.08 K/mm3 (0.00-0.031); Immature Granulocyte Percent A 0.9 % (0-0.5); Lymphocytes Absolute Auto 1.37 K/mm3 (0.9-3.2); Lymphocytes Percent Auto 15.9 % (18.3-44.2); Mean Corpuscular HGB Conc 31.6 g/dl (32-36); Mean Corpuscular Hemoglobin 28.5 pg (26-34); Mean Corpuscular Volume 90.1 fl (80-100); Mean Platelet Volume 11.1 fl (7.4-10.4); Monocytes Percent Auto 11.7 % (2.6-8.5); Neutrophils Absolute Auto 5.8 K/mm3 (1.3-6.7); Platelet Count Result 336 k/mm3 (150-375); Red Blood Count 4.25 M/mm3 (4.6-6.20); Red Cell Distribution Width 14.6 % (11.5-14.5); White Blood Count 8.6 K/mm3 (4.5-10.0)
[2021-10-24 07:41] LABS: Alanine Aminotransferase 20 U/L (6-50); Albumin Level 3.9 g/dL (3.5-5.1); Alkaline Phosphatase 105 U/L (38-126); Aspartate Amino Transferase 37 U/L (17-59); Bilirubin,Total 0.3 mg/dL (0.2-1.3); Blood Urea Nitrogen 49 mg/dL (9-20); Calcium 8.7 mg/dL (8.4-10.2); Carbon Dioxide > 40 mmol/L (22-30); Chloride 90 mmol/L (98-107); Estimated CRCL calculation 66 ml/min; Estimated Glomerular Filt Rate > 60; Glucose 185 mg/dL (65-110); Potassium 4.2 mmol/L (3.4-5.0); Sodium 134 mmol/L (137-145)
[2021-10-24 07:56] LABS: Glucose Point of Care 186 mg/dl (65-105)
--- NOTE | 2021-10-24 09:27 | PM.PNCARD ---
Progress Note: A&P Assessment and Plan (1) Orthostatic hypotension: Code(s): I95.1 - Orthostatic hypotension Status: Acute (2) CHF (congestive heart failure): Code(s): I50.9 - Heart failure, unspecified Status: Acute Plan 71-year-old man presenting with problematic hypotension and has had improvement with medical adjustment. I did see him yesterday but apparently for failed to leave a note in the chart. My intention was to reduce the metoprolol dosage to 50 mg q.12. I will do that today. He does have some bibasilar rales today but he is asymptomatic but I believe we should advance his Bumex back to 1 mg b.i.d. for fear of recurrent volume overload. With respect to his hypotension he seems to be better. David Sherman MD [facility] Subjective Date/time seen: Date of service: 10/24/21 09:27 Interval history: Follow-up visit in this 71-year-old man with recurrent admissions with congestive heart failure and fluid overload. The current admission appears to be problematic hypotension. His medical regimen is being adjusted in that setting. Amlodipine has been discontinued. His Bumex has been resumed at half of the previous dosage. He feels reasonably well today. The therapist is in the room and says that when he was off earlier today his blood pressure was 60/40 but he was asymptomatic. Exam Const: General: comfortable and no acute distress HENMT: Mouth: Yes moist mucous membranes Eyes: Sclera: sclerae normal Neck: Neck: supple and no JVD Resp: Effort & Inspection: normal respiratory effort Other: Patient has fine rales at the bases bilaterally today Cardio: Rate: regular rate GI: GI Palp: Yes Soft to palpation Auscultation: normal bowel sounds Skin: General skin exam: normal color Neuro: Other: Cognitively intact Extrem: Other: No edema at all Objective Data Vital Signs Vital Signs: Vital Signs - 24 hr 10/23/21 10:00 10/23/21 10:49 10/23/21 12:00 Temperature 36.1 C L Pulse Rate 88 70 Respiratory Rate 14 Blood Pressure 125/89 Pulse Oximetry 97 100 Oxygen Delivery Nasal Cannula Oxygen Flow Rate 4 10/23/21 12:45 10/23/21 12:00 10/23/21 16:00 Temperature Pulse Rate 83 78 Respiratory Rate Blood Pressure Pulse Oximetry Oxygen Delivery Nasal Cannula Oxygen Flow Rate 4 10/23/21 16:00 10/23/21 20:00 10/23/21 20:00 Temperature 35.8 C L 35.7 C L Pulse Rate 88 86 79 Respiratory Rate 14 18 Blood Pressure 131/79 115/79 Pulse Oximetry 100 100 Oxygen Delivery Oxygen Flow Rate 10/23/21 20:00 10/23/21 20:05 10/23/21 20:10 Temperature 35.7 C L Pulse Rate 79 73 82 Respiratory Rate 18 18 18 Blood Pressure 115/79 94/62 L 60/33 L Pulse Oximetry 100 100 100 Oxygen Delivery Oxygen Flow Rate 10/23/21 21:18 10/23/21 21:20 10/23/21 23:43 Temperature 36.4 C Pulse Rate 82 83 Respiratory Rate 18 Blood Pressure 117/81 Pulse Oximetry 100 91 Oxygen Delivery Nasal Cannula Oxygen Flow Rate 4 10/24/21 00:00 10/24/21 04:00 10/24/21 04:00 Temperature 35.8 C L Pulse Rate 82 83 84 Respiratory Rate 18 Blood Pressure 122/80 Pulse Oximetry 90 Oxygen Delivery Oxygen Flow Rate Intake/Output Intake/Output: Intake & Output 10/21/21 10/22/21 10/23/21 10/24/21 23:59 23:59 23:59 23:59 Intake Total 4010 2500 1410 550 Output Total 2300 400 2410 850 Balance 1710 2100 -1000 -300 Meds/Results Medications: Active Medications Generic Name Dose Route Start Last Admin Trade Name Freq PRN Reason Stop Dose Admin Allopurinol 300 mg 10/22/21 09:00 10/23/21 08:58 Allopurinol 300 Mg Tablet PO 300 mg DAILY JULIA Administration Apixaban 5 mg 10/21/21 21:00 10/23/21 21:18 Apixaban 5 Mg Tablet PO 5 mg Q12HR JULIA Administration Aspirin 81 mg 10/22/21 09:00 10/23/21 08:58 Aspirin 81 Mg Chewable Tablet PO 81 mg DAILY JULIA Administration Atorvastatin Calcium
[2021-10-24] MEDS: INSULIN HUMAN ISOPHAN/REGULAR 70/30 (*BKC) 100 UNITS/ML 30 UNITS SUB-Q ×2 (09:29→17:47)
[2021-10-24] MEDS: VENLAFAXINE HCL XR 75 MG CAP.ER.24H 150 MG PO (09:29)
[2021-10-24] MEDS: DIGOXIN TAB 125 MCG TABLET PO (09:29)
[2021-10-24] MEDS: POTASSIUM CHLORIDE 10 MEQ TABLET.ER PO ×2 (09:29→17:46)
[2021-10-24] MEDS: EMPAGLIFLOZIN 10 MG TABLET PO (09:29)
[2021-10-24] MEDS: ATORVASTATIN 10 MG TABLET PO (09:30)
[2021-10-24] MEDS: BUMETANIDE 0.5 MG TABLET PO (09:30)
[2021-10-24] MEDS: APIXABAN 5 MG TABLET PO ×2 (09:30→21:27)
[2021-10-24] MEDS: allopurinoL 300 MG TABLET PO (09:30)
[2021-10-24] MEDS: ASPIRIN 81 MG CHEWABLE TABLET PO (09:30)
--- NOTE | 2021-10-24 09:56 | PCPTNOTE ---
Patient declined physical therapy at this time stating that he just finished with OT and needed to rest a little bit. Patient also stated his will be here at 10am to help him bathe.
[2021-10-24] MEDS: METOPROLOL TARTRATE 50 MG TAB PO ×2 (10:42→21:27)
[2021-10-24 11:54] LABS: Glucose Point of Care 225 mg/dl (65-105)
[2021-10-24] MEDS: INSULIN ASPART (*BKC) 100 UNITS/ML SUB-Q (12:33)
--- NOTE | 2021-10-24 12:33 | PM.IMPN ---
Progress Note: A&P Assessment and Plan (1) Near syncope: Code(s): R55 - Syncope and collapse Status: Acute Assessment and Plan: (2) Orthostatic hypotension: Code(s): I95.1 - Orthostatic hypotension Status: Acute Assessment and Plan: (3) CKD (chronic kidney disease), stage II: Code(s): N18.2 - Chronic kidney disease, stage 2 (mild) Status: Acute Assessment and Plan: (4) COPD (chronic obstructive pulmonary disease): Code(s): J44.9 - Chronic obstructive pulmonary disease, unspecified Status: Acute Assessment and Plan: (5) Chronic anticoagulation: Code(s): Z79.01 - lap checker (current) use of anticoagulants Status: Acute Assessment and Plan: (6) Type 2 diabetes mellitus with hyperglycemia: Code(s): E11.65 - Type 2 diabetes mellitus with hyperglycemia Status: Acute Assessment and Plan: (7) Former smoker: Code(s): Z87.891 - Personal history of nicotine dependence Status: Acute Assessment and Plan: (8) Dependence on nocturnal oxygen therapy: Code(s): Z99.81 - Dependence on supplemental oxygen Status: Acute Assessment and Plan: (9) Chronic respiratory failure with hypoxia: Code(s): J96.11 - Chronic respiratory failure with hypoxia Status: Chronic Assessment and Plan: (10) UTI (urinary tract infection): Code(s): N39.0 - Urinary tract infection, site not specified Status: Acute Assessment and Plan: Plan # Presyncope recently presented with recurrent congestive heart failure. Discharge weight was 114 kilos. Admission weight is 104 kilos. Orthostatic positive in the ER. Mild leukocytosis on admission. H&H is stable with no concern for underlying GI bleed. BNP is improved down to 1400. CT head is negative with no acute intracranial abnormality. Chest x-ray with no congestive findings. Cardiology consulted. Received some IV fluid in the ER. Hold diuretics. Stopped IV fluid 10/21/2021. As Cardiology as noted need to resume diuretics. Backing off on metolazone or using it p.r.n. with regular weight. Bumex was restarted 10/22/2021 still orthostatic gone his vitals. Part of it could be volume depletion he might also have a possibility of autonomic neuropathy leading to his orthostasis however was not evident in the past. We will back off on Bumex today and lowered to 0.5 mg b.i.d. and continue to monitor his orthostatic vitals. Have also advised to use Saúl hose/compression stockings to help with this orthostasis Cardiology has upped Bumex dose to 1 mg b.i.d. Continue to monitor orthostatic vitals # Orthostatic hypotension # Chronic respiratory failure on trilogy at home and oxygen supplementation # COPD not in exacerbation # Congestive heart failure diastolic chronic on metolazone and Bumex at home # Chronic anticoagulation with Eliquis # CKD stage 2 # Type 2 diabetes with hyperglycemia add SSI on 70 30 # Former smoker # UTI on Rocephin urine culture with E coli switched to Keflex oral # DVT prophylaxis on Eliquis # Code status do not resuscitate Subjective Date/time seen: 10/24/21 12:33 Interval history: HPI:This is a 71-year-old male? with past medical history significant for congestive heart failure, morbid obesity, atrial fibrillation rate controlled anticoagulated, hypertension, type 2 diabetes mellitus, dyslipidemia, coronary artery disease, recently treated for congestive heart failure exacerbation and discharged home however patient comes back today after he had a syncopal episode and prior to these had a fall patient denies feeling dizzy or lightheaded or chest pain or palpitations or vision changes or headaches or nausea, vomiting, diarrhea, abdominal pain, no fevers, no rigors, no chills.? In emergency room patient had? a blood pressure of while supine of 99 for SBP over DBP? [address]
[2021-10-24 14:30] LABS: Cortisol Random 8.26 ug/dL
[2021-10-24 16:31] LABS: Glucose Point of Care 169 mg/dl (65-105)
[2021-10-24] MEDS: metFORMIN HCL 500 MG TABLET 2000 MG PO (17:46)
[2021-10-24] MEDS: BUMETANIDE 1 MG TABLET PO (17:46)
[2021-10-24] MEDS: VITAMIN B COMPLEX CAPSULE 1 CAP PO (17:47)
[2021-10-24 21:44] LABS: Glucose Point of Care 152 mg/dl (65-105)
[2021-10-25] VITALS (16 sets, daily range): BP systolic 91–114; BP diastolic 63–74; PULSE 73–97; RESP 16–20; TEMP 35.3–36; O2SAT 97–100
[2021-10-25] MEDS: CEPHALEXIN 500 MG CAPSULE PO ×3 (05:09→17:28)
[2021-10-25 07:40] LABS: Glucose Point of Care 217 mg/dl (65-105)
[2021-10-25] MEDS: FLUTICASONE/UMECLIDIN/VILANTER 100-62.5-25 MCG ELLIPTA 1 PUFF INHALATION (07:51)
[2021-10-25] MEDS: INSULIN ASPART (*BKC) 100 UNITS/ML SUB-Q ×3 (08:16→17:26)
[2021-10-25] MEDS: VENLAFAXINE HCL XR 75 MG CAP.ER.24H 150 MG PO (08:24)
[2021-10-25] MEDS: ASPIRIN 81 MG CHEWABLE TABLET PO (08:24)
[2021-10-25] MEDS: ATORVASTATIN 10 MG TABLET PO (08:24)
[2021-10-25] MEDS: POTASSIUM CHLORIDE 10 MEQ TABLET.ER PO ×2 (08:24→17:28)
[2021-10-25] MEDS: EMPAGLIFLOZIN 10 MG TABLET PO (08:24)
[2021-10-25] MEDS: allopurinoL 300 MG TABLET PO (08:24)
[2021-10-25] MEDS: APIXABAN 5 MG TABLET PO ×2 (08:24→21:19)
[2021-10-25] MEDS: METOPROLOL TARTRATE 50 MG TAB PO ×2 (08:25→21:19)
[2021-10-25] MEDS: DIGOXIN TAB 125 MCG TABLET PO (08:25)
[2021-10-25] MEDS: INSULIN HUMAN ISOPHAN/REGULAR 70/30 (*BKC) 100 UNITS/ML 30 UNITS SUB-Q ×2 (08:26→17:26)
[2021-10-25] MEDS: BUMETANIDE 1 MG TABLET PO ×2 (09:02→17:28)
[2021-10-25 09:18] LABS: Basophils Absolute Auto 0.1 K/mm3 (0.0-0.1); Basophils Percent Auto 0.9 % (0.2-1.2); Eosinophils Absolute Auto 0.4 K/mm3 (0-0.3); Eosinophils Percent Auto 4.1 % (0-4.4); Hematocrit 39.8 % (42.0-52.0); Hemoglobin 12.5 g/dL (14.0-18.0); Immature Granulocyte Absolute 0.05 K/mm3 (0.00-0.031); Immature Granulocyte Percent A 0.6 % (0-0.5); Lymphocytes Absolute Auto 1.58 K/mm3 (0.9-3.2); Lymphocytes Percent Auto 18.1 % (18.3-44.2); Mean Corpuscular HGB Conc 31.4 g/dl (32-36); Mean Corpuscular Hemoglobin 28.6 pg (26-34); Mean Corpuscular Volume 91.1 fl (80-100); Mean Platelet Volume 11.2 fl (7.4-10.4); Monocytes Percent Auto 11.1 % (2.6-8.5); Neutrophils Absolute Auto 5.7 K/mm3 (1.3-6.7); Neutrophils Percent Auto 65.2 % (45.5-73.1); Platelet Count Result 355 k/mm3 (150-375); Red Blood Count 4.37 M/mm3 (4.6-6.20); Red Cell Distribution Width 14.7 % (11.5-14.5); White Blood Count 8.8 K/mm3 (4.5-10.0)
[2021-10-25 09:31] LABS: Alanine Aminotransferase 22 U/L (6-50); Alkaline Phosphatase 110 U/L (38-126); Anion Gap 4 mmol/L (8-16); Aspartate Amino Transferase 38 U/L (17-59); Bilirubin,Total 0.6 mg/dL (0.2-1.3); Blood Urea Nitrogen 47 mg/dL (9-20); Calcium 8.9 mg/dL (8.4-10.2); Carbon Dioxide 39 mmol/L (22-30); Chloride 91 mmol/L (98-107); Estimated CRCL calculation 71 ml/min; Estimated Glomerular Filt Rate > 60; Glucose 197 mg/dL (65-110); Magnesium 2.1 mg/dL (1.6-2.3); Sodium 134 mmol/L (137-145)
[2021-10-25 11:29] LABS: Glucose Point of Care 267 mg/dl (65-105)
--- NOTE | 2021-10-25 13:41 | PM.IMPN ---
Progress Note: A&P Assessment and Plan (1) Near syncope: Code(s): R55 - Syncope and collapse Status: Acute Assessment and Plan: (2) Orthostatic hypotension: Code(s): I95.1 - Orthostatic hypotension Status: Acute Assessment and Plan: (3) CKD (chronic kidney disease), stage II: Code(s): N18.2 - Chronic kidney disease, stage 2 (mild) Status: Acute Assessment and Plan: (4) COPD (chronic obstructive pulmonary disease): Code(s): J44.9 - Chronic obstructive pulmonary disease, unspecified Status: Acute Assessment and Plan: (5) Chronic anticoagulation: Code(s): Z79.01 - intermodal dispatcher (current) use of anticoagulants Status: Acute Assessment and Plan: (6) Type 2 diabetes mellitus with hyperglycemia: Code(s): E11.65 - Type 2 diabetes mellitus with hyperglycemia Status: Acute Assessment and Plan: (7) Former smoker: Code(s): Z87.891 - Personal history of nicotine dependence Status: Acute Assessment and Plan: (8) Dependence on nocturnal oxygen therapy: Code(s): Z99.81 - Dependence on supplemental oxygen Status: Acute Assessment and Plan: (9) Chronic respiratory failure with hypoxia: Code(s): J96.11 - Chronic respiratory failure with hypoxia Status: Chronic Assessment and Plan: (10) UTI (urinary tract infection): Code(s): N39.0 - Urinary tract infection, site not specified Status: Acute Assessment and Plan: Plan # Presyncope recently presented with recurrent congestive heart failure. Discharge weight was 114 kilos. Admission weight is 104 kilos. Orthostatic positive in the ER. Mild leukocytosis on admission. H&H is stable with no concern for underlying GI bleed. BNP is improved down to 1400. CT head is negative with no acute intracranial abnormality. Chest x-ray with no congestive findings. Cardiology consulted. Received some IV fluid in the ER. Hold diuretics. Stopped IV fluid 10/21/2021. As Cardiology as noted need to resume diuretics. Backing off on metolazone or using it p.r.n. with regular weight. Bumex was restarted 10/22/2021 still orthostatic gone his vitals. Part of it could be volume depletion he might also have a possibility of autonomic neuropathy leading to his orthostasis however was not evident in the past. We will back off on Bumex today and lowered to 0.5 mg b.i.d. and continue to monitor his orthostatic vitals. Have also advised to use Saúl hose/compression stockings to help with this orthostasis Cardiology has upped Bumex dose to 1 mg b.i.d. Continue to monitor orthostatic vitals Cortisol level 10. Will do cosyntropin test to rule out adrenal insufficiency # Orthostatic hypotension # Chronic respiratory failure on trilogy at home and oxygen supplementation # COPD not in exacerbation # Congestive heart failure diastolic chronic on metolazone and Bumex at home # Chronic anticoagulation with Eliquis # CKD stage 2 # Type 2 diabetes with hyperglycemia add SSI on 70 30 # Former smoker # UTI on Rocephin urine culture with E coli switched to Keflex oral # DVT prophylaxis on Eliquis # Code status do not resuscitate Subjective Date/time seen: 10/25/21 13:41 Interval history: HPI:This is a 71-year-old male? with past medical history significant for congestive heart failure, morbid obesity, atrial fibrillation rate controlled anticoagulated, hypertension, type 2 diabetes mellitus, dyslipidemia, coronary artery disease, recently treated for congestive heart failure exacerbation and discharged home however patient comes back today after he had a syncopal episode and prior to these had a fall patient denies feeling dizzy or lightheaded or chest pain or palpitations or vision changes or headaches or nausea, vomiting, diarrhea, abdominal pain, no fevers, no rigors, no chills.? In sameer
[2021-10-25] MEDS: COSYNTROPIN 0.25 MG/ML VIAL IV PUSH (14:50)
[2021-10-25 15:50] LABS: Cortisol Baseline 9.26 ug/dL
[2021-10-25 16:25] LABS: Glucose Point of Care 232 mg/dl (65-105)
[2021-10-25] MEDS: metFORMIN HCL 500 MG TABLET 2000 MG PO (17:27)
[2021-10-25] MEDS: VITAMIN B COMPLEX CAPSULE 1 CAP PO (17:28)
[2021-10-25 22:51] LABS: Glucose Point of Care 256 mg/dl (65-105)
[2021-10-26] VITALS (15 sets, daily range): BP systolic 59–122; BP diastolic 34–76; PULSE 51–100; RESP 16–20; TEMP 35.6–36.9; O2SAT 83–100
[2021-10-26] MEDS: CEPHALEXIN 500 MG CAPSULE PO ×4 (00:26→17:13)
[2021-10-26 06:19] LABS: Basophils Absolute Auto 0.1 K/mm3 (0.0-0.1); Basophils Percent Auto 0.7 % (0.2-1.2); Eosinophils Absolute Auto 0.4 K/mm3 (0-0.3); Eosinophils Percent Auto 3.8 % (0-4.4); Hematocrit 38.4 % (42.0-52.0); Hemoglobin 12.3 g/dL (14.0-18.0); Immature Granulocyte Absolute 0.06 K/mm3 (0.00-0.031); Immature Granulocyte Percent A 0.6 % (0-0.5); Lymphocytes Absolute Auto 1.39 K/mm3 (0.9-3.2); Lymphocytes Percent Auto 14.6 % (18.3-44.2); Mean Corpuscular Hemoglobin 29.1 pg (26-34); Mean Corpuscular Volume 90.8 fl (80-100); Mean Platelet Volume 11.3 fl (7.4-10.4); Monocytes Percent Auto 10.4 % (2.6-8.5); Neutrophils Absolute Auto 6.6 K/mm3 (1.3-6.7); Neutrophils Percent Auto 69.9 % (45.5-73.1); Platelet Count Result 331 k/mm3 (150-375); Red Blood Count 4.23 M/mm3 (4.6-6.20); Red Cell Distribution Width 14.6 % (11.5-14.5); White Blood Count 9.5 K/mm3 (4.5-10.0)
[2021-10-26 06:24] LABS: Alanine Aminotransferase 21 U/L (6-50); Albumin Level 3.8 g/dL (3.5-5.1); Alkaline Phosphatase 103 U/L (38-126); Anion Gap 6 mmol/L (8-16); Aspartate Amino Transferase 34 U/L (17-59); Bilirubin,Total 0.4 mg/dL (0.2-1.3); Blood Urea Nitrogen 43 mg/dL (9-20); Calcium 8.7 mg/dL (8.4-10.2); Carbon Dioxide 36 mmol/L (22-30); Chloride 93 mmol/L (98-107); Estimated CRCL calculation 71 ml/min; Estimated Glomerular Filt Rate > 60; Glucose 165 mg/dL (65-110); Magnesium 2.2 mg/dL (1.6-2.3); Potassium 3.8 mmol/L (3.4-5.0); Sodium 135 mmol/L (137-145)
[2021-10-26 08:25] LABS: Glucose Point of Care 207 mg/dl (65-105)
[2021-10-26] MEDS: APIXABAN 5 MG TABLET PO ×2 (09:03→19:55)
[2021-10-26] MEDS: EMPAGLIFLOZIN 10 MG TABLET PO (09:03)
[2021-10-26] MEDS: POTASSIUM CHLORIDE 10 MEQ TABLET.ER PO ×2 (09:03→17:13)
[2021-10-26] MEDS: allopurinoL 300 MG TABLET PO (09:03)
[2021-10-26] MEDS: BUMETANIDE 1 MG TABLET PO (09:03)
[2021-10-26] MEDS: DIGOXIN TAB 125 MCG TABLET PO (09:03)
[2021-10-26] MEDS: METOPROLOL TARTRATE 50 MG TAB PO ×2 (09:03→19:55)
[2021-10-26] MEDS: VENLAFAXINE HCL XR 75 MG CAP.ER.24H 150 MG PO (09:03)
[2021-10-26] MEDS: INSULIN HUMAN ISOPHAN/REGULAR 70/30 (*BKC) 100 UNITS/ML 30 UNITS SUB-Q ×2 (09:04→17:14)
[2021-10-26] MEDS: INSULIN ASPART (*BKC) 100 UNITS/ML SUB-Q ×3 (09:05→17:16)
[2021-10-26] MEDS: FLUTICASONE/UMECLIDIN/VILANTER 100-62.5-25 MCG ELLIPTA 1 PUFF INHALATION (09:27)
--- NOTE | 2021-10-26 10:52 | PCOTNOTE ---
Attempted to see patient this am, however patient refused. at bedside reported assisting patient will all ADLs stating, He's too proud. Pt and stated their hoping for inpatient rehab. Explained patient must qualify for PT/OT to accept, and patient must be willing to work with increasing independence with ADLs to decrease burden of care on . Patient and stated they would discuss and report to care coordination. Jacqueline notified of discussion and will check back in for conclusion of discharge plans.
[2021-10-26 11:29] LABS: Glucose Point of Care 243 mg/dl (65-105)
[2021-10-26] MEDS: ASPIRIN 81 MG CHEWABLE TABLET PO (12:29)
[2021-10-26] MEDS: ATORVASTATIN 10 MG TABLET PO (12:29)
--- NOTE | 2021-10-26 15:45 | PM.IMPN ---
Progress Note: A&P Assessment and Plan (1) Near syncope: Code(s): R55 - Syncope and collapse Status: Acute Assessment and Plan: (2) Orthostatic hypotension: Code(s): I95.1 - Orthostatic hypotension Status: Acute Assessment and Plan: (3) CKD (chronic kidney disease), stage II: Code(s): N18.2 - Chronic kidney disease, stage 2 (mild) Status: Acute Assessment and Plan: (4) COPD (chronic obstructive pulmonary disease): Code(s): J44.9 - Chronic obstructive pulmonary disease, unspecified Status: Acute Assessment and Plan: (5) Chronic anticoagulation: Code(s): Z79.01 - terminal gauger (current) use of anticoagulants Status: Acute Assessment and Plan: (6) Type 2 diabetes mellitus with hyperglycemia: Code(s): E11.65 - Type 2 diabetes mellitus with hyperglycemia Status: Acute Assessment and Plan: (7) Former smoker: Code(s): Z87.891 - Personal history of nicotine dependence Status: Acute Assessment and Plan: (8) Dependence on nocturnal oxygen therapy: Code(s): Z99.81 - Dependence on supplemental oxygen Status: Acute Assessment and Plan: (9) Chronic respiratory failure with hypoxia: Code(s): J96.11 - Chronic respiratory failure with hypoxia Status: Chronic Assessment and Plan: (10) UTI (urinary tract infection): Code(s): N39.0 - Urinary tract infection, site not specified Status: Acute Assessment and Plan: Plan # Presyncope recently presented with recurrent congestive heart failure. Discharge weight was 114 kilos. Admission weight is 104 kilos. Orthostatic positive in the ER. Mild leukocytosis on admission. H&H is stable with no concern for underlying GI bleed. BNP is improved down to 1400. CT head is negative with no acute intracranial abnormality. Chest x-ray with no congestive findings. Cardiology consulted. Received some IV fluid in the ER. Hold diuretics. Stopped IV fluid 10/21/2021. As Cardiology as noted need to resume diuretics. Backing off on metolazone or using it p.r.n. with regular weight. Bumex was restarted 10/22/2021 still orthostatic gone his vitals. Part of it could be volume depletion he might also have a possibility of autonomic neuropathy leading to his orthostasis however was not evident in the past. We will back off on Bumex today and lowered to 0.5 mg b.i.d. and continue to monitor his orthostatic vitals. Have also advised to use Saúl hose/compression stockings to help with this orthostasis Cardiology has upped Bumex dose to 1 mg b.i.d. Continue to monitor orthostatic vitals Cortisol level 10. cosyntropin test with appropriate rise Ruling out adrenal insufficiency as 1 of the diagnosis. weight is down with increased to Bumex does discussed with Cardiology will back off on further diuresis lower down Bumex to 0.5 mg b.i.d. Plans to go to swing bed for physical deconditioning and muscle strengthening exercises could relate to his recent falls and orthostasis. # Orthostatic hypotensionSee above # Chronic respiratory failure on trilogy at home and oxygen supplementation # COPD not in exacerbation # Congestive heart failure diastolic chronic on metolazone and Bumex at home # Chronic anticoagulation with Eliquis # CKD stage 2 # Type 2 diabetes with hyperglycemia add SSI on 70 30 # Former smoker # UTI on Rocephin urine culture with E coli switched to Keflex oral # DVT prophylaxis on Eliquis # Code status do not resuscitate Subjective Date/time seen: 10/26/21 15:45 Interval history: HPI:This is a 71-year-old male? with past medical history significant for congestive heart failure, morbid obesity, atrial fibrillation rate controlled anticoagulated, hypertension, type 2 diabetes mellitus, dyslipidemia, coronary artery disease, recently treated for congestive heart fa
[2021-10-26 16:43] LABS: Glucose Point of Care 256 mg/dl (65-105)
[2021-10-26] MEDS: VITAMIN B COMPLEX CAPSULE 1 CAP PO (17:14)
[2021-10-26] MEDS: BUMETANIDE 0.5 MG TABLET PO (17:14)
[2021-10-26] MEDS: metFORMIN HCL 500 MG TABLET 2000 MG PO (17:14)
[2021-10-26 22:06] LABS: Glucose Point of Care 230 mg/dl (65-105)
[2021-10-27] VITALS (15 sets, daily range): BP systolic 67–129; BP diastolic 40–78; PULSE 69–109; RESP 14–20; TEMP 35.8–37.1; O2SAT 95–100
[2021-10-27 06:31] LABS: Basophils Absolute Auto 0.1 K/mm3 (0.0-0.1); Basophils Percent Auto 0.4 % (0.2-1.2); Eosinophils Absolute Auto 0.3 K/mm3 (0-0.3); Hematocrit 36.6 % (42.0-52.0); Hemoglobin 11.6 g/dL (14.0-18.0); Immature Granulocyte Absolute 0.08 K/mm3 (0.00-0.031); Immature Granulocyte Percent A 0.6 % (0-0.5); Lymphocytes Absolute Auto 1.23 K/mm3 (0.9-3.2); Lymphocytes Percent Auto 8.8 % (18.3-44.2); Mean Corpuscular HGB Conc 31.7 g/dl (32-36); Mean Corpuscular Hemoglobin 28.9 pg (26-34); Mean Platelet Volume 11.5 fl (7.4-10.4); Monocytes Absolute Auto 1.3 K/mm3 (0.1-0.6); Neutrophils Percent Auto 79.2 % (45.5-73.1); Platelet Count Result 283 k/mm3 (150-375); Red Blood Count 4.02 M/mm3 (4.6-6.20); Red Cell Distribution Width 14.4 % (11.5-14.5); White Blood Count 13.9 K/mm3 (4.5-10.0)
[2021-10-27 07:48] LABS: Alanine Aminotransferase 19 U/L (6-50); Albumin Level 3.2 g/dL (3.5-5.1); Alkaline Phosphatase 99 U/L (38-126); Anion Gap 5 mmol/L (8-16); Aspartate Amino Transferase 30 U/L (17-59); Bilirubin,Total 0.4 mg/dL (0.2-1.3); Blood Urea Nitrogen 40 mg/dL (9-20); Calcium 8.5 mg/dL (8.4-10.2); Carbon Dioxide 35 mmol/L (22-30); Chloride 93 mmol/L (98-107); Estimated CRCL calculation 77 ml/min; Estimated Glomerular Filt Rate > 60; Glucose 209 mg/dL (65-110); Magnesium 1.9 mg/dL (1.6-2.3); Potassium 4.5 mmol/L (3.4-5.0); Sodium 133 mmol/L (137-145)
[2021-10-27 08:09] LABS: Glucose Point of Care 198 mg/dl (65-105)
[2021-10-27] MEDS: EMPAGLIFLOZIN 10 MG TABLET PO (08:38)
[2021-10-27] MEDS: APIXABAN 5 MG TABLET PO ×2 (08:38→20:00)
[2021-10-27] MEDS: POTASSIUM CHLORIDE 10 MEQ TABLET.ER PO ×2 (08:38→17:02)
[2021-10-27] MEDS: ATORVASTATIN 10 MG TABLET PO (08:38)
[2021-10-27] MEDS: BUMETANIDE 0.5 MG TABLET PO (08:38)
[2021-10-27] MEDS: ASPIRIN 81 MG CHEWABLE TABLET PO (08:38)
[2021-10-27] MEDS: VENLAFAXINE HCL XR 75 MG CAP.ER.24H 150 MG PO (08:38)
[2021-10-27] MEDS: DIGOXIN TAB 125 MCG TABLET PO (08:39)
[2021-10-27] MEDS: allopurinoL 300 MG TABLET PO (08:39)
[2021-10-27] MEDS: METOPROLOL TARTRATE 50 MG TAB PO ×2 (08:41→19:59)
[2021-10-27] MEDS: INSULIN HUMAN ISOPHAN/REGULAR 70/30 (*BKC) 100 UNITS/ML 30 UNITS SUB-Q (08:45)
[2021-10-27] MEDS: FLUTICASONE/UMECLIDIN/VILANTER 100-62.5-25 MCG ELLIPTA 1 PUFF INHALATION (09:03)
--- NOTE | 2021-10-27 09:33 | PCOTNOTE ---
Attempted to see patient at this time, however patient was with physical therapy.
--- NOTE | 2021-10-27 09:55 | PM.PNCARD ---
Progress Note: A&P Assessment and Plan (1) Orthostatic hypotension: Code(s): I95.1 - Orthostatic hypotension Status: Acute Assessment and Plan: Admitted with orthostatic hypotension Patient has lost 10 kilos since his last discharge Looks dry ; admitted with azotemia but BUN is now decreasing. Being evaluated for adrenal insufficiency (looks negative) and no known history of autonomic dysfunction. On and off his diuretic certainly will need some long-term diuretic but also certainly reasonable to hold the Bumex for a couple of days longer and resume on or Tuesday, if desired. Discussed with Dr. Eldridge, Bumex 0.5 mg b.i.d. seems appropriate. (2) CHF (congestive heart failure): Code(s): I50.9 - Heart failure, unspecified Status: Acute Assessment and Plan: Chronic diastolic heart failure looks dry however, will need long-term diuretic. Continue/resume diuretic at some point Will check to make sure the patient has follow-up office visit in the near future to make sure that he does not become volume overloaded again. (3) Chronic atrial fibrillation: Code(s): I48.20 - Chronic atrial fibrillation, unspecified Status: Chronic Assessment and Plan: persistent, permanent atrial fibrillation Treated with Eliquis and metoprolol. Subjective Date/time seen: 10/27/21 09:55 Interval history: 10/24/2021 Follow-up visit in this 71-year-old man with recurrent admissions with congestive heart failure and fluid overload. The current admission appears to be problematic hypotension. His medical regimen is being adjusted in that setting. Amlodipine has been discontinued. His Bumex has been resumed at half of the previous dosage. He feels reasonably well today. The therapist is in the room and says that when he was off earlier today his blood pressure was 60/40 but he was asymptomatic. 10/27/2021: Follow-up visit for orthostasis, CHF. Patient has been on and off his Bumex and on office metolazone. This morning he was still orthostatic with his blood pressure dropping to 64 standing, though asymptomatic. No breathing problems. 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 Review of Systems Constitutional: Constitutional: Denies fever(s) Cardiovascular: Cardiovascular: Denies chest pain, Denies pedal edema, Denies lightheadedness and Denies dyspnea Respiratory: Respiratory: Denies chest congestion and Denies dyspnea Comments: Were CPAP regularly went home Gastrointestinal: Gastrointestinal: Denies abdominal pain and Denies hematochezia Musculoskeletal: Musculoskeletal: Reports no additional musculoskeletal complaints Integumentary/Breasts: Skin/Breast: Reports system reviewed and no additional complaints, except as docu Neurologic: Reports system reviewed and no additional complaints, except as documented, Denies behavioral changes and Denies confusion Psychiatric: Psychiatric: Denies behavioral changes and Denies confusion Exam Const: General: cooperative and comfortable; No confusion Orientation/consciousness: oriented to person, patient oriented x3 and No confusion Other: sitting up in chair, friendly and conversant Eyes: EOM: EOMs intact bilaterally Neck: Neck: supple Resp: Effort & Inspection: normal respiratory effort Auscultation: clear to auscultation bilaterally Cardio: Rate: regular rate Rhythm: regular rhythm and abnormal rhythm irregularly irregular GI: Inspection: normal to inspection GI Palp: No abdominal tenderness Skin: Other: areas of ecchymoses on forearms, right forehead Neuro: General: oriented to person, patient oriented x3 and No confusion Extrem: Right lower extremity: no edema Left lower extremity: no edema Psych: Appearance: grossly normal Mental
[2021-10-27 11:52] LABS: Glucose Point of Care 306 mg/dl (65-105)
[2021-10-27] MEDS: INSULIN ASPART (*BKC) 100 UNITS/ML SUB-Q ×2 (12:18→16:57)
--- NOTE | 2021-10-27 15:58 | PM.IMPN ---
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 Status: Acute Assessment and Plan: (6) Type 2 diabetes mellitus with hyperglycemia: Code(s): E11.65 - Type 2 diabetes mellitus with hyperglycemia Status: Acute Assessment and Plan: (7) Former smoker: Code(s): Z87.891 - Personal history of nicotine dependence Status: Acute Assessment and Plan: (8) Dependence on nocturnal oxygen therapy: Code(s): Z99.81 - Dependence on supplemental oxygen Status: Acute Assessment and Plan: (9) Chronic respiratory failure with hypoxia: Code(s): J96.11 - Chronic respiratory failure with hypoxia Status: Chronic Assessment and Plan: (10) UTI (urinary tract infection): Code(s): N39.0 - Urinary tract infection, site not specified Status: Acute Assessment and Plan: Plan # Presyncope recently presented with recurrent congestive heart failure. Discharge weight was 114 kilos. Admission weight is 104 kilos. Orthostatic positive in the ER. Mild leukocytosis on admission. H&H is stable with no concern for underlying GI bleed. BNP is improved down to 1400. CT head is negative with no acute intracranial abnormality. Chest x-ray with no congestive findings. Cardiology consulted. Received some IV fluid in the ER. Hold diuretics. Stopped IV fluid 10/21/2021. As Cardiology as noted need to resume diuretics. Backing off on metolazone or using it p.r.n. with regular weight. Bumex was restarted 10/22/2021 still orthostatic gone his vitals. Part of it could be volume depletion he might also have a possibility of autonomic neuropathy leading to his orthostasis however was not evident in the past. We will back off on Bumex today and lowered to 0.5 mg b.i.d. and continue to monitor his orthostatic vitals. Have also advised to use Saúl hose/compression stockings to help with this orthostasis Cardiology has upped Bumex dose to 1 mg b.i.d. Continue to monitor orthostatic vitals Cortisol level 10. cosyntropin test with appropriate rise Ruling out adrenal insufficiency as 1 of the diagnosis. weight is down with increased to Bumex does discussed with Cardiology will back off on further diuresis lower down Bumex to 0.5 mg b.i.d. Plans to go to swing bed for physical deconditioning and muscle strengthening exercises could relate to his recent falls and orthostasis. Will hold Bumex for couple days now Since blood pressure still drops when he stands up. # Orthostatic hypotensionSee above # Chronic respiratory failure on trilogy at home and oxygen supplementation # COPD not in exacerbation # Congestive heart failure diastolic chronic on metolazone and Bumex at home well-compensated currently. Diuretic on hold # Chronic anticoagulation with Eliquis # CKD stage 2 # Type 2 diabetes with hyperglycemia add SSI on 70 30 Adjust dose as needed. # Former smoker # UTI on Rocephin urine culture with E coli switched to Keflex oral # DVT prophylaxis on Eliquis # Code status do not resuscitate # disposition plan for swing bed at [facility] at discharge Subjective Date/time seen: 10/27/21 15:58 Interval history: HPI:This is a 71-year-old male? with past medical history
[2021-10-27 16:51] LABS: Glucose Point of Care 228 mg/dl (65-105)
[2021-10-27] MEDS: INSULIN HUMAN ISOPHAN/REGULAR 70/30 (*BKC) 100 UNITS/ML 35 UNITS SUB-Q (16:58)
[2021-10-27] MEDS: metFORMIN HCL 500 MG TABLET 2000 MG PO (17:02)
[2021-10-27] MEDS: VITAMIN B COMPLEX CAPSULE 1 CAP PO (17:02)
[2021-10-27 21:04] LABS: Glucose Point of Care 126 mg/dl (65-105)
[2021-10-28] VITALS (11 sets, daily range): BP systolic 90–135; BP diastolic 54–80; PULSE 77–90; RESP 16–20; TEMP 35.7–36.9; O2SAT 96–100
[2021-10-28 06:53] LABS: Basophils Absolute Auto 0.1 K/mm3 (0.0-0.1); Basophils Percent Auto 0.8 % (0.2-1.2); Eosinophils Absolute Auto 0.4 K/mm3 (0-0.3); Eosinophils Percent Auto 4.2 % (0-4.4); Hematocrit 37.8 % (42.0-52.0); Hemoglobin 11.6 g/dL (14.0-18.0); Immature Granulocyte Absolute 0.07 K/mm3 (0.00-0.031); Immature Granulocyte Percent A 0.7 % (0-0.5); Lymphocytes Percent Auto 12.3 % (18.3-44.2); Mean Corpuscular HGB Conc 30.7 g/dl (32-36); Mean Corpuscular Hemoglobin 28.7 pg (26-34); Mean Corpuscular Volume 93.6 fl (80-100); Mean Platelet Volume 11.5 fl (7.4-10.4); Monocytes Percent Auto 9.7 % (2.6-8.5); Neutrophils Absolute Auto 7.7 K/mm3 (1.3-6.7); Neutrophils Percent Auto 72.3 % (45.5-73.1); Platelet Count Result 275 k/mm3 (150-375); Red Blood Count 4.04 M/mm3 (4.6-6.20); Red Cell Distribution Width 14.7 % (11.5-14.5); White Blood Count 10.6 K/mm3 (4.5-10.0)
[2021-10-28 07:07] LABS: Alanine Aminotransferase 19 U/L (6-50); Albumin Level 3.8 g/dL (3.5-5.1); Alkaline Phosphatase 109 U/L (38-126); Anion Gap 3 mmol/L (8-16); Aspartate Amino Transferase 34 U/L (17-59); Bilirubin,Total 0.5 mg/dL (0.2-1.3); Blood Urea Nitrogen 33 mg/dL (9-20); Calcium 8.7 mg/dL (8.4-10.2); Carbon Dioxide 38 mmol/L (22-30); Chloride 93 mmol/L (98-107); Estimated CRCL calculation 86 ml/min; Estimated Glomerular Filt Rate > 60; Glucose 176 mg/dL (65-110); Potassium 4.5 mmol/L (3.4-5.0); Sodium 134 mmol/L (137-145)
[2021-10-28 08:10] LABS: Glucose Point of Care 199 mg/dl (65-105)
[2021-10-28] MEDS: FLUTICASONE/UMECLIDIN/VILANTER 100-62.5-25 MCG ELLIPTA 1 PUFF INHALATION (08:32)
[2021-10-28] MEDS: APIXABAN 5 MG TABLET PO ×2 (08:49→20:41)
[2021-10-28] MEDS: METOPROLOL TARTRATE 50 MG TAB PO ×2 (08:49→20:39)
[2021-10-28] MEDS: DIGOXIN TAB 125 MCG TABLET PO (08:49)
[2021-10-28] MEDS: VENLAFAXINE HCL XR 75 MG CAP.ER.24H 150 MG PO (08:49)
[2021-10-28] MEDS: EMPAGLIFLOZIN 10 MG TABLET PO (08:49)
[2021-10-28] MEDS: POTASSIUM CHLORIDE 10 MEQ TABLET.ER PO ×2 (08:49→17:22)
[2021-10-28] MEDS: ATORVASTATIN 10 MG TABLET PO (08:49)
[2021-10-28] MEDS: ASPIRIN 81 MG CHEWABLE TABLET PO (08:49)
[2021-10-28] MEDS: allopurinoL 300 MG TABLET PO (08:50)
[2021-10-28] MEDS: INSULIN HUMAN ISOPHAN/REGULAR 70/30 (*BKC) 100 UNITS/ML 35 UNITS SUB-Q ×2 (08:50→17:22)
--- NOTE | 2021-10-28 10:38 | PCNFU ---
Nutrition Follow-Up Complete: Goal: PO intake 75% of meals. Pt current nutrition is Diabetic consistent carb, Ensure compact BID. Nutrition recommendation: Continue with current plan of care. Last recorded weight is 108.4 kg - up from 104kg. Bowel Motility: +BM 10/26 per pt Labs Reviewed: hgb:11.6, HCT:37.8, Alb:3.2, NA:134, BUN:33, glu:306 Meds Noted: zofran, eliquis, lipitor, novolog Skin: WNL Additional Notes: Pt continues on a diabetic diet, Ensure compact BID in place. Intake of meals is 100%. Pt reports good appetite and intake. No nutritional concerns at this time.
--- NOTE | 2021-10-28 11:42 | PM.IMPN ---
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 Status: Acute Assessment and Plan: (6) Type 2 diabetes mellitus with hyperglycemia: Code(s): E11.65 - Type 2 diabetes mellitus with hyperglycemia Status: Acute Assessment and Plan: (7) Former smoker: Code(s): Z87.891 - Personal history of nicotine dependence Status: Acute Assessment and Plan: (8) Dependence on nocturnal oxygen therapy: Code(s): Z99.81 - Dependence on supplemental oxygen Status: Acute Assessment and Plan: (9) Chronic respiratory failure with hypoxia: Code(s): J96.11 - Chronic respiratory failure with hypoxia Status: Chronic Assessment and Plan: (10) UTI (urinary tract infection): Code(s): N39.0 - Urinary tract infection, site not specified Status: Acute Assessment and Plan: Plan # Presyncope recently presented with recurrent congestive heart failure. Discharge weight was 114 kilos. Admission weight is 104 kilos. Orthostatic positive in the ER. Mild leukocytosis on admission. H&H is stable with no concern for underlying GI bleed. BNP is improved down to 1400. CT head is negative with no acute intracranial abnormality. Chest x-ray with no congestive findings. Cardiology consulted. Received some IV fluid in the ER. Hold diuretics. Stopped IV fluid 10/21/2021. As Cardiology as noted need to resume diuretics. Backing off on metolazone or using it p.r.n. with regular weight. Bumex was restarted 10/22/2021 still orthostatic gone his vitals. Part of it could be volume depletion he might also have a possibility of autonomic neuropathy leading to his orthostasis however was not evident in the past. We will back off on Bumex today and lowered to 0.5 mg b.i.d. and continue to monitor his orthostatic vitals. Have also advised to use Saúl hose/compression stockings to help with this orthostasis Cardiology has upped Bumex dose to 1 mg b.i.d. Continue to monitor orthostatic vitals Cortisol level 10. cosyntropin test with appropriate rise Ruling out adrenal insufficiency as 1 of the diagnosis. weight is down with increased to Bumex does discussed with Cardiology will back off on further diuresis lower down Bumex to 0.5 mg b.i.d. Plans to go to swing bed for physical deconditioning and muscle strengthening exercises could relate to his recent falls and orthostasis. Will hold Bumex for couple days now Since blood pressure still drops when he stands up. # Orthostatic hypotensionSee above # Chronic respiratory failure on trilogy at home and oxygen supplementation # COPD not in exacerbation # Congestive heart failure diastolic chronic on metolazone and Bumex at home well-compensated currently. Diuretic on hold # Chronic anticoagulation with Eliquis # CKD stage 2 # Type 2 diabetes with hyperglycemia add SSI on 70 30 Adjust dose as needed. # Former smoker # UTI on Rocephin urine culture with E coli switched to Keflex oral # DVT prophylaxis on Eliquis # Code status do not resuscitate # disposition plan for swing bed at [facility] at discharge Subjective Date/time seen: 10/28/21 11:42 Interval history: 10/28: Feeling much better, asymptomatic. Orthostatic v
[2021-10-28 11:47] LABS: Glucose Point of Care 270 mg/dl (65-105)
[2021-10-28] MEDS: INSULIN ASPART (*BKC) 100 UNITS/ML SUB-Q ×2 (12:33→17:24)
[2021-10-28 16:39] LABS: Glucose Point of Care 210 mg/dl (65-105)
[2021-10-28] MEDS: VITAMIN B COMPLEX CAPSULE 1 CAP PO (17:22)
[2021-10-28] MEDS: metFORMIN HCL 500 MG TABLET 2000 MG PO (17:22)
[2021-10-28 21:49] LABS: Glucose Point of Care 179 mg/dl (65-105)
[2021-10-29] VITALS (7 sets, daily range): BP systolic 96–131; BP diastolic 57–81; PULSE 74–88; RESP 20–24; TEMP 36.2–36.4; O2SAT 97–100
[2021-10-29 08:11] LABS: Glucose Point of Care 172 mg/dl (65-105)
[2021-10-29] MEDS: VENLAFAXINE HCL XR 75 MG CAP.ER.24H 150 MG PO (08:56)
[2021-10-29] MEDS: METOPROLOL TARTRATE 50 MG TAB PO (08:57)
[2021-10-29] MEDS: POTASSIUM CHLORIDE 10 MEQ TABLET.ER PO (08:57)
[2021-10-29] MEDS: allopurinoL 300 MG TABLET PO (08:57)
[2021-10-29] MEDS: EMPAGLIFLOZIN 10 MG TABLET PO (08:57)
[2021-10-29] MEDS: ASPIRIN 81 MG CHEWABLE TABLET PO (08:57)
[2021-10-29] MEDS: APIXABAN 5 MG TABLET PO (08:57)
[2021-10-29] MEDS: DIGOXIN TAB 125 MCG TABLET PO (08:58)
[2021-10-29] MEDS: ATORVASTATIN 10 MG TABLET PO (08:58)
[2021-10-29] MEDS: INSULIN HUMAN ISOPHAN/REGULAR 70/30 (*BKC) 100 UNITS/ML 35 UNITS SUB-Q (09:00)
[2021-10-29] MEDS: FLUTICASONE/UMECLIDIN/VILANTER 100-62.5-25 MCG ELLIPTA 1 PUFF INHALATION (09:46)
[2021-10-29 11:40] LABS: Glucose Point of Care 287 mg/dl (65-105)
[2021-10-29] MEDS: INSULIN ASPART (*BKC) 100 UNITS/ML SUB-Q (13:05)
--- NOTE | 2021-11-01 07:17 | PM.DS ---
DS: Admitting Diagnosis Discharge Date 10/29/21 DS: Discharge Diagnosis Discharge Diagnosis (1) Near syncope: Code(s): R55 - Syncope and collapse Status: Acute Assessment and Plan: (2) Orthostatic hypotension: Code(s): I95.1 - Orthostatic hypotension Status: Acute Assessment and Plan: (3) CKD (chronic kidney disease), stage II: Code(s): N18.2 - Chronic kidney disease, stage 2 (mild) Status: Acute Assessment and Plan: (4) COPD (chronic obstructive pulmonary disease): Code(s): J44.9 - Chronic obstructive pulmonary disease, unspecified Status: Acute Assessment and Plan: (5) Chronic anticoagulation: Code(s): Z79.01 - alf (current) use of anticoagulants Status: Acute Assessment and Plan: (6) Type 2 diabetes mellitus with hyperglycemia: Code(s): E11.65 - Type 2 diabetes mellitus with hyperglycemia Status: Acute Assessment and Plan: (7) Former smoker: Code(s): Z87.891 - Personal history of nicotine dependence Status: Acute Assessment and Plan: (8) Dependence on nocturnal oxygen therapy: Code(s): Z99.81 - Dependence on supplemental oxygen Status: Acute Assessment and Plan: (9) Chronic respiratory failure with hypoxia: Code(s): J96.11 - Chronic respiratory failure with hypoxia Status: Chronic Assessment and Plan: (10) UTI (urinary tract infection): Code(s): N39.0 - Urinary tract infection, site not specified Status: Acute Assessment and Plan: Plan # Presyncope recently presented with recurrent congestive heart failure. Discharge weight was 114 kilos. Admission weight is 104 kilos. Orthostatic positive in the ER. Mild leukocytosis on admission. H&H is stable with no concern for underlying GI bleed. BNP is improved down to 1400. CT head is negative with no acute intracranial abnormality. Chest x-ray with no congestive findings. Cardiology consulted. Received some IV fluid in the ER. Hold diuretics. Stopped IV fluid 10/21/2021. As Cardiology as noted need to resume diuretics. Backing off on metolazone or using it p.r.n. with regular weight. Bumex was restarted 10/22/2021 still orthostatic gone his vitals. Part of it could be volume depletion he might also have a possibility of autonomic neuropathy leading to his orthostasis however was not evident in the past. We will back off on Bumex today and lowered to 0.5 mg b.i.d. and continue to monitor his orthostatic vitals. Have also advised to use Saúl hose/compression stockings to help with this orthostasis Cardiology has upped Bumex dose to 1 mg b.i.d. Continue to monitor orthostatic vitals Cortisol level 10. cosyntropin test with appropriate rise Ruling out adrenal insufficiency as 1 of the diagnosis. weight is down with increased to Bumex does discussed with Cardiology will back off on further diuresis lower down Bumex to 0.5 mg b.i.d. Plans to go to swing bed for physical deconditioning and muscle strengthening exercises could relate to his recent falls and orthostasis. Will hold Bumex for couple days now Since blood pressure still drops when he stands up. # Orthostatic hypotensionSee above # Chronic respiratory failure on trilogy at home and oxygen supplementation # COPD not in exacerbation # Congestive heart failure diastolic chronic on metolazone and Bumex at home well-compensated currently. Diuretic on hold # Chronic anticoagulation with Eliquis # CKD stage 2 # Type 2 diabetes with hyperglycemia add SSI on 70 30 Adjust dose as needed. # Former smoker # UTI on Rocephin urine culture with E coli switched to Keflex oral # DVT prophylaxis on Eliquis # Code status do not resuscitate # disposition plan for swing bed at [facility] at discharge DS: Summary Time Spent with Patient Time attestation: Total ti
--- NOTE | 2021-11-03 18:20 | PM.DS ---
DS: Admitting Diagnosis Discharge Date 10/29/21 Admitting Diagnosis syncopal episode DS: Discharge Diagnosis Discharge Diagnosis (1) Near syncope: Code(s): R55 - Syncope and collapse Status: Acute (2) Orthostatic hypotension: Code(s): I95.1 - Orthostatic hypotension Status: Acute (3) CKD (chronic kidney disease), stage II: Code(s): N18.2 - Chronic kidney disease, stage 2 (mild) Status: Acute (4) COPD (chronic obstructive pulmonary disease): Code(s): J44.9 - Chronic obstructive pulmonary disease, unspecified Status: Acute (5) Chronic anticoagulation: Code(s): Z79.01 - senior care (current) use of anticoagulants Status: Acute (6) Type 2 diabetes mellitus with hyperglycemia: Code(s): E11.65 - Type 2 diabetes mellitus with hyperglycemia Status: Acute (7) Former smoker: Code(s): Z87.891 - Personal history of nicotine dependence Status: Acute (8) Dependence on nocturnal oxygen therapy: Code(s): Z99.81 - Dependence on supplemental oxygen Status: Acute (9) Chronic respiratory failure with hypoxia: Code(s): J96.11 - Chronic respiratory failure with hypoxia Status: Chronic (10) UTI (urinary tract infection): Code(s): N39.0 - Urinary tract infection, site not specified Status: Acute DS: Summary Hospital Course Hospital Course: This is a 71-year-old male? with past medical history significant for congestive heart failure, morbid obesity, atrial fibrillation rate controlled anticoagulated, hypertension, type 2 diabetes mellitus, dyslipidemia, coronary artery disease, recently treated for congestive heart failure exacerbation and discharged home however patient comes back today after he had a syncopal episode and prior to these had a fall patient denies feeling dizzy or lightheaded or chest pain or palpitations or vision changes or headaches or nausea, vomiting, diarrhea, abdominal pain, no fevers, no rigors, no chills.? In emergency room patient had? a blood pressure of while supine of 99 for SBP over DBP? 58 and while standing SBP of 60 for with DVP of 40 patient received a bolus? which improved his blood pressure. Preliminary workup was significant for urinalysis with numerous WBCs present. Patient is been admitted for further evaluation management and treatment. Presyncope recently presented with recurrent congestive heart failure.? Discharge weight was 114 kilos.? Admission weight is 104 kilos.? Orthostatic positive in the ER.? Mild leukocytosis on admission.? H&H is stable with no concern for underlying GI bleed.? BNP is improved down to 1400.? CT head is negative with no acute intracranial abnormality.? Chest x-ray with no congestive findings.? Cardiology consulted.? Received some IV fluid in the ER.? Hold diuretics.? Stopped IV fluid 10/21/2021.? As Cardiology as noted need to resume diuretics.? Backing off on metolazone or using it p.r.n. with regular weight.? Bumex was restarted 10/22/2021 still orthostatic gone his vitals.? Part of it could be volume depletion he might also have a possibility of autonomic neuropathy leading to his orthostasis however was not evident in the past.? We will back off on Bumex today and? lowered to 0.5 mg b.i.d. and continue to monitor his orthostatic vitals.? Have also advised to use Saúl hose/compression stockings to help with this orthostasis Cardiology has upped Bumex dose to 1 mg b.i.d. Continue to monitor orthostatic vitals Cortisol level 10. ? cosyntropin test with appropriate rise ? Ruling out adrenal insufficiency as 1 of the diagnosis. ?weight is down with increased to Bumex does discussed with Cardiology will back off on further diuresis lower down Bumex to 0.5 mg b.i.d. Plans to go to swing bed for physical deconditioning and muscle strengthening exercises could relate to his recent falls and orthostasis. Will hold Bumex for couple days now? Since blood pressure still drops when he st
== END 2021-10-29 16:00 | disposition swing bed (61) | DRG 312 ==
LOC: ANHED 21:08 → ANHIMU 21:12 → ANH3MEDSUR 10-22 18:01
PROVIDERS: Internal Medicine; Admitting Provider Internal Medicine; Emergency Provider General Practice; PCP Family Medicine; Visit Provider Student in an Organized Health Care Education/Training Program
DX: I95.1 Orthostatic hypotension (principal); I13.0 Hypertensive heart and chronic kidney disease with heart failure and stage 1 through stage 4 chronic kidney disease, or unspecified chronic kidney disease; I50.32 Chronic diastolic (congestive) heart failure; J96.11 Chronic respiratory failure with hypoxia; N39.0 Urinary tract infection, site not specified; Z20.822 Contact with and (suspected) exposure to COVID-19; B96.20 Unspecified Escherichia coli [E. coli] as the cause of diseases classified elsewhere; N18.2 Chronic kidney disease, stage 2 (mild); J44.9 Chronic obstructive pulmonary disease, unspecified; E11.22 Type 2 diabetes mellitus with diabetic chronic kidney disease; N18.9 Chronic kidney disease, unspecified; E11.43 Type 2 diabetes mellitus with diabetic autonomic (poly)neuropathy; E78.5 Hyperlipidemia, unspecified; I25.10 Atherosclerotic heart disease of native coronary artery without angina pectoris; M19.90 Unspecified osteoarthritis, unspecified site; E11.65 Type 2 diabetes mellitus with hyperglycemia; G47.33 Obstructive sleep apnea (adult) (pediatric); I48.91 Unspecified atrial fibrillation; D72.829 Elevated white blood cell count, unspecified; Z66 Do not resuscitate; E66.01 Morbid (severe) obesity due to excess calories; Z68.34 Body mass index [BMI] 34.0-34.9, adult; Z87.891 Personal history of nicotine dependence; Z79.01 Long term (current) use of anticoagulants; Z99.81 Dependence on supplemental oxygen
CPT/HCPCS: 36415; 36600; 70450; 71101; 80053; 80162; 81001; 82375; 82533; 82607; 82746; 82805; 82948; 83050; 83735; 83880; 84484; 85025; 85610; 85730; 87077; 87086; 87186; 93005; 94640; 96361; 96365; 97110; 97161; 97165; 97530; 97535; 99285; A9270; C9803; G0378; J0696; J0834; J1815; J7030; J7040; U0003; U0005

== ENCOUNTER 2021-10-29 17:16 | Inpatient (IN) | payer MEDICARE, SELFPAY ==
--- NOTE | 2021-10-29 17:20 | ADMGEN ---
This patient, Rivas Hollingsworth, was admitted to 2nd Floor Room 205-2. Patient/family oriented to hospital policies and general routines including ID bracelet, bed and alarms, visiting hours, pain management, procedures, bathroom and other care routines, personal items, smoking policy, room service/diet, and visiting hours. Information on how to activate the Rapid Response Team has been discussed. Patient/Family are encouraged to report perceived risks to care and to ask questions if they do not understand what they are told or what they should do.
[2021-10-29 17:30] VITALS: BP 117/68; PULSE 98; RESP 18; TEMP 36.2; O2SAT 95; O2SAT 98
--- NOTE | 2021-10-29 17:45 | PM.DS ---
DS: Admitting Diagnosis Discharge Date October 29, 2021 DS: Summary Time Spent with Patient Time attestation: Total time spent providing and/or coordinating discharge services: Discharge Plan Discharge Discharge Medications: No Action metoprolol tartrate 50 mg tablet 75 mg PO Q12H Rx Instructions: TAKE 1 AND 1/2 TABLET BY MOUTH TWICE DAILY. digoxin 125 mcg (0.125 mg) tablet 125 mcg PO DAILY Novolin 70/30 U-100 Insulin 100 unit/mL (70-30) suspension 40 unit subcut BID 90 Days Qty: 72 2RF aspirin 81 mg Tablet,Chewable 81 mg PO DAILY vitamin B complex [B Complex-Vitamin B12] Tablet 1,000 tablet PO QPM Eliquis 5 mg Tablet 5 mg PO Q12HR Qty: 60 0RF Jardiance 10 mg Tablet 10 mg PO DAILY Qty: 30 0RF potassium chloride 10 mEq tablet extended release 10 meq PO BID Qty: 60 0RF Breztri Aerosphere 160-9-4.8 mcg/actuation HFA aerosol inhaler 2 inh INHALATION BID [place] Saline Gel 1 applic intranasal HS PRN (Reason: nasal dry) Qty: 14.1 0RF metformin 1,000 mg tablet 2,000 mg PO QPM allopurinol 300 mg tablet 300 mg PO DAILY Qty: 90 1RF amlodipine 10 mg tablet 10 mg PO DAILY Qty: 90 1RF Rx Instructions: TAKE 1 TABLET BY ORAL ROUTE EVERY DAY venlafaxine 150 mg capsule,extended release 24hr 150 mg PO DAILY Qty: 90 1RF atorvastatin 10 mg tablet 10 mg PO DAILY Qty: 90 3RF Date of admission: 10/29/21 17:16 Primary Care Provider: Lakesha Lovelace Admitting Provider: Adolfo Balbuena Attending physician on admission: Adolfo Balbuena
[2021-10-29 18:01] VITALS: PULSE 98; RESP 18; O2SAT 95
[2021-10-29] MEDS: metFORMIN HCL 500 MG TABLET 2000 MG PO (19:46)
[2021-10-29 19:49] VITALS: PULSE 75; O2SAT 99
[2021-10-29] MEDS: APIXABAN 2.5 MG TABLET 5 MG PO (20:04)
[2021-10-29 20:05] VITALS: PULSE 75
[2021-10-29] MEDS: METOPROLOL TARTRATE 25 MG TABLET 75 MG PO (20:05)
[2021-10-29 20:14] LABS: Glucose Point of Care 255 mg/dl (65-105)
--- NOTE | 2021-10-29 20:29 | PC.NURSE ---
Pt had scratched an open air on posterior forearm. Area had stopped bleeding at time of finding and was wiped w/hygiene wipe and a bandage placed. Pt's feet assessed and scabbing present on the L 4th and 5th toe and the R 3rd and 4th toe. Area cleansed w/NS then sprayed w/betadine spray from pt home. Pt removed dentures and placed them in cup by sink. Pt ambulated from chair to bed w/walker and standby assist and did well. Pt educated to call nurses station before ambulation to which he verbalized understanding. Lauryn from [facility] came to assist pt w/CPAP. Pt's CPAP from home and understands how to use it properly. Call light placed within reach and bed placed in lowest position for pt safety.
[2021-10-29 21:18] VITALS: PULSE 75; RESP 18; O2SAT 99
[2021-10-29 21:34] VITALS: BMI 35.5
[2021-10-29 23:03] VITALS: BP 109/54; PULSE 93; RESP 18; TEMP 36.3; O2SAT 99
[2021-10-30] VITALS (11 sets, daily range): BP systolic 86–117; BP diastolic 56–66; PULSE 78–88; RESP 17–19; TEMP 36.3–36.4; O2SAT 95–100
[2021-10-30 08:13] LABS: Glucose Point of Care 227 mg/dl (65-105)
--- NOTE | 2021-10-30 08:41 | PM.IMHP ---
H&P: HPI History of Present Illness Date/Time: 10/30/21 08:41 Chief Complaint: REhab, Weakness, Orthostatic hypotension Narrative: ?This is a 71-year-old male that was admitted to [facility] with orthostatic hypotension, and syncope Patient has Atrial fibrillation with past medical history significant for congestive heart failure, morbid obesity, atrial fibrillation rate controlled anticoagulated, hypertension, type 2 diabetes mellitus, dyslipidemia, coronary artery disease, recently treated for congestive heart failure exacerbation. Patient was symptomatic with syncopal episode with falls and prior to these had a fall patient denies feeling dizzy or lightheaded or chest pain or palpitations or vision changes or headaches or nausea, vomiting, diarrhea, abdominal pain, no fevers, no rigors, no chills.?Patient was taken off diuretic in the hospital and we are able to restart if needed. He is still having orthostatic hypotension but he is asymptomatic. Currently patient blood pressure is 117/68 and he is here for Swing bed. we will continue to closely evaluate him and have him work with Physical therapy to get stronger. Review of Systems Review of Systems: Weakness, Orthostatic hypotension,chf ,rehab All systems reviewed & are unremarkable except as noted in HPI and below PMFSH Past Medical History Medical History Atrial fibrillation Cholelithiasis Chronic atrial fibrillation Three failed cardioversions. He is on long-term anticoagulation. Chronic respiratory failure with hypoxia 2-3 L nasal cannula with rest, 3-4 L with activity. Dependence on nocturnal oxygen therapy Depression Diabetes Diastolic congestive heart failure Echocardiogram 07/31/2018 showed diastolic dysfunction. Left ventricular size was normal with mild concentric left ventricular hypertrophy and increased left heart filling pressures with an estimated ejection fraction of 55%. Right ventricle was moderately enlarged with mild right ventricular hypokinesis. See latest echo on 06/01/2019 with an EF of 70-75% and diastolic dysfunction Dyslipidemia Erectile dysfunction Erectile dysfunction Gout History of pancreatitis July 2016, secondary to passed common bile duct stone. Hyperlipidemia Hypertension Insulin dependent diabetes mellitus Hemoglobin A1c was 11.4 in January 2018. Obstructive sleep apnea Osteoarthritis Severe pulmonary arterial systolic hypertension Noted on echocardiogram 07/31/2018 with an estimated peak RVSP of 68 mmHg. Right ventricle was moderately enlarged with mild right ventricular hypokinesis. Sleep apnea Type 2 diabetes mellitus with hyperglycemia Valvular heart disease Echocardiogram 07/31/2018 with [id number] tricuspid regurgitation and possible bicuspid aortic valve. Surgical History Surgical History Status post cataract extraction Family History Family History Grandparent Family history of cardiovascular disease Mother High cholesterol Other Diabetes mellitus Social History Social History Social History: The patient lives in [place] with his . He designates his , Prerna, as his surrogate decision maker and he wishes to be a full code. 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
[2021-10-30] MEDS: INSULIN HUMAN ISOPHAN/REGULAR 70/30 (*BKC) 100 UNITS/ML 40 UNITS SUB-Q ×2 (09:21→16:54)
[2021-10-30] MEDS: EMPAGLIFLOZIN 10 MG TABLET PO (09:23)
[2021-10-30] MEDS: DIGOXIN TAB 125 MCG TABLET PO (09:24)
[2021-10-30] MEDS: ATORVASTATIN 10 MG TABLET PO (09:24)
[2021-10-30] MEDS: ASPIRIN 81 MG CHEWABLE TABLET PO (09:24)
[2021-10-30] MEDS: APIXABAN 2.5 MG TABLET 5 MG PO ×2 (09:24→21:02)
[2021-10-30] MEDS: allopurinoL 300 MG TABLET PO (09:25)
[2021-10-30] MEDS: POTASSIUM CHLORIDE 10 MEQ TABLET PO ×2 (09:25→16:55)
[2021-10-30] MEDS: VENLAFAXINE HCL XR 75 MG CAP.ER.24H 150 MG PO (09:25)
[2021-10-30] MEDS: FLUTICASONE/UMECLIDIN/VILANTER 100-62.5-25 MCG ELLIPTA 1 PUFF INHALATION (09:32)
--- NOTE | 2021-10-30 09:36 | PC.NURSE ---
Pt blood pressure 86/56 hr 80 while sitting in chair. Discussed medications with CANELO Christianson. Holding metoprolol and amlodipine this am at her instruction.
[2021-10-30 12:08] LABS: Glucose Point of Care 208 mg/dl (65-105)
[2021-10-30] MEDS: VITAMIN B COMPLEX CAPSULE 1 CAP PO (16:55)
[2021-10-30 17:00] LABS: Glucose Point of Care 156 mg/dl (65-105)
[2021-10-30] MEDS: metFORMIN HCL 500 MG TABLET 2000 MG PO (17:21)
[2021-10-30 20:59] LABS: Glucose Point of Care 52 mg/dl (65-105)
[2021-10-30] MEDS: METOPROLOL TARTRATE 25 MG TABLET 75 MG PO (21:05)
--- NOTE | 2021-10-30 21:09 | PC.NURSE ---
Patient's bp 113/59. Metoprolol given as ordered. Patient's bs 52 and on recheck is 57. Patient denies feeling weak, dizzy, lightheaded or shaky. Skin w/d. No signs of distress noted. Patient given 2 ice cream cups for snack. Asked patient if his bs drops frequently and he answered no, but said it does once in a great while and it did happen last week at the other hospital. Told patient his bs will be rechecked in approximately an hour. Patient verbalized understanding. Call light in reach.
[2021-10-30 22:11] LABS: Glucose Point of Care 57 mg/dl (65-105)
[2021-10-30 22:11] LABS: Glucose Point of Care 82 mg/dl (65-105)
--- NOTE | 2021-10-30 22:15 | PC.NURSE ---
Blood sugar=82. No s/sx of hypoglycemia noted or reported. Patient drinking 4oz of oj with one sugar in it. No distress noted. Call light in reach.
--- NOTE | 2021-10-30 22:46 | PC.NURSE ---
Patient's bs now 104.
[2021-10-30 22:47] LABS: Glucose Point of Care 104 mg/dl (65-105)
[2021-10-31] VITALS (10 sets, daily range): BP systolic 102–127; BP diastolic 48–90; PULSE 80–94; RESP 14–18; TEMP 36.5–37; O2SAT 97–100
[2021-10-31 07:23] LABS: Glucose Point of Care 72 mg/dl (65-105)
[2021-10-31] MEDS: APIXABAN 2.5 MG TABLET 5 MG PO ×2 (08:47→21:25)
[2021-10-31] MEDS: allopurinoL 300 MG TABLET PO (08:47)
[2021-10-31] MEDS: DIGOXIN TAB 125 MCG TABLET PO (08:48)
[2021-10-31] MEDS: ASPIRIN 81 MG CHEWABLE TABLET PO (08:48)
[2021-10-31] MEDS: EMPAGLIFLOZIN 10 MG TABLET PO (08:48)
[2021-10-31] MEDS: ATORVASTATIN 10 MG TABLET PO (08:48)
[2021-10-31] MEDS: VENLAFAXINE HCL XR 75 MG CAP.ER.24H 150 MG PO (08:49)
[2021-10-31] MEDS: POTASSIUM CHLORIDE 10 MEQ TABLET PO ×2 (08:49→17:14)
[2021-10-31] MEDS: FLUTICASONE/UMECLIDIN/VILANTER 100-62.5-25 MCG ELLIPTA 1 PUFF INHALATION (08:50)
[2021-10-31] MEDS: amLODIPine BESYLATE 5 MG TABLET 10 MG PO (09:36)
[2021-10-31 11:38] LABS: Glucose Point of Care 138 mg/dl (65-105)
[2021-10-31 16:46] LABS: Glucose Point of Care 149 mg/dl (65-105)
[2021-10-31] MEDS: VITAMIN B COMPLEX CAPSULE 1 CAP PO (17:10)
[2021-10-31] MEDS: INSULIN HUMAN ISOPHAN/REGULAR 70/30 (*BKC) 100 UNITS/ML 20 UNITS SUB-Q (17:10)
[2021-10-31] MEDS: METOPROLOL TARTRATE 25 MG TABLET 75 MG PO (21:21)
[2021-10-31 21:42] LABS: Glucose Point of Care 177 mg/dl (65-105)
[2021-11-01] VITALS (9 sets, daily range): BP systolic 111–119; BP diastolic 55–77; PULSE 85–94; RESP 14–18; TEMP 36.3–36.5; O2SAT 92–96
[2021-11-01 07:29] LABS: Glucose Point of Care 180 mg/dl (65-105)
[2021-11-01] MEDS: DIGOXIN TAB 125 MCG TABLET PO (08:07)
[2021-11-01] MEDS: allopurinoL 300 MG TABLET PO (08:07)
[2021-11-01] MEDS: ASPIRIN 81 MG CHEWABLE TABLET PO (08:07)
[2021-11-01] MEDS: ATORVASTATIN 10 MG TABLET PO (08:07)
[2021-11-01] MEDS: APIXABAN 2.5 MG TABLET 5 MG PO ×2 (08:07→21:03)
[2021-11-01] MEDS: EMPAGLIFLOZIN 10 MG TABLET PO (08:08)
[2021-11-01] MEDS: METOPROLOL TARTRATE 25 MG TABLET 75 MG PO ×2 (08:08→21:03)
[2021-11-01] MEDS: FLUTICASONE/UMECLIDIN/VILANTER 100-62.5-25 MCG ELLIPTA 1 PUFF INHALATION (08:08)
[2021-11-01] MEDS: VENLAFAXINE HCL XR 75 MG CAP.ER.24H 150 MG PO (08:09)
[2021-11-01] MEDS: POTASSIUM CHLORIDE 10 MEQ TABLET PO ×2 (08:09→17:04)
[2021-11-01] MEDS: amLODIPine BESYLATE 5 MG TABLET 10 MG PO (08:10)
[2021-11-01] MEDS: INSULIN HUMAN ISOPHAN/REGULAR 70/30 (*BKC) 100 UNITS/ML 20 UNITS SUB-Q ×2 (08:11→17:11)
--- NOTE | 2021-11-01 10:21 | PM.EVENT ---
Event Note Event Note Event Note: Patient blood sugar dropped in the middle of the night and needed to be changed to lower the dosage of medication discontinued Metformin and we will continue sliding scale and decrease long acting by 20 units . We will monitor blood sugars .
[2021-11-01 11:50] LABS: Glucose Point of Care 181 mg/dl (65-105)
[2021-11-01 16:23] LABS: Glucose Point of Care 182 mg/dl (65-105)
[2021-11-01] MEDS: VITAMIN B COMPLEX CAPSULE 1 CAP PO (17:11)
[2021-11-01] MEDS: MELATONIN 5 MG TABLET PO (21:05)
[2021-11-01 21:41] LABS: Glucose Point of Care 170 mg/dl (65-105)
[2021-11-02] VITALS (12 sets, daily range): BP systolic 114–128; BP diastolic 62–79; PULSE 76–91; RESP 14–17; TEMP 36.4–36.5; O2SAT 89–99
[2021-11-02 07:26] LABS: Glucose Point of Care 304 mg/dl (65-105)
[2021-11-02 07:33] LABS: Glucose Point of Care 176 mg/dl (65-105)
[2021-11-02] MEDS: allopurinoL 300 MG TABLET PO (08:59)
[2021-11-02] MEDS: APIXABAN 2.5 MG TABLET 5 MG PO ×2 (08:59→20:22)
[2021-11-02] MEDS: DIGOXIN TAB 125 MCG TABLET PO (09:00)
[2021-11-02] MEDS: FLUTICASONE/UMECLIDIN/VILANTER 100-62.5-25 MCG ELLIPTA 1 PUFF INHALATION (09:00)
[2021-11-02] MEDS: amLODIPine BESYLATE 5 MG TABLET 10 MG PO (09:00)
[2021-11-02] MEDS: ASPIRIN 81 MG CHEWABLE TABLET PO (09:00)
[2021-11-02] MEDS: ATORVASTATIN 10 MG TABLET PO (09:00)
[2021-11-02] MEDS: EMPAGLIFLOZIN 10 MG TABLET PO (09:01)
[2021-11-02] MEDS: INSULIN HUMAN ISOPHAN/REGULAR 70/30 (*BKC) 100 UNITS/ML 20 UNITS SUB-Q ×2 (09:03→17:04)
[2021-11-02] MEDS: VENLAFAXINE HCL XR 75 MG CAP.ER.24H 150 MG PO (09:07)
[2021-11-02] MEDS: POTASSIUM CHLORIDE 10 MEQ TABLET PO ×2 (09:08→17:03)
[2021-11-02] MEDS: METOPROLOL TARTRATE 25 MG TABLET 75 MG PO ×2 (09:08→20:22)
[2021-11-02 11:44] LABS: Glucose Point of Care 212 mg/dl (65-105)
[2021-11-02 16:35] LABS: Glucose Point of Care 173 mg/dl (65-105)
[2021-11-02] MEDS: VITAMIN B COMPLEX CAPSULE 1 CAP PO (17:03)
[2021-11-02 20:27] LABS: Glucose Point of Care 231 mg/dl (65-105)
[2021-11-03] VITALS (13 sets, daily range): BP systolic 98–114; BP diastolic 50–64; PULSE 60–100; RESP 16–20; TEMP 36.1–36.5; O2SAT 74–97
[2021-11-03 08:02] LABS: Glucose Point of Care 198 mg/dl (65-105)
--- NOTE | 2021-11-03 08:22 | P.PNCROSS_ITS ---
Event Note Event Note Event Note: Patient was on side of bed stating that he had a sore throat and he was nauseat ed and dizzy. Patient stated that he did not feel well. I went into evaluate and patient saturation was in the low 70's upon further evaluation patient did not have his oxygen on. Once placed back on patient saturation went back up to 96% and all of his symptoms seem to subside. Patient states a hour later he is feeling fine now. He continues to have saturation in the 90's. He is eating and drinking and currently is denying nausea, vomiting , A febrile, no pain
[2021-11-03] MEDS: FLUTICASONE/UMECLIDIN/VILANTER 100-62.5-25 MCG ELLIPTA 1 PUFF INHALATION (09:03)
[2021-11-03] MEDS: EMPAGLIFLOZIN 10 MG TABLET PO (09:03)
[2021-11-03] MEDS: amLODIPine BESYLATE 5 MG TABLET 10 MG PO (09:04)
[2021-11-03] MEDS: APIXABAN 2.5 MG TABLET 5 MG PO ×2 (09:04→20:30)
[2021-11-03] MEDS: ATORVASTATIN 10 MG TABLET PO (09:05)
[2021-11-03] MEDS: POTASSIUM CHLORIDE 10 MEQ TABLET PO ×2 (09:05→17:10)
[2021-11-03] MEDS: VENLAFAXINE HCL XR 75 MG CAP.ER.24H 150 MG PO (09:05)
[2021-11-03] MEDS: allopurinoL 300 MG TABLET PO (09:05)
[2021-11-03] MEDS: ASPIRIN 81 MG CHEWABLE TABLET PO (09:05)
[2021-11-03] MEDS: METOPROLOL TARTRATE 25 MG TABLET 75 MG PO ×2 (09:05→20:30)
[2021-11-03] MEDS: DIGOXIN TAB 125 MCG TABLET PO (09:06)
[2021-11-03] MEDS: INSULIN HUMAN ISOPHAN/REGULAR 70/30 (*BKC) 100 UNITS/ML 20 UNITS SUB-Q ×2 (09:06→17:10)
[2021-11-03 11:33] LABS: Glucose Point of Care 242 mg/dl (65-105)
[2021-11-03 16:44] LABS: Glucose Point of Care 206 mg/dl (65-105)
[2021-11-03] MEDS: VITAMIN B COMPLEX CAPSULE 1 CAP PO (17:10)
--- NOTE | 2021-11-03 19:49 | PC.NURSE ---
Name updated on pt whiteboard and pt is in bed w/call light within reach. Introduction took place and pt recalled this RN previously had taken care of him. Pt was brought fresh ice water and urinal was rinsed/emptied.
[2021-11-03 20:33] LABS: Glucose Point of Care 197 mg/dl (65-105)
--- NOTE | 2021-11-03 20:35 | PC.NURSE ---
Scabs assessed on feet bilaterally. No open wound found. Betadine spray used to cleanse area on pt's toes along with a few sccabs on pt's shins and pt did not c/o any pain to the area.
--- NOTE | 2021-11-04 03:19 | PC.NURSE ---
Pt performed well transferring from bed to chair via walker and standby assist. [place] offered and placed on pt. Pt requested to sit in the chair and will call to the nurses station when he wants to return to bed. Call light placed within reach.
--- NOTE | 2021-11-04 04:43 | PC.NURSE ---
Pt transferred from chair to bed via walker and standby assist. Pt ambulated well when returning to bed. Call light placed within reach.
[2021-11-04 06:21] VITALS: O2SAT 90
[2021-11-04 08:00] VITALS: BP 131/70; PULSE 99; RESP 18; TEMP 35.9; O2SAT 91
[2021-11-04 08:04] LABS: Glucose Point of Care 245 mg/dl (65-105)
[2021-11-04 08:45] VITALS: O2SAT 90
[2021-11-04] MEDS: FLUTICASONE/UMECLIDIN/VILANTER 100-62.5-25 MCG ELLIPTA 1 PUFF INHALATION (09:16)
[2021-11-04] MEDS: allopurinoL 300 MG TABLET PO (09:17)
[2021-11-04] MEDS: VENLAFAXINE HCL XR 75 MG CAP.ER.24H 150 MG PO (09:17)
[2021-11-04] MEDS: EMPAGLIFLOZIN 10 MG TABLET PO (09:17)
[2021-11-04] MEDS: amLODIPine BESYLATE 5 MG TABLET 10 MG PO (09:17)
[2021-11-04 09:18] VITALS: PULSE 88
[2021-11-04] MEDS: METOPROLOL TARTRATE 25 MG TABLET 75 MG PO (09:18)
[2021-11-04] MEDS: ASPIRIN 81 MG CHEWABLE TABLET PO (09:19)
[2021-11-04 09:20] VITALS: PULSE 88
[2021-11-04] MEDS: DIGOXIN TAB 125 MCG TABLET PO (09:20)
[2021-11-04] MEDS: ATORVASTATIN 10 MG TABLET PO (09:20)
[2021-11-04] MEDS: APIXABAN 2.5 MG TABLET 5 MG PO (09:20)
[2021-11-04] MEDS: POTASSIUM CHLORIDE 10 MEQ TABLET PO (09:21)
[2021-11-04] MEDS: INSULIN HUMAN ISOPHAN/REGULAR 70/30 (*BKC) 100 UNITS/ML 20 UNITS SUB-Q (09:22)
[2021-11-04] MEDS: CYCLOBENZAPRINE HCL 5 MG TABLET PO (11:03)
[2021-11-04] MEDS: DICLOFENAC SODIUM 1% 100 GM GEL (*BKC) 1 APPLIC TOPICAL (11:03)
--- NOTE | 2021-11-04 11:35 | PM.DS ---
DS: Admitting Diagnosis Discharge Date 11/04/2021 Admitting Diagnosis Rehab DS: Discharge Diagnosis Discharge Diagnosis (1) Orthostatic hypotension: Code(s): I95.1 - Orthostatic hypotension Status: Acute Assessment and Plan: Improved Believed to be caused by volume depletion or possible autonomic neuropathy (2) Chronic respiratory failure: Code(s): J96.10 - Chronic respiratory failure, unspecified whether with hypoxia or hypercapnia Status: Acute Assessment and Plan: Stable Continue home oxygen (3) CKD (chronic kidney disease), stage II: Code(s): N18.2 - Chronic kidney disease, stage 2 (mild) Status: Acute Assessment and Plan: Renal function at baseline on discharge (4) Weakness: Code(s): R53.1 - Weakness Status: Acute Assessment and Plan: Per PT patient progressed as expected per treatment plan (5) Aortic stenosis: Code(s): I35.0 - Nonrheumatic aortic (valve) stenosis Status: Acute Assessment and Plan: stable (6) Depression: Code(s): F32.A - Depression, unspecified Status: Acute Assessment and Plan: continue home medication (7) Class 2 obesity with body mass index (BMI) of 36.0 to 36.9 in adult: Qualifiers: Obesity type: due to excess calories Serious obesity comorbidity presence: with serious comorbidity Qualified Code(s): E66.01 - Morbid (severe) obesity due to excess calories; Z68.36 - Body mass index [BMI] 36.0-36.9, adult Code(s): E66.9 - Obesity, unspecified; Z68.36 - Body mass index [BMI] 36.0-36.9, adult Status: Acute Assessment and Plan: Carb controlled diet (8) Type 2 diabetes mellitus with hyperglycemia: Code(s): E11.65 - Type 2 diabetes mellitus with hyperglycemia Status: Acute Assessment and Plan: Monitor blood sugars ACHS continue medications from previous hosptial as ordered (9) Dyslipidemia: Code(s): E78.5 - Hyperlipidemia, unspecified Status: Chronic Assessment and Plan: stable continue home medication DS: Summary Hospital Course Hospital Course: This is a 71-year-old male that presented to our hospital for swing bed admission. Patient has a past medical history of A. fib, depression, diabetes, congestive heart failure, dyslipidemia, gout, history of pancreatitis, hypertension, hyperlipidemia, hypertension, sleep apnea, and osteoarthritis. Patient presented to [facility] emergency department on 10/20/2021 after having a syncopal episode due to orthostatic hypotension. While at [facility] cardiology was consulted. Patient is here at our facility for admission to our swing bed for physical deconditioning and muscle strengthening. Patient will be discharged today. Per PT it is safe for patient to discharge in his therapy has progressed as expected. Time Spent with Patient Time attestation: Total time spent providing and/or coordinating discharge services: Exam Narrative: GENERAL:Well-appearing, well-nourished, and in no acute distress. HEAD:Normocephalic, atraumatic. EYES: PERRLA and EOMI. ENT: Nares clear, no rhinorrhea or epistaxis. Mucous membranes moist. NECK: Supple. CHEST: Clear to auscultation. No respiratory distress. HEART: Regular rate and rhythm. No murmur heard. Normal peripheral pulses. ABDOMEN: Soft, nontender, nondistended, normal active bowel sounds. EXTREMITIES: Normal range of motion. No edema. SKIN: Warm, dry, no rash. NEURO: No focal deficits. Alert and oriented x3. DS: Data Data Completed and Pending Labs on day of discharge: Labs from last 24 hours 11/04/21 11/03/21 11/03/21 08:03 20:27 16:40 POC Capillary Glucose 245 H 197 H 206 H Discharge Plan Discharge Attending physician on discharge: Adolfo Balbuena Consulting providers: Soila Burkett ; Damaris Vidal Discharging Clinician: Damaris Vidal
[2021-11-04 12:00] VITALS: O2SAT 94
--- NOTE | 2021-11-04 12:50 | PC.NURSE ---
Reviewed discharge instructions with patient and spouse. All questions answered. Pt transported via wheelchair with home O2 device and assisted into private vehicle.
--- NOTE | 2021-11-05 10:45 | PC.NURSE ---
Spouse states they received and understood the discharge instructions. Spouse also states the flexeril dropped the O2 sat so she is no longer giving that to him.
== END 2021-11-04 12:50 | disposition home health service (06) | DRG 948 ==
PROVIDERS: Admitting Provider Internal Medicine; PCP Family Medicine; Visit Provider Internal Medicine
DX: R53.1 Weakness (principal); I48.20 Chronic atrial fibrillation, unspecified; J96.11 Chronic respiratory failure with hypoxia; I50.30 Unspecified diastolic (congestive) heart failure; I13.0 Hypertensive heart and chronic kidney disease with heart failure and stage 1 through stage 4 chronic kidney disease, or unspecified chronic kidney disease; I95.1 Orthostatic hypotension; N18.2 Chronic kidney disease, stage 2 (mild); I11.0 Hypertensive heart disease with heart failure; I27.21 Secondary pulmonary arterial hypertension; I35.0 Nonrheumatic aortic (valve) stenosis; I36.1 Nonrheumatic tricuspid (valve) insufficiency; I25.10 Atherosclerotic heart disease of native coronary artery without angina pectoris; E11.22 Type 2 diabetes mellitus with diabetic chronic kidney disease; E78.5 Hyperlipidemia, unspecified; M19.90 Unspecified osteoarthritis, unspecified site; G47.33 Obstructive sleep apnea (adult) (pediatric); F32.A Depression, unspecified; Z79.01 Long term (current) use of anticoagulants; Z79.82 Long term (current) use of aspirin
CPT/HCPCS: 82948; 94003; 94660; 97110; 97161; 97165; 97530; 97535; A9270; J1815

== ENCOUNTER 2022-02-15 10:39 | Inpatient (IN) | payer MEDICARE, SELFPAY ==
[2022-02-15] VITALS (41 sets, daily range): BP systolic 76–117; BP diastolic 35–70; PULSE 72–95; RESP 16–107; TEMP 36.5–36.6; O2SAT 89–95; BMI 33.3
--- NOTE | ~2022-02-15 | XR_ITS ---
EXAMINATION: XR chest 1V portable DATE: 02/19/2022 05:08 INDICATION: Pneumonia. Opacification of the left hemidiaphragm. TECHNIQUE: frontal view of the chest was obtained. COMPARISON: Chest radiograph dated 02/18/2022 FINDINGS: Right internal jugular central venous catheter with distal tip at the caudal superior vena cava. Unch anged complete opacification of left hemidiaphragm which obscures the left side of the cardiac medias tinal border with unchanged midline trachea. There does appear to be lucency extending approximately a centimeter more distally in the left mainstem bronchus. Right lung remains clear. No pneumothorax. Unchanged tiny right pleural effusion. Calcified paraesophageal lymph nodes consistent with old gran ulomatous disease. IMPRESSION: 1. Persistent complete opacification of the left hemithorax without associated volume loss which coul d represent pleural effusion, pneumonia, malignancy or some combination thereof likely with associate d atelectasis. 2. Lucency now extends slightly more distal in the left mainstem bronchus which while not precluding a malignant endobronchial lesion, could represent improvement in mucous plugging. Reviewed, dictated and finalized at location A. R INSTALLER IMPRESSION: 1. Persistent complete opacification of the left hemithorax without associated volume loss which could represent pleural effusion, pneumonia, malignancy or so me combination thereof likely with associated atelectasis. 2. Lucency now extends slightly more distal in the left mainstem bronchus which while not precluding a malignant endobronchial lesion, could represent improve ment in mucous plugging.
--- NOTE | ~2022-02-15 | XR_ITS ---
EXAMINATION: XR chest 1V portable DATE: 02/18/2022 06:11 INDICATION: Pneumonia. Opacification of the left hemithorax. TECHNIQUE: frontal view of the chest was obtained. COMPARISON: Chest radiograph dated 02/17/2022 FINDINGS: Right internal jugular central venous catheter with distal tip in the high right atrium. Complete opa cification of the left hemithorax which obscures the left side of the cardiomediastinal silhouette. N o shift of the trachea to suggest significant volume loss in the left hemithorax. Abrupt cut off of t he lucency of the left mainstem bronchus suggesting potential obstructing lesion. Plaque in the right costophrenic and cardiophrenic angles consistent with very small right pleural effusion. The prior r ight infrahilar opacities have resolved. No pneumothorax. Calcified paraesophageal lymph nodes consis tent with old granulomatous disease. IMPRESSION: 1. Persistent complete opacification of the left hemithorax with cut off at the left mainstem bronchu s and without associated volume loss which could represent pleural effusion, pneumonia, malignancy or some combination thereof with likely associated atelectasis. 2. Prior right infrahilar opacities which likely represented pulmonary edema have resolved. 3. Tiny right pleural effusion. Reviewed, dictated and finalized at location A. OLIN REPAIRER IMPRESSION: 1. Persistent complete opacification of the left hemithorax with cut off at the left mainstem bronchus and without associated volume loss which could represen t pleural effusion, pneumonia, malignancy or some combination thereof with like ly associated atelectasis. 2. Prior right infrahilar opacities which likely represented pulmonary edema cummins ve resolved. 3. Tiny right pleural effusion.
--- NOTE | ~2022-02-15 | XR_ITS ---
EXAMINATION: XR chest port-a-cath/central INDICATION: Central line placement TECHNIQUE: Portable AP chest at 1343 hours COMPARISON: 1143 hours FINDINGS: A right internal jugular central venous catheter is been inserted which ends in the distal superior vena cava. Again noted is near complete collapse of the left lung. There are minimal airspac e opacities of the right lung base. The cardiac silhouette is obscured. No pneumothorax is identified . IMPRESSION: 1. Right internal jugular central venous catheter inserted ending in the distal superior vena cava, o therwise no significant change. Reviewed, dictated and finalized at location B. [place] SALES DIRECTOR IMPRESSION: 1. Right internal jugular central venous catheter inserted ending in the distal superior vena cava, otherwise no significant change.
--- NOTE | ~2022-02-15 | XR_ITS ---
EXAMINATION: XR chest 1V portable INDICATION: Pneumonia and shortness of breath TECHNIQUE: Portable AP chest at 0551 hours COMPARISON: 02/19/2022 FINDINGS: There is continued improvement in aeration of the left lung. A moderate-sized left pleural effusion is present. Cardiomegaly is noted. A right internal jugular catheter ends with its tip in th e proximal right atrium. There is no pneumothorax. IMPRESSION: 1. Improving aeration of the left lung with residual atelectasis versus pneumonia in the lung bases. 2. Moderate-sized left pleural effusion. 3. Cardiomegaly. Reviewed, dictated and finalized at location A. IC LPN IMPRESSION: 1. Improving aeration of the left lung with residual atelectasis versus pneumon ia in the lung bases. 2. Moderate-sized left pleural effusion. 3. Cardiomegaly.
--- NOTE | ~2022-02-15 | CT_ITS ---
EXAMINATION: CT diagnostic chest wo con DATE: 02/15/2022 12:33 INDICATION: Opacification of the left hemithorax on chest radiograph TECHNIQUE: Computed tomography (CT) of the chest was performed without intravenous contrast. The dose -length product (DLP) was 682.25 mGy-cm. Automated exposure control and iterative reconstruction tech Beautylishque were employed. COMPARISON: 12/19/2019 FINDINGS: There is near complete collapse of the left lung. There are patchy areas of aeration throug hout the lung. There are a trained of, and soft tissue density within, the left mainstem bronchus. Th ere is a moderate-sized left pleural effusion. There is mild dependent atelectasis in the right lung. There is no pneumothorax. Cardiomegaly is noted. There is chronic subcarinal and right paratracheal lymphadenopathy with slight worsening. Calcified coronary artery atherosclerosis is noted. There is n odularity of the liver surface, consistent with cirrhosis. Punctate calcifications in an otherwise no rmal spleen likely represent healed granulomatous disease. Cholelithiasis is noted. There is moderate thoracic spondylosis. There is an age-indeterminate compression fracture of T12, new since the ashish rison examination. IMPRESSION: 1. Stricturing and soft tissue density of the left mainstem bronchus with associated near complete co llapse of the left lung and postobstructive pneumonia. Findings could reflect inflammation and mucous plugging versus malignancy. Bronchoscopy is recommended. 2. Cardiomegaly. 3. Chronic mediastinal lymphadenopathy with slight worsening, reactive versus metastatic. 4. Cirrhosis. Reviewed, dictated and finalized at location B. USION DIE TEMPLATE MAKER IMPRESSION: 1. Stricturing and soft tissue density of the left mainstem bronchus with assoc iated near complete collapse of the left lung and postobstructive pneumonia. Fi ndings could reflect inflammation and mucous plugging versus malignancy. Bronch oscopy is recommended. 2. Cardiomegaly. 3. Chronic mediastinal lymphadenopathy with slight worsening, reactive versus m etastatic. 4. Cirrhosis.
--- NOTE | ~2022-02-15 | XR_ITS ---
EXAMINATION: XR chest 1V portable DATE: 02/17/2022 06:07 INDICATION: Pneumonia. Opacification of the left hemithorax. TECHNIQUE: frontal view of the chest was obtained. COMPARISON: Chest radiograph dated 02/16/[address] dated 02/15/2022 FINDINGS: Complete opacification of the left hemithorax. No evident deviation of the trachea to suggest associa kumar volume loss. Pulmonary vascular congestion with increasing opacities and bronchial wall thickenin g the right lower lung zone which could represent mild pulmonary edema or pneumonia. No pneumothorax or right-sided pleural effusion. The left side of the cardiomediastinal silhouette is obscured. Calci fied paraesophageal lymph nodes likely sequela of old granulomatous disease. IMPRESSION: 1. Unchanged complete opacification of the left hemithorax with cut off of the left mainstem bronchus suggesting atelectasis but without evident volume loss suggesting additional left pleural effusion, pneumonia, malignancy or some combination thereof. Recommend further evaluation with bronchoscopy. 2. Increasing pulmonary vascular congestion in the right lung with increasing opacities and bronchial wall thickening in the lower lung zone which could represent mild pulmonary edema or pneumonia. Reviewed, dictated and finalized at location A. CAL OFFICE TECHNOLOGIST IMPRESSION: 1. Unchanged complete opacification of the left hemithorax with cut off of the left mainstem bronchus suggesting atelectasis but without evident volume loss s uggesting additional left pleural effusion, pneumonia, malignancy or some combi nation thereof. Recommend further evaluation with bronchoscopy. 2. Increasing pulmonary vascular congestion in the right lung with increasing o pacities and bronchial wall thickening in the lower lung zone which could repre sent mild pulmonary edema or pneumonia.
--- NOTE | ~2022-02-15 | XR_ITS ---
EXAMINATION: XR chest 1V portable DATE: 02/16/2022 06:14 INDICATION: Pneumonia. Opacified left hemithorax. TECHNIQUE: frontal view of the chest was obtained. COMPARISON: Chest radiograph dated 02/15/2022 FINDINGS: Persistent complete opacification of the left hemithorax which obscures the left side of the cardiome diastinal silhouette. Abrupt cutoff of the left mainstem bronchus. Persistent mild opacities at the r ight lung base. No pneumothorax or right-sided pleural effusion. Right internal jugular central venou s catheter with distal tip in the high right atrium. IMPRESSION: 1. Persistent complete opacification of the left hemithorax which could represent pleural effusion, a telectasis, pneumonia or some combination thereof. 2. Abrupt cutoff of the left mainstem bronchus which could be due to mucous plugging or malignancy. C onsider bronchoscopy for further evaluation. Reviewed, dictated and finalized at location A. X RIBBON MACHINE OPERATOR IMPRESSION: 1. Persistent complete opacification of the left hemithorax which could represe nt pleural effusion, atelectasis, pneumonia or some combination thereof. 2. Abrupt cutoff of the left mainstem bronchus which could be due to mucous plu gging or malignancy. Consider bronchoscopy for further evaluation.
--- NOTE | ~2022-02-15 | XR_ITS ---
EXAMINATION: XR chest 1V portable INDICATION: Post bronchoscopy TECHNIQUE: Portable AP chest at 1233 hours COMPARISON: 0445 hours FINDINGS: There is a large left pleural effusion. There is improved aeration in the left upper lung z one. A right internal jugular central venous catheter ends with its tip at the superior cavoatrial ju nction. Cardiomegaly is noted. The right lung is clear. There is no pneumothorax. IMPRESSION: 1. Improved aeration in the left upper lung zone, possibly related to bronchoscopy. 2. Large left pleural effusion. Reviewed, dictated and finalized at location B. MAKER HELPER IMPRESSION: 1. Improved aeration in the left upper lung zone, possibly related to bronchosc opy. 2. Large left pleural effusion.
--- NOTE | ~2022-02-15 | XR_ITS ---
EXAMINATION: XR chest 1V portable DATE: 02/15/2022 11:49 INDICATION: Cough. Nausea. TECHNIQUE: A single frontal view of the chest was obtained. COMPARISON: Chest single view 10/20/2021, chest CT 12/19/2019 FINDINGS: There is near complete opacification of left hemithorax. No pneumothorax. Cardiomegaly is n oted. IMPRESSION: 1. New near complete opacification of left hemithorax, likely a combination of large pleural effusion and atelectasis versus pneumonia. Consider CT. 2. Cardiomegaly. Reviewed, dictated and finalized at location A. OCHIP SPECIALIST
--- NOTE | ~2022-02-15 | XR_ITS ---
EXAMINATION: XR chest 1V portable DATE: 02/22/2022 08:37 INDICATION: Pneumonia. Collapsed left lung. TECHNIQUE: A single frontal view of the chest was obtained. COMPARISON: Chest single view 02/20/2022, chest CT 02/15/2022 FINDINGS: There is a small left pleural effusion. There are airspace opacities at left lung base. No pneumothorax. Cardiomegaly is noted. A right internal jugular central venous catheter is seen with ti p in the right atrium. IMPRESSION: 1. Stable small left pleural effusion. 2. Stable airspace opacities at left lung base, consistent with atelectasis versus pneumonia. 3. Cardiomegaly. Reviewed, dictated and finalized at location A. SION MERCHANDISE MANAGER IMPRESSION: 1. Stable small left pleural effusion. 2. Stable airspace opacities at left lung base, consistent with atelectasis keya ginger pneumonia. 3. Cardiomegaly.
--- NOTE | 2022-02-15 11:03 | ECG_ITS ---
Measurements Intervals [place] Rate: 80 P: AR: 0 QRS: 41 QRSD: 96 T: 208 QT: 345 QTc: 399 Interpretive Statements ATRIAL FIBRILLATION INCOMPLETE RIGHT BUNDLE BRANCH BLOCK ST-T WAVE ABNORMALITY IN ANTEROLAT/HIGH LAT LEADS- CONSIDER ISCHEMIA ABNORMAL ECG COMPARED TO ECG 10/20/2021 18:07:45 INCOMPLETE RIGHT BUNDLE-BRANCH BLOCK NOW PRESENT Electronically Signed On 02-15-2022 11:18:55 SECRETARY SPECIALIST by Da Dickey D.O.
--- NOTE | 2022-02-15 11:15 | ED.GENADULT ---
HPI - General Adult General Chief complaint: Recheck/Abnormal Lab/Rx Stated complaint: low bp Time Seen by Provider: 02/15/22 10:47 Source: RN notes reviewed History of Present Illness HPI narrative: Patient presents emergency department from home via EMS for shortness of breath. Patient states has been feeling short of breath for the past 2 days states has been associate with a cough this been nonproductive patient also notes he has been having associated nausea. He states that he is chronically on 4 L nasal cannula at all times. He denies any fevers or chills chest pain abdominal pain vomiting or diarrhea. When EMS arrived today they noted the patient did have a low blood pressure and patient was transferred to the ER for further evaluation he states he has been feeling weak whenever he gets up to ambulate around his house Related Data Home Medications Medication Instructions Recorded Confirmed aspirin 81 mg chewable tablet 81 mg PO DAILY 02/20/19 02/15/22 vitamin B complex (B 1,000 tablet PO QPM 02/20/19 02/15/22 Complex-Vitamin B12 tablet) digoxin 125 mcg (0.125 mg) tablet 125 mcg PO DAILY 02/27/19 02/15/22 metoprolol tartrate 50 mg tablet 75 mg PO Q12H 02/27/19 02/15/22 budesonide 160 mcg-glycopyr 9 2 inh inhalation BID 09/24/21 02/15/22 mcg-formot 4.8 mcg/actuation HFA inhaler (Breztri Aerosphere) Allergies Allergy/AdvReac Type Severity Reaction Status Date / Time No Known Allergies Allergy Verified 01/15/22 09:42 Review of Systems Review of Systems: Gen.: Denies fevers or chills ENT: Denies congestion Respiratory: See HPI CV: Denies chest pain or palpitations GI: Denies abdominal pain emesis or diarrhea. Reports nausea Musculoskeletal: Denies back pain or muscle pain Neuro: Denies numbness, tingling, weakness or focal weakness Skin: Denies rash Except as documented, all other systems reviewed and negative [facility] Past Medical History Medical History Aortic stenosis Arthritis of right knee Atrial fibrillation and flutter Bilateral pleural effusion Body mass index (BMI) 35 or more (04/25/18) CHF (congestive heart failure) Cholelithiasis Chronic anticoagulation Chronic atrial fibrillation Three failed cardioversions. He is on long-term anticoagulation. Chronic respiratory failure with hypoxia 2-3 L nasal cannula with rest, 3-4 L with activity. Cirrhosis CKD (chronic kidney disease), stage II COPD (chronic obstructive pulmonary disease) Dependence on nocturnal oxygen therapy Depression Diastolic congestive heart failure Echocardiogram 07/31/2018 showed diastolic dysfunction. Left ventricular size was normal with mild concentric left ventricular hypertrophy and increased left heart filling pressures with an estimated ejection fraction of 55%. Right ventricle was moderately enlarged with mild right ventricular hypokinesis. See latest echo on 06/01/2019 with an EF of 70-75% and diastolic dysfunction Dyslipidemia Erectile dysfunction Gout History of pancreatitis July 2016, secondary to passed common bile duct stone. Hyperlipidemia Hypertension Low testosterone in male Mediastinal adenopathy Obstructive sleep apnea Osteoarthritis Severe pulmonary arterial systolic hypertension Noted on echocardiogram 07/31/2018 with an estimated peak RVSP of 68 mmHg. Right ventricle was moderately enlarged with mild right ventricular hypokinesis. Testicular hypofunction Type 2 diabetes mellitus with hyperglycemia Valvular heart disease Echocardiogram 07/31/2018 with [id number] tricuspid regurgitation and possible bicuspid aortic valve. Surgical History Surgical History Status post cataract extraction Family History Family History Grandparent Family history of cardiovascular disease Mother High cholesterol Other Diabetes mellitus
[2022-02-15] MEDS: SODIUM CHLORIDE 0.9% IV 1,000 ML 999 ML IV CONT ×2 (11:38→12:42)
[2022-02-15 11:41] LABS: Hemoglobin 11.3 g/dL (14.0-18.0); Mean Corpuscular HGB Conc 31.4 g/dl (32-36); Mean Corpuscular Hemoglobin 28.8 pg (26-34); Mean Corpuscular Volume 91.8 fl (80-100); Mean Platelet Volume 11.3 fl (7.4-10.4); Platelet Count Result 265 k/mm3 (150-375); Red Blood Count 3.92 M/mm3 (4.6-6.20); Red Cell Distribution Width 17.2 % (11.5-14.5); White Blood Count 30.5 K/mm3 (4.5-10.0)
[2022-02-15 11:53] LABS: Albumin Level 3.6 g/dL (3.5-5.1); Alkaline Phosphatase 90 U/L (38-126); Anion Gap 17 mmol/L (8-16); Aspartate Amino Transferase 28 U/L (17-59); Bilirubin,Total 1.5 mg/dL (0.2-1.3); Blood Urea Nitrogen 45 mg/dL (9-20); Carbon Dioxide 23 mmol/L (22-30); Chloride 95 mmol/L (98-107); Estimated CRCL calculation 42 ml/min; Estimated Glomerular Filt Rate 40; Glucose 198 mg/dL (65-110); INR 3.1; Magnesium 1.5 mg/dL (1.6-2.3); Potassium 5.2 mmol/L (3.4-5.0); Prothrombin Time 31.1 Seconds (11.1-14.7); Sodium 135 mmol/L (137-145)
[2022-02-15 11:54] LABS: Partial Thromboplastin Time 50.6 SECONDS (22.3-36.8)
[2022-02-15 11:55] LABS: Band Neutrophils Percent 22 % (0-6); Lymphocytes Absolute Manual 2.13 K/mm3 (1.1-4.5); Monocytes Absolute Manual 0.61 K/mm3 (0.1-0.90); Monocytes Percent Manual 2 % (3-9); Neutrophils Absolute Manual 27.75 K/mm3 (1.3-6.7); Neutrophils Percent Manual 69 % (46-73); Total Cells Counted 100
[2022-02-15 11:56] LABS: Platelet Estimate Adequate (Adequate); Schistocytes None Seen (NORMAL)
[2022-02-15 11:57] LABS: Anisocytosis 1+ (NORMAL); Hypochromasia 1+ (NORMAL); Poikilocytosis 1+ (NORMAL)
[2022-02-15 12:01] LABS: Lipase < 10 U/L (23-300)
[2022-02-15 12:02] LABS: Alanine Aminotransferase 33 U/L (6-50)
[2022-02-15 12:14] LABS: NT Pro B Type Natriuretic Pept 9510 pg/mL (5-100)
[2022-02-15 12:17] LABS: Influenza A QL RT-PCR Negative (Negative); Influenza B QL RT-PCR Negative (Negative); SARS-CoV-2 RNA PCR Negative
[2022-02-15] MEDS: MAGNESIUM SULF 2 GM/WATER 50ML 2 GM/50 ML BAG IVPB (12:44)
[2022-02-15] MEDS: ALBUTEROL SULFATE NEB 2.5 MG/3 ML INH 5 MG INHALATION (13:06)
[2022-02-15] MEDS: IPRATROPIUM BR 0.02% INH SOLN 0.5 MG/2.5 ML VIAL INHALATION ×3 (13:06→19:56)
--- NOTE | 2022-02-15 13:23 | PCRCNOTE ---
placing central line at this time, ABG will be obtained at a later time. Dr Berenice mckeon.
[2022-02-15 13:29] LABS: Appearance Urine Slightly Cloudy (Clear); Bilirubin Urine 1+ (Negative); Blood Urine 2+ (Negative); Color Urine Dark Yellow (Yellow); Glucose Urine UA 1+ mg/dL (Negative); Ketones Urine Trace mg/dL (Negative); Leukocyte Esterase Ur Trace LEU/UL (Negative); Nitrate Urine Positive (Negative); Protein Urine 2+ mg/dL (Negative); Specific Grav Ur 1.015 (1.001-1.035)
--- NOTE | 2022-02-15 13:30 | PM.IMHP ---
H&P: HPI History of Present Illness Date/Time: 02/15/22 13:30 Chief Complaint: Low blood pressure. Narrative: This is a 71-year-old?male with chronic respiratory failure with hypoxia and chronic oxygen dependence, severe pulmonary hypertension by echocardiogram in July 2018, diastolic congestive heart failure, obstructive sleep apnea, chronic atrial fibrillation, cirrhosis, chronic kidney disease, and insulin-dependent diabetes who presented to the emergency department for evaluation of low blood pressure. He has not felt well for couple of days with symptoms to include generalized malaise, cough productive of yellow sputum, decreased appetite, nausea, and emesis x1. He was increasingly weak this morning and found his blood pressure to be low at home and EMS was summoned. Blood pressure was 84/61 in the ED and he remained hypotensive despite adequate IV fluid resuscitation. A central line has since been inserted and he has been started on norepinephrine. Workup was significant for white blood cell count of 27.7 with a left shift, a lactic acid level of 6.0, elevated BUN and creatinine from baseline, and mild electrolyte abnormalities. Chest x-ray showed near complete opacification of the left hemithorax as subsequent CT of the chest showed stricturing and soft tissue density of the left mainstem bronchus with associated near complete collapse of the left lung and postobstructive pneumonia which could be due to inflammation, mucus plugging, or malignancy. He has been started on cefepime, levofloxacin, and vancomycin and he is being admitted to the ICU for further care. At the time my evaluation he is feeling a bit better after receiving IV fluids. He denies headache, neck ache, chest pain, pleuritic pain, and diarrhea. No known sick contacts. Review of Systems Review of Systems: Twelve systems were reviewed and are negative except for as per HPI. [facility] Past Medical History Medical History Aortic stenosis Arthritis of right knee Atrial fibrillation and flutter Bilateral pleural effusion Body mass index (BMI) 35 or more (04/25/18) CHF (congestive heart failure) Cholelithiasis Chronic anticoagulation Chronic atrial fibrillation Three failed cardioversions. He is on long-term anticoagulation. Chronic respiratory failure with hypoxia 2-3 L nasal cannula with rest, 3-4 L with activity. Cirrhosis CKD (chronic kidney disease), stage II COPD (chronic obstructive pulmonary disease) Dependence on nocturnal oxygen therapy Depression Diastolic congestive heart failure Echocardiogram 07/31/2018 showed diastolic dysfunction. Left ventricular size was normal with mild concentric left ventricular hypertrophy and increased left heart filling pressures with an estimated ejection fraction of 55%. Right ventricle was moderately enlarged with mild right ventricular hypokinesis. See latest echo on 06/01/2019 with an EF of 70-75% and diastolic dysfunction Dyslipidemia Erectile dysfunction Gout History of pancreatitis July 2016, secondary to passed common bile duct stone. Hyperlipidemia Hypertension Low testosterone in male Mediastinal adenopathy Obstructive sleep apnea Osteoarthritis Severe pulmonary arterial systolic hypertension Noted on echocardiogram 07/31/2018 with an estimated peak RVSP of 68 mmHg. Right ventricle was moderately enlarged with mild right ventricular hypokinesis. Testicular hypofunction Type 2 diabetes mellitus with hyperglycemia Valvular heart disease Echocardiogram 07/31/2018 with [id number] tricuspid regurgitation and possible bicuspid aortic valve. Surgical History Surgical History Status post cataract extraction Family History Family History Grandparent Family history of cardiovascular disease Mother High cholesterol Other Diabetes mellitus
[2022-02-15 13:35] LABS: Hyaline Casts Urine 15-19 /lpf; Mucus Urine Rare /lpf; Squamous Epithelial Cell Urine Rare /hpf (Few)
[2022-02-15 13:38] LABS: Add Urine Microscopic? YES
--- NOTE | 2022-02-15 13:53 | WPDPROCEDUR ---
Procedures Central Line Placement Right IJ: Central Line Date: 02/15/22 Central Line Time: 13:25 Discussed w/ the patient/family/POA,the placement of a central venous catheter, including its clinical necessity/indication & associated potential risks, benifits and alternatives.: Yes The patient/family/POA understand(s) and acknowledge(s) the need to proceed with central venous catheter insertion as an important element of the patient's clinical management.: Yes Consent: I have discussed with the patient and/or surrogate, the non-emergent placement of a central venous catheter, including its clinical necessity/indication and associated potential risks and complications. The patient and/or surrogate understand(s) and acknowledge(s) the need to proceed with central venous catheter insertion as an important element of the patient's clinical management. Time Out Performed: Yes Patient Position: supine Patient placed on monitor/pulse ox: Yes Provider Prep: mask, sterile gown, sterile gloves, Max. sterile barrier precautions, cap and hand hygiene with conventional soap/water or alcohol based hand rub Central line prep: 2% Chlorhexidine scrub Local anesthesia used: lidocaine 1% Sterile US Technique with sterile gel/sterile probe covers: Yes Central line lumen inserted: triple Bengali: 12 Depth of Insertion (cm): 16 Post Procedure: sutured in place, good blood return, all ports aspirated, flushed, capped, transparent dressing, hemostatic product, antimicrobial product, securement product and aseptic technique maintained throughout procedure Post procedure x-ray: tip of catheter in good position and no pneumothorax seen Patient tolerated procedure: well Complications: none
--- NOTE | 2022-02-15 13:56 | WPDCNINT ---
Assessment and Plan Assessment and plan (1) Septic shock: Code(s): A41.9 - Sepsis, unspecified organism; R65.21 - Severe sepsis with septic shock Status: Acute Assessment and Plan: Patient presented with shortness of breath, hypotension, elevated lactic acid, acute on chronic kidney injury -patient was given 2 L IV fluids in the ER -I placed a central line and down in the ER on 02/15/2022 -will give additional IV fluids -started on albumin -will try and maintain systolic blood pressures greater than 100 mmHg and map > 65 mmHg for adequate end organ perfusion -patient has been started on cefepime, vancomycin Levaquin was added by pulmonology (02/15) -lactic acid and monitor urine output (2) Pneumonia: Code(s): J18.9 - Pneumonia, unspecified organism Status: Acute Assessment and Plan: 02/15/2022 chest x-ray: New knee a complete opacification of the left hemithorax 02/15/2022 CT scan of the chest: 1. Stricturing and soft tissue density of the left mainstem bronchus with associated near complete collapse of the left lung and postobstructive pneumonia. Findings could reflect inflammation and mucous plugging versus malignancy. Bronchoscopy is recommended. 2. Cardiomegaly.3. Chronic mediastinal lymphadenopathy with slight worsening, reactive versus metastatic. 4. Cirrhosis. -Continue antibiotics as above -will add Mucomyst, Pulmozyme -chest PT with vest and percussion therapy per RT -will add bronchodilators, Xopenex and Atrovent -will keep the good lung down for adequate perfusion and oxygenation (3) Chronic atrial fibrillation: Code(s): I48.20 - Chronic atrial fibrillation, unspecified Status: Chronic Assessment and Plan: Patient with history of chronic atrial fibrillation on Eliquis, -continue aspirin -will start heparin infusion, hemoglobin and platelet counts are at baseline -currently rate controlled Continue to monitor (4) Insulin dependent diabetes mellitus: Code(s): E11.9 - Type 2 diabetes mellitus without complications; Z79.4 - custodial (current) use of insulin Status: Chronic Assessment and Plan: Accu-Cheks and sliding scale insulin (5) Dyslipidemia: Code(s): E78.5 - Hyperlipidemia, unspecified Status: Chronic Assessment and Plan: Continue atorvastatin (6) Severe pulmonary arterial systolic hypertension: Code(s): I27.21 - Secondary pulmonary arterial hypertension Status: Chronic Assessment and Plan: Chronic (7) COPD (chronic obstructive pulmonary disease): Qualifiers: COPD type: emphysema Emphysema type: panlobular Qualified Code(s): J43.1 - Panlobular emphysema Code(s): J44.9 - Chronic obstructive pulmonary disease, unspecified Status: Acute Assessment and Plan: Continue bronchodilators, supplemental oxygen (8) UTI (urinary tract infection): Code(s): N39.0 - Urinary tract infection, site not specified Status: Acute Assessment and Plan: Continue antibiotics as above -urine cultures have been obtained (9) CHF (congestive heart failure): Code(s): I50.9 - Heart failure, unspecified Status: Acute Assessment and Plan: History of congestive heart failure, -elevated proBNP -will be cautious with IV fluids (10) Aortic stenosis: Code(s): I35.0 - Nonrheumatic aortic (valve) stenosis Status: Acute Assessment and Plan: 09/25/2021 echocardiogram showed EF of 60-65%, RV chamber is mildly enlarged, mild aortic valve stenosis, moderate pulmonary hypertension (11) Cirrhosis: Code(s): K74.60 - Unspecified cirrhosis of liver Status: Acute Assessment and Plan: Patient with history of cirrhosis -normal limits, total bilirubin is 1.5 -will continue to monitor Plan DVT prophylaxis: Will start heparin infusion Stress ulcer prophylaxis: Patient on a diet Nutrition: Diabetic Code Status: Full code
--- NOTE | 2022-02-15 14:03 | PC.NURSE ---
This patient, Rivas Hollingsworth, was admitted to Intensive Care Unit-5. Patient/family oriented to hospital policies and general routines including ID bracelet, bed and alarms, visiting hours, pain management, procedures, bathroom and other care routines, personal items, smoking policy, room service/diet, and visiting hours. Information on how to activate the Rapid Response Team has been discussed. Patient/Family are encouraged to report perceived risks to care and to ask questions if they do not understand what they are told or what they should do.
[2022-02-15 14:22] LABS: Digoxin 0.8 ng/mL (0.8-2.0)
[2022-02-15 14:25] LABS: Troponin I 0.019 ng/mL (0.000-0.034)
[2022-02-15] MEDS: SODIUM CHLORIDE 0.9% IV 1,000 ML 100 ML IV CONT (14:25)
[2022-02-15] MEDS: CENTRAL LINE FLUSH 10 ML IV PUSH ×2 (14:26→17:38)
[2022-02-15 14:38] LABS: Reflex Lactic Acid Yes or No Add Lactic
[2022-02-15 14:46] LABS: Alveolar/Arterial O2 Gradient 184.6 mmHg; Base Excess ABG -6.9 mEq/l (+/-2.0); Carboxyhemoglobin 0.3 % THb (0-2.0); Fractional Inspired Oxygen 40 %; HCO3 ABG 18.8 mEq/l (22.0-26.0); Methemoglobin ABG 0.2 %THb (0-1.5); Oxygen Content ABG 14.1 %vol (16.0-22.0); PCO2 ABG 38.6 mmHg (35.0-45.0); PO2 ABG 56.2 mmHg (80.0-100.0); Total Hemoglobin 11.6 g/dL (12.0-18.0); pH ABG 7.306 (7.350-7.450)
[2022-02-15 14:48] LABS: Device NASAL CANNULA; Modified Allen's Test Pass; Oxygen Saturation ABG 86.7 % (95.0-100.0); Oxyhemoglobin 86.5 % THb (90.0-100.0); Site Drawn RIGHT RADIAL
[2022-02-15] MEDS: LEVALBUTEROL NEB 1.25 MG/3 ML 0.63 MG INHALATION ×2 (15:18→19:56)
[2022-02-15] MEDS: DORNASE ALFA INH SOLN 1 MG/ML 2.5 ML AMP 2.5 MG INHALATION (15:19)
[2022-02-15] MEDS: BUDESONIDE RESPULE NEB 0.5 MG/2 ML AMP INHALATION ×2 (15:19→19:55)
[2022-02-15 15:20] LABS: Hematocrit 31.8 % (42.0-52.0); Mean Corpuscular HGB Conc 31.4 g/dl (32-36); Mean Corpuscular Hemoglobin 28.9 pg (26-34); Mean Corpuscular Volume 91.9 fl (80-100); Mean Platelet Volume 11.2 fl (7.4-10.4); Platelet Count Result 212 k/mm3 (150-375); Red Blood Count 3.46 M/mm3 (4.6-6.20); Red Cell Distribution Width 17.2 % (11.5-14.5); White Blood Count 27.7 K/mm3 (4.5-10.0)
[2022-02-15 15:29] LABS: Lactic Acid Reflex 3.6 mmol/L (0.7-2.0)
[2022-02-15 15:40] LABS: INR 3.6; Prothrombin Time 35.1 Seconds (11.1-14.7)
[2022-02-15 15:41] LABS: Partial Thromboplastin Time 53.5 SECONDS (22.3-36.8)
[2022-02-15] MEDS: LACTATED RINGERS 500 ML 999 ML IV CONT (15:45)
[2022-02-15] MEDS: ALBUMIN HUMAN 25% 25 GM/100 ML 100 ML IVPB ×2 (15:51→22:00)
[2022-02-15] MEDS: HEPARIN SOD/D5W 100 UNITS/ML 25,000 UNITS/250 ML BAG 15 UNITS IV CONT (15:57)
[2022-02-15 16:04] LABS: Glucose Point of Care 246 mg/dl (65-105)
[2022-02-15] MEDS: INSULIN ASPART (*BKC) 100 UNITS/ML SUB-Q (16:05)
[2022-02-15 17:05] LABS: Band Neutrophils Percent 17 % (0-6); Eosinophils Absolute Manual 0.27 K/mm3 (0.02-0.5); Eosinophils Percent Manual 1 % (0-4); Lymphocytes Absolute Manual 1.38 K/mm3 (1.1-4.5); Monocytes Percent Manual 4 % (3-9); Neutrophils Absolute Manual 24.93 K/mm3 (1.3-6.7); Neutrophils Percent Manual 73 % (46-73); Platelet Estimate Adequate (Adequate); Schistocytes None Seen (NORMAL); Total Cells Counted 100
[2022-02-15 17:06] LABS: Anisocytosis 2+ (NORMAL); Hypochromasia 1+ (NORMAL)
[2022-02-15 17:28] LABS: Anion Gap 18 mmol/L (8-16); Blood Urea Nitrogen 47 mg/dL (9-20); Calcium 7.1 mg/dL (8.4-10.2); Carbon Dioxide 20 mmol/L (22-30); Chloride 95 mmol/L (98-107); Estimated CRCL calculation 43 ml/min; Estimated Glomerular Filt Rate 40; Glucose 238 mg/dL (65-110); Magnesium 1.9 mg/dL (1.6-2.3); Potassium 5.2 mmol/L (3.4-5.0); Sodium 133 mmol/L (137-145)
[2022-02-15 17:42] LABS: Troponin I 0.023 ng/mL (0.000-0.034)
[2022-02-15] MEDS: NOREPINEPHRINE 8 MG/D5W 250 ML 8 MG/250 ML BAG 9.38 MG IV CONT (20:11)
[2022-02-15 21:15] LABS: Partial Thromboplastin Time 103.7 SECONDS (22.3-36.8)
[2022-02-15 21:27] LABS: Troponin I 0.025 ng/mL (0.000-0.034)
[2022-02-15] MEDS: ACETYLCYSTEINE 20% INHAL SOLN 800 MG/4 ML VIAL 200 MG INHALATION (21:44)
[2022-02-16] VITALS (25 sets, daily range): BP systolic 102–131; BP diastolic 53–87; PULSE 79–126; RESP 17–33; TEMP 36.4–36.8; O2SAT 80–96
[2022-02-16 00:25] LABS: Glucose Point of Care 186 mg/dl (65-105)
[2022-02-16] MEDS: CENTRAL LINE FLUSH 10 ML IV PUSH ×5 (01:10→20:17)
[2022-02-16] MEDS: SODIUM CHLORIDE 0.9% IV 1,000 ML 100 ML IV CONT (01:11)
[2022-02-16] MEDS: ACETYLCYSTEINE 20% INHAL SOLN 800 MG/4 ML VIAL 200 MG INHALATION ×4 (02:33→20:06)
[2022-02-16] MEDS: LEVALBUTEROL NEB 1.25 MG/3 ML 0.63 MG INHALATION ×4 (02:33→20:06)
[2022-02-16] MEDS: IPRATROPIUM BR 0.02% INH SOLN 0.5 MG/2.5 ML VIAL INHALATION ×4 (02:35→20:07)
[2022-02-16] MEDS: ALBUMIN HUMAN 25% 25 GM/100 ML 100 ML IVPB ×2 (04:00→09:30)
[2022-02-16 05:23] LABS: Hematocrit 30.4 % (42.0-52.0); Hemoglobin 9.8 g/dL (14.0-18.0); Mean Corpuscular HGB Conc 32.2 g/dl (32-36); Mean Corpuscular Volume 89.9 fl (80-100); Mean Platelet Volume 11.4 fl (7.4-10.4); Platelet Count Result 216 k/mm3 (150-375); Red Blood Count 3.38 M/mm3 (4.6-6.20); White Blood Count 22.9 K/mm3 (4.5-10.0)
[2022-02-16 05:33] LABS: Alanine Aminotransferase 18 U/L (6-50); Albumin Level 3.7 g/dL (3.5-5.1); Alkaline Phosphatase 84 U/L (38-126); Anion Gap 16 mmol/L (8-16); Aspartate Amino Transferase 26 U/L (17-59); Bilirubin,Total 1.2 mg/dL (0.2-1.3); Blood Urea Nitrogen 51 mg/dL (9-20); Calcium 7.4 mg/dL (8.4-10.2); Carbon Dioxide 22 mmol/L (22-30); Chloride 97 mmol/L (98-107); Estimated CRCL calculation 43 ml/min; Estimated Glomerular Filt Rate 40; Glucose 161 mg/dL (65-110); Lactic Acid Reflex 1.5 mmol/L (0.7-2.0); Phosphorus 4.4 mg/dL (2.5-4.5); Potassium 4.7 mmol/L (3.4-5.0); Sodium 135 mmol/L (137-145)
[2022-02-16 05:37] LABS: INR 3.5; Prothrombin Time 33.8 Seconds (11.1-14.7)
[2022-02-16 05:44] LABS: Alveolar/Arterial O2 Gradient 351.3 mmHg; Base Excess ABG -4.3 mEq/l (+/-2.0); Carboxyhemoglobin 0.3 % THb (0-2.0); Fractional Inspired Oxygen 65 %; HCO3 ABG 21.5 mEq/l (22.0-26.0); Oxygen Content ABG 13.9 %vol (16.0-22.0); Oxygen Saturation ABG 91.7 % (95.0-100.0); PCO2 ABG 42.3 mmHg (35.0-45.0); PO2 ABG 66.2 mmHg (80.0-100.0); PO2 FiO2 Ratio Arterial Blood 1.02 %; Reduced Hemoglobin 8.7 %THb (0-5.0); Total Hemoglobin 10.8 g/dL (12.0-18.0); pH ABG 7.324 (7.350-7.450)
[2022-02-16 05:55] LABS: Anisocytosis 1+ (NORMAL); Band Neutrophils Percent 16 % (0-6); Eosinophils Absolute Manual 0.22 K/mm3 (0.02-0.5); Eosinophils Percent Manual 1 % (0-4); Lymphocytes Absolute Manual 1.37 K/mm3 (1.1-4.5); Metamyelocytes Percent 2 %; Microcytosis 1+ (NORMAL); Monocytes Absolute Manual 0.45 K/mm3 (0.1-0.90); Monocytes Percent Manual 2 % (3-9); Neutrophils Absolute Manual 20.38 K/mm3 (1.3-6.7); Neutrophils Percent Manual 73 % (46-73); Ovalocytes 2+ (NORMAL); Platelet Clumps Present; Platelet Estimate Adequate (Adequate); Poikilocytosis 2+ (NORMAL); Spherocytes 1+ (NORMAL); Tear Drop Cells 1+ (NORMAL); Total Cells Counted 100
[2022-02-16 05:56] LABS: Crenated RBC 1+ (NORMAL); Schistocytes 1+ (NORMAL)
[2022-02-16 06:14] LABS: Device HIGH FLOW THERAPY; Modified Allen's Test Pass; Site Drawn RIGHT RADIAL
[2022-02-16] MEDS: BUDESONIDE RESPULE NEB 0.5 MG/2 ML AMP INHALATION ×2 (07:38→20:07)
--- NOTE | 2022-02-16 09:13 | PM.CNPUL ---
Assessment and Plan Assessment and plan (1) Pneumonia: Code(s): J18.9 - Pneumonia, unspecified organism Status: Acute Assessment and Plan: Patient with a see history of COPD and presents now with septic shock from left-sided pneumonia. Patient presented with a leukocytosis 30.5, bandemia 22%, acute kidney injury with creatinine of 1.70, lactic acidosis of 6.0. Patient was fluid resuscitated and treated with Levophed for hypotension. Imaging demonstrates left lung infiltrate and consolidation with a proximal left mainstem obstruction from a mucous plug or cancer. 02/16 Blood cultures are negative, COVID RT PCR negative, influenza swab negative. I will order urine pneumococcal antigen, urine Legionella antigen, mycoplasma IgM and an extended respiratory pathogen panel. Agree with vancomycin, cefepime and Levaquin all started 02/15. For possible mucus plugging, patient is on nebulized levalbuterol, ipratropium, budesonide, Mucomyst and dornase venkat. continue chest physiotherapy and I will order a Cornet flutter valve. patient is currently on Levophed and high-flow nasal cannula with adequate oxygenation. A bronchoscopy at this time would certainly require and result in mechanical ventilation post procedure. favor aggressive leak treating possible mucous plugging for the next 24-48 hours in hopes of avoiding mechanical ventilation. Repeat chest x-ray on 02/17. (2) COPD (chronic obstructive pulmonary disease): Code(s): J44.9 - Chronic obstructive pulmonary disease, unspecified Status: Acute Assessment and Plan: This is a 71-year-old?male with GOLD grade 2 group D COPD (FEV1 2.13 L, 73% on 04/23/2019) with chronic hypoxic and hypercarbic respiratory failure on 4 L with rest and ambulation and trilogy AVAPS-AE with 9 L bleed in at night, moderate pulmonary hypertension by echocardiogram (PASP 51 on 09/25/2021). He is maintained on home breztri. 02/16 No wheezes at this time. Continue on nebulized levalbuterol 0.63 Q 6, ipratropium 0.5 Q 6, and budesonide 0.[address] Borja, will follow with you. History of Present Illness History of Present Illness Consult date: 02/16/22 Chief complaint: Severe Sepsis/[facility] pneumonia/Acute Renal In Narrative: 02/16/2022: This is a new pulmonary consult for left lung collapse. This is a 71-year-old?male with GOLD grade 2 group D COPD (FEV1 2.13 L, 73% on 04/23/2019) with chronic hypoxic and hypercarbic respiratory failure on 4 L with rest and ambulation and trilogy AVAPS-AE with 9 L bleed in at night, moderate pulmonary hypertension by echocardiogram (PASP 51 on 09/25/2021), diastolic congestive heart failure, GILES, chronic atrial fibrillation on eliquis, cirrhosis, chronic kidney disease, and insulin-dependent diabetes. patient presented to [facility] ED on 02/15 with 1 week history of cough and 3-4 days history of shortness of breath nausea and weakness. Patient's blood pressure was low at home and he presented to the emergency room and was hypotensive, saturations on 4 L were 92%, white blood cell count was 30.5 with 22% bands, creatinine was 1.70, lactic acid was 6.0, troponin was negative x3, BNP 9510, INR 3.1 COVID RT PCR study negative, influenza swab negative, ABG on 5 L was 7.31/39/56. Patient had a chest x-ray with left lung infiltrate and consolidation with no shift of the trachea. CT scan of the chest showed left lung infiltrate, consolidation, mucus in the distal trachea and proximal left mainstem with no shift to the mediastinum. There is a possible stricture or mucus plugging in the left mainstem. The patient was started on vancomycin, cefepime and Levaquin. Patient was given IV fluids and transferred to the intensive care unit where he ultimately required Levophed for hypotension. Patient's lactic acid normalized. patient required high-flow nasal cannula 60 L and 65% FiO2. 02/16 Today the patient tells me he feels better
[2022-02-16] MEDS: ASPIRIN 81 MG CHEWABLE TABLET PO (09:29)
[2022-02-16] MEDS: ATORVASTATIN 10 MG TABLET PO (09:29)
[2022-02-16] MEDS: SODIUM CHLORIDE 0.9% IV 1,000 ML 50 ML IV CONT (10:15)
--- NOTE | 2022-02-16 10:56 | WPDINTPN ---
Progress Note: A&P Assessment and Plan (1) Septic shock: Code(s): A41.9 - Sepsis, unspecified organism; R65.21 - Severe sepsis with septic shock Status: Acute Assessment and Plan: Patient presented with shortness of breath, hypotension, elevated lactic acid, acute on chronic kidney injury -patient was given 2 L IV fluids in the ER and started on IV fluids -central venous catheter was placed and patient was started on Levophed -Levophed has been weaned off at this time. Continue as needed to maintain map of 65 -continue albumin -lactic acid and monitor urine output (2) Pneumonia: Code(s): J18.9 - Pneumonia, unspecified organism Status: Acute Assessment and Plan: 02/15/2022 chest x-ray: New complete opacification of the left hemithorax 02/15/2022 CT scan of the chest: 1. Stricturing and soft tissue density of the left mainstem bronchus with associated near complete collapse of the left lung and postobstructive pneumonia. Findings could reflect inflammation and mucous plugging versus malignancy. Bronchoscopy is recommended. 2. Cardiomegaly.3. Chronic mediastinal lymphadenopathy with slight worsening, reactive versus metastatic. 4. Cirrhosis. Left lung pneumonia with possible postobstructive component from airway mass Patient seen by Pulmonary Continue vancomycin cefepime and Levaquin Continue Mucomyst, Pulmozyme and chest PT to try to mobilize secretions Patient is trying to lay on his right side On Airvo. BiPAP ordered for night and p.r.n.. Patient refused to wear it last night Continue bronchodilators, Xopenex and Atrovent Patient will eventually need bronchoscopy per this time his respiratory status now allow bronchoscopy without intubation and mechanical vent. Patient also on anticoagulation with will preclude any biopsy Discussed with Dr. Gregg from Pulmonary. Continue current management. In case patient improves, then he may be able to do a bronchoscopy without him requiring mechanical ventilation. (3) Chronic atrial fibrillation: Code(s): I48.20 - Chronic atrial fibrillation, unspecified Status: Chronic Assessment and Plan: Patient with history of chronic atrial fibrillation on Eliquis, -continue aspirin -patient was started on heparin infusion -patient is now having hemoptysis hence I will hold anticoagulation at this time -AFib is currently rate controlled Continue to monitor (4) Insulin dependent diabetes mellitus: Code(s): E11.9 - Type 2 diabetes mellitus without complications; Z79.4 - continuous churn buttermaker (current) use of insulin Status: Chronic Assessment and Plan: Accu-Cheks and sliding scale insulin (5) Dyslipidemia: Code(s): E78.5 - Hyperlipidemia, unspecified Status: Chronic Assessment and Plan: Continue atorvastatin (6) Severe pulmonary arterial systolic hypertension: Code(s): I27.21 - Secondary pulmonary arterial hypertension Status: Chronic Assessment and Plan: Chronic (7) COPD (chronic obstructive pulmonary disease): Qualifiers: COPD type: emphysema Emphysema type: panlobular Qualified Code(s): J43.1 - Panlobular emphysema Code(s): J44.9 - Chronic obstructive pulmonary disease, unspecified Status: Acute Assessment and Plan: Continue bronchodilators, supplemental oxygen (8) UTI (urinary tract infection): Code(s): N39.0 - Urinary tract infection, site not specified Status: Acute Assessment and Plan: Continue antibiotics as above -urine cultures have been obtained (9) CHF (congestive heart failure): Code(s): I50.9 - Heart failure, unspecified Status: Acute Assessment and Plan: History of congestive heart failure, -elevated proBNP -decrease IV fluids (10) Aortic stenosis: Code(s): I35.0 - Nonrheumatic aortic (valve) stenosis Status: Acute Assessment and Plan: 09/25/2021 echocardiogram showed EF of 60-65%, RV
[2022-02-16 11:53] LABS: Glucose Point of Care 231 mg/dl (65-105)
--- NOTE | 2022-02-16 12:21 | PCFNICU ---
ICU Rounding Note: Pt current nutrition is DBCC. Nutrition recommendation: Glucerna shakes BID Last recorded weight is 106 kg. Bowel Motility: No BM reported. Labs Reviewed:Glu 161, BUN51, Cr 1.7,Na 135, Hct 30.4,Hgb 9.8 Meds Noted:NS, Lipitor, Cefepime, Atrovent, Vancomycin Skin: WNL Additional Notes: During rounds nursing reports patient has poor appetite. orders for Glucerna shakes BID providing an additional 220 kcals and 10 gms protein. Agree with diet orders. Following daily in ICU rounds.
[2022-02-16] MEDS: INSULIN ASPART (*BKC) 100 UNITS/ML SUB-Q (12:30)
--- NOTE | 2022-02-16 14:45 | PM.IMPN ---
Progress Note: A&P Assessment and Plan (1) Septic shock: Code(s): A41.9 - Sepsis, unspecified organism; R65.21 - Severe sepsis with septic shock Status: Acute Assessment and Plan: Patient presented with shortness of breath, hypotension, elevated lactic acid, acute on chronic kidney injury -patient was given 2 L IV fluids in the ER and started on IV fluids -central venous catheter was placed and patient was started on Levophed now currently off -continue albumin -lactic acid and monitor urine output (2) Pneumonia: Code(s): J18.9 - Pneumonia, unspecified organism Status: Acute Assessment and Plan: 02/15/2022 chest x-ray: New complete opacification of the left hemithorax 02/15/2022 CT scan of the chest: 1. Stricturing and soft tissue density of the left mainstem bronchus with associated near complete collapse of the left lung and postobstructive pneumonia. Findings could reflect inflammation and mucous plugging versus malignancy. Bronchoscopy is recommended. 2. Cardiomegaly.3. Chronic mediastinal lymphadenopathy with slight worsening, reactive versus metastatic. 4. Cirrhosis. Left lung pneumonia with possible postobstructive component from airway mass Patient seen by Pulmonary Continue vancomycin cefepime and Levaquin Continue Mucomyst, Pulmozyme and chest PT to try to mobilize secretions Patient is trying to lay on his right side On Airvo. BiPAP ordered for night and p.r.n.. Patient refused to wear it last night Continue bronchodilators, Xopenex and Atrovent Patient will eventually need bronchoscopy per this time his respiratory status now allow bronchoscopy without intubation and mechanical vent. Patient also on anticoagulation with will preclude any biopsy Pulmonary been consulted (3) Chronic atrial fibrillation: Code(s): I48.20 - Chronic atrial fibrillation, unspecified Status: Chronic Assessment and Plan: Patient with history of chronic atrial fibrillation on Eliquis, -continue aspirin -patient was started on heparin infusion -patient is now having hemoptysis hence I will hold anticoagulation at this time -AFib is currently rate controlled Continue to monitor (4) Insulin dependent diabetes mellitus: Code(s): E11.9 - Type 2 diabetes mellitus without complications; Z79.4 - [facility] (current) use of insulin Status: Chronic Assessment and Plan: Accu-Cheks and sliding scale insulin (5) Dyslipidemia: Code(s): E78.5 - Hyperlipidemia, unspecified Status: Chronic Assessment and Plan: Continue atorvastatin (6) Severe pulmonary arterial systolic hypertension: Code(s): I27.21 - Secondary pulmonary arterial hypertension Status: Chronic Assessment and Plan: Chronic (7) COPD (chronic obstructive pulmonary disease): Qualifiers: COPD type: emphysema Emphysema type: panlobular Qualified Code(s): J43.1 - Panlobular emphysema Code(s): J44.9 - Chronic obstructive pulmonary disease, unspecified Status: Acute Assessment and Plan: Continue bronchodilators, supplemental oxygen (8) UTI (urinary tract infection): Code(s): N39.0 - Urinary tract infection, site not specified Status: Acute Assessment and Plan: Continue antibiotics as above -urine cultures have been obtained (9) CHF (congestive heart failure): Code(s): I50.9 - Heart failure, unspecified Status: Acute Assessment and Plan: History of congestive heart failure, -elevated proBNP -decrease IV fluids (10) Aortic stenosis: Code(s): I35.0 - Nonrheumatic aortic (valve) stenosis Status: Acute Assessment and Plan: 09/25/2021 echocardiogram showed EF of 60-65%, RV chamber is mildly enlarged, mild aortic valve stenosis, moderate pulmonary hypertension (11) Cirrhosis: Code(s): K74.60 - Unspecified cirrhosis of liver Status: Acute Assessment and Plan: Patient with hi
[2022-02-16 17:21] LABS: Glucose Point of Care 178 mg/dl (65-105)
[2022-02-16] MEDS: DORNASE ALFA INH SOLN 1 MG/ML 2.5 ML AMP 2.5 MG INHALATION (20:34)
--- NOTE | 2022-02-16 20:39 | PC.NURSE ---
Discussed code status with pt. Pt states he and his discussed that pt would not want to be on a ventilator. Pt already had no CPR status. Staff discussed with pt that changing code status to DNR would encompass all of his wishes. Pt verbalized understanding and status was changed to DNR.
--- NOTE | 2022-02-16 21:59 | PCRCNOTE ---
RT placed pt on home BIPAP unit @2247, with 9 liters of oxygen bleed in, pt sp02 drop to 80%, RT increased oxygen flow liter up to 15 while pt on home unit. Do to high oxygen demand RT placed pt back on optiflow 60L/70%. Pt sp02 93%, RR-16 no increased WOB or SOB present at this time. RT asked pt if he would like to wear a hospital unit for the night, pt stated he only want to wear his home unit.
[2022-02-16] MEDS: METOPROLOL TARTRATE INJ 5 MG/5 ML VIAL IV PUSH (23:09)
--- NOTE | 2022-02-16 23:09 | PCRCNOTE ---
Pt placed on BIPAP 14/ Rate 16, Fi02 70%. pt is doing well on BIPAP sp02 94%.
[2022-02-16 23:17] LABS: Glucose Point of Care 142 mg/dl (65-105)
[2022-02-17] VITALS (28 sets, daily range): BP systolic 90–138; BP diastolic 71–84; PULSE 93–126; RESP 16–30; TEMP 36–36.8; O2SAT 93–100; BMI 33.4
[2022-02-17] MEDS: IPRATROPIUM BR 0.02% INH SOLN 0.5 MG/2.5 ML VIAL INHALATION ×4 (02:55→22:06)
[2022-02-17] MEDS: LEVALBUTEROL NEB 1.25 MG/3 ML 0.63 MG INHALATION ×4 (02:55→22:06)
[2022-02-17] MEDS: ACETYLCYSTEINE 20% INHAL SOLN 800 MG/4 ML VIAL 200 MG INHALATION ×4 (02:56→22:07)
[2022-02-17] MEDS: CENTRAL LINE FLUSH 10 ML IV PUSH ×4 (05:20→23:14)
[2022-02-17 06:06] LABS: INR 1.8; Prothrombin Time 20.1 Seconds (11.1-14.7)
[2022-02-17 06:07] LABS: Partial Thromboplastin Time 50.1 SECONDS (22.3-36.8)
[2022-02-17 06:08] LABS: Basophils Percent Auto 0.2 % (0.2-1.2); Eosinophils Absolute Auto 0.1 K/mm3 (0-0.3); Eosinophils Percent Auto 0.6 % (0-4.4); Hematocrit 29.3 % (42.0-52.0); Hemoglobin 9.4 g/dL (14.0-18.0); Immature Granulocyte Absolute 0.13 K/mm3 (0.00-0.031); Immature Granulocyte Percent A 1.1 % (0-0.5); Lactic Acid Reflex 1.1 mmol/L (0.7-2.0); Lymphocytes Absolute Auto 0.54 K/mm3 (0.9-3.2); Lymphocytes Percent Auto 4.4 % (18.3-44.2); Mean Corpuscular HGB Conc 32.1 g/dl (32-36); Mean Corpuscular Hemoglobin 28.9 pg (26-34); Mean Corpuscular Volume 90.2 fl (80-100); Mean Platelet Volume 11.3 fl (7.4-10.4); Monocytes Absolute Auto 0.8 K/mm3 (0.1-0.6); Monocytes Percent Auto 6.1 % (2.6-8.5); Neutrophils Absolute Auto 10.8 K/mm3 (1.3-6.7); Neutrophils Percent Auto 87.6 % (45.5-73.1); Platelet Count Result 169 k/mm3 (150-375); Red Blood Count 3.25 M/mm3 (4.6-6.20); Red Cell Distribution Width 16.5 % (11.5-14.5); White Blood Count 12.4 K/mm3 (4.5-10.0)
[2022-02-17 06:11] LABS: Alanine Aminotransferase 17 U/L (6-50); Albumin Level 3.7 g/dL (3.5-5.1); Alkaline Phosphatase 84 U/L (38-126); Anion Gap 15 mmol/L (8-16); Aspartate Amino Transferase 19 U/L (17-59); Bilirubin,Total 1.2 mg/dL (0.2-1.3); Blood Urea Nitrogen 39 mg/dL (9-20); Calcium 7.8 mg/dL (8.4-10.2); Carbon Dioxide 22 mmol/L (22-30); Chloride 100 mmol/L (98-107); Estimated CRCL calculation 71 ml/min; Estimated Glomerular Filt Rate > 60; Glucose 196 mg/dL (65-110); Magnesium 2.3 mg/dL (1.6-2.3); Phosphorus 3.7 mg/dL (2.5-4.5); Potassium 4.1 mmol/L (3.4-5.0); Sodium 137 mmol/L (137-145)
[2022-02-17] MEDS: BUDESONIDE RESPULE NEB 0.5 MG/2 ML AMP INHALATION ×2 (07:45→22:06)
[2022-02-17] MEDS: DORNASE ALFA INH SOLN 1 MG/ML 2.5 ML AMP 2.5 MG INHALATION ×2 (08:05→22:07)
--- NOTE | 2022-02-17 08:54 | WPDINTPN ---
Progress Note: A&P Assessment and Plan (1) Acute respiratory failure: Code(s): J96.00 - Acute respiratory failure, unspecified whether with hypoxia or hypercapnia Status: Acute Assessment and Plan: Left lung pneumonia with possible postobstructive component from airway mass 02/15/2022 chest x-ray: New complete opacification of the left hemithorax 02/15/2022 CT scan of the chest: 1. Stricturing and soft tissue density of the left mainstem bronchus with associated near complete collapse of the left lung and postobstructive pneumonia. Findings could reflect inflammation and mucous plugging versus malignancy. Bronchoscopy is recommended. Chest x-ray done today shows persistent opacification of left hemithorax Patient is being followed by Pulmonary Continue vancomycin cefepime and Levaquin Continue Mucomyst, Pulmozyme and chest PT to try to mobilize secretions Patient is trying to lay on his right side Patient was switched to BiPAP overnight and he feels clinically better although hypoxia persists. Will continue to use BiPAP at night and p.r.n.. Continue bronchodilators, Xopenex and Atrovent Patient will eventually need bronchoscopy but at this time his respiratory status does not allow bronchoscopy without intubation and mechanical vent. Patient does not want to be intubated and is DNR DNI Patient was also on anticoagulation with will preclude any biopsy but currently off Discussed with Dr. Gregg from Pulmonary. Continue current management. In case patient improves, then he may be able to do a bronchoscopy without him requiring mechanical ventilation. Cultures are pending Urine Legionella mycoplasma IgM urine pneumococcal antigen are pending COVID and flu negative (2) Pneumonia: Code(s): J18.9 - Pneumonia, unspecified organism Status: Acute Assessment and Plan: See above (3) Septic shock: Code(s): A41.9 - Sepsis, unspecified organism; R65.21 - Severe sepsis with septic shock Status: Acute Assessment and Plan: Patient presented with shortness of breath, hypotension, elevated lactic acid, acute on chronic kidney injury -patient was given 2 L IV fluids in the ER and started on IV fluids -central venous catheter was placed and patient was started on Levophed -Levophed has been weaned off at this time. Continue as needed to maintain map of 65 -continue albumin -off IV fluids -lactic acid level has normalized (4) Chronic atrial fibrillation: Code(s): I48.20 - Chronic atrial fibrillation, unspecified Status: Chronic Assessment and Plan: Patient with history of chronic atrial fibrillation on Eliquis, -continue aspirin -patient was started on heparin infusion but was discontinued due to hemoptysis -AFib is currently rate controlled with p.r.n. 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 Status: Chronic Assessment and Plan: Accu-Cheks and sliding scale insulin (6) Dyslipidemia: Code(s): E78.5 - Hyperlipidemia, unspecified Status: Chronic Assessment and Plan: Continue atorvastatin (7) Severe pulmonary arterial systolic hypertension: Code(s): I27.21 - Secondary pulmonary arterial hypertension Status: Chronic Assessment and Plan: Chronic (8) COPD (chronic obstructive pulmonary disease): Qualifiers: COPD type: emphysema Emphysema type: panlobular Qualified Code(s): J43.1 - Panlobular emphysema Code(s): J44.9 - Chronic obstructive pulmonary disease, unspecified Status: Acute Assessment and Plan: Continue bronchodilators, supplemental oxygen (9) UTI (urinary tract infection): Code(s): N39.0 - Urinary tract infection, site not specified Status: Acute Assessment and Plan: Continue antibiotics as above -urine cultures hav
[2022-02-17] MEDS: ASPIRIN 81 MG CHEWABLE TABLET PO (09:47)
[2022-02-17] MEDS: ATORVASTATIN 10 MG TABLET PO (09:49)
[2022-02-17] MEDS: METOPROLOL TARTRATE INJ 5 MG/5 ML VIAL IV PUSH (09:49)
--- NOTE | 2022-02-17 10:32 | PM.PNPUL ---
Progress Note: A&P Assessment and Plan (1) Pneumonia: Code(s): J18.9 - Pneumonia, unspecified organism Status: Acute Assessment and Plan: Patient with a see history of COPD and presents now with septic shock from left-sided pneumonia. Patient presented with a leukocytosis 30.5, bandemia 22%, acute kidney injury with creatinine of 1.70, lactic acidosis of 6.0. Patient was fluid resuscitated and treated with Levophed for hypotension. Imaging demonstrates left lung infiltrate and consolidation with a proximal left mainstem obstruction from a mucous plug or cancer. 02/16 Blood cultures are negative, COVID RT PCR negative, influenza swab negative. I will order urine pneumococcal antigen, urine Legionella antigen, mycoplasma IgM and an extended respiratory pathogen panel. Agree with vancomycin, cefepime and Levaquin all started 02/15. For possible mucus plugging, patient is on nebulized levalbuterol, ipratropium, budesonide, Mucomyst and dornase venkat. continue chest physiotherapy and I will order a Cornet flutter valve. patient is currently on Levophed and high-flow nasal cannula with adequate oxygenation. A bronchoscopy at this time would certainly require and result in mechanical ventilation post procedure. favor aggressive leak treating possible mucous plugging for the next 24-48 hours in hopes of avoiding mechanical ventilation. Repeat chest x-ray on 02/17. 02/17 Patient tells me he continues to improve. He is off Levophed. His white blood cell count is 12.4, his creatinine is normalized to 1.0. Patient states he has cough with some hemoptysis. He remains on high-flow nasal cannula 60 L and 66% FiO2 with saturations 90%. His chest x-ray demonstrates continued white out of the left hemithorax with right lower lobe increasing infiltrate. Patient has continued whiteout of the left hemithorax after 48 hours of maximal medical therapy and I recommended bronchoscopy to the patient. patient and were in the room. Patient states that he does not want to be on a ventilator and the is in agreement. Bronchoscopy would certainly require mechanical ventilation at this point. Therefore he declined this procedure. Continue vanc, cefepime and Levaquin. Continue nebulized levalbuterol, ipratropium, budesonide, Mucomyst and dornase venkat. continue chest physiotherapy and I will order a Cornet flutter valve. patient is on a home noninvasive ventilator and His home machine was attempted but adequate oxygenation could not be achieved and he was placed on a hospital BiPAP machine. He tolerated the hospital BiPAP machine rate of 16, pressures 18/7 with tidal volumes 470-700 and 70% FiO2 with saturations 93-100%. The patient stated that the settings feel similar to his home machine. (2) COPD (chronic obstructive pulmonary disease): Code(s): J44.9 - Chronic obstructive pulmonary disease, unspecified Status: Acute Assessment and Plan: This is a 71-year-old?male with GOLD grade 2 group D COPD (FEV1 2.13 L, 73% on 04/23/2019) with chronic hypoxic and hypercarbic respiratory failure on 4 L with rest and ambulation and trilogy AVAPS-AE with 9 L bleed in at night, moderate pulmonary hypertension by echocardiogram (PASP 51 on 09/25/2021). He is maintained on home breztri. 02/16 No wheezes at this time. Continue on nebulized levalbuterol 0.63 Q 6, ipratropium 0.5 Q 6, and budesonide 0.5 BID. 02/17 No wheezes, continue above regimen. Discussed with Dr. Borja, will follow with you. Subjective Date/time seen: 02/17/22 10:32 Interval history: 02/16/2022:? This is a new pulmonary consult for left lung collapse. This is a 71-year-old?male with GOLD grade 2 group D COPD (FEV1 2.13 L, 73% on 04/23/2019) with chronic hypoxic and hypercarbic respiratory failure on 4 L with rest and ambulation and trilogy AVAPS-AE with 9 L bleed in at night, moderate pulmonary hypertension by echocardiogram (PASP 51 on
[2022-02-17] MEDS: DIGOXIN 250 MCG TABLET PO (11:45)
--- NOTE | 2022-02-17 16:13 | PM.IMPN ---
Progress Note: A&P Assessment and Plan (1) Septic shock: Code(s): A41.9 - Sepsis, unspecified organism; R65.21 - Severe sepsis with septic shock Status: Acute Assessment and Plan: Patient presented with shortness of breath, hypotension, elevated lactic acid, acute on chronic kidney injury -patient was given 2 L IV fluids in the ER and started on IV fluids -central venous catheter was placed and patient was started on Levophed now currently off . Blood pressure stable -continue albumin -lactic acid and monitor urine output (2) Pneumonia: Code(s): J18.9 - Pneumonia, unspecified organism Status: Acute Assessment and Plan: 02/15/2022 chest x-ray: New complete opacification of the left hemithorax 02/15/2022 CT scan of the chest: 1. Stricturing and soft tissue density of the left mainstem bronchus with associated near complete collapse of the left lung and postobstructive pneumonia. Findings could reflect inflammation and mucous plugging versus malignancy. Bronchoscopy is recommended. 2. Cardiomegaly.3. Chronic mediastinal lymphadenopathy with slight worsening, reactive versus metastatic. 4. Cirrhosis. Left lung pneumonia with possible postobstructive component from airway mass Patient seen by Pulmonary Continue vancomycin cefepime and Levaquin Continue Mucomyst, Pulmozyme and chest PT to try to mobilize secretions Patient is trying to lay on his right side On Airvo. BiPAP ordered for night and p.r.n.. Patient refused to wear it last night Continue bronchodilators, Xopenex and Atrovent Patient will eventually need bronchoscopy per this time his respiratory status now allow bronchoscopy without intubation and mechanical vent. Patient also on anticoagulation with will preclude any biopsy Pulmonary been consulted Next x-ray with persistent complete opacification of left hemothorax. Hiatus for requiring intubation and mechanical ventilation he proceeded with bronchoscopy. 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 Status: Chronic Assessment and Plan: Accu-Cheks and sliding scale insulin (5) Dyslipidemia: Code(s): E78.5 - Hyperlipidemia, unspecified Status: Chronic Assessment and Plan: Continue atorvastatin (6) Severe pulmonary arterial systolic hypertension: Code(s): I27.21 - Secondary pulmonary arterial hypertension Status: Chronic Assessment and Plan: Chronic (7) COPD (chronic obstructive pulmonary disease): Qualifiers: COPD type: emphysema Emphysema type: panlobular Qualified Code(s): J43.1 - Panlobular emphysema Code(s): J44.9 - Chronic obstructive pulmonary disease, unspecified Status: Acute Assessment and Plan: Continue bronchodilators, supplemental oxygen (8) UTI (urinary tract infection): Code(s): N39.0 - Urinary tract infection, site not specified Status: Acute Assessment and Plan: Continue antibiotics as above -urine cultures have been obtained (9) CHF (congestive heart failure): Code(s): I50.9 - Heart failure, unspecified Status: Acute Assessment and Plan: History of congestive heart failure, -elevated proBNP -decrease IV fluids (10) Aortic stenosis: Code(s): I35.0 - Nonrheumatic aortic (valve) stenosis Status: Acute Assessment and Plan: 09/25/2021 echocardiogram showed EF of 60-65%, RV chamber i
[2022-02-17] MEDS: INSULIN ASPART (*BKC) 100 UNITS/ML SUB-Q (17:40)
[2022-02-17 17:42] LABS: Glucose Point of Care 203 mg/dl (65-105)
[2022-02-17] MEDS: METOPROLOL TARTRATE 50 MG TAB PO (17:43)
[2022-02-17 20:21] LABS: Vancomycin Trough 13.8 ug/mL (10.0-20.0)
[2022-02-18] VITALS (27 sets, daily range): BP systolic 112–145; BP diastolic 56–91; PULSE 82–120; RESP 18–30; TEMP 36.6–37.2; O2SAT 91–99
[2022-02-18] MEDS: IPRATROPIUM BR 0.02% INH SOLN 0.5 MG/2.5 ML VIAL INHALATION ×4 (03:00→20:40)
[2022-02-18] MEDS: ACETYLCYSTEINE 20% INHAL SOLN 800 MG/4 ML VIAL 200 MG INHALATION ×4 (03:02→20:39)
[2022-02-18] MEDS: LEVALBUTEROL NEB 1.25 MG/3 ML 0.63 MG INHALATION ×3 (03:03→14:49)
[2022-02-18 05:31] LABS: Basophils Percent Auto 0.5 % (0.2-1.2); Eosinophils Absolute Auto 0.1 K/mm3 (0-0.3); Eosinophils Percent Auto 1.5 % (0-4.4); Hematocrit 30.2 % (42.0-52.0); Hemoglobin 9.6 g/dL (14.0-18.0); Immature Granulocyte Absolute 0.07 K/mm3 (0.00-0.031); Immature Granulocyte Percent A 0.8 % (0-0.5); Lymphocytes Absolute Auto 0.59 K/mm3 (0.9-3.2); Lymphocytes Percent Auto 6.9 % (18.3-44.2); Mean Corpuscular HGB Conc 31.8 g/dl (32-36); Mean Corpuscular Hemoglobin 28.7 pg (26-34); Mean Corpuscular Volume 90.1 fl (80-100); Mean Platelet Volume 11.3 fl (7.4-10.4); Monocytes Absolute Auto 0.8 K/mm3 (0.1-0.6); Monocytes Percent Auto 9.3 % (2.6-8.5); Neutrophils Absolute Auto 6.9 K/mm3 (1.3-6.7); Platelet Count Result 194 k/mm3 (150-375); Red Blood Count 3.35 M/mm3 (4.6-6.20); Red Cell Distribution Width 16.7 % (11.5-14.5); White Blood Count 8.6 K/mm3 (4.5-10.0)
[2022-02-18 05:42] LABS: Alanine Aminotransferase 18 U/L (6-50); Albumin Level 3.5 g/dL (3.5-5.1); Alkaline Phosphatase 103 U/L (38-126); Anion Gap 13 mmol/L (8-16); Aspartate Amino Transferase 23 U/L (17-59); Bilirubin,Total 1.1 mg/dL (0.2-1.3); Blood Urea Nitrogen 30 mg/dL (9-20); Calcium 8.3 mg/dL (8.4-10.2); Carbon Dioxide 25 mmol/L (22-30); Chloride 103 mmol/L (98-107); Estimated CRCL calculation 87 ml/min; Estimated Glomerular Filt Rate > 60; Glucose 188 mg/dL (65-110); Lactic Acid Reflex 0.9 mmol/L (0.7-2.0); Magnesium 2.4 mg/dL (1.6-2.3); Phosphorus 3.3 mg/dL (2.5-4.5); Potassium 4.3 mmol/L (3.4-5.0); Sodium 141 mmol/L (137-145)
[2022-02-18 05:45] LABS: INR 1.4; Prothrombin Time 16.4 Seconds (11.1-14.7)
[2022-02-18 05:46] LABS: Partial Thromboplastin Time 44.3 SECONDS (22.3-36.8)
[2022-02-18] MEDS: CENTRAL LINE FLUSH 10 ML IV PUSH ×3 (07:42→21:19)
[2022-02-18] MEDS: DORNASE ALFA INH SOLN 1 MG/ML 2.5 ML AMP 2.5 MG INHALATION ×2 (07:43→20:40)
[2022-02-18] MEDS: BUDESONIDE RESPULE NEB 0.5 MG/2 ML AMP INHALATION ×2 (07:43→20:40)
[2022-02-18] MEDS: INSULIN ASPART (*BKC) 100 UNITS/ML SUB-Q ×2 (09:11→12:25)
[2022-02-18] MEDS: ASPIRIN 81 MG CHEWABLE TABLET PO (09:13)
[2022-02-18] MEDS: METOPROLOL TARTRATE 50 MG TAB PO ×2 (09:13→21:18)
[2022-02-18] MEDS: ATORVASTATIN 10 MG TABLET PO (09:13)
[2022-02-18] MEDS: DIGOXIN TAB 125 MCG TABLET PO (09:13)
[2022-02-18 09:25] LABS: Glucose Point of Care 236 mg/dl (65-105)
--- NOTE | 2022-02-18 09:39 | WPDINTPN ---
Progress Note: A&P Assessment and Plan (1) Acute respiratory failure: Code(s): J96.00 - Acute respiratory failure, unspecified whether with hypoxia or hypercapnia Status: Acute Assessment and Plan: Left lung pneumonia with possible postobstructive component from airway mass 02/15/2022 chest x-ray: New complete opacification of the left hemithorax 02/15/2022 CT scan of the chest: 1. Stricturing and soft tissue density of the left mainstem bronchus with associated near complete collapse of the left lung and postobstructive pneumonia. Findings could reflect inflammation and mucous plugging versus malignancy. Bronchoscopy is recommended. Chest x-ray done today shows persistent opacification of left hemithorax although infiltrates on the right have improved Patient is being followed by Pulmonary Continue vancomycin cefepime and Levaquin Continue Mucomyst, Pulmozyme and chest PT to try to mobilize secretions Patient is tolerating Airvo during the day and BiPAP at night. He is currently on 50% FiO2 which is improved over last few days as he was initially on 70% FiO2 Will continue to use BiPAP at night and p.r.n.. Continue bronchodilators, Xopenex and Atrovent Patient will eventually need bronchoscopy but at this time his respiratory status does not allow bronchoscopy without intubation and mechanical vent. Patient does not want to be intubated and is DNR DNI. He and his again reiterated today he does not want to go on a ventilator at any cost. Patient was also on anticoagulation with will preclude any biopsy but is currently off Discussed with Dr. Gregg from Pulmonary. Continue current management. In light of patient's some improvement he is planning to do a brief bronchoscopy tomorrow Cultures are negative till now Urine Legionella mycoplasma IgM urine pneumococcal antigen are pending COVID and flu negative (2) Pneumonia: Code(s): J18.9 - Pneumonia, unspecified organism Status: Acute Assessment and Plan: See above (3) Septic shock: Code(s): A41.9 - Sepsis, unspecified organism; R65.21 - Severe sepsis with septic shock Status: Acute Assessment and Plan: Patient presented with shortness of breath, hypotension, elevated lactic acid, acute on chronic kidney injury -patient was given 2 L IV fluids in the ER and started on IV fluids -central venous catheter was placed and patient was started on Levophed -Levophed has been weaned off at this time. Continue as needed to maintain map of 65 -off IV fluids and albumin -lactic acid level has normalized (4) Chronic atrial fibrillation: Code(s): I48.20 - Chronic atrial fibrillation, unspecified Status: Chronic Assessment and Plan: Patient with history of chronic atrial fibrillation on Eliquis, -continue aspirin, metoprolol, p.r.n. IV metoprolol -digoxin has been restarted. I will check level in the morning -patient was started on heparin infusion but was discontinued due to hemoptysis Continue to monitor (5) Insulin dependent diabetes mellitus: Code(s): E11.9 - Type 2 diabetes mellitus without complications; Z79.4 - detention (current) use of insulin Status: Chronic Assessment and Plan: Accu-Cheks and sliding scale insulin (6) Dyslipidemia: Code(s): E78.5 - Hyperlipidemia, unspecified Status: Chronic Assessment and Plan: Continue atorvastatin (7) Severe pulmonary arterial systolic hypertension: Code(s): I27.21 - Secondary pulmonary arterial hypertension Status: Chronic Assessment and Plan: Chronic (8) COPD (chronic obstructive pulmonary disease): Qualifiers: COPD type: emphysema Emphysema type: panlobular Qualified Code(s): J43.1 - Panlobular emphysema Code(s): J44.9 - Chronic obstructive pulmonary disease, unspecified Status: Acute Assessment and Plan: Continue bronchodilators, supplemental oxygen (9) UTI (urinary tract infe
--- NOTE | 2022-02-18 10:42 | PM.PNPUL ---
Progress Note: A&P Assessment and Plan (1) Pneumonia: Code(s): J18.9 - Pneumonia, unspecified organism Status: Acute Assessment and Plan: Patient with a see history of COPD and presents now with septic shock from left-sided pneumonia. Patient presented with a leukocytosis 30.5, bandemia 22%, acute kidney injury with creatinine of 1.70, lactic acidosis of 6.0. Patient was fluid resuscitated and treated with Levophed for hypotension. Imaging demonstrates left lung infiltrate and consolidation with a proximal left mainstem obstruction from a mucous plug or cancer. 02/16 Blood cultures are negative, COVID RT PCR negative, influenza swab negative. I will order urine pneumococcal antigen, urine Legionella antigen, mycoplasma IgM and an extended respiratory pathogen panel. Agree with vancomycin, cefepime and Levaquin all started 02/15. For possible mucus plugging, patient is on nebulized levalbuterol, ipratropium, budesonide, Mucomyst and dornase venkat. continue chest physiotherapy and I will order a Cornet flutter valve. patient is currently on Levophed and high-flow nasal cannula with adequate oxygenation. A bronchoscopy at this time would certainly require and result in mechanical ventilation post procedure. favor aggressive leak treating possible mucous plugging for the next 24-48 hours in hopes of avoiding mechanical ventilation. Repeat chest x-ray on 02/17. 02/17 Patient tells me he continues to improve. He is off Levophed. His white blood cell count is 12.4, his creatinine is normalized to 1.0. Patient states he has cough with some hemoptysis. He remains on high-flow nasal cannula 60 L and 66% FiO2 with saturations 90%. His chest x-ray demonstrates continued white out of the left hemithorax with right lower lobe increasing infiltrate. Patient has continued whiteout of the left hemithorax after 48 hours of maximal medical therapy and I recommended bronchoscopy to the patient. patient and were in the room. Patient states that he does not want to be on a ventilator and the is in agreement. Bronchoscopy would certainly require mechanical ventilation at this point. Therefore he declined this procedure. Continue vanc, cefepime and Levaquin. Continue nebulized levalbuterol, ipratropium, budesonide, Mucomyst and dornase venkat. continue chest physiotherapy and I will order a Cornet flutter valve. patient is on a home noninvasive ventilator and His home machine was attempted but adequate oxygenation could not be achieved and he was placed on a hospital BiPAP machine. He tolerated the hospital BiPAP machine rate of 16, pressures 18/7 with tidal volumes 470-700 and 70% FiO2 with saturations 93-100%. The patient stated that the settings feel similar to his home machine. 02/18 patient continues to improve. He remains off Levophed. White blood cell count 8.6, creatinine 0.8. Patient remains on high-flow nasal cannula 60 L and 62% with saturations 98%. Patient wore hospital BiPAP last night said that this felt similar to his home noninvasive ventilator. Chest x-ray with continued white out of the left hemithorax. patient continues with white out of the left hemithorax despite 72 hours of vanc, cefepime and Levaquin. Continue nebulized levalbuterol, ipratropium, budesonide, Mucomyst, dornase, CPT, Cornet flutter valve. patient is DNR DNI and does not ever want to be placed on a ventilator. I have talked to him about the possibility of a awake bronchoscopy through the nose possibly through the mouth and I will attempt to see if we can oxygenate him adequately and consider performing this procedure on 02/19/2022. (2) COPD (chronic obstructive pulmonary disease): Code(s): J44.9 - Chronic obstructive pulmonary disease, unspecified Status: Acute Assessment and Plan: This is a 71-year-old?male with GOLD grade 2 group D COPD (FEV1 2.13 L, 73% on 04/23/2019) with chronic hypoxic a
--- NOTE | 2022-02-18 11:30 | PCFNICU ---
ICU Rounding Note: Pt current nutrition is DBCC. Last recorded weight is 105.6 kg. Bowel Motility:No BM reported. Labs Reviewed:Glu 188,Mg 2.4,Hct 30.2, Hgb 9.6 Meds Noted:Vancomycin, Lipitor, Cefepime, Atrovent Skin: WNL Additional Notes: Patient currently on Airvo. Eating a DBCC diet, 40-100% reported. Drinking Glucerna shakes providing an additional 220 kcals and 10 gms protein. Agree with diet orders. Following daily in ICU rounds. RD will monitor every 5 days.
[2022-02-18 12:01] LABS: Glucose Point of Care 303 mg/dl (65-105)
[2022-02-18 17:06] LABS: Glucose Point of Care 175 mg/dl (65-105)
--- NOTE | 2022-02-18 17:42 | PM.IMPN ---
Progress Note: A&P Assessment and Plan (1) Septic shock: Code(s): A41.9 - Sepsis, unspecified organism; R65.21 - Severe sepsis with septic shock Status: Acute Assessment and Plan: Patient presented with shortness of breath, hypotension, elevated lactic acid, acute on chronic kidney injury -patient was given 2 L IV fluids in the ER and started on IV fluids -central venous catheter was placed and patient was started on Levophed now currently off . Blood pressure stable -continue albumin -lactic acid and monitor urine output 02/18/2022 interval history: No overnight events. He has been off Levophed. Breathing is better on high-flow nasal cannula Chest x-ray Persistent complete opacification of the left hemithorax with cut off at the left mainstem bronchus and without associated volume loss which could represent pleural effusion, pneumonia, malignancy or some combination thereof with likely associated atelectasis, today patient's is present in the room, patient seen by wastewater treatment plant operator recommending bronchoscopy to further evaluate however patient is DNR and does not want to be intubated for the procedure, the wastewater treatment plant operator may try the bronchoscopy through nose if possible, will continue to monitor and further recommendation to follow. (2) Pneumonia: Code(s): J18.9 - Pneumonia, unspecified organism Status: Acute Assessment and Plan: 02/15/2022 chest x-ray: New complete opacification of the left hemithorax 02/15/2022 CT scan of the chest: 1. Stricturing and soft tissue density of the left mainstem bronchus with associated near complete collapse of the left lung and postobstructive pneumonia. Findings could reflect inflammation and mucous plugging versus malignancy. Bronchoscopy is recommended. 2. Cardiomegaly.3. Chronic mediastinal lymphadenopathy with slight worsening, reactive versus metastatic. 4. Cirrhosis. Left lung pneumonia with possible postobstructive component from airway mass Patient seen by Pulmonary Continue vancomycin cefepime and Levaquin Continue Mucomyst, Pulmozyme and chest PT to try to mobilize secretions Patient is trying to lay on his right side On Airvo. BiPAP ordered for night and p.r.n.. Patient refused to wear it last night Continue bronchodilators, Xopenex and Atrovent Patient will eventually need bronchoscopy per this time his respiratory status now allow bronchoscopy without intubation and mechanical vent. Patient also on anticoagulation with will preclude any biopsy Pulmonary been consulted Next x-ray with persistent complete opacification of left hemothorax. Hiatus for requiring intubation and mechanical ventilation he proceeded with bronchoscopy. 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
[2022-02-19] VITALS (36 sets, daily range): BP systolic 90–154; BP diastolic 50–99; PULSE 73–121; RESP 18–26; TEMP 36.4–36.8; O2SAT 90–100
[2022-02-19 01:45] LABS: Pneumococcal Antigen Urine Not Detected (Not Detected)
[2022-02-19] MEDS: IPRATROPIUM BR 0.02% INH SOLN 0.5 MG/2.5 ML VIAL INHALATION ×4 (02:12→20:58)
[2022-02-19] MEDS: LEVALBUTEROL NEB 1.25 MG/3 ML 0.63 MG INHALATION ×4 (02:12→20:58)
[2022-02-19 05:28] LABS: Alanine Aminotransferase 25 U/L (6-50); Albumin Level 3.4 g/dL (3.5-5.1); Alkaline Phosphatase 133 U/L (38-126); Anion Gap 9 mmol/L (8-16); Aspartate Amino Transferase 25 U/L (17-59); Bilirubin,Total 0.8 mg/dL (0.2-1.3); Blood Urea Nitrogen 26 mg/dL (9-20); Calcium 8.4 mg/dL (8.4-10.2); Carbon Dioxide 24 mmol/L (22-30); Chloride 105 mmol/L (98-107); Estimated CRCL calculation 87 ml/min; Estimated Glomerular Filt Rate > 60; Glucose 228 mg/dL (65-110); INR 1.3; Magnesium 2.3 mg/dL (1.6-2.3); Phosphorus 3.6 mg/dL (2.5-4.5); Potassium 4.4 mmol/L (3.4-5.0); Prothrombin Time 15.8 Seconds (11.1-14.7); Sodium 138 mmol/L (137-145)
[2022-02-19 05:29] LABS: Partial Thromboplastin Time 42.8 SECONDS (22.3-36.8)
[2022-02-19 05:54] LABS: Digoxin 0.6 ng/mL (0.8-2.0)
[2022-02-19] MEDS: CENTRAL LINE FLUSH 10 ML IV PUSH ×3 (05:55→20:42)
[2022-02-19 05:56] LABS: Vancomycin Trough 23.3 ug/mL (10.0-20.0)
[2022-02-19 06:55] LABS: Basophils Absolute Auto 0.1 K/mm3 (0.0-0.1); Basophils Percent Auto 0.9 % (0.2-1.2); Eosinophils Absolute Auto 0.1 K/mm3 (0-0.3); Eosinophils Percent Auto 1.9 % (0-4.4); Hematocrit 30.7 % (42.0-52.0); Hemoglobin 9.6 g/dL (14.0-18.0); Immature Granulocyte Absolute 0.14 K/mm3 (0.00-0.031); Immature Granulocyte Percent A 1.9 % (0-0.5); Lymphocytes Absolute Auto 0.76 K/mm3 (0.9-3.2); Lymphocytes Percent Auto 10.3 % (18.3-44.2); Mean Corpuscular HGB Conc 31.3 g/dl (32-36); Mean Corpuscular Hemoglobin 28.4 pg (26-34); Mean Corpuscular Volume 90.8 fl (80-100); Monocytes Absolute Auto 1.1 K/mm3 (0.1-0.6); Monocytes Percent Auto 14.5 % (2.6-8.5); Neutrophils Absolute Auto 5.2 K/mm3 (1.3-6.7); Neutrophils Percent Auto 70.5 % (45.5-73.1); Platelet Count Result 218 k/mm3 (150-375); Red Blood Count 3.38 M/mm3 (4.6-6.20); White Blood Count 7.4 K/mm3 (4.5-10.0)
[2022-02-19 07:56] LABS: Glucose Point of Care 244 mg/dl (65-105)
[2022-02-19] MEDS: INSULIN GLARGINE (*BKC) 100 UNITS/ML 10 UNITS SUB-Q (08:36)
[2022-02-19] MEDS: DIGOXIN TAB 125 MCG TABLET PO (08:37)
[2022-02-19] MEDS: METOPROLOL TARTRATE 50 MG TAB PO ×2 (08:37→20:41)
--- NOTE | 2022-02-19 09:03 | WPDINTPN ---
Progress Note: A&P Assessment and Plan (1) Acute respiratory failure: Code(s): J96.00 - Acute respiratory failure, unspecified whether with hypoxia or hypercapnia Status: Acute Assessment and Plan: Left lung pneumonia with possible postobstructive component from airway mass 02/15/2022 CT scan of the chest: 1. Stricturing and soft tissue density of the left mainstem bronchus with associated near complete collapse of the left lung and postobstructive pneumonia. Findings could reflect inflammation and mucous plugging versus malignancy. Bronchoscopy is recommended. Chest x-ray done today shows persistent opacification of left hemithorax although infiltrates on the right have improved Patient is being followed by Pulmonary Continue Mucomyst, Pulmozyme and chest PT to try to mobilize secretions Patient is tolerating Airvo during the day and BiPAP at night. He is currently on 50% FiO2 which is improved over last few days as he was initially on 70% FiO2 Will continue to use BiPAP at night and p.r.n.. Continue bronchodilators, Xopenex and Atrovent Patient will eventually need bronchoscopy but earlier his respiratory status did not allow bronchoscopy without intubation and mechanical vent. Patient does not want to be intubated and is DNR DNI. He and his again reiterated multiple times he does not want to go on a ventilator at any cost. Patient was also on anticoagulation with will preclude any biopsy but is currently off Plan for bronchoscopy today. Blood cultures are negative Sputum culture is growing strep pneumoniae Patient is currently on vancomycin cefepime and Levaquin. Dr. Gregg recommend continuing broad-spectrum antibiotics for at least 7 days at this time. Urine Legionella mycoplasma IgM are pending urine pneumococcal antigen was negative COVID and flu negative (2) Pneumonia: Code(s): J18.9 - Pneumonia, unspecified organism Status: Acute Assessment and Plan: See above (3) Septic shock: Code(s): A41.9 - Sepsis, unspecified organism; R65.21 - Severe sepsis with septic shock Status: Acute Assessment and Plan: Patient presented with shortness of breath, hypotension, elevated lactic acid, acute on chronic kidney injury -patient was given 2 L IV fluids in the ER and started on IV fluids -central venous catheter was placed and patient was started on Levophed -Levophed has been weaned off at this time. Continue as needed to maintain map of 65 -off IV fluids and albumin -lactic acid level has normalized (4) Chronic atrial fibrillation: Code(s): I48.20 - Chronic atrial fibrillation, unspecified Status: Chronic Assessment and Plan: Patient with history of chronic atrial fibrillation on Eliquis, -continue aspirin, metoprolol, p.r.n. IV metoprolol -digoxin has been restarted. I will check level in the morning -patient was started on heparin infusion but was discontinued due to hemoptysis Continue to monitor (5) Insulin dependent diabetes mellitus: Code(s): E11.9 - Type 2 diabetes mellitus without complications; Z79.4 - correction (current) use of insulin Status: Chronic Assessment and Plan: Accu-Cheks and sliding scale insulin (6) Dyslipidemia: Code(s): E78.5 - Hyperlipidemia, unspecified Status: Chronic Assessment and Plan: Continue atorvastatin (7) Severe pulmonary arterial systolic hypertension: Code(s): I27.21 - Secondary pulmonary arterial hypertension Status: Chronic Assessment and Plan: Chronic (8) COPD (chronic obstructive pulmonary disease): Qualifiers: COPD type: emphysema Emphysema type: panlobular Qualified Code(s): J43.1 - Panlobular emphysema Code(s): J44.9 - Chronic obstructive pulmonary disease, unspecified Status: Acute Assessment and Plan: Continue bronchodilators, supplemental oxygen (9) UTI (urinary tract infection): Code(s): N39.0 - Urinary
[2022-02-19] MEDS: DORNASE ALFA INH SOLN 1 MG/ML 2.5 ML AMP 2.5 MG INHALATION ×2 (09:48→20:59)
[2022-02-19] MEDS: ACETYLCYSTEINE 20% INHAL SOLN 800 MG/4 ML VIAL 200 MG INHALATION ×3 (09:48→20:59)
[2022-02-19] MEDS: BUDESONIDE RESPULE NEB 0.5 MG/2 ML AMP INHALATION ×2 (09:48→20:58)
--- NOTE | 2022-02-19 09:58 | PM.PNPUL ---
Progress Note: A&P Assessment and Plan (1) Pneumonia: Code(s): J18.9 - Pneumonia, unspecified organism Status: Acute Assessment and Plan: Patient with a see history of COPD and presents now with septic shock from left-sided pneumonia. Patient presented with a leukocytosis 30.5, bandemia 22%, acute kidney injury with creatinine of 1.70, lactic acidosis of 6.0. Patient was fluid resuscitated and treated with Levophed for hypotension. Imaging demonstrates left lung infiltrate and consolidation with a proximal left mainstem obstruction from a mucous plug or cancer. 02/16 Blood cultures are negative, COVID RT PCR negative, influenza swab negative. I will order urine pneumococcal antigen, urine Legionella antigen, mycoplasma IgM and an extended respiratory pathogen panel. Agree with vancomycin, cefepime and Levaquin all started 02/15. For possible mucus plugging, patient is on nebulized levalbuterol, ipratropium, budesonide, Mucomyst and dornase venkat. continue chest physiotherapy and I will order a Cornet flutter valve. patient is currently on Levophed and high-flow nasal cannula with adequate oxygenation. A bronchoscopy at this time would certainly require and result in mechanical ventilation post procedure. favor aggressive leak treating possible mucous plugging for the next 24-48 hours in hopes of avoiding mechanical ventilation. Repeat chest x-ray on 02/17. 02/17 Patient tells me he continues to improve. He is off Levophed. His white blood cell count is 12.4, his creatinine is normalized to 1.0. Patient states he has cough with some hemoptysis. He remains on high-flow nasal cannula 60 L and 66% FiO2 with saturations 90%. His chest x-ray demonstrates continued white out of the left hemithorax with right lower lobe increasing infiltrate. Patient has continued whiteout of the left hemithorax after 48 hours of maximal medical therapy and I recommended bronchoscopy to the patient. patient and were in the room. Patient states that he does not want to be on a ventilator and the is in agreement. Bronchoscopy would certainly require mechanical ventilation at this point. Therefore he declined this procedure. Continue vanc, cefepime and Levaquin. Continue nebulized levalbuterol, ipratropium, budesonide, Mucomyst and dornase venkat. continue chest physiotherapy and I will order a Cornet flutter valve. patient is on a home noninvasive ventilator and His home machine was attempted but adequate oxygenation could not be achieved and he was placed on a hospital BiPAP machine. He tolerated the hospital BiPAP machine rate of 16, pressures 18/7 with tidal volumes 470-700 and 70% FiO2 with saturations 93-100%. The patient stated that the settings feel similar to his home machine. 02/18 patient continues to improve. He remains off Levophed. White blood cell count 8.6, creatinine 0.8. Patient remains on high-flow nasal cannula 60 L and 62% with saturations 98%. Patient wore hospital BiPAP last night said that this felt similar to his home noninvasive ventilator. Chest x-ray with continued white out of the left hemithorax. patient continues with white out of the left hemithorax despite 72 hours of vanc, cefepime and Levaquin. Continue nebulized levalbuterol, ipratropium, budesonide, Mucomyst, dornase, CPT, Cornet flutter valve. patient is DNR DNI and does not ever want to be placed on a ventilator. I have talked to him about the possibility of a awake bronchoscopy through the nose possibly through the mouth and I will attempt to see if we can oxygenate him adequately and consider performing this procedure on 02/19/2022. 02/19 patient unchanged. White blood cell count 7.4, creatinine 0.8. Patient remains on BIPAP 50% at night and high-flow nasal cannula 60 L and 62% throughout day. Patient wore hospital BiPAP last night said that this felt similar to his home noninvasive ventilator. Chest x-ray wit
[2022-02-19 10:56] LABS: Vancomycin Trough 18.6 ug/mL (10.0-20.0)
[2022-02-19] MEDS: LIDOCAINE HCL 2% PF INJ 5 ML VIAL 3 ML INFILTRATE (11:06)
[2022-02-19] MEDS: LIDOCAINE HCL 2% LOCAL INJ 20 ML VIAL IRRIGATION (11:12)
[2022-02-19] MEDS: BENZOCAINE (*SP) 60 ML SPRAY CAN (HURRICAINE) 1 SPRAY MUCOUS MEM (11:13)
--- NOTE | 2022-02-19 11:13 | PCFNICU ---
ICU Rounding Note: Pt current nutrition is NPO for procedure - bronchoscopy. Nutrition recommendation: Advance to PO diet per MD Last recorded weight is 105.6 kg. Bowel Motility: No BM charted Labs Reviewed: Hgb 9.6, Hct 30.7, Alb 3.4, BUN 26, Glu 228 Meds Noted:Lipitor, cefepime, Vancomycin Skin: WNL Additional Notes: Pt was eating 100% and drinking some Glucerna with poor appetite Following daily in ICU rounds. RD will monitor every 5 days. .
[2022-02-19] MEDS: MIDAZOLAM HCL (*CRX) 2 MG/2 ML VIAL 1 MG IV PUSH (11:53)
--- NOTE | 2022-02-19 11:54 | PM.OP ---
Procedure Note - Brief Procedure Note - Brief Date of procedure: 02/19/22 Pre-op diagnosis: mucous plug Procedure performed: The pateint was given 3 ml 2% lidocaine nebulizer and cetacaine spray to oropharanyx. After informed consent and a time-out the patient Bronchoscope was inserted through biteblock and 3 ml 2% lidocaine given to oropharynx, cords and down trachea. There was a large mucous plug occluding the left mainstem bronchi. This was aspirated and the left mainstem mucousa was normal without any endobronchial lesions. Remainder of left lung was inspected and mucousa was erythematous with some areas of hemorrhage. All segments patent. Inspection of right upper, middle and lower lobes performed and all patent. Subcarinal washing sent for bacterial culture. Patient awake post procedure and CXR demonstrated airation TON with consolidation LLL. No pneumothorax. Surgeon: David Gregg MD
[2022-02-19] MEDS: LIDOCAINE HCL 2% LOCAL INJ 20 ML VIAL 10 ML INFILTRATE (11:56)
[2022-02-19 11:58] LABS: Glucose Point of Care 216 mg/dl (65-105)
[2022-02-19] MEDS: INSULIN ASPART (*BKC) 100 UNITS/ML SUB-Q (12:01)
--- NOTE | 2022-02-19 13:22 | SUR.OPER ---
procedure done in pt's ICU room
--- NOTE | 2022-02-19 14:21 | PM.IMPN ---
Progress Note: A&P Assessment and Plan (1) Septic shock: Code(s): A41.9 - Sepsis, unspecified organism; R65.21 - Severe sepsis with septic shock Status: Acute Assessment and Plan: Patient presented with shortness of breath, hypotension, elevated lactic acid, acute on chronic kidney injury -patient was given 2 L IV fluids in the ER and started on IV fluids -central venous catheter was placed and patient was started on Levophed now currently off . Blood pressure stable -continue albumin -lactic acid and monitor urine output 02/19/2022 interval history: No overnight events. He has been off Levophed. Breathing is better on high-flow nasal cannula Chest x-ray Persistent complete opacification of the left hemithorax with cut off at the left mainstem bronchus and without associated volume loss which could represent pleural effusion, pneumonia, malignancy or some combination thereof with likely associated atelectasis, today patient had a modify bronchoscopy through the nose and patient found to mucus plugs and were aspirated and patient is found to have a erythematosus with some area of hemorrhage, subcarinal washing were sent for culture, will continue to monitor and further recommendation to follow. (2) Pneumonia: Code(s): J18.9 - Pneumonia, unspecified organism Status: Acute Assessment and Plan: 02/15/2022 chest x-ray: New complete opacification of the left hemithorax 02/15/2022 CT scan of the chest: 1. Stricturing and soft tissue density of the left mainstem bronchus with associated near complete collapse of the left lung and postobstructive pneumonia. Findings could reflect inflammation and mucous plugging versus malignancy. Bronchoscopy is recommended. 2. Cardiomegaly.3. Chronic mediastinal lymphadenopathy with slight worsening, reactive versus metastatic. 4. Cirrhosis. Left lung pneumonia with possible postobstructive component from airway mass Patient seen by Pulmonary Continue vancomycin cefepime and Levaquin Continue Mucomyst, Pulmozyme and chest PT to try to mobilize secretions Patient is trying to lay on his right side On Airvo. BiPAP ordered for night and p.r.n.. Patient refused to wear it last night Continue bronchodilators, Xopenex and Atrovent Patient will eventually need bronchoscopy per this time his respiratory status now allow bronchoscopy without intubation and mechanical vent. Patient also on anticoagulation with will preclude any biopsy Pulmonary been consulted Next x-ray with persistent complete opacification of left hemothorax. Hiatus for requiring intubation and mechanical ventilation he proceeded with bronchoscopy. 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 Status: Chronic Assessment and Plan: Accu-Cheks and sliding scale insulin (5) Dyslipidemia: Code(s): E78.5 - Hyperlipidemia, unspecified Status: Chronic Assessment and Plan: Continue atorvastatin (6) Severe pulmonary arterial systolic hypertension: Code(s): I27.21 - Secondary pulmonary arterial hypertension Status: Chronic Assessment and Plan: Chronic (7) COPD (chronic obstructive pulmonary disease): Qualifiers: COPD type: emphysema Emphysema type: panlobular Qualified Code(s): J43.1 - Panlobular emphysema Code(s): J44.9 - Chronic obstructive pulmonary disease, unspecified Status: Acute Assessm
[2022-02-19 16:37] LABS: Glucose Point of Care 188 mg/dl (65-105)
[2022-02-19 16:54] LABS: Legionella pneumophila Ag Ur Not Detected (Not Detected)
[2022-02-19 20:59] LABS: Glucose Point of Care 277 mg/dl (65-105)
[2022-02-20] VITALS (24 sets, daily range): BP systolic 130–173; BP diastolic 64–92; PULSE 69–108; RESP 12–31; TEMP 36.1–37; O2SAT 93–100
[2022-02-20] MEDS: IPRATROPIUM BR 0.02% INH SOLN 0.5 MG/2.5 ML VIAL INHALATION ×4 (03:43→20:42)
[2022-02-20] MEDS: ACETYLCYSTEINE 20% INHAL SOLN 800 MG/4 ML VIAL 200 MG INHALATION ×4 (03:44→21:57)
[2022-02-20] MEDS: LEVALBUTEROL NEB 1.25 MG/3 ML 0.63 MG INHALATION ×4 (03:44→21:03)
[2022-02-20 05:50] LABS: Basophils Absolute Auto 0.1 K/mm3 (0.0-0.1); Basophils Percent Auto 0.8 % (0.2-1.2); Eosinophils Absolute Auto 0.3 K/mm3 (0-0.3); Eosinophils Percent Auto 3.4 % (0-4.4); Hematocrit 31.8 % (42.0-52.0); Hemoglobin 9.9 g/dL (14.0-18.0); Immature Granulocyte Absolute 0.29 K/mm3 (0.00-0.031); Immature Granulocyte Percent A 3.8 % (0-0.5); Lymphocytes Absolute Auto 0.74 K/mm3 (0.9-3.2); Lymphocytes Percent Auto 9.6 % (18.3-44.2); Mean Corpuscular HGB Conc 31.1 g/dl (32-36); Mean Corpuscular Volume 89.8 fl (80-100); Mean Platelet Volume 10.6 fl (7.4-10.4); Monocytes Percent Auto 13.3 % (2.6-8.5); Neutrophils Absolute Auto 5.3 K/mm3 (1.3-6.7); Neutrophils Percent Auto 69.1 % (45.5-73.1); Platelet Count Result 212 k/mm3 (150-375); Red Blood Count 3.54 M/mm3 (4.6-6.20); Red Cell Distribution Width 16.7 % (11.5-14.5); White Blood Count 7.7 K/mm3 (4.5-10.0)
[2022-02-20 06:00] LABS: Alanine Aminotransferase 22 U/L (6-50); Albumin Level 3.3 g/dL (3.5-5.1); Alkaline Phosphatase 117 U/L (38-126); Anion Gap 12 mmol/L (8-16); Aspartate Amino Transferase 23 U/L (17-59); Bilirubin,Total 0.6 mg/dL (0.2-1.3); Blood Urea Nitrogen 23 mg/dL (9-20); Calcium 8.4 mg/dL (8.4-10.2); Carbon Dioxide 26 mmol/L (22-30); Chloride 102 mmol/L (98-107); Estimated CRCL calculation 114 ml/min; Estimated Glomerular Filt Rate > 60; Glucose 229 mg/dL (65-110); Magnesium 2.1 mg/dL (1.6-2.3); Phosphorus 3.8 mg/dL (2.5-4.5); Potassium 4.4 mmol/L (3.4-5.0); Sodium 140 mmol/L (137-145)
[2022-02-20 06:01] LABS: INR 1.4; Prothrombin Time 16.1 Seconds (11.1-14.7)
[2022-02-20 06:02] LABS: Partial Thromboplastin Time 42.1 SECONDS (22.3-36.8)
[2022-02-20] MEDS: CENTRAL LINE FLUSH 10 ML IV PUSH ×3 (06:11→22:21)
[2022-02-20] MEDS: DORNASE ALFA INH SOLN 1 MG/ML 2.5 ML AMP 2.5 MG INHALATION ×2 (07:56→21:03)
[2022-02-20] MEDS: BUDESONIDE RESPULE NEB 0.5 MG/2 ML AMP INHALATION ×2 (07:56→20:41)
[2022-02-20 08:12] LABS: Glucose Point of Care 196 mg/dl (65-105)
[2022-02-20] MEDS: INSULIN GLARGINE (*BKC) 100 UNITS/ML 10 UNITS SUB-Q (08:47)
[2022-02-20] MEDS: ATORVASTATIN 10 MG TABLET PO (09:47)
[2022-02-20] MEDS: ASPIRIN 81 MG CHEWABLE TABLET PO (09:47)
[2022-02-20] MEDS: DIGOXIN TAB 125 MCG TABLET PO (09:48)
[2022-02-20] MEDS: METOPROLOL TARTRATE 50 MG TAB PO ×2 (09:48→22:20)
[2022-02-20 11:59] LABS: Glucose Point of Care 293 mg/dl (65-105)
[2022-02-20] MEDS: INSULIN ASPART (*BKC) 100 UNITS/ML SUB-Q ×2 (12:50→16:49)
--- NOTE | 2022-02-20 14:30 | PM.IMPN ---
Progress Note: A&P Assessment and Plan (1) Septic shock: Code(s): A41.9 - Sepsis, unspecified organism; R65.21 - Severe sepsis with septic shock Status: Acute Assessment and Plan: Patient presented with shortness of breath, hypotension, elevated lactic acid, acute on chronic kidney injury -patient was given 2 L IV fluids in the ER and started on IV fluids -central venous catheter was placed and patient was started on Levophed now currently off . Blood pressure stable -continue albumin -lactic acid and monitor urine output 02/20/2022 interval history: No overnight events. He has been off Levophed. Breathing is better on high-flow nasal cannula Chest x-ray showed Persistent complete opacification of the left hemithorax with cut off at the left mainstem bronchus and without associated volume loss which could represent pleural effusion, pneumonia, malignancy or some combination thereof with likely associated atelectasis, on 02/19 patient had a modify bronchoscopy in ICU at the bedside through the nose and patient found to mucus plugs and were aspirated and patient is found to have a erythematosus with some area of hemorrhage, subcarinal washing were sent for culture, today patient states since the procedure is feeling lot much better and able to breathe easier, will follow-up on culture, patient be seen by social studies teacher, will continue to monitor and further recommendation to follow. (2) Pneumonia: Code(s): J18.9 - Pneumonia, unspecified organism Status: Acute Assessment and Plan: 02/15/2022 chest x-ray: New complete opacification of the left hemithorax 02/15/2022 CT scan of the chest: 1. Stricturing and soft tissue density of the left mainstem bronchus with associated near complete collapse of the left lung and postobstructive pneumonia. Findings could reflect inflammation and mucous plugging versus malignancy. Bronchoscopy is recommended. 2. Cardiomegaly.3. Chronic mediastinal lymphadenopathy with slight worsening, reactive versus metastatic. 4. Cirrhosis. Left lung pneumonia with possible postobstructive component from airway mass Patient seen by Pulmonary Continue vancomycin cefepime and Levaquin Continue Mucomyst, Pulmozyme and chest PT to try to mobilize secretions Patient is trying to lay on his right side On Airvo. BiPAP ordered for night and p.r.n.. Patient refused to wear it last night Continue bronchodilators, Xopenex and Atrovent Patient will eventually need bronchoscopy per this time his respiratory status now allow bronchoscopy without intubation and mechanical vent. Patient also on anticoagulation with will preclude any biopsy Pulmonary been consulted Next x-ray with persistent complete opacification of left hemothorax. Hiatus for requiring intubation and mechanical ventilation he proceeded with bronchoscopy. And hence bronchoscopy deferred at this time (3) Chronic atrial fibrillation: Code(s): I48.20 - Chronic atrial fibrillation, unspecified Status: Chronic Assessment and Plan: Patient with history of chronic atrial fibrillation on Eliquis, -continue aspirin -patient was started on heparin infusion -patient is now having hemoptysis hence anticoagulation on hold -AFib is currently rate controlled Continue to monitor (4) Insulin dependent diabetes mellitus: Code(s): E11.9 - Type 2 diabetes mellitus without complications; Z79.4 - retirement (current) use of insulin Status: Chronic Assessment and Plan: Accu-Cheks and sliding scale insulin (5) Dyslipidemia: Code(s): E78.5 - Hyperlipidemia, unspecified Status: Chronic Assessment and Plan: Continue atorvastatin (6) Severe pulmonary arterial systolic hypertension: Code(s): I27.21 - Secondary pulmonary arterial hypertension Status: Chronic Assessment and Plan: Chronic (7) COPD (chronic obstructive pulmonary disease): Qualifiers: COPD type: emphyse
[2022-02-20 16:21] LABS: Glucose Point of Care 275 mg/dl (65-105)
--- NOTE | 2022-02-20 16:51 | PM.PNPUL ---
Progress Note: A&P Assessment and Plan (1) Pneumonia: Code(s): J18.9 - Pneumonia, unspecified organism Status: Acute Assessment and Plan: COPD, septic shock, pneumonia, had awake bronchoscopy yesterday to improve Left sided white out. Initial WBC 30.5k, bandemia 22%, FRANCES creat 1.70, lactic acidosis 6.0. Fluid resuscitated and treated with Levophed for hypotension; left lung infiltrate and consolidation with a proximal left mainstem obstruction from a mucous plug or cancer. 02/16 Blood cultures are negative, COVID RT PCR negative, influenza swab negative. I will order urine pneumococcal antigen, urine Legionella antigen, mycoplasma IgM and an extended respiratory pathogen panel. Agree with vancomycin, cefepime and Levaquin all started 02/15. For possible mucus plugging, patient is on nebulized levalbuterol, ipratropium, budesonide, Mucomyst and dornase venkat. continue chest physiotherapy and I will order a Cornet flutter valve. patient is currently on Levophed and high-flow nasal cannula with adequate oxygenation. A bronchoscopy at this time would certainly require and result in mechanical ventilation post procedure. favor aggressive leak treating possible mucous plugging for the next 24-48 hours in hopes of avoiding mechanical ventilation. Repeat chest x-ray on 02/17. 02/17 Patient tells me he continues to improve. He is off Levophed. His white blood cell count is 12.4, his creatinine is normalized to 1.0. Patient states he has cough with some hemoptysis. He remains on high-flow nasal cannula 60 L and 66% FiO2 with saturations 90%. His chest x-ray demonstrates continued white out of the left hemithorax with right lower lobe increasing infiltrate. Patient has continued whiteout of the left hemithorax after 48 hours of maximal medical therapy and I recommended bronchoscopy to the patient. patient and were in the room. Patient states that he does not want to be on a ventilator and the is in agreement. Bronchoscopy would certainly require mechanical ventilation at this point. Therefore he declined this procedure. Continue vanc, cefepime and Levaquin. Continue nebulized levalbuterol, ipratropium, budesonide, Mucomyst and dornase venkat. continue chest physiotherapy and I will order a Cornet flutter valve. patient is on a home noninvasive ventilator and His home machine was attempted but adequate oxygenation could not be achieved and he was placed on a hospital BiPAP machine. He tolerated the hospital BiPAP machine rate of 16, pressures 18/7 with tidal volumes 470-700 and 70% FiO2 with saturations 93-100%. The patient stated that the settings feel similar to his home machine. 02/18 patient continues to improve. He remains off Levophed. White blood cell count 8.6, creatinine 0.8. Patient remains on high-flow nasal cannula 60 L and 62% with saturations 98%. Patient wore hospital BiPAP last night said that this felt similar to his home noninvasive ventilator. Chest x-ray with continued white out of the left hemithorax. Patient continues with white out of the left hemithorax despite 72 hours of vanc, cefepime and Levaquin. Continue nebulized levalbuterol, ipratropium, budesonide, Mucomyst, dornase, CPT, Cornet flutter valve. patient is DNR DNI and does not ever want to be placed on a ventilator. I have talked to him about the possibility of a awake bronchoscopy through the nose possibly through the mouth and I will attempt to see if we can oxygenate him adequately and consider performing this procedure on 02/19/2022. 02/19 patient unchanged. White blood cell count 7.4, creatinine 0.8. Patient remains on BIPAP 50% at night and high-flow nasal cannula 60 L and 62% throughout day. Patient wore hospital BiPAP last night said that this felt similar to his home noninvasive ventilator. Chest x-ray with continued white out of the left hemithorax. Sputum with scant growth of pneumococcal pneumonia. Blood c
[2022-02-20 18:59] LABS: Mycoplasma IgM Antibody Titer 78 U/mL (<770)
[2022-02-20 23:48] LABS: Glucose Point of Care 209 mg/dl (65-105)
[2022-02-21] VITALS (26 sets, daily range): BP systolic 108–144; BP diastolic 69–125; PULSE 69–105; RESP 18–27; TEMP 36–37.1; O2SAT 94–100
[2022-02-21] MEDS: IPRATROPIUM BR 0.02% INH SOLN 0.5 MG/2.5 ML VIAL INHALATION ×4 (02:04→21:32)
[2022-02-21] MEDS: LEVALBUTEROL NEB 1.25 MG/3 ML 0.63 MG INHALATION ×4 (02:05→21:33)
[2022-02-21] MEDS: ACETYLCYSTEINE 20% INHAL SOLN 800 MG/4 ML VIAL 200 MG INHALATION ×4 (05:34→21:40)
[2022-02-21] MEDS: CENTRAL LINE FLUSH 10 ML IV PUSH ×3 (06:07→20:12)
[2022-02-21] MEDS: CENTRAL LINE FLUSH 20 ML IV PUSH (06:07)
[2022-02-21 06:32] LABS: Estimated CRCL calculation 114 ml/min; Estimated Glomerular Filt Rate > 60
[2022-02-21] MEDS: BUDESONIDE RESPULE NEB 0.5 MG/2 ML AMP INHALATION ×2 (07:36→21:41)
[2022-02-21] MEDS: DORNASE ALFA INH SOLN 1 MG/ML 2.5 ML AMP 2.5 MG INHALATION ×2 (07:36→21:33)
[2022-02-21 07:51] LABS: Glucose Point of Care 232 mg/dl (65-105)
[2022-02-21] MEDS: INSULIN ASPART (*BKC) 100 UNITS/ML SUB-Q ×3 (07:53→16:30)
[2022-02-21] MEDS: INSULIN GLARGINE (*BKC) 100 UNITS/ML 10 UNITS SUB-Q (07:54)
[2022-02-21] MEDS: DIGOXIN TAB 125 MCG TABLET PO (10:01)
[2022-02-21] MEDS: ATORVASTATIN 10 MG TABLET PO (10:01)
[2022-02-21] MEDS: ASPIRIN 81 MG CHEWABLE TABLET PO (10:01)
[2022-02-21] MEDS: METOPROLOL TARTRATE 50 MG TAB PO ×2 (10:02→20:11)
[2022-02-21 11:34] LABS: Glucose Point of Care 300 mg/dl (65-105)
--- NOTE | 2022-02-21 14:22 | PM.IMPN ---
Progress Note: A&P Assessment and Plan (1) Septic shock: Code(s): A41.9 - Sepsis, unspecified organism; R65.21 - Severe sepsis with septic shock Status: Acute Assessment and Plan: Patient presented with shortness of breath, hypotension, elevated lactic acid, acute on chronic kidney injury -patient was given 2 L IV fluids in the ER and started on IV fluids -central venous catheter was placed and patient was started on Levophed now currently off . Blood pressure stable -continue albumin -lactic acid and monitor urine output 02/21/2022 interval history: No overnight events. He has been off Levophed. Breathing is better on high-flow nasal cannula Chest x-ray showed Persistent complete opacification of the left hemithorax with cut off at the left mainstem bronchus and without associated volume loss which could represent pleural effusion, pneumonia, malignancy or some combination thereof with likely associated atelectasis, on 02/19 patient had a modify bronchoscopy in ICU at the bedside through the nose and patient found to mucus plugs and were aspirated and patient is found to have a erythematosus with some area of hemorrhage, subcarinal washing were sent for culture, which is growing yeast, patient be seen by dealer compliance representative and further recommendation to follow, today patient states since the procedure is feeling lot much better and able to breathe easier, will follow-up on culture, patient will be seen by dealer compliance representative, will continue to monitor and further recommendation to follow. (2) Pneumonia: Code(s): J18.9 - Pneumonia, unspecified organism Status: Acute Assessment and Plan: 02/15/2022 chest x-ray: New complete opacification of the left hemithorax 02/15/2022 CT scan of the chest: 1. Stricturing and soft tissue density of the left mainstem bronchus with associated near complete collapse of the left lung and postobstructive pneumonia. Findings could reflect inflammation and mucous plugging versus malignancy. Bronchoscopy is recommended. 2. Cardiomegaly.3. Chronic mediastinal lymphadenopathy with slight worsening, reactive versus metastatic. 4. Cirrhosis. Left lung pneumonia with possible postobstructive component from airway mass Patient seen by Pulmonary Continue vancomycin cefepime and Levaquin Continue Mucomyst, Pulmozyme and chest PT to try to mobilize secretions Patient is trying to lay on his right side On Airvo. BiPAP ordered for night and p.r.n.. Patient refused to wear it last night Continue bronchodilators, Xopenex and Atrovent Patient will eventually need bronchoscopy per this time his respiratory status now allow bronchoscopy without intubation and mechanical vent. Patient also on anticoagulation with will preclude any biopsy Pulmonary been consulted Next x-ray with persistent complete opacification of left hemothorax. Hiatus for requiring intubation and mechanical ventilation he proceeded with bronchoscopy. And hence bronchoscopy deferred at this time (3) Chronic atrial fibrillation: Code(s): I48.20 - Chronic atrial fibrillation, unspecified Status: Chronic Assessment and Plan: Patient with history of chronic atrial fibrillation on Eliquis, -continue aspirin -patient was started on heparin infusion -patient is now having hemoptysis hence anticoagulation on hold -AFib is currently rate controlled Continue to monitor (4) Insulin dependent diabetes mellitus: Code(s): E11.9 - Type 2 diabetes mellitus without complications; Z79.4 - longterm (current) use of insulin Status: Chronic Assessment and Plan: Accu-Cheks and sliding scale insulin (5) Dyslipidemia: Code(s): E78.5 - Hyperlipidemia, unspecified Status: Chronic Assessment and Plan: Continue atorvastatin (6) Severe pulmonary arterial systolic hypertension: Code(s): I27.21 - Secondary pulmonary arterial hypertension Status: Chronic Assessment and Plan: C
[2022-02-21] MEDS: ONDANSETRON HCL ODT 4 MG TABLET PO (16:27)
[2022-02-21 16:31] LABS: Glucose Point of Care 295 mg/dl (65-105)
[2022-02-21 19:53] LABS: Glucose Point of Care 191 mg/dl (65-105)
[2022-02-21] MEDS: APIXABAN 5 MG TABLET PO (21:22)
[2022-02-22] VITALS (25 sets, daily range): BP systolic 108–140; BP diastolic 42–128; PULSE 71–103; RESP 16–28; TEMP 36.2–37.1; O2SAT 96–100
[2022-02-22 00:12] LABS: Glucose Point of Care 219 mg/dl (65-105)
[2022-02-22] MEDS: CENTRAL LINE FLUSH 20 ML IV PUSH ×2 (00:29→05:14)
[2022-02-22 01:21] LABS: Vancomycin Trough 25.5 ug/mL (10.0-20.0)
[2022-02-22] MEDS: IPRATROPIUM BR 0.02% INH SOLN 0.5 MG/2.5 ML VIAL INHALATION ×4 (01:45→21:01)
[2022-02-22] MEDS: ACETYLCYSTEINE 20% INHAL SOLN 800 MG/4 ML VIAL 200 MG INHALATION ×2 (01:45→07:44)
[2022-02-22] MEDS: LEVALBUTEROL NEB 1.25 MG/3 ML 0.63 MG INHALATION ×4 (01:45→21:00)
[2022-02-22] MEDS: CENTRAL LINE FLUSH 10 ML IV PUSH ×3 (05:14→20:40)
[2022-02-22 05:31] LABS: Hematocrit 30.9 % (42.0-52.0); Hemoglobin 9.7 g/dL (14.0-18.0); Mean Corpuscular HGB Conc 31.4 g/dl (32-36); Mean Corpuscular Hemoglobin 28.1 pg (26-34); Mean Corpuscular Volume 89.6 fl (80-100); Mean Platelet Volume 10.6 fl (7.4-10.4); Platelet Count Result 213 k/mm3 (150-375); Red Blood Count 3.45 M/mm3 (4.6-6.20); Red Cell Distribution Width 16.7 % (11.5-14.5); White Blood Count 4.6 K/mm3 (4.5-10.0)
[2022-02-22 05:43] LABS: Anion Gap 8 mmol/L (8-16); Blood Urea Nitrogen 25 mg/dL (9-20); Calcium 8.1 mg/dL (8.4-10.2); Carbon Dioxide 25 mmol/L (22-30); Chloride 105 mmol/L (98-107); Estimated CRCL calculation 99 ml/min; Estimated Glomerular Filt Rate > 60; Glucose 236 mg/dL (65-110); Potassium 4.7 mmol/L (3.4-5.0); Sodium 138 mmol/L (137-145)
[2022-02-22] MEDS: DORNASE ALFA INH SOLN 1 MG/ML 2.5 ML AMP 2.5 MG INHALATION (07:44)
[2022-02-22] MEDS: BUDESONIDE RESPULE NEB 0.5 MG/2 ML AMP INHALATION ×2 (07:44→21:01)
[2022-02-22] MEDS: METOPROLOL TARTRATE 50 MG TAB PO ×2 (08:52→20:40)
[2022-02-22] MEDS: ASPIRIN 81 MG CHEWABLE TABLET PO (08:52)
[2022-02-22] MEDS: DIGOXIN TAB 125 MCG TABLET PO (08:52)
[2022-02-22] MEDS: APIXABAN 5 MG TABLET PO ×2 (08:52→20:40)
[2022-02-22] MEDS: INSULIN ASPART (*BKC) 100 UNITS/ML SUB-Q ×3 (08:53→16:36)
[2022-02-22] MEDS: INSULIN GLARGINE (*BKC) 100 UNITS/ML 10 UNITS SUB-Q (08:54)
[2022-02-22] MEDS: ATORVASTATIN 10 MG TABLET PO (08:56)
[2022-02-22 11:30] LABS: Glucose Point of Care 268 mg/dl (65-105)
[2022-02-22 11:43] LABS: Glucose Point of Care 255 mg/dl (65-105)
--- NOTE | 2022-02-22 14:25 | P.PNPL_ITS ---
Progress Note: A&P Assessment and Plan (1) Pneumonia: Code(s): J18.9 - Pneumonia, unspecified organism Status: Acute Assessment and Plan: Patient with a see history of COPD and presents now with septic shock from left-sided pneumonia. Patient presented with a leukocytosis 30.5, bandemia 22%, acute kidney injury with creatinine of 1.70, lactic acidosis of 6.0. Patient was fluid resuscitated and treated with Levophed for hypotension. Imaging demonstrates left lung infiltrate and consolidation with a proximal left mainstem obstruction from a mucous plug or cancer. 02/16 Blood cultures are negative, COVID RT PCR negative, influenza swab negative. I will order urine pneumococcal antigen, urine Legionella antigen, mycoplasma IgM and an extended respiratory pathogen panel. Agree with vancomycin , cefepime and Levaquin all started 02/15. For possible mucus plugging, patient is on nebulized levalbuterol, ipratropium, budesonide, Mucomyst and dornase venkat. continue chest physiotherapy and I will order a Cornet flutter valve. patient is currently on Levophed and high-flow nasal cannula with adequate oxygenation. A bronchoscopy at this time would certainly require and result in mechanical ventilation post procedure. favor aggressive leak treating possible mucous plugging for the next 24-48 hours in hopes of avoiding mechanical ventilation. Repeat chest x-ray on 02/17. 02/17 Patient tells me he continues to improve. He is off Levophed. His white blood cell count is 12.4, his creatinine is normalized to 1.0. Patient states he has cough with some hemoptysis. He remains on high-flow nasal cannula 60 L and 66% FiO2 with saturations 90%. His chest x-ray demonstrates continued white out of the left hemithorax with right lower lobe increasing infiltrate. Patient has continued whiteout of the left hemithorax after 48 hours of maximal medical therapy and I recommended bronchoscopy to the patient. patient and were in the room. Patient states that he does not want to be on a ventilator and the is in agreement. Bronchoscopy would certainly require mechanical ventilation at this point. Therefore he declined this procedure. Continue vanc, cefepime and Levaquin. Continue nebulized levalbuterol, ipratropium, budesonide, Mucomyst and dornase venkat. continue chest physiotherapy and I will order a Cornet flutter valve. patient is on a home noninvasive ventilator and His home machine was attempted but adequate oxygenation could not be achieved and he was placed on a hospital BiPAP machine. He tolerated the hospital BiPAP machine rate of 16, pressures 18/7 with tidal volumes 470-700 and 70% FiO2 with saturations 93-100%. The patient stated that the settings feel similar to his home machine. 02/18 patient continues to improve. He remains off Levophed. White blood cell count 8.6, creatinine 0.8. Patient remains on high-flow nasal cannula 60 L and 62% with saturations 98%. Patient wore hospital BiPAP last night said that this felt similar to his home noninvasive ventilator. Chest x-ray with continued white out of the left hemithorax. patient continues with white out of the left hemithorax despite 72 hours of vanc, cefepime and Levaquin. Continue nebulized levalbuterol, ipratropium, budesonide, Mucomyst, dornase, CPT, Cornet flutter valve. patient is DNR DNI and does not ever want to be placed on a ventilator. I have talked to him about the possibility of a awake bronchoscopy through the nose possibly through the mouth and I will attempt to see if we can oxygenate him adequately and consider performing this procedure on 02/19/2022. 02/19 patient unchanged. White blood cell count 7.4, c
[2022-02-22 17:04] LABS: Glucose Point of Care 237 mg/dl (65-105)
--- NOTE | 2022-02-22 18:12 | PM.IMPN ---
Progress Note: A&P Assessment and Plan (1) Septic shock: Code(s): A41.9 - Sepsis, unspecified organism; R65.21 - Severe sepsis with septic shock Status: Acute Assessment and Plan: Patient presented with shortness of breath, hypotension, elevated lactic acid, acute on chronic kidney injury -patient was given 2 L IV fluids in the ER and started on IV fluids -central venous catheter was placed and patient was started on Levophed now currently off . Blood pressure stable -continue albumin -lactic acid and monitor urine output 02/22/2022 interval history: No overnight events. He has been off Levophed. Breathing is better on high-flow nasal cannula Chest x-ray showed Persistent complete opacification of the left hemithorax with cut off at the left mainstem bronchus and without associated volume loss which could represent pleural effusion, pneumonia, malignancy or some combination thereof with likely associated atelectasis, on 02/19 patient had a modify bronchoscopy in ICU at the bedside through the nose and patient found to mucus plugs and were aspirated and patient is found to have a erythematosus with some area of hemorrhage, subcarinal washing were sent for culture, which is growing yeast, patient be seen by chief ultrasound technologist and further recommendation to follow, today patient states since the procedure is feeling lot much better and able to breathe easier, patient uses home noninvasive ventilator, will follow-up on culture, patient will be seen by chief ultrasound technologist, will continue to monitor and further recommendation to follow (2) Pneumonia: Code(s): J18.9 - Pneumonia, unspecified organism Status: Acute Assessment and Plan: 02/15/2022 chest x-ray: New complete opacification of the left hemithorax 02/15/2022 CT scan of the chest: 1. Stricturing and soft tissue density of the left mainstem bronchus with associated near complete collapse of the left lung and postobstructive pneumonia. Findings could reflect inflammation and mucous plugging versus malignancy. Bronchoscopy is recommended. 2. Cardiomegaly.3. Chronic mediastinal lymphadenopathy with slight worsening, reactive versus metastatic. 4. Cirrhosis. Left lung pneumonia with possible postobstructive component from airway mass Patient seen by Pulmonary Continue vancomycin cefepime and Levaquin Continue Mucomyst, Pulmozyme and chest PT to try to mobilize secretions Patient is trying to lay on his right side On Airvo. BiPAP ordered for night and p.r.n.. Patient refused to wear it last night Continue bronchodilators, Xopenex and Atrovent Patient will eventually need bronchoscopy per this time his respiratory status now allow bronchoscopy without intubation and mechanical vent. Patient also on anticoagulation with will preclude any biopsy Pulmonary been consulted Next x-ray with persistent complete opacification of left hemothorax. Hiatus for requiring intubation and mechanical ventilation he proceeded with bronchoscopy. 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
[2022-02-22 20:04] LABS: Glucose Point of Care 253 mg/dl (65-105)
[2022-02-23] VITALS (21 sets, daily range): BP systolic 107–145; BP diastolic 74–77; PULSE 72–93; RESP 18–112; TEMP 36.6–36.7; O2SAT 86–100
[2022-02-23] MEDS: CENTRAL LINE FLUSH 10 ML IV PUSH (05:25)
[2022-02-23 05:40] LABS: Anion Gap 10 mmol/L (8-16); Blood Urea Nitrogen 26 mg/dL (9-20); Calcium 8.1 mg/dL (8.4-10.2); Carbon Dioxide 25 mmol/L (22-30); Chloride 104 mmol/L (98-107); Estimated CRCL calculation 99 ml/min; Estimated Glomerular Filt Rate > 60; Glucose 229 mg/dL (65-110); Potassium 4.8 mmol/L (3.4-5.0); Sodium 139 mmol/L (137-145)
[2022-02-23 06:26] LABS: Hematocrit 30.4 % (42.0-52.0); Hemoglobin 9.3 g/dL (14.0-18.0); Mean Corpuscular HGB Conc 30.6 g/dl (32-36); Mean Corpuscular Hemoglobin 27.1 pg (26-34); Mean Corpuscular Volume 88.6 fl (80-100); Mean Platelet Volume 11.3 fl (7.4-10.4); Platelet Count Result 244 k/mm3 (150-375); Red Blood Count 3.43 M/mm3 (4.6-6.20); Red Cell Distribution Width 16.4 % (11.5-14.5); White Blood Count 4.2 K/mm3 (4.5-10.0)
[2022-02-23] MEDS: INSULIN ASPART (*BKC) 100 UNITS/ML SUB-Q ×2 (08:33→12:16)
[2022-02-23] MEDS: INSULIN GLARGINE (*BKC) 100 UNITS/ML 10 UNITS SUB-Q (08:34)
[2022-02-23] MEDS: ASPIRIN 81 MG CHEWABLE TABLET PO (08:35)
[2022-02-23] MEDS: DIGOXIN TAB 125 MCG TABLET PO (08:35)
[2022-02-23] MEDS: METOPROLOL TARTRATE 50 MG TAB PO (08:35)
[2022-02-23] MEDS: ATORVASTATIN 10 MG TABLET PO (08:35)
[2022-02-23 08:36] LABS: Glucose Point of Care 286 mg/dl (65-105)
[2022-02-23 08:40] LABS: Alveolar/Arterial O2 Gradient 240.4 mmHg; Base Excess ABG 0.6 mEq/l (+/-2.0); Fractional Inspired Oxygen 52 %; HCO3 ABG 25.7 mEq/l (22.0-26.0); Oxygen Content ABG 15.3 %vol (16.0-22.0); PCO2 ABG 43.2 mmHg (35.0-45.0); PO2 FiO2 Ratio Arterial Blood 1.58 %; Total Hemoglobin 11.4 g/dL (12.0-18.0); pH ABG 7.393 (7.350-7.450)
[2022-02-23 08:41] LABS: Device OTHER DEVICE; Site Drawn RIGHT BRACHIAL
--- NOTE | 2022-02-23 10:42 | PCRCNOTE ---
Window of time for administration has passed. See next scheduled administration.
--- NOTE | 2022-02-23 11:58 | HOMEO2EVAL ---
Evaluation was performed at [facility] Home Oxygen Evaluation RC: Home Oxygen (O2) Evaluation Start: 02/23/22 09:15 Freq: ONCE Status: Active Protocol: RPE Activity Type Activity Date Activity User E-sign Co-sign Detail Recorded Client Recorded Date Recorded By Document 02/23/22 11:40 RAHAT [email or web address] 02/23/22 11:58 RAHAT Document 02/23/22 11:41 RAHAT [email or web address] 02/23/22 11:58 RAHAT Document 02/23/22 11:42 RAHAT [email or web address] 02/23/22 11:58 RAHAT Document 02/23/22 11:50 RAHAT [email or web address] 02/23/22 11:58 RAHAT Document 02/23/22 11:55 RAHAT [email or web address] 02/23/22 11:58 RAHAT 02/23/22 02/23/22 02/23/22 11:40 11:41 11:42 Home O2 Evaluation [Oxygen] -Test Phase Resting Resting Resting -Oxygen Delivery Nasal Cannula Nasal Cannula Nasal Cannula -Oxygen Flow Rate (L/min) 2 3 4 [Pulse Oximetry] -Pulse Oximetry (90-100 %) 87 L 88 L 95 [Pulse Rate] -Pulse Rate (60-100 beats/min) 74 [Comments] -Home Oxygen Evaluation Comments [Charges] -Treatment Charges O2 Evaluation - Inpatient 02/23/22 02/23/22 11:50 11:55 Home O2 Evaluation [Oxygen] -Test Phase Exercise Resting -Oxygen Delivery Nasal Cannula Nasal Cannula -Oxygen Flow Rate (L/min) 4 4 [Pulse Oximetry] -Pulse Oximetry (90-100 %) 90 94 [Pulse Rate] -Pulse Rate (60-100 beats/min) 93 81 [Comments] -Home Oxygen Evaluation Comments PT REQUIRES 4 L AT REST AND WITH EXERTION [Charges] -Treatment Charges
--- NOTE | 2022-02-23 11:58 | PCRCNOTE ---
HOME O2 EVAL DONE, PT REQUIRES 4 L AT REST AND WITH EXERTION, WELL 7 L BLEED IN WITH TRILOGY HOME UNIT. PT HAS ALL REQUIRED HOME OXYGEN EQUIPMENT
[2022-02-23 12:00] LABS: Glucose Point of Care 255 mg/dl (65-105)
--- NOTE | 2022-02-23 13:12 | PM.DS ---
DS: Admitting Diagnosis Discharge Date 02/23/2022 Admitting Diagnosis low blood pressure DS: Discharge Diagnosis Discharge Diagnosis (1) Septic shock: Code(s): A41.9 - Sepsis, unspecified organism; R65.21 - Severe sepsis with septic shock Status: Acute Assessment and Plan: Patient presented with shortness of breath, hypotension, elevated lactic acid, acute on chronic kidney injury -patient was given 2 L IV fluids in the ER and started on IV fluids -central venous catheter was placed and patient was started on Levophed now currently off . Blood pressure stable -continue albumin -lactic acid and monitor urine output 02/22/2022 interval history: No overnight events. He has been off Levophed. Breathing is better on high-flow nasal cannula Chest x-ray showed Persistent complete opacification of the left hemithorax with cut off at the left mainstem bronchus and without associated volume loss which could represent pleural effusion, pneumonia, malignancy or some combination thereof with likely associated atelectasis, on 02/19 patient had a modify bronchoscopy in ICU at the bedside through the nose and patient found to mucus plugs and were aspirated and patient is found to have a erythematosus with some area of hemorrhage, subcarinal washing were sent for culture, which is growing yeast, patient be seen by [facility] and further recommendation to follow, today patient states since the procedure is feeling lot much better and able to breathe easier, patient uses home noninvasive ventilator, will follow-up on culture, patient will be seen by [facility], will continue to monitor and further recommendation to follow (2) Pneumonia: Code(s): J18.9 - Pneumonia, unspecified organism Status: Acute Assessment and Plan: 02/15/2022 chest x-ray: New complete opacification of the left hemithorax 02/15/2022 CT scan of the chest: 1. Stricturing and soft tissue density of the left mainstem bronchus with associated near complete collapse of the left lung and postobstructive pneumonia. Findings could reflect inflammation and mucous plugging versus malignancy. Bronchoscopy is recommended. 2. Cardiomegaly.3. Chronic mediastinal lymphadenopathy with slight worsening, reactive versus metastatic. 4. Cirrhosis. Left lung pneumonia with possible postobstructive component from airway mass Patient seen by Pulmonary Continue vancomycin cefepime and Levaquin Continue Mucomyst, Pulmozyme and chest PT to try to mobilize secretions Patient is trying to lay on his right side On Airvo. BiPAP ordered for night and p.r.n.. Patient refused to wear it last night Continue bronchodilators, Xopenex and Atrovent Patient will eventually need bronchoscopy per this time his respiratory status now allow bronchoscopy without intubation and mechanical vent. Patient also on anticoagulation with will preclude any biopsy Pulmonary been consulted Next x-ray with persistent complete opacification of left hemothorax. Hiatus for requiring intubation and mechanical ventilation he proceeded with bronchoscopy. And hence bronchoscopy deferred at this time (3) Chronic atrial fibrillation: Code(s): I48.20 - Chronic atrial fibrillation, unspecified Status: Chronic Assessment and Plan: Patient with history of chronic atrial fibrillation on Eliquis, -continue aspirin -patient was started on heparin infusion -patient is now having hemoptysis hence anticoagulation on hold -AFib is currently rate controlled Continue to monitor (4) Insulin dependent diabetes mellitus: Code(s): E11.9 - Type 2 diabetes mellitus without complications; Z79.4 - MCFP (current) use of insulin Status: Chronic Assessment and Plan: Accu-Cheks and sliding scale insulin (5) Dyslipidemia: Code(s): E78.5 - Hyperlipidemia, unspecified Status: Chronic Assessment and Plan: Continue atorvastatin (6) Severe pulmonary arterial sys
[2022-02-23] MEDS: IPRATROPIUM BR 0.02% INH SOLN 0.5 MG/2.5 ML VIAL INHALATION (13:28)
[2022-02-23] MEDS: LEVALBUTEROL NEB 1.25 MG/3 ML 0.63 MG INHALATION (13:28)
--- NOTE | 2022-02-23 14:36 | HOMEO2EVAL ---
Evaluation was performed at [facility] Home Oxygen Evaluation RC: Home Oxygen (O2) Evaluation Start: 02/23/22 09:15 Freq: ONCE Status: Active Protocol: RPE Activity Type Activity Date Activity User E-sign Co-sign Detail Recorded Client Recorded Date Recorded By Document 02/23/22 11:35 RAHAT [email or web address] 02/23/22 14:35 RAHAT Document 02/23/22 11:37 RAHAT [email or web address] 02/23/22 14:35 RAHAT Document 02/23/22 11:40 RAHAT [email or web address] 02/23/22 11:58 RAHAT Document 02/23/22 11:41 RAHAT [email or web address] 02/23/22 11:58 RAHAT Document 02/23/22 11:42 RAHAT [email or web address] 02/23/22 11:58 RAHAT Document 02/23/22 11:50 RAHAT [email or web address] 02/23/22 11:58 RAHAT Document 02/23/22 11:55 RAHAT [email or web address] 02/23/22 11:58 RAHAT 02/23/22 02/23/22 02/23/22 11:35 11:37 11:40 Home O2 Evaluation [Oxygen] -Test Phase Resting Resting Resting -Oxygen Delivery Room Air Nasal Cannula Nasal Cannula -Oxygen Flow Rate (L/min) 1 2 [Pulse Oximetry] -Pulse Oximetry (90-100 %) 86 L 86 L 87 L [Pulse Rate] -Pulse Rate (60-100 beats/min) 74 [Comments] -Home Oxygen Evaluation Comments [Charges] -Treatment Charges O2 Evaluation - Inpatient 02/23/22 02/23/22 02/23/22 11:41 11:42 11:50 Home O2 Evaluation [Oxygen] -Test Phase Resting Resting Exercise -Oxygen Delivery Nasal Cannula Nasal Cannula Nasal Cannula -Oxygen Flow Rate (L/min) 3 4 4 [Pulse Oximetry] -Pulse Oximetry (90-100 %) 87 L 95 90 [Pulse Rate] -Pulse Rate (60-100 beats/min) 93 [Comments] -Home Oxygen Evaluation Comments PT REQUIRES 4 L AT REST AND WITH EXERTION [Charges] -Treatment Charges 02/23/22 11:55 Home O2 Evaluation [Oxygen] -Test Phase Resting -Oxygen Delivery Nasal Cannula -Oxygen Flow Rate (L/min) 4 [Pulse Oximetry] -Pulse Oximetry (90-100 %) 94 [Pulse Rate] -Pulse Rate (60-100 beats/min) 81 [Comments] -Home Oxygen Evaluation Comments [Charges] -Treatment Charges
--- NOTE | 2022-02-23 14:36 | PCRCNOTE ---
PT HAS [facility] FOR HOME O2 AND TRILOGY. ORDER SENT FOR HOME NEBULIZER WITH REQUEST FOR PATIENT INSTRUCT.
== END 2022-02-23 15:45 | disposition home health service (06) | DRG 871 ==
LOC: ANHED 11:05 → ANHICU 13:20 → ANHIMU 02-19 18:12
PROVIDERS: Internal Medicine; Internal Medicine Pulmonary Disease; Admitting Provider Internal Medicine; Emergency Provider Emergency Medicine; PCP Family Medicine; Visit Provider Family Medicine
PROC: 0BJ08ZZ Inspection of Tracheobronchial Tree, Via Natural or Artificial Opening Endoscopic (ICD-10-PCS; CPT 31622; principal; 2022-02-19 14:00)
DX: A41.9 Sepsis, unspecified organism (principal); I50.33 Acute on chronic diastolic (congestive) heart failure; R65.21 Severe sepsis with septic shock; J13 Pneumonia due to Streptococcus pneumoniae; J96.21 Acute and chronic respiratory failure with hypoxia; J96.22 Acute and chronic respiratory failure with hypercapnia; N39.0 Urinary tract infection, site not specified; N17.9 Acute kidney failure, unspecified; I48.20 Chronic atrial fibrillation, unspecified; I13.0 Hypertensive heart and chronic kidney disease with heart failure and stage 1 through stage 4 chronic kidney disease, or unspecified chronic kidney disease; T17.590A Other foreign object in bronchus causing asphyxiation, initial encounter; K74.60 Unspecified cirrhosis of liver; G47.33 Obstructive sleep apnea (adult) (pediatric); N18.2 Chronic kidney disease, stage 2 (mild); E11.22 Type 2 diabetes mellitus with diabetic chronic kidney disease; E66.9 Obesity, unspecified; Z68.34 Body mass index [BMI] 34.0-34.9, adult; E78.5 Hyperlipidemia, unspecified; I27.21 Secondary pulmonary arterial hypertension; J43.1 Panlobular emphysema; I35.0 Nonrheumatic aortic (valve) stenosis; Z99.81 Dependence on supplemental oxygen; Z82.49 Family history of ischemic heart disease and other diseases of the circulatory system; Z79.01 Long term (current) use of anticoagulants; Z79.4 Long term (current) use of insulin; Z83.3 Family history of diabetes mellitus; Z84.89 Family history of other specified conditions; Z87.891 Personal history of nicotine dependence; Z79.82 Long term (current) use of aspirin; Z79.84 Long term (current) use of oral hypoglycemic drugs; Z79.899 Other long term (current) drug therapy; Z66 Do not resuscitate; Z20.822 Contact with and (suspected) exposure to COVID-19
CPT/HCPCS: 36415; 36600; 71045; 71250; 80048; 80053; 80162; 80202; 81001; 82375; 82565; 82805; 82948; 83050; 83605; 83690; 83735; 83880; 84100; 84484; 85025; 85027; 85610; 85730; 86738; 87040; 87070; 87081; 87086; 87088; 87106; 87147; 87181; 87186; 87205; 87449; 87486; 87581; 87633; 87636; 87899; 93005; 94002; 94003; 94618; 94640; 94668; 94669; 94762; 96361; 96365; 97161; 97165; 97530; 97535; 99285; A9270; C1751; J0692; J1644; J1815; J1956; J2250; J3370; J3475; J7030; J7040; J7120; P9047; U0003

== ENCOUNTER 2022-11-14 11:09 | Inpatient (IN) | payer MEDICARE, SELFPAY ==
[2022-11-14] VITALS (35 sets, daily range): BP systolic 111–151; BP diastolic 62–90; PULSE 66–98; RESP 17–66; TEMP 36.4–36.8; O2SAT 90–100; BMI 33.7
--- NOTE | ~2022-11-14 | XR_ITS ---
EXAMINATION: XR chest 1V portable DATE: 11/14/2022 12:53 INDICATION: Shortness of breath and weakness TECHNIQUE: frontal view of the chest was obtained. COMPARISON: Chest radiograph dated 02/22/2022 FINDINGS: Cardiomegaly with pulmonary vascular congestion. Mild increased interstitial pattern consistent with mild pulmonary edema. There is some volume loss in the left hemithorax with opacities in the left mid and lower lung zones. This might include a small left pleural effusion. No pneumothorax or right-kaia ed pleural effusion. IMPRESSION: 1. Decreased left lung volume with opacities in the left mid and lower lung zone which could represen t atelectasis, pneumonia, small left pleural effusion or some combination thereof. 2. Cardiomegaly with pulmonary vascular congestion and mild pulmonary edema. Reviewed, dictated and finalized at location A. IMPRESSION: 1. Decreased left lung volume with opacities in the left mid and lower lung zon e which could represent atelectasis, pneumonia, small left pleural effusion or some combination thereof. 2. Cardiomegaly with pulmonary vascular congestion and mild pulmonary edema.
--- NOTE | 2022-11-14 11:24 | ECG_ITS ---
Measurements Intervals [place] Rate: 71 P: HI: 0 QRS: 11 QRSD: 91 T: 178 QT: 346 QTc: 378 Interpretive Statements ATRIAL FIBRILLATION ST DEVIATION AND MODERATE T-WAVE ABNORMALITY, CONSIDER ANTEROLATERAL ISCHEMIA [-0.1+ mV T WAVE IN V3-V6] verses LVH COMPARED TO ECG 02/15/2022 11:14:09 NO SIGNIFICANT CHANGES Electronically Signed On 11-14-2022 14:55:05 CDT by Thalia Cunningham M.D.
--- NOTE | 2022-11-14 11:51 | ED.GENADULT ---
HPI - General Adult General Chief complaint: Shortness of Breath/Dyspnea Stated complaint: RESP DISTRESS Time Seen by Provider: 11/14/22 11:15 History of Present Illness HPI narrative: 72-year-old male with history of COPD CHF presented the emergency department for evaluation of worsening shortness of breath over the course of the last few days. Patient states he has had increased cough congestion. Patient is normally on 4 L of oxygen by nasal cannula. Patient states he did have desaturation while to 60s and 70s while still on his 4 L. Patient reports he has had at least a pound of water weight gain recently. Related Data Home Medications Medication Instructions Recorded Confirmed aspirin 81 mg chewable tablet 81 mg PO DAILY 02/20/19 11/14/22 vitamin B complex (B 1,000 tablet PO QPM 02/20/19 11/14/22 Complex-Vitamin B12 tablet) digoxin 125 mcg (0.125 mg) tablet 125 mcg PO DAILY 02/27/19 11/14/22 metoprolol tartrate 50 mg tablet 75 mg PO Q12H 02/27/19 11/14/22 budesonide 160 mcg-glycopyr 9 2 inh inhalation BID PRN sob 09/28/22 11/14/22 mcg-formot 4.8 mcg/actuation HFA inhaler insulin aspart 20 unit subcut DAILY 09/28/22 11/14/22 (niacinamide)(U-100) 100 unit/mL(3 mL) subcutaneous pen (Fiasp FlexTouch U-100 Insulin) insulin degludec 200 unit/mL (3 27 unit subcut DAILY 11/14/22 11/14/22 mL) subcutaneous pen (Tresiba FlexTouch U-200 insulin) Allergies Allergy/AdvReac Type Severity Reaction Status Date / Time No Known Allergies Allergy Verified 11/14/22 11:21 Review of Systems Review of Systems: All systems reviewed & are unremarkable except as noted in HPI and below PMFSH Past Medical History Medical History Aortic stenosis Arthritis of right knee Atrial fibrillation and flutter Bilateral pleural effusion Body mass index (BMI) 35 or more (04/25/18) CHF (congestive heart failure) Cholelithiasis Chronic anticoagulation Chronic atrial fibrillation Three failed cardioversions. He is on long-term anticoagulation. Chronic respiratory failure with hypoxia 2-3 L nasal cannula with rest, 3-4 L with activity. Cirrhosis CKD (chronic kidney disease), stage II COPD (chronic obstructive pulmonary disease) Dependence on nocturnal oxygen therapy Depression Diastolic congestive heart failure Echocardiogram 07/31/2018 showed diastolic dysfunction. Left ventricular size was normal with mild concentric left ventricular hypertrophy and increased left heart filling pressures with an estimated ejection fraction of 55%. Right ventricle was moderately enlarged with mild right ventricular hypokinesis. See latest echo on 06/01/2019 with an EF of 70-75% and diastolic dysfunction Dyslipidemia Erectile dysfunction Gout History of pancreatitis July 2016, secondary to passed common bile duct stone. Hyperlipidemia Hypertension Low testosterone in male Mediastinal adenopathy Obstructive sleep apnea Osteoarthritis Severe pulmonary arterial systolic hypertension Noted on echocardiogram 07/31/2018 with an estimated peak RVSP of 68 mmHg. Right ventricle was moderately enlarged with mild right ventricular hypokinesis. Testicular hypofunction Type 2 diabetes mellitus with hyperglycemia Valvular heart disease Echocardiogram 07/31/2018 with [id number] tricuspid regurgitation and possible bicuspid aortic valve. Surgical History Surgical History (Updated 11/14/22 @ 14:00 by Soha Snyder NP) Status post cataract extraction [place] teeth extracted Family History Family History Grandparent Family history of cardiovascular disease Mother High cholesterol Other Diabetes mellitus Social History Social History (Updated 11/14/22 @ 15:31 by Soha Snyder NP) Social History: The patient lives in [facility] [place] [facility] with his . He designates his , Prerna, as his surrogate decision maker and
[2022-11-14] MEDS: ALBUTEROL SULFATE NEB 2.5 MG/3 ML INH 5 MG INHALATION (12:07)
[2022-11-14 12:19] LABS: Basophils Absolute Auto 0.1 K/mm3 (0.0-0.1); Basophils Percent Auto 0.4 % (0.2-1.2); Eosinophils Absolute Auto 0.1 K/mm3 (0-0.3); Hematocrit 29.6 % (42.0-52.0); Hemoglobin 8.5 g/dL (14.0-18.0); Immature Granulocyte Absolute 0.09 K/mm3 (0.00-0.031); Immature Granulocyte Percent A 0.8 % (0-0.5); Lymphocytes Absolute Auto 1.06 K/mm3 (0.9-3.2); Lymphocytes Percent Auto 9.2 % (18.3-44.2); Mean Corpuscular HGB Conc 28.7 g/dl (32-36); Mean Corpuscular Hemoglobin 26.6 pg (26-34); Mean Corpuscular Volume 92.5 fl (80-100); Mean Platelet Volume 11.2 fl (7.4-10.4); Monocytes Percent Auto 8.4 % (2.6-8.5); Neutrophils Absolute Auto 9.3 K/mm3 (1.3-6.7); Neutrophils Percent Auto 80.2 % (45.5-73.1); Platelet Count Result 299 k/mm3 (150-375); Red Cell Distribution Width 17.3 % (11.5-14.5); White Blood Count 11.6 K/mm3 (4.5-10.0)
[2022-11-14 12:33] LABS: Alanine Aminotransferase 22 U/L (6-50); Albumin Level 3.9 g/dL (3.5-5.1); Alkaline Phosphatase 123 U/L (38-126); Anion Gap 6 mmol/L (8-16); Aspartate Amino Transferase 31 U/L (17-59); Bilirubin,Total 0.8 mg/dL (0.2-1.3); Blood Urea Nitrogen 60 mg/dL (9-20); Calcium 8.5 mg/dL (8.4-10.2); Carbon Dioxide 31 mmol/L (22-30); Chloride 101 mmol/L (98-107); Estimated CRCL calculation 71 ml/min; Estimated Glomerular Filt Rate > 60; Glucose 113 mg/dL (65-110); Potassium 6.1 mmol/L (3.4-5.0); Sodium 138 mmol/L (137-145)
[2022-11-14 12:37] LABS: NT Pro B Type Natriuretic Pept 3500 pg/mL (19.9-100)
[2022-11-14] MEDS: FUROSEMIDE INJ 40 MG/4 ML VIAL 20 MG IV PUSH (12:51)
[2022-11-14 12:56] LABS: Influenza A QL RT-PCR Negative (Negative); Influenza B QL RT-PCR Negative (Negative); RSV RNA, RT-PCR Negative (Negative); SARS-CoV-2 RNA PCR Negative (Negative)
[2022-11-14 12:56] LABS: Appearance Urine Clear (Clear); Bacteria Urine None Seen /hpf; Bilirubin Urine Negative (Negative); Blood Urine Negative (Negative); Color Urine Yellow (Yellow); Glucose Urine UA 1+ mg/dL (Negative); Ketones Urine Negative (Negative); Leukocyte Esterase Ur Negative LEU/UL (Negative); Nitrate Urine Negative (Negative); Protein Urine 1+ mg/dL (Negative); RBC Urine 0-2 /hpf (0-2); Specific Grav Ur 1.014 (1.001-1.035); Squamous Epithelial Cell Urine None seen /hpf (Few); Urobilinogen Urine 0.2 mg/dL (<2.0); WBC Urine 0-5 /hpf; pH Urine 5.5 (5.0-9.0)
[2022-11-14] MEDS: SODIUM ZIRCONIUM CYCLOSILICATE 10 GM POWD.PACK PO (12:56)
[2022-11-14] MEDS: SODIUM BICARBONATE 8.4% 50 MEQ/50 ML SYRINGE IV PUSH (12:58)
[2022-11-14] MEDS: DEXTROSE 50% 25 GM/50 ML SYRINGE IV PUSH (12:59)
[2022-11-14] MEDS: INSULIN HUMAN REGULAR (*BKC) 100 UNITS/ML IV PUSH (12:59)
[2022-11-14 13:01] LABS: Add Urine Microscopic? YES
--- NOTE | 2022-11-14 13:56 | PM.IMHP ---
H&P: HPI History of Present Illness Date/Time: 11/14/22 13:56 Chief Complaint: Shortness of breath Narrative: This is a 72-year-old male patient who has a history of congestive heart failure as well as COPD. The patient chronically wears oxygen 3-4 L daily. The patient has become more short of breath over the course of the last few days. He also has increased cough and congestion. The patient has some memory issues and his is answering questions for him. The patient's stated he has short-term memory problems. The patient took all of his medications as usual. White count is 11.6. H&H is 8.5 and 29.6. Last hemoglobin is 9.3 and they are aware that his hemoglobin has been dropping. The states that their primary care doctor has been monitoring it. His blood sugar on the lab report was 113. The patient has a continues glucose monitor and he stated that his blood sugar was over 300 when he woke up this morning. His BNP is 3500 today. He is negative for influenza a B RSV and COVID. Chest x-ray read as a following. Decreased left lung volume with opacities in the left mid and lower lung zone which could represent atelectasis, pneumonia, small left pleural effusion or some combination thereof. 2. Cardiomegaly with pulmonary vascular congestion and mild pulmonary edema. The patient was given albuterol neb treatments. His potassium level was 6.1 and is now down to 5.0. The patient had been on Bumex at home and was taking potassium supplements. The patient was given calcium gluconate, D50, and 5 units of regular insulin. He was also given sodium bicarbonate Lasix and Lokelma in the emergency room. The patient states that he is feeling much better now. He has no edema to his lower extremities. The patient is being admitted to observation status on the date of service of 11/14/2022. Review of Systems Review of Systems: All systems reviewed & are unremarkable except as noted in HPI and below Constitutional: Constitutional: Reports as per HPI and Reports no additional constitutional complaints Eyes: Eyes: Reports as per HPI and Reports no additional eye complaints ENT: Reports system reviewed and no additional complaints, except as documented and Reports Normal hearing present Cardiovascular: Cardiovascular: Reports no additional cardiovascular complaints Respiratory: Respiratory: Reports no additional respiratory complaints and Reports no additional respiratory complaints Gastrointestinal: Gastrointestinal: Reports as per HPI and Reports no additional gastrointestinal complaints Musculoskeletal: Musculoskeletal: Reports no additional musculoskeletal complaints Integumentary/Breasts: Skin/Breast: Reports system reviewed and no additional complaints, except as docu and Reports as per HPI Neurologic: Reports system reviewed and no additional complaints, except as documented, Reports as per HPI and Reports Normal hearing present Psychiatric: Psychiatric: Reports no additional psychiatric complaints and Reports as per HPI Endocrine: Endocrine: Reports no additional endocrine complaints Hematologic/Lymphatic: Hematologic/Lymphatic: Reports no additional hematologic/lymphatic complaints Allergic/Immunologic: Allergic/Immunologic: Reports no additional allergic/immunologic complaints [facility] Past Medical History Medical History Aortic stenosis Arthritis of right knee Atrial fibrillation and flutter Bilateral pleural effusion Body mass index (BMI) 35 or more (04/25/18) CHF (congestive heart failure) Cholelithiasis Chronic anticoagulation Chronic atrial fibrillation Three failed cardioversions. He is on long-term anticoagulation. Chronic respiratory failure with hypoxia 2-3 L nasal cannula with rest, 3-4 L with activity. Cirrhosis CKD (chronic kidney disease), stage II COPD (chronic obstructive pulmonary disease) Dependence on nocturnal oxygen therapy Depression Di
[2022-11-14 15:03] LABS: Anion Gap 8 mmol/L (8-16); Blood Urea Nitrogen 59 mg/dL (9-20); Carbon Dioxide 30 mmol/L (22-30); Chloride 99 mmol/L (98-107); Estimated CRCL calculation 65 ml/min; Estimated Glomerular Filt Rate > 60; Glucose 113 mg/dL (65-110); Sodium 137 mmol/L (137-145)
[2022-11-14 16:43] LABS: Basophils Percent Auto 0.3 % (0.2-1.2); Hematocrit 30.2 % (42.0-52.0); Hemoglobin 8.7 g/dL (14.0-18.0); Immature Granulocyte Absolute 0.05 K/mm3 (0.00-0.031); Immature Granulocyte Percent A 0.4 % (0-0.5); Immature Reticulocyte Fraction 37.2 % (3.0-15.9); Lymphocytes Absolute Auto 0.31 K/mm3 (0.9-3.2); Lymphocytes Percent Auto 2.8 % (18.3-44.2); Mean Corpuscular HGB Conc 28.8 g/dl (32-36); Mean Corpuscular Hemoglobin 26.3 pg (26-34); Mean Corpuscular Volume 91.2 fl (80-100); Mean Platelet Volume 10.3 fl (7.4-10.4); Monocytes Absolute Auto 0.1 K/mm3 (0.1-0.6); Monocytes Percent Auto 0.6 % (2.6-8.5); Neutrophils Absolute Auto 10.7 K/mm3 (1.3-6.7); Neutrophils Percent Auto 95.9 % (45.5-73.1); Platelet Count Result 263 k/mm3 (150-375); Red Blood Count 3.31 M/mm3 (4.6-6.20); Red Cell Distribution Width 17.4 % (11.5-14.5); Reticulocyte Hemoglobin Conten 25.5 pg (28.2-35.7); Reticulocyte Percent 3.83 % (0.7-4.3); Reticulocytes Absolute 0.13 M/mm3 (0.02-0.1); White Blood Count 11.2 K/mm3 (4.5-10.0)
[2022-11-14 16:50] LABS: Lactate Dehydrogenase 261 U/L (120-246)
[2022-11-14 16:51] LABS: Bilirubin,Total 0.9 mg/dL (0.2-1.3)
[2022-11-14 16:58] LABS: Transferrin 275 mg/dL (206-381)
--- NOTE | 2022-11-14 17:03 | ADMGEN ---
This patient, Rivas Hollingsworth, was admitted to IMU Room 231-01. Patient/family oriented to hospital policies and general routines including ID bracelet, bed and alarms, visiting hours, pain management, procedures, bathroom and other care routines, personal items, smoking policy, room service/diet, and visiting hours. Information on how to activate the Rapid Response Team has been discussed. Patient/Family are encouraged to report perceived risks to care and to ask questions if they do not understand what they are told or what they should do.
[2022-11-14 17:04] LABS: Glucose Point of Care 161 mg/dl (65-105)
[2022-11-14 17:35] LABS: Iron 35 ug/dL (49-181)
[2022-11-14 17:45] LABS: Percent Iron Saturation 8 % (20-50)
[2022-11-14 17:58] LABS: Folic Acid 17.8 ng/mL (2.76->20)
[2022-11-14] MEDS: VITAMIN B COMPLEX CAPSULE 1 CAP PO (18:12)
[2022-11-14 20:19] LABS: Glucose Point of Care 295 mg/dl (65-105)
[2022-11-14] MEDS: LEVALBUTEROL NEB 1.25 MG/3 ML 0.63 MG INHALATION (20:34)
[2022-11-14] MEDS: IPRATROPIUM BR 0.02% INH SOLN 0.5 MG/2.5 ML VIAL INHALATION (20:35)
[2022-11-14] MEDS: APIXABAN 5 MG TABLET PO (20:46)
[2022-11-14] MEDS: METOPROLOL TARTRATE 25 MG TABLET 75 MG PO (20:46)
[2022-11-14] MEDS: FUROSEMIDE INJ 40 MG/4 ML VIAL IV PUSH (20:48)
[2022-11-14] MEDS: INSULIN ASPART (*BKC) 100 UNITS/ML SUB-Q (20:48)
[2022-11-15] VITALS (28 sets, daily range): BP systolic 114–146; BP diastolic 69–90; PULSE 67–94; RESP 18–24; TEMP 36.1–37; O2SAT 95–99
--- NOTE | 2022-11-15 | ECHO_ITS ---
Patient Info Name: Rivas Hollingsworth Age: 72 years : 1950 Gender: Male Ht: 70 in Wt: 238 lbs BSA: 2.35 m2 HR: 89 bpm BP: 117 / 73 mmHg Heart Rhythm: Atrial Fibrillation Technical Quality: Fair Exam Date: 11/15/2022 11:31 AM Exam Location: [facility] Card Pulmonary Patient Status: Inpatient Admit Date: 11/15/2022 Staff Ordering Physician: Soha Snyder NP Suture Polisher: Nissa Mullins RDCS Attending Provider: David Ervin MD Referring Physician: Claudio ARMANDO; Exam Type: CA echo dop color flow w con Study Info Indications - chf Complete two-dimensional, color flow and Doppler transthoracic echocardiogram is performed with contrast to opacify the left ventricle and to improve the deliniation of the left ventricle endocardial borders. Contrast/Agitated Saline Contrast/Ag. Saline: Definity Amount: 2.00 ml Administered By: Nissa Mullins RDCS Existing IV Access: Yes IV Access Condition: patent with no signs of infiltration Summary 1. Definity contrast injected to improve visualization. 2. Normal left ventricular size with concentric hypertrophy and preserved systolic function. 3. Mildly enlarged right ventricle. 4. Severe biatrial dilation. 5. Trivial mitral regurgitation. 6. Mild aortic valve stenosis valve area 1.5 cm2. 7. Atrial fibrillation. Left Ventricle Left ventricular chamber dimension is normal. Left ventricular systolic function is normal, estimated at Empty. There is moderate concentric increased left ventricular wall thickness. Right Ventricle Right ventricular chamber dimension is mildly enlarged. Left Atria Left atrial chamber dimension is severely enlarged. Right Atria Right atrial chamber dimension is severely enlarged. Aortic Valve The aortic valve is trileaflet. There is moderate aortic valve sclerosis. There is mild aortic valve stenosis with a peak velocity of 187.33 cm/s, mean gradient of 7 mmHg, and aortic valve area of 1.35 cm2. Pulmonic Valve The pulmonic valve is not well visualized. Mitral Valve The mitral valve has normal leaflets. There is trace mitral valve regurgitation. Tricuspid Valve The tricuspid valve leaflets are normal. Pericardium/Pleural The pericardium appears normal. Aorta The aortic root size at the sinus of Valsalva is normal. Left Ventricular Outflow Tract Name Value Normal LVOT 2D LVOT Diameter 2.05 cm LVOT Doppler LVOT Peak Gradient 2 mmHg LVOT Mean Gradient 1 mmHg LVOT VTI 12.93 cm LVOT VTI/AV VTI Ratio 0.41 LVOT Stroke Volume 42.51 ml LVOT CO 4.22 l/min LVOT CI 1.80 L/min/m2 Pulmonic Valve Name Value Normal RVOT Doppler RVOT Peak Gradient 1 mmHg PV Doppler
[2022-11-15] MEDS: LEVALBUTEROL NEB 1.25 MG/3 ML 0.63 MG INHALATION ×4 (01:23→20:43)
[2022-11-15] MEDS: IPRATROPIUM BR 0.02% INH SOLN 0.5 MG/2.5 ML VIAL INHALATION ×4 (01:24→20:43)
[2022-11-15 04:43] LABS: Basophils Percent Auto 0.1 % (0.2-1.2); Hematocrit 28.7 % (42.0-52.0); Hemoglobin 8.3 g/dL (14.0-18.0); Immature Granulocyte Absolute 0.07 K/mm3 (0.00-0.031); Immature Granulocyte Percent A 0.7 % (0-0.5); Lymphocytes Percent Auto 5.8 % (18.3-44.2); Mean Corpuscular HGB Conc 28.9 g/dl (32-36); Mean Corpuscular Hemoglobin 25.9 pg (26-34); Mean Corpuscular Volume 89.4 fl (80-100); Mean Platelet Volume 10.8 fl (7.4-10.4); Monocytes Absolute Auto 0.5 K/mm3 (0.1-0.6); Monocytes Percent Auto 5.3 % (2.6-8.5); Neutrophils Percent Auto 88.1 % (45.5-73.1); Platelet Count Result 277 k/mm3 (150-375); Red Blood Count 3.21 M/mm3 (4.6-6.20); Red Cell Distribution Width 17.3 % (11.5-14.5); White Blood Count 10.3 K/mm3 (4.5-10.0)
[2022-11-15 04:58] LABS: Alanine Aminotransferase 26 U/L (6-50); Alkaline Phosphatase 119 U/L (38-126); Anion Gap 11 mmol/L (8-16); Aspartate Amino Transferase 31 U/L (17-59); Bilirubin,Total 0.9 mg/dL (0.2-1.3); Blood Urea Nitrogen 64 mg/dL (9-20); Calcium 8.6 mg/dL (8.4-10.2); Carbon Dioxide 28 mmol/L (22-30); Chloride 96 mmol/L (98-107); Estimated CRCL calculation 55 ml/min; Estimated Glomerular Filt Rate 54; Glucose 269 mg/dL (65-110); Potassium 5.1 mmol/L (3.4-5.0); Sodium 135 mmol/L (137-145)
[2022-11-15 05:07] LABS: Hemoglobin A1C 6.4 % (<5.7)
[2022-11-15 07:46] LABS: Glucose Point of Care 219 mg/dl (65-105)
[2022-11-15] MEDS: INSULIN ASPART (*BKC) 100 UNITS/ML SUB-Q ×4 (08:02→20:57)
[2022-11-15] MEDS: ASPIRIN 81 MG CHEWABLE TABLET PO (08:05)
[2022-11-15] MEDS: allopurinoL 300 MG TABLET PO (08:05)
[2022-11-15] MEDS: METOPROLOL TARTRATE 25 MG TABLET 75 MG PO ×2 (08:06→20:56)
[2022-11-15] MEDS: APIXABAN 5 MG TABLET PO ×2 (08:06→20:57)
[2022-11-15] MEDS: VENLAFAXINE HCL XR 75 MG CAP.ER.24H PO (08:06)
[2022-11-15] MEDS: DIGOXIN TAB 125 MCG TABLET PO (08:08)
[2022-11-15] MEDS: VENLAFAXINE HCL XR 75 MG CAP.ER.24H 150 MG PO (08:08)
[2022-11-15] MEDS: FUROSEMIDE INJ 40 MG/4 ML VIAL IV PUSH ×2 (08:08→20:56)
[2022-11-15] MEDS: ATORVASTATIN 10 MG TABLET PO (08:08)
[2022-11-15] MEDS: EMPAGLIFLOZIN 10 MG TABLET PO (08:09)
[2022-11-15] MEDS: FLUTICASONE/UMECLIDIN/VILANTER 100-62.5-25 MCG ELLIPTA 1 PUFF INHALATION (09:28)
[2022-11-15] MEDS: INSULIN GLARGINE (*BKC) 100 UNITS/ML 27 UNITS SUB-Q (09:38)
[2022-11-15 11:32] LABS: Glucose Point of Care 243 mg/dl (65-105)
[2022-11-15] MEDS: PERFLUTREN LIPID MICROSPHERES 1.5 ML VIAL DILUTED TO 10 ML TOTAL VOLUME IV PUSH (11:57)
[2022-11-15 15:56] LABS: Glucose Point of Care 207 mg/dl (65-105)
--- NOTE | 2022-11-15 16:30 | WPDPN ---
Progress Note: A&P Assessment and Plan (1) CHF (congestive heart failure): Code(s): I50.9 - Heart failure, unspecified Status: Acute Assessment and Plan: Echo on 09/25/2021 was read as the following?1. Definity contrast injected to improve visualization. ? 2. Left ventricular systolic function is normal, estimated at 60-65%. ? 3. Right ventricular chamber dimension is mildly enlarged. ? 4. Significant biatrial dilation. ? 5. Mild aortic valve stenosis valve area 1.7 consistent with OLIVE 6 months ago. ? 6. Moderate pulmonary hypertension. ? 7. Chronic atrial fibrillation. The patient was started on IV Lasix. Please continue to monitor renal function. Continue Jardiance and metoprolol The patient states that he is compliant with his medications. The patient states that he weighs himself often but not with specify how many days a week. The patient also states that he continues to monitor for any increase signs and symptoms of fluid overload. However the patient has been more short of breath over the last 2 days. Patient chronically wears oxygen at home. He wears oxygen at 3-4 L. the patient stated that he monitors his diet closely. 11/15/2022 interval history: 72-year-old male presented with a complaint of shortness of concerning for exacerbation of CHF is patient is BNP is elevated to 3500, patient is being diuresed with Lasix 40 mg IV b.i.d. further evaluate patient will have cardiac echo, also concern patient may have COPD and being treated with bronchodilator, patient is a poor historian unable to provide detailed review of symptom, will continue to monitor once clinically stable will have a PT OT evaluate the patient and further recommendation to follow (2) Acute hyperkalemia: Code(s): E87.5 - Hyperkalemia Status: Acute Assessment and Plan: The patient's stated that he had been taking oral supplement potassium twice a day. Please continue to monitor his potassium is now down to 5.0. (3) Hyperlipidemia LDL goal <70: Code(s): E78.5 - Hyperlipidemia, unspecified Status: Acute Assessment and Plan: Continue with atorvastatin. 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 I am going to hold his metformin while in the hospital. Accu-Cheks AC and HS with sliding scale insulin and hypoglycemic protocol. Check A1c if not performed in the last 3 months. (5) COPD (chronic obstructive pulmonary disease): Qualifiers: COPD type: emphysema Emphysema type: panlobular Qualified Code(s): J43.1 - Panlobular emphysema Code(s): J44.9 - Chronic obstructive pulmonary disease, unspecified Status: Acute Assessment and Plan: Continue with dual nebs for now. (6) Chronic atrial fibrillation: Code(s): I48.20 - Chronic atrial fibrillation, unspecified Status: Chronic Assessment and Plan: The patient is on chronic anticoagulation apixaban. The patient had undergone cardioversion 3 times without success. Continue with metoprolol. The patient is rate controlled. (7) Anemia: Code(s): D64.9 - Anemia, unspecified Status: Acute Assessment and Plan: The patient has low H&H but is lower than normal. I did order an anemia workup. Consider referring him to Hematology. (8) Gout: Qualifiers: Gout site: toe Gout etiology: idiopathic Chronicity: chronic Laterality: unspecified laterality Presence of tophus: without tophus Qualified Code(s): M1A.0790 - Idiopathic chronic gout, unspecified ankle and foot, without t
[2022-11-15] MEDS: VITAMIN B COMPLEX CAPSULE 1 CAP PO (18:46)
[2022-11-15 20:57] LABS: Glucose Point of Care 202 mg/dl (65-105)
[2022-11-16] VITALS (29 sets, daily range): BP systolic 102–161; BP diastolic 61–90; PULSE 60–82; RESP 17–20; TEMP 36.4–36.5; O2SAT 89–100
[2022-11-16] MEDS: IPRATROPIUM BR 0.02% INH SOLN 0.5 MG/2.5 ML VIAL INHALATION ×4 (02:20→20:40)
[2022-11-16] MEDS: LEVALBUTEROL NEB 1.25 MG/3 ML 0.63 MG INHALATION ×4 (02:20→20:40)
[2022-11-16 04:44] LABS: Basophils Percent Auto 0.2 % (0.2-1.2); Eosinophils Absolute Auto 0.1 K/mm3 (0-0.3); Eosinophils Percent Auto 1.3 % (0-4.4); Hematocrit 28.6 % (42.0-52.0); Hemoglobin 8.3 g/dL (14.0-18.0); Immature Granulocyte Absolute 0.07 K/mm3 (0.00-0.031); Immature Granulocyte Percent A 0.7 % (0-0.5); Lymphocytes Absolute Auto 0.85 K/mm3 (0.9-3.2); Lymphocytes Percent Auto 9.1 % (18.3-44.2); Mean Corpuscular Hemoglobin 26.1 pg (26-34); Mean Corpuscular Volume 89.9 fl (80-100); Mean Platelet Volume 10.6 fl (7.4-10.4); Monocytes Absolute Auto 1.1 K/mm3 (0.1-0.6); Monocytes Percent Auto 11.3 % (2.6-8.5); Neutrophils Absolute Auto 7.2 K/mm3 (1.3-6.7); Neutrophils Percent Auto 77.4 % (45.5-73.1); Platelet Count Result 254 k/mm3 (150-375); Red Blood Count 3.18 M/mm3 (4.6-6.20); Red Cell Distribution Width 17.4 % (11.5-14.5); White Blood Count 9.3 K/mm3 (4.5-10.0)
[2022-11-16 04:59] LABS: Magnesium 2.6 mg/dL (1.6-2.3)
[2022-11-16 05:15] LABS: Anisocytosis 1+ (NORMAL); Macrocytosis 1+ (NORMAL); Platelet Estimate Adequate (Adequate); Polychromasia 1+ (NORMAL); Schistocytes None Seen (NORMAL)
[2022-11-16 06:02] LABS: Anion Gap 7 mmol/L (8-16); Blood Urea Nitrogen 66 mg/dL (9-20); Calcium 8.3 mg/dL (8.4-10.2); Carbon Dioxide 30 mmol/L (22-30); Chloride 97 mmol/L (98-107); Estimated CRCL calculation 64 ml/min; Estimated Glomerular Filt Rate > 60; Glucose 142 mg/dL (65-110); Potassium 4.1 mmol/L (3.4-5.0); Sodium 134 mmol/L (137-145)
[2022-11-16 07:44] LABS: Glucose Point of Care 147 mg/dl (65-105)
[2022-11-16] MEDS: FLUTICASONE/UMECLIDIN/VILANTER 100-62.5-25 MCG ELLIPTA 1 PUFF INHALATION (09:00)
[2022-11-16] MEDS: allopurinoL 300 MG TABLET PO (10:18)
[2022-11-16] MEDS: EMPAGLIFLOZIN 10 MG TABLET PO (10:19)
[2022-11-16] MEDS: APIXABAN 5 MG TABLET PO ×2 (10:19→20:20)
[2022-11-16] MEDS: ASPIRIN 81 MG CHEWABLE TABLET PO (10:19)
[2022-11-16] MEDS: DIGOXIN TAB 125 MCG TABLET PO (10:19)
[2022-11-16] MEDS: METOPROLOL TARTRATE 25 MG TABLET 75 MG PO ×2 (10:20→20:20)
[2022-11-16] MEDS: VENLAFAXINE HCL XR 75 MG CAP.ER.24H 150 MG PO (10:21)
[2022-11-16] MEDS: VENLAFAXINE HCL XR 75 MG CAP.ER.24H PO (10:21)
[2022-11-16] MEDS: FUROSEMIDE INJ 40 MG/4 ML VIAL IV PUSH ×2 (10:22→20:20)
[2022-11-16] MEDS: ATORVASTATIN 10 MG TABLET PO (10:22)
[2022-11-16] MEDS: INSULIN GLARGINE (*BKC) 100 UNITS/ML 27 UNITS SUB-Q (10:24)
--- NOTE | 2022-11-16 10:51 | P.CDI_ITS ---
CDI Query Clarification Request Documented history of CHF. CHF noted in the assessment and plan. Elevated BNP on 11/14/22 lab work. Bumex listed as a home medication. Patient receiving Lasix. Pulmonary edema noted on the 11/14/22 chest xray. Patient presented with weight gain, cough and congestion, and shortness of breat h with increased O2 need, from his normal 4LNC. Please specify type and acuity of heart failure if known. * Acute * Chronic * Acute on Chronic * Unknown * Systolic * Diastolic * Combined Systolic and Diastolic * Unknown <Mary Rojas RN - Last Filed: 11/16/22 10:56> Provider Comments patient has normal systolic function on recent echo, there is no mention of any abnormality with diastolic dysfunction, unable to determine etiology of CHF <Romelia Gifford MD - Last Filed: 11/30/22 19:36>
[2022-11-16 11:56] LABS: Glucose Point of Care 229 mg/dl (65-105)
[2022-11-16 11:56] LABS: Glucose Point of Care 206 mg/dl (65-105)
[2022-11-16] MEDS: INSULIN ASPART (*BKC) 100 UNITS/ML SUB-Q ×2 (12:04→16:33)
--- NOTE | 2022-11-16 15:28 | WPDPN ---
Progress Note: A&P Assessment and Plan (1) CHF (congestive heart failure): Code(s): I50.9 - Heart failure, unspecified Status: Acute Assessment and Plan: Echo on 09/25/2021 was read as the following?1. Definity contrast injected to improve visualization. ? 2. Left ventricular systolic function is normal, estimated at 60-65%. ? 3. Right ventricular chamber dimension is mildly enlarged. ? 4. Significant biatrial dilation. ? 5. Mild aortic valve stenosis valve area 1.7 consistent with OLIVE 6 months ago. ? 6. Moderate pulmonary hypertension. ? 7. Chronic atrial fibrillation. The patient was started on IV Lasix. Please continue to monitor renal function. Continue Jardiance and metoprolol The patient states that he is compliant with his medications. The patient states that he weighs himself often but not with specify how many days a week. The patient also states that he continues to monitor for any increase signs and symptoms of fluid overload. However the patient has been more short of breath over the last 2 days. Patient chronically wears oxygen at home. He wears oxygen at 3-4 L. the patient stated that he monitors his diet closely. 11/16/2022 interval history: 72-year-old male presented with a complaint of shortness of concerning for exacerbation of CHF is patient is BNP is elevated to 3500, patient is being diuresed with Lasix 40 mg IV b.i.d. further evaluate patient will have cardiac echo, also concern patient may have COPD and being treated with bronchodilator, today patient is more alert oriented, states feeling much better compared to when he arrived not as short of breath, will continue to monitor once clinically stable will have a PT OT evaluate the patient and further recommendation to follow (2) Acute hyperkalemia: Code(s): E87.5 - Hyperkalemia Status: Acute Assessment and Plan: The patient's stated that he had been taking oral supplement potassium twice a day. Please continue to monitor his potassium is now down to 5.0. (3) Hyperlipidemia LDL goal <70: Code(s): E78.5 - Hyperlipidemia, unspecified Status: Acute Assessment and Plan: Continue with atorvastatin. 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 I am going to hold his metformin while in the hospital. Accu-Cheks AC and HS with sliding scale insulin and hypoglycemic protocol. Check A1c if not performed in the last 3 months. (5) COPD (chronic obstructive pulmonary disease): Qualifiers: COPD type: emphysema Emphysema type: panlobular Qualified Code(s): J43.1 - Panlobular emphysema Code(s): J44.9 - Chronic obstructive pulmonary disease, unspecified Status: Acute Assessment and Plan: Continue with dual nebs for now. (6) Chronic atrial fibrillation: Code(s): I48.20 - Chronic atrial fibrillation, unspecified Status: Chronic Assessment and Plan: The patient is on chronic anticoagulation apixaban. The patient had undergone cardioversion 3 times without success. Continue with metoprolol. The patient is rate controlled. (7) Anemia: Code(s): D64.9 - Anemia, unspecified Status: Acute Assessment and Plan: The patient has low H&H but is lower than normal. I did order an anemia workup. Consider referring him to Hematology. (8) Gout: Qualifiers: Gout site: toe Gout etiology: idiopathic Chronicity: chronic Laterality: unspecified laterality Presence of tophus: without tophus Qualified Code(s): M1A.0790 - Idiopathic chronic g
[2022-11-16 15:56] LABS: Glucose Point of Care 220 mg/dl (65-105)
[2022-11-16] MEDS: VITAMIN B COMPLEX CAPSULE 1 CAP PO (18:56)
[2022-11-16 19:36] LABS: Glucose Point of Care 167 mg/dl (65-105)
[2022-11-17] VITALS (16 sets, daily range): BP systolic 119–144; BP diastolic 67–81; PULSE 67–87; RESP 18–20; TEMP 36.1–37; O2SAT 95–97
[2022-11-17] MEDS: LEVALBUTEROL NEB 1.25 MG/3 ML 0.63 MG INHALATION ×3 (02:08→13:19)
[2022-11-17] MEDS: IPRATROPIUM BR 0.02% INH SOLN 0.5 MG/2.5 ML VIAL INHALATION ×3 (02:08→13:20)
[2022-11-17 05:32] LABS: Basophils Percent Auto 0.4 % (0.2-1.2); Eosinophils Absolute Auto 0.2 K/mm3 (0-0.3); Eosinophils Percent Auto 1.7 % (0-4.4); Hemoglobin 8.9 g/dL (14.0-18.0); Immature Granulocyte Absolute 0.06 K/mm3 (0.00-0.031); Immature Granulocyte Percent A 0.7 % (0-0.5); Lymphocytes Absolute Auto 0.82 K/mm3 (0.9-3.2); Lymphocytes Percent Auto 9.1 % (18.3-44.2); Mean Corpuscular HGB Conc 28.7 g/dl (32-36); Mean Corpuscular Hemoglobin 25.9 pg (26-34); Mean Corpuscular Volume 90.4 fl (80-100); Mean Platelet Volume 10.6 fl (7.4-10.4); Monocytes Absolute Auto 1.1 K/mm3 (0.1-0.6); Monocytes Percent Auto 11.8 % (2.6-8.5); Neutrophils Absolute Auto 6.9 K/mm3 (1.3-6.7); Neutrophils Percent Auto 76.3 % (45.5-73.1); Platelet Count Result 302 k/mm3 (150-375); Red Blood Count 3.43 M/mm3 (4.6-6.20); Red Cell Distribution Width 17.5 % (11.5-14.5)
[2022-11-17 05:38] LABS: Magnesium 2.4 mg/dL (1.6-2.3)
[2022-11-17 07:57] LABS: Glucose Point of Care 151 mg/dl (65-105)
[2022-11-17] MEDS: FLUTICASONE/UMECLIDIN/VILANTER 100-62.5-25 MCG ELLIPTA 1 PUFF INHALATION (08:04)
[2022-11-17] MEDS: VENLAFAXINE HCL XR 75 MG CAP.ER.24H PO (08:16)
[2022-11-17] MEDS: VENLAFAXINE HCL XR 75 MG CAP.ER.24H 150 MG PO (08:16)
[2022-11-17] MEDS: ATORVASTATIN 10 MG TABLET PO (08:17)
[2022-11-17] MEDS: allopurinoL 300 MG TABLET PO (08:17)
[2022-11-17] MEDS: DIGOXIN TAB 125 MCG TABLET PO (08:17)
[2022-11-17] MEDS: EMPAGLIFLOZIN 10 MG TABLET PO (08:18)
[2022-11-17] MEDS: ASPIRIN 81 MG CHEWABLE TABLET PO (08:18)
[2022-11-17] MEDS: METOPROLOL TARTRATE 25 MG TABLET 75 MG PO (08:18)
[2022-11-17] MEDS: FUROSEMIDE INJ 40 MG/4 ML VIAL IV PUSH (08:19)
[2022-11-17] MEDS: APIXABAN 5 MG TABLET PO (08:19)
[2022-11-17] MEDS: INSULIN GLARGINE (*BKC) 100 UNITS/ML 27 UNITS SUB-Q (08:19)
--- NOTE | 2022-11-17 10:25 | P.CDI_ITS ---
CDI Query Clarification Request Documented history of CHF. CHF noted in the assessment and plan. Elevated BNP on 11/14/22 lab work. Bumex listed as a home medication. Patient receiving Lasix. Pulmonary edema noted on the 11/14/22 chest xray. Patient presented with weight gain, cough and congestion, and shortness of gustavo th with increased O2 need, from his normal 4L NC Please specify type and acuity of heart failure if known. * Acute * Chronic * Acute on Chronic * Unknown * Systolic * Diastolic * Combined Systolic and Diastolic * Unknown <Mary Rojas RN - Last Filed: 11/17/22 10:29> Clarified Diagnosis Clarified Diagnosis: ACUTE ON CHRONIC CHF <Kimmie Ramsey MD - Last Filed: 11/17/22 12:52>
[2022-11-17] MEDS: INSULIN ASPART (*BKC) 100 UNITS/ML SUB-Q (11:40)
[2022-11-17 11:42] LABS: Glucose Point of Care 277 mg/dl (65-105)
--- NOTE | 2022-11-17 13:47 | PM.DS ---
DS: Admitting Diagnosis Discharge Date 11/17/2022 Admitting Diagnosis 11/14/2022 DS: Discharge Diagnosis Discharge Diagnosis (1) CHF (congestive heart failure): Code(s): I50.9 - Heart failure, unspecified Status: Acute Assessment and Plan: 72-year-old male presented with a complaint of shortness of concerning for exacerbation of CHF is patient is BNP is elevated to 3500, patient is being diuresed with Lasix 40 mg IV b.i.d. further evaluate patient will have cardiac echo, also concern patient may have COPD and being treated with bronchodilator, today patient is more alert oriented, states feeling much better compared to when he arrived not as short of breath. The patient was started on IV Lasix. The patient also states that he continues to monitor for any increase signs and symptoms of fluid overload. However the patient has been more short of breath over the last 2 days. Patient chronically wears oxygen at home. He wears oxygen at 3-4 L. the patient stated that he monitors his diet closely. Pt feels much better today DC on his 4 liters of oxygen which is his baseline Recent Echo on 09/25/2021 was read as the following?1. Definity contrast injected to improve visualization. ? 2. Left ventricular systolic function is normal, estimated at 60-65%. ? 3. Right ventricular chamber dimension is mildly enlarged. ? 4. Significant biatrial dilation. ? 5. Mild aortic valve stenosis valve area 1.7 consistent with OLIVE 6 months ago. ? 6. Moderate pulmonary hypertension. ? 7. Chronic atrial fibrillation. . (2) Acute hyperkalemia: Code(s): E87.5 - Hyperkalemia Status: Acute Assessment and Plan: The patient's stated that he had been taking oral supplement potassium twice a day. Potassium is 4.1 on day of DC (3) Hyperlipidemia LDL goal <70: Code(s): E78.5 - Hyperlipidemia, unspecified Status: Acute Assessment and Plan: Continue with atorvastatin. 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 I am going to hold his metformin while in the hospital. Accu-Cheks AC and HS with sliding scale insulin and hypoglycemic protocol. Check A1c if not performed in the last 3 months. (5) COPD (chronic obstructive pulmonary disease): Qualifiers: COPD type: emphysema Emphysema type: panlobular Qualified Code(s): J43.1 - Panlobular emphysema Code(s): J44.9 - Chronic obstructive pulmonary disease, unspecified Status: Acute Assessment and Plan: Continue with dual nebs for now. (6) Chronic atrial fibrillation: Code(s): I48.20 - Chronic atrial fibrillation, unspecified Status: Chronic Assessment and Plan: The patient is on chronic anticoagulation apixaban. The patient had undergone cardioversion 3 times without success. Continue with metoprolol. The patient is rate controlled. (7) Anemia: Code(s): D64.9 - Anemia, unspecified Status: Acute Assessment and Plan: The patient has low H&H but is lower than normal. I did order an anemia workup. PCP can consider referring him to Hematology later if hb stays low. (8) Gout: Qualifiers: Gout site: toe Gout etiology: idiopathic Chronicity: chronic Laterality: unspecified laterality Presence of tophus: without tophus Qualified Code(s): M1A.0790 - Idiopathic chronic gout, unspecified ankle and foot, without tophus (tophi) Code(s): M10.9 - Gout, unspecified Status: Acute Plan Continue with allopurinol. DS: Summary Hospital Course [facility]
[2022-11-17 14:42] LABS: Albumin 3.4 g/dL (3.8-4.8); Alpha 1 Globulin 0.4 g/dL (0.2-0.3); Beta 1 Globulin 0.6 g/dL (0.4-0.6); Gamma Globulin 1.9 g/dL (0.8-1.7); Protein, Total 7.9 g/dL (6.1-8.1)
[2022-11-18 19:10] LABS: Haptoglobin 169 mg/dL (43-212)
[2022-11-19 06:33] LABS: Creatinine, Random Urine 35 mg/dL (20-320); Total Protein/Creatinine Ratio 943 mg/g creat (25-148)
[2022-11-19 20:26] LABS: Soluble Transferrin Receptor 3.11 mg/L (0.76-1.76)
== END 2022-11-17 14:27 | disposition home or self-care (01) | DRG 291 ==
LOC: ANHED 13:10 → ANHIMU 15:38
PROVIDERS: Family Medicine; Internal Medicine; Nurse Practitioner; Admitting Provider Chiropractor; Emergency Provider Emergency Medicine; PCP Family Medicine; Visit Provider Family Medicine
DX: I13.0 Hypertensive heart and chronic kidney disease with heart failure and stage 1 through stage 4 chronic kidney disease, or unspecified chronic kidney disease (principal); I50.33 Acute on chronic diastolic (congestive) heart failure; I48.20 Chronic atrial fibrillation, unspecified; J96.11 Chronic respiratory failure with hypoxia; J44.9 Chronic obstructive pulmonary disease, unspecified; E87.5 Hyperkalemia; N18.2 Chronic kidney disease, stage 2 (mild); I27.21 Secondary pulmonary arterial hypertension; I35.0 Nonrheumatic aortic (valve) stenosis; I07.1 Rheumatic tricuspid insufficiency; E11.65 Type 2 diabetes mellitus with hyperglycemia; E11.22 Type 2 diabetes mellitus with diabetic chronic kidney disease; E78.5 Hyperlipidemia, unspecified; D64.9 Anemia, unspecified; K74.60 Unspecified cirrhosis of liver; M10.9 Gout, unspecified; M19.90 Unspecified osteoarthritis, unspecified site; G47.33 Obstructive sleep apnea (adult) (pediatric); F32.A Depression, unspecified; Z20.822 Contact with and (suspected) exposure to COVID-19; Z87.891 Personal history of nicotine dependence; Z79.4 Long term (current) use of insulin; Z99.81 Dependence on supplemental oxygen; Z79.82 Long term (current) use of aspirin; Z79.01 Long term (current) use of anticoagulants
CPT/HCPCS: 36415; 71045; 80048; 80053; 81001; 82247; 82248; 82570; 82607; 82728; 82746; 82948; 83010; 83036; 83540; 83550; 83615; 83735; 83880; 84155; 84156; 84165; 84166; 84238; 84443; 84466; 85025; 85046; 86880; 87637; 93005; 94640; 96365; 96375; 99285; A9270; C8929; G0378; J0612; J1815; J1940; Q9957